=== PATIENT | male | born 1965 | race Caucasian/White ===

== ENCOUNTER 2018-04-24 14:31 | Emergency (ER) | payer BC, OTHER ==
--- OUTSIDE RECORDS SUMMARY | 2018-04-24 14:44 | XMS REPORT | Continuity of Care Document ---
:1965 External Reference #:[id number] Author Name Nilesh Cardenas M.D. Address [address] [place] [address] Care Team Providers Name Role Phone Nilesh Cardenas M.D. Primary Care Physician Unavailable Payers Type Date Identification Numbers Payment Provider Subscriber Effective: Policy Number: [id number] BC/BS [place]- Ppo Ronnie Guzman 2015 PayID: [id number] [address] [address] [place] [address] Advance Directives Description No Information Available Problems Date Description Provider Status Onset: 06/24/2011 Benign essential hypertension Nilesh Cardenas M.D. Active Onset: 06/24/2011 Chronic obstructive lung disease Nilesh Cardenas M.D. Active Onset: 06/24/2011 Gastroesophageal reflux disease Nilesh Cardenas M.D. Active Onset: 06/24/2011 Diaphragmatic hernia Nilesh Cardenas M.D. Active Onset: 09/29/2011 Essential hypertension Nilesh Cardenas M.D. Active Onset: 07/24/2016 Prediabetes Nilesh Cardenas M.D. 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 Tobacco Use Start: Unknown End: Unknown Patient is a former smoker Smoking Status Reviewed: 03/30/18 Patient is a former smoker Currently Active Patient is currently sexually active Allergies, Adverse Reactions, Alerts Description No Known Drug Allergies Medications Medication Date Status Form Strength Qnty SIG Indications Ordering Provider Metamucil Fiber 01/01 Active Packet 51.7% 1 daily Castellan os MOrly Metformin HCL 08/21 Active Tablets 1000mg 180ta 1 by mouth E11.9 bs twice a day Castellan os MOzzyDOzzy Onetouch Ultra 07/24 Active Strips 100un use two E11.9 its times a day Castellan and as os, M.D. needed Lancets 30G 07/24 Active Misc 30G 200un use two E11.9 its times a day Castellan and as os, M.D. needed Stiolto Respimat 07/02 Active Aerosol 2.5-2.5mc 4gm 2 J44.9 g/Act inhalations Castellan daily in the os, M.D. morning Cardura 07/02 Active Tablets 2mg 90tab 1 p.o every I10 s day Castellakenny os MOrly Ventolin HFA 12/27 Active Aerosol 108(90Bas 8gm inhale 2 J44.9 e) puffs by Castellan mcg/Act mouth every os, M.D. 4 hours if needed Lisinopril 10/12 Active Tablets 20mg 90tab take 1 I10 s tablet by Castellan mouth once os, M.D. daily Lansoprazole 06/18 Active Capsules 30mg 90cap take [address] s capsule by Castellan mouth once os, M.D. daily Furosemide 11/11 Hx Tablets 20mg 10tab 1 by mouth R60.0 s every day Castellan - os, M.D. 11/19 Colace 09/25 Hx Capsules 100mg 60cap 1 by mouth s twice a day Castellan - os, M.DOzzy 01/01 Lactobacillus 08/26 Hx Capsules 2 times per Nilesh Extra day Castellan - os, M.DOzzy 01/01 Cephalexin 04/06 Hx Tablets 500mg 40tab 1 by mouth L03.116 s four times a Castellan - day os, M.D. 03/26 /2018 Hydroxyzine HCL 04/06 Hx Tablets 50mg 90tab 1 by mouth L29.9 s at at Castellan - bedtime os, M.DOzzy 10/02 Terbinafine HCL 09/25 Hx Tablets 250mg 90tab 1 by mouth B35.1 s every day Castellan - os, M.DOzzy 12/31 Bacitracin 08/21 Hx Ointment 500Unit/G 1Tube use four 692.9 M times a day Castellan - os, M.DOzzy 12/31 Metformin HCL 07/24 Hx Tablets 500mg 60tab 1 by mouth E11.9 s twice a day Castellan - os, M.DOzzy 08/21 Onetouch Ultra 2 07/24 Hx Kit w/Device 1unit use daily E11.9 s and as Castellan - needed os, M.DOzzy 07/06 Duexis 09/19 Hx Tablets 800-26.6m 90tab 1 tid R09.1 g s Castellan - os, M.DOzzy 11/12 Methylphenidate 07/02 Hx Capsules 20mg 30cap 1 by mouth F90.0 Nilesh HCL ER () /2015 ER s every day Castellan - os, M.DOzzy 08/02 Lisinopril-Hydroc 07/02 Hx Tablets 20-25mg 90tab Error stop I10 Nilesh hlorothi s this drug Castellan - os, M.DOzzy 07/04 Amoxicillin 11/17 Hx Capsules 500mg 30cap 1 by mouth 462 s three times Castellan - a day os, M.DOzzy 03/30 Spiriva 09/28 Hx Capsules 18mcg 90cap 2 J44.9 Nilesh Handihale s inhalations Castellan - every in the os, M.DOzzy 07/02 Atrovent HFA 07/17 Hx Aerosol 17mcg/Act 1unit 2 inh qid s Castellan - os, M.DOzzy 03/30 Ammonium Lactate 06/30 Hx Cream 12% 140gm use twice a 692.9 day Castellan - os, M.D. 03/30 Bacitracin 06/30 Hx Ointment 500Unit/G 1Tube use four 692.9 M times a day Castellan - os, M.D. 09/28 Symbicort 01/09 Hx Aerosol 160-4.5mc 1unit 1 puff twice 496 g/Act s a day Castellan - os, M.D. 03/30 Spiriva 12/27 Hx Capsules 18mcg 30cap 2 496 Nilesh Handihaler s inhalations Castellan - every in the os, M.D. 01/09 Azithromycin 12/27 Hx Tablets 250mg 6tabs 2 now and 1 491.21 daily x 4 Castellan - days os, M.DOzzy 09/28 Levocetirizine 12/27 Hx Tablets 5mg 30tab 1 qd prn 477.9 Nilesh Dihydrochloride s Castellan - os, M.D. 12/27 Clotrimazole/Beta 01/04 Hx Cream 1-0.05% 1tube use tid 110.4 Nilesh methasone /2011 until clear Castellan Dipropionate - at least 2 os, M.D. Indomethacin 10/12 Hx Capsules 25mg 120ca 1 cap by 719.47 ps mouth four Castellan - times only os, M.D. 04/20 if needed for pain 274.9 Allopurinol 10/09/2011 Hx Tablets 300mg 90tabs 1 po qd 274.9 Nilesh - Cardenas, 04/20/2012 M.DOzzy Lisinopril/Hyd 07/07/2011 Hx Tablets 20-25m 90tabs take 1 tablet 401.9 Nilesh rochlorothiazi - g by mouth once Cardenas, de 10/13/2011 daily M.DOzzy Zestoretic 06/24/2011 Hx Tablets 20-25m 30tabs 1 po qd 401.9 Nilesh - g Cardenas, 07/07/2011 M.DOzzy Ibuprofen 06/24/2011 Hx Tablets 800mg 90tabs 1 po tid Nilesh - Cardenas, 10/13/2011 M.D. Ventolin HFA 06/24/2011 Hx Aerosol 108(90 1units inhale 2 puffs 496 Nilesh - Base) by mouth every Cardenas, 12/27/2013 mcg/ac 4 hours if M.D. needed Advair Diskus Hx Aerosol 250-50 28units 1 puff bid 496 Nilesh - mcg/Do Cardenas, 04/20/2012 se M.D. Meloxicam Hx Tablets 15mg take 1 tablet Unknown - by mouth once 07/03/2016 daily with food or milk Fluarix Hx Rosmery 0.5ml inject 0.5 Unknown Quadrivalent - milliliter 07/03/2016 intramuscularl y Ibuprofen Hx Tablets 800mg take 1 tablet Unknown - by mouth every 07/03/2016 8 hours if needed for pain Penicillin V Hx Tablets 500mg take 1 tablet Unknown Potassium - by mouth every 07/03/2016 6 hours Prednisone Hx Tablets 10mg take 1 tablet Unknown - by mouth every 04/06/2017 morning Oxycodone-Acet Hx Tablets 5-325m take 1 to 2 Unknown aminophen - g tablets by 04/06/2017 mouth four times a day if needed for pain maxim Fluticasone Hx Suspension 50mcg/ instill 2 Unknown Propionate - Act sprays into 04/06/2017 each nostril once daily Ciprofloxacin Hx Tablets 500mg take 1 tablet Unknown HCL - by mouth twice 09/23/2017 a day Metronidazole Hx Tablets 500mg take 1 tablet Unknown - by mouth three 10/02/2017 times a day Ciprofloxacin Hx Tablets 500mg 1 by mouth Unknown HCL - twice a day 01/01/2018 for diverticulitis . Medications Administered in Office Medication Date Status Form Strength Qnty SIG Indications Ordering Provider Arthr.Inj.join Administered Injection Nilesh chldr, hip, 999 Herr, knee P.A. Immunizations CPT Code Status Date Vaccine Lot # [id number] Given 03/19/2018 Influenza Vac,Quad,Split=>3 Yrs 52181 Given 07/06/2017 Influenza Vac,Quad,Split=>3 Yrs fluQiv [id number] 80295 Given 05/26/2016 Influenza Vac,Quad,Split=>3 Yrs 04767 Given 03/30/2015 Influenza Vac,Quad,Split=>3 Yrs Flu [id number] 94300 Given 03/29/2013 Flu Triv Old Code Flu [id number] 76326 Given 06/28/2012 Tdap Vaccine over 7 yrs old Tdap [id number] 80048 Given 06/28/2012 Flu Triv Old Code [id number] 36mos> 16778 Given 03/20/1997 Tetanus Toxoid Vital Signs Date Vital Result Comment 04/13/2018 1:44pm Weight 286.00 lb BP Systolic 116 mmHg BP Diastolic 66 mmHg 03/30/2018 3:06pm Weight 282.00 lb BP Systolic 108 mmHg BP Diastolic 70 mmHg 01/22/2018 11:00am Weight 276.00 lb 01/01/2018 9:41am Weight 272.00 lb BP Systolic 134 mmHg BP Diastolic 76 mmHg 11/19/2017 2:06pm Weight 267.00 lb 11/11/2017 11:46am Weight 277.00 lb BP Systolic 122 mmHg BP Diastolic 84 mmHg Heart Rate 84 /min Body Temperature 98.6 F O2 % BldC Oximetry 96 % room air Respiratory Rate 18 /min 10/28/2017 11:29am Weight 274.00 lb BP Systolic 106 mmHg BP Diastolic 70 mmHg Heart Rate 9618 /min O2 % BldC Oximetry 98 % room air 10/02/2017 9:56am Weight 275.00 lb 09/23/2017 1:27pm Weight 284.00 lb BP Systolic 116 mmHg BP Diastolic 74 mmHg 09/09/2017 11:02am Weight 285.50 lb BP Systolic 122 mmHg BP Diastolic 74 mmHg 08/26/2017 9:56am Weight 298.00 lb 07/06/2017 9:13am Weight 294.00 lb BP Systolic 122 mmHg BP Diastolic 82 mmHg Height 69 inches 5'9" Heart Rate 100 /min Respiratory Rate 16 /min BMI (Body Mass Index) 43.4 kg/m2 04/13/2017 3:27pm Weight 280.00 lb BP Systolic 110 mmHg BP Diastolic 70 mmHg 04/06/2017 8:21am Weight 280.00 lb BP Systolic 122 mmHg BP Diastolic 78 mmHg 12/31/2016 8:12am Weight 285.00 lb BP Systolic 142 mmHg BP Diastolic 86 mmHg Height 69 inches 5'9" BMI (Body Mass Index) 42.1 kg/m2 09/25/2016 4:49pm Weight 294.00 lb BP Systolic 118 mmHg BP Diastolic 76 mmHg 08/21/2016 3:57pm Weight 296.00 lb BP Systolic 120 mmHg BP Diastolic 86 mmHg 07/24/2016 9:17am Weight 299.00 lb BP Systolic 118 mmHg BP Diastolic 80 mmHg 07/03/2016 9:08am Weight 303.00 lb BP Systolic 118 mmHg BP Diastolic 74 mmHg Height 69 inches 5'9" Heart Rate 64 /min Body Temperature 98.1 F Respiratory Rate 16 /min BMI (Body Mass Index) 44.7 kg/m2 11/13/2015 4:27pm Weight 284.00 lb BP Systolic 132 mmHg BP Diastolic 74 mmHg 09/27/2015 3:42pm Weight 284.00 lb BP Systolic 110 mmHg BP Diastolic 66 mmHg 09/20/2015 3:08pm Weight 283.00 lb 08/02/2015 3:00pm Weight 278.00 lb BP Systolic 118 mmHg BP Diastolic 72 mmHg 07/02/2015 9:17am Weight 276.00 lb BP Systolic 120 mmHg BP Diastolic 90 mmHg Height 69.25 inches 5'9.25" Heart Rate 96 /min Body Temperature 97.9 F Respiratory Rate 16 /min BMI (Body Mass Index) 40.5 kg/m2 03/30/2015 8:38am Weight 272.50 lb BP Systolic 120 mmHg BP Diastolic 88 mmHg 02/19/2015 4:22pm BP Systolic 118 mmHg BP Diastolic 98 mmHg 11/17/2014 11:36am Weight 282.50 lb BP Systolic 110 mmHg BP Diastolic 80 mmHg Body Temperature 98.7 F 09/28/2014 2:54pm Weight 288.00 lb BP Systolic 120 mmHg BP Diastolic 90 mmHg 06/30/2014 9:22am Weight 281.00 lb BP Systolic 108 mmHg BP Diastolic 82 mmHg Height 69.25 inches 5'9.25" Heart Rate 76 /min Body Temperature 97.9 F Respiratory Rate 16 /min BMI (Body Mass Index) 41.2 kg/m2 01/09/2014 4:21pm Weight 280.00 lb BP Systolic 116 mmHg BP Diastolic 82 mmHg 01/09/2014 4:19pm Weight 280.00 lb 12/27/2013 9:57am Weight 277.00 lb BP Systolic 110 mmHg BP Diastolic 80 mmHg Heart Rate 85 /min O2 % BldC Oximetry 98 % Ra 06/29/2013 2:31pm Weight 273.50 lb BP Systolic 120 mmHg BP Diastolic 84 mmHg Height 69.25 inches 5'9.25" Heart Rate 68 /min Body Temperature 97.7 F Respiratory Rate 16 /min BMI (Body Mass Index) 40.1 kg/m2 05/26/2013 11:36am Weight 274.00 lb BP Systolic 100 mmHg BP Diastolic 68 mmHg 03/29/2013 1:51pm Weight 280.00 lb steel toe footwear BP Systolic 110 mmHg BP Diastolic 78 mmHg 12/27/2012 2:16pm Weight 272.00 lb BP Systolic 94 mmHg BP Diastolic 70 mmHg Height 69 inches 5'9" BMI (Body Mass Index) 40.2 kg/m2 06/28/2012 2:10pm Weight 258.50 lb BP Systolic 110 mmHg BP Diastolic 76 mmHg Height 69 inches 5'9" Heart Rate 96 /min Body Temperature 98.6 F Respiratory Rate 16 /min BMI (Body Mass Index) 38.2 kg/m2 04/20/2012 9:21am Weight 257.00 lb BP Systolic 118 mmHg BP Diastolic 80 mmHg 01/19/2012 1:55pm Weight 257.50 lb BP Systolic 114 mmHg BP Diastolic 78 mmHg Height 69 inches 5'9" BMI (Body Mass Index) 38.0 kg/m2 01/05/2012 8:06am Weight 261.00 lb BP Systolic 110 mmHg BP Diastolic 78 mmHg Height 69 inches 5'9" BMI (Body Mass Index) 38.5 kg/m2 11/13/2011 9:38am Weight 254.00 lb BP Systolic 116 mmHg BP Diastolic 86 mmHg Height 69 inches 5'9" BMI (Body Mass Index) 37.5 kg/m2 10/13/2011 10:50am Weight 253.00 lb BP Systolic 116 mmHg BP Diastolic 76 mmHg Height 69 inches 5'9" BMI (Body Mass Index) 37.4 kg/m2 09/29/2011 8:49am Weight 253.00 lb BP Systolic 128 mmHg took BP med x1hr ago. BP Diastolic 96 mmHg took BP med x1hr ago. Height 69 inches 5'9" BMI (Body Mass Index) 37.4 kg/m2 06/24/2011 9:15am Weight 250.00 lb BP Systolic 128 mmHg BP Diastolic 88 mmHg Height 69 inches 5'9" Heart Rate 68 /min Body Temperature 98.2 F Respiratory Rate 16 /min BMI (Body Mass Index) 36.9 kg/m2 Results Test Date Facility Test Result H/L Range Note TSH Reflex FT4 04/09/2018 [facility] Thyroid Stim 1.31 uIU/mL 0.30 -4.20 1 And/Or FT3 [phone] Hormone Reflex add FT3? N Reflex add FT4? Y Laboratory test finding 01/01/2018 [facility] Uric Acid 6.4 mg/dL 3.5-7.2 2 [phone] Rheumatoid Factor Screen < 10.0 IU/mL 0.0-15.0 Lyme Igg & Igm By 01/01/2018 [facility] Lyme AB Igg By Western . Western Blot [phone] Blot P93 AB Absent . P66 AB Absent . P58 AB Absent . P45 AB Absent . P41 AB Present . P39 AB Absent . P30 AB Absent . P28 AB Absent . P23 AB Absent . P18 AB Absent . Lyme Igg WB Interpretation Negative . 3 Lyme AB Igm By Western Blot . P41 AB Absent . P39 AB Absent . P23 AB Absent . Lyme Igm WB Interpretation Negative . 4 Laboratory test 01/01/2018 [facility] Sedimentation Rate 10 mm/hr 0-20 5 finding [phone] C-Reactive Protein,Cardiac 7.85 mg/L <3.0 Antinuclear Antibodies, Ifa Negative . 6 Liver Function Tests 11/17/2017 [facility] Total Protein 7.3 g/dL 6.4-8.2 7 [phone] Albumin 3.5 g/dL 3.4-5.0 Globulin 3.8 g/dL 1.9-4.3 Alb/Glob 0.9 ratio Bilirubin,Total 0.2 mg/dL 0.2-1.0 Bilirubin,Direct < 0.1 mg/dL 0.0-0.2 Bilirubin,Indirect 0.1 mg/dL 0.0-0.9 Sgot/Ast 8 U/L Low 15-37 8 SGPT/Alt 46 U/L 12-78 Alkaline Phosphatase 76 U/L 45-117 Basic Metabolic Panel 11/17/2017 [facility] Glucose 86 mg/dL 74- 106 [phone] BUN 19 mg/dL High 7-18 Creatinine 0.8 mg/dL 0.6-1.3 Glom Filtration Rate, Estimate >60 mL/min >60 If >60 mL/min >60 9 BUN/Creat 23.7 ratio Sodium 136 mmol/L 136-145 Potassium 4.1 mmol/L 3.5-5.1 Chloride 100 mmol/L 98-107 Carbon Dioxide 28 mmol/L 21-32 Anion Gap 8 mEq/L 8-16 Calcium 9.3 mg/dL 8.5-10.1 Comprehensive Metabolic 11/10/2017 [facility] Glucose 97 mg/dL 74- 106 10 Panel [phone] BUN 9 mg/dL 7-18 Creatinine 0.7 mg/dL 0.6-1.3 Glom Filtration Rate, Estimate >60 mL/min >60 If >60 mL/min >60 11 BUN/Creat 12.8 ratio Sodium 141 mmol/L 136-145 Potassium 3.6 mmol/L 3.5-5.1 Chloride 106 mmol/L 98-107 Carbon Dioxide 27 mmol/L 21-32 Anion Gap 8 mEq/L 8-16 Calcium 8.5 mg/dL 8.5-10.1 Total Protein 6.6 g/dL 6.4-8.2 Albumin 3.1 g/dL Low 3.4-5.0 Globulin 3.5 g/dL 1.9-4.3 Alb/Glob 0.9 ratio Bilirubin,Total 0.3 mg/dL 0.2-1.0 Sgot/Ast 93 U/L High 15-37 SGPT/Alt 104 U/L High 12-78 Alkaline Phosphatase 80 U/L 45-117 CBS W/Automated 11/10/2017 [facility] White Blood 11.5 K/uL High 3.4-10.5 Diff [phone] Count Red Blood Count 4.57 M/uL 4.20-5.80 Hemoglobin 13.1 gm/dL 12.8-17.0 Hematocrit 38.9 % 38.0-48.0 Mean Cell Volume 85.1 fl 80.0-96.0 Mean Corpuscular HGB 28.7 pg 27.0-33.0 Mean Corpuscular HGB Conc 33.7 g/dL 31.7-36.0 Platelet Count 354 K/uL 155-360 Red Cell Distri Width SD 45.3 fl 36-51 Red Cell Distri Width %CV 14.9 % 11.6-15.8 Mean Platelet Volume 9.5 fL 6.6-10.6 Neut% 72.1 % 33.0-73.0 Lymph % 12.4 % Low 20.0-42.0 [place] % 12.4 % High 0.0-10.0 Eo% 2.7 % 0.0-6.6 Bas% 0.4 % 0.0-1.1 Neut# 8.31 K/uL High 1.8-7.0 Lymph # 1.43 K/uL 1.0-4.0 [place] # 1.43 K/uL High 0.0-0.8 Eos # 0.31 K/uL 0.0-0.5 Baso # 0.05 K/uL 0.0-0.1 Slide Review 11/10/2017 [facility] Slide Review . 12 [phone] Basic Metabolic Panel 11/09/2017 [facility] Glucose 90 mg/dL 74- 106 13 [phone] BUN 9 mg/dL 7-18 Creatinine 0.8 mg/dL 0.6-1.3 Glom Filtration Rate, Estimate >60 mL/min >60 If >60 mL/min >60 14 BUN/Creat 11.2 ratio Sodium 139 mmol/L 136-145 Potassium 3.3 mmol/L Low 3.5-5.1 Chloride 105 mmol/L 98-107 Carbon Dioxide 24 mmol/L 21-32 Anion Gap 10 mEq/L 8-16 Calcium 8.0 mg/dL Low 8.5-10.1 CBC 11/09/2017 [facility] White Blood Count 10.2 K/uL 3.4-10.5 [phone] Red Blood Count 4.29 M/uL 4.20-5.80 Hemoglobin 12.2 gm/dL Low 12.8-17.0 Hematocrit 36.5 % Low 38.0-48.0 Mean Cell Volume 85.1 fl 80.0-96.0 Mean Corpuscular HGB 28.4 pg 27.0-33.0 Mean Corpuscular HGB Conc 33.4 g/dL 31.7-36.0 Platelet Count 330 K/uL 155-360 Red Cell Distri Width %CV 14.8 % 11.6-15.8 Mean Platelet Volume 9.7 fL 6.6-10.6 CBC 11/08/2017 [facility] White Blood Count 9.8 K/uL 3.4-10.5 [phone] Red Blood Count 4.21 M/uL 4.20-5.80 Hemoglobin 11.9 gm/dL Low 12.8-17.0 Hematocrit 36.4 % Low 38.0-48.0 Mean Cell Volume 86.5 fl 80.0-96.0 Mean Corpuscular HGB 28.3 pg 27.0-33.0 Mean Corpuscular HGB Conc 32.7 g/dL 31.7-36.0 Platelet Count 333 K/uL 155-360 Red Cell Distri Width %CV 15.1 % 11.6-15.8 Mean Platelet Volume 10.0 fL 6.6-10.6 Basic Metabolic Panel 11/08/2017 [facility] Glucose 101 mg/dL 74- 106 [phone] BUN 10 mg/dL 7-18 Creatinine 0.8 mg/dL 0.6-1.3 Glom Filtration Rate, Estimate >60 mL/min >60 If >60 mL/min >60 15 BUN/Creat 12.5 ratio Sodium 139 mmol/L 136-145 Potassium 3.3 mmol/L Low 3.5-5.1 Chloride 107 mmol/L 98-107 Carbon Dioxide 24 mmol/L 21-32 Anion Gap 8 mEq/L 8-16 Calcium 7.8 mg/dL Low 8.5-10.1 Basic Metabolic Panel 11/07/2017 [facility] Glucose 108 mg/dL High 74-106 [phone] BUN 11 mg/dL 7-18 Creatinine 0.9 mg/dL 0.6-1.3 Glom Filtration Rate, Estimate >60 mL/min >60 If >60 mL/min >60 16 BUN/Creat 12.2 ratio Sodium 139 mmol/L 136-145 Potassium 3.5 mmol/L 3.5-5.1 Chloride 107 mmol/L 98-107 Carbon Dioxide 24 mmol/L 21-32 Anion Gap 8 mEq/L 8-16 Calcium 7.8 mg/dL Low 8.5-10.1 CBC 11/07/2017 [facility] White Blood Count 10.0 K/uL 3.4-10.5 [phone] Red Blood Count 4.30 M/uL 4.20-5.80 Hemoglobin 12.3 gm/dL Low 12.8-17.0 Hematocrit 37.1 % Low 38.0-48.0 Mean Cell Volume 86.3 fl 80.0-96.0 Mean Corpuscular HGB 28.6 pg 27.0-33.0 Mean Corpuscular HGB Conc 33.2 g/dL 31.7-36.0 Platelet Count 296 K/uL 155-360 Red Cell Distri Width %CV 15.4 % 11.6-15.8 Mean Platelet Volume 9.8 fL 6.6-10.6 Glycohemoglobin 11/07/2017 [facility] Glycohemoglobin 6.4 % High 4.2-6.3 17 A1c [phone] (A1c) eAG 137 mg/dL CBC 11/06/2017 [facility] White Blood Count 13.0 K/uL High 3.4- 10.5 18 [phone] Red Blood Count 4.54 M/uL 4.20-5.80 Hemoglobin 12.7 gm/dL Low 12.8-17.0 Hematocrit 39.3 % 38.0-48.0 Mean Cell Volume 86.6 fl 80.0-96.0 Mean Corpuscular HGB 28.0 pg 27.0-33.0 Mean Corpuscular HGB Conc 32.3 g/dL 31.7-36.0 Platelet Count 330 K/uL 155-360 Red Cell Distri Width %CV 15.4 % 11.6-15.8 Mean Platelet Volume 10.0 fL 6.6-10.6 Comprehensive Metabolic 11/06/2017 [facility] Glucose 129 mg/dL High 74-106 Panel [phone] BUN 14 mg/dL 7-18 Creatinine 1.0 mg/dL 0.6-1.3 Glom Filtration Rate, Estimate >60 mL/min >60 If >60 mL/min >60 19 BUN/Creat 14.0 ratio Sodium 138 mmol/L 136-145 Potassium 3.8 mmol/L 3.5-5.1 Chloride 105 mmol/L 98-107 Carbon Dioxide 27 mmol/L 21-32 Anion Gap 6 mEq/L Low 8-16 Calcium 7.7 mg/dL Low 8.5-10.1 Total Protein 5.9 g/dL Low 6.4-8.2 Albumin 2.9 g/dL Low 3.4-5.0 Globulin 3.0 g/dL 1.9-4.3 Alb/Glob 1.0 ratio Bilirubin,Total 0.3 mg/dL 0.2-1.0 Sgot/Ast 21 U/L 15-37 SGPT/Alt 30 U/L 12-78 Alkaline Phosphatase 40 U/L Low 45-117 Act Partial 10/29/2017 [facility] Act Partial 29.2 seconds 23.4- 35.0 20 Thrombo Time [phone] Thrombo Time Anticoagulant Therapy? NO Protime 10/29/2017 [facility] Protime 14.0 seconds 12.0-14.4 [phone] Inr 1.1 0.9-1.1 21 Anticoagulant Therapy? NO Ua RFX Micro & Culture II 10/29/2017 [facility] Urine Color YELLOW Yellow [phone] Urine Clarity CLEAR Clear Urine Glucose - Dipstick NEGATIVE mg/dL Negative Urine Bilirubin - Dipstick NEGATIVE Negative Urine Ketone NEGATIVE mg/dL Negative Urine Specific [place] 1.015 1.010-1.030 Urine Blood NEGATIVE Negative Urine PH 7.0 6.5-7.5 Urine Protein - Dipstick NEGATIVE mg/dL Negative Urine Urobilinogen - Dipstick 0.2 E.U./dL 0.2-1.0 Urine Nitrite - Dipstick NEGATIVE Negative Urine Leuk Esterase NEGATIVE Negative Source: URINE, CLEAN CAT <SEE NOTE> 22 Comprehensive Metabolic 10/29/2017 [facility] Glucose 103 mg/dL 74 -106 Panel [phone] BUN 16 mg/dL 7-18 Creatinine 0.9 mg/dL 0.6-1.3 Glom Filtration Rate, Estimate >60 mL/min >60 If >60 mL/min >60 23 BUN/Creat 17.7 ratio Sodium 137 mmol/L 136-145 Potassium 4.0 mmol/L 3.5-5.1 Chloride 104 mmol/L 98-107 Carbon Dioxide 28 mmol/L 21-32 Anion Gap 5 mEq/L Low 8-16 Calcium 8.7 mg/dL 8.5-10.1 Total Protein 6.9 g/dL 6.4-8.2 Albumin 3.7 g/dL 3.4-5.0 Globulin 3.2 g/dL 1.9-4.3 Alb/Glob 1.2 ratio Bilirubin,Total 0.3 mg/dL 0.2-1.0 Sgot/Ast 16 U/L 15-37 SGPT/Alt 30 U/L 12-78 Alkaline Phosphatase 59 U/L 45-117 Glycohemoglobin 10/29/2017 [facility] Glycohemoglobin 6.5 % High 4.2-6.3 24 A1c [phone] (A1c) eAG 140 mg/dL Microalbumin,Random 10/29/2017 [facility] Microalbumin,Urine < 5.0 < 20.0 Urine [phone] mg/L CBC 10/29/2017 [facility] White Blood Count 8.1 3.4-10 [phone] K/uL .5 Red Blood Count 5.01 M/uL 4.20-5.80 Hemoglobin 14.2 gm/dL 12.8-17.0 Hematocrit 42.7 % 38.0-48.0 Mean Cell Volume 85.2 fl 80.0-96.0 Mean Corpuscular HGB 28.3 pg 27.0-33.0 Mean Corpuscular HGB Conc 33.3 g/dL 31.7-36.0 Platelet Count 292 K/uL 155-360 Red Cell Distri Width %CV 15.4 % 11.6-15.8 Mean Platelet Volume 9.8 fL 6.6-10.6 Anticoagulant Therapy? NO Laboratory test 10/29/2017 [facility] C-Reactive 2.73 <3.0 finding [phone] Protein,Cardiac mg/L Homocyst(E)Ine, 10/29/2017 [facility] Homocyst(e)ine, P/S 11.9 0.0 -15.0 25 P/S [phone] umol/L Comprehensive 09/27/2017 [facility] Glucose 103 74-106 26 Metabolic Panel [phone] mg/dL BUN 11 mg/dL 7-18 Creatinine 0.8 mg/dL 0.6-1.3 Glom Filtration Rate, Estimate >60 mL/min >60 If >60 mL/min >60 27 BUN/Creat 13.7 ratio Sodium 141 mmol/L 136-145 Potassium 4.1 mmol/L 3.5-5.1 Chloride 104 mmol/L 98-107 Carbon Dioxide 26 mmol/L 21-32 Anion Gap 11 mEq/L 8-16 Calcium 8.7 mg/dL 8.5-10.1 Total Protein 7.1 g/dL 6.4-8.2 Albumin 3.4 g/dL 3.4-5.0 Globulin 3.7 g/dL 1.9-4.3 Alb/Glob 0.9 ratio Bilirubin,Total 0.2 mg/dL 0.2-1.0 Sgot/Ast 14 U/L Low 15-37 28 SGPT/Alt 22 U/L 12-78 Alkaline Phosphatase 83 U/L 45-117 Laboratory test 09/27/2017 [facility] Occult NEGATIVE Negative 29 finding [phone] Blood,Stool Laboratory test 09/27/2017 [facility] Lipase 108 U/L 56-289 finding [phone] CBS W/Automated 09/27/2017 [facility] White Blood 13.0 K/uL High 3.4-10.5 Diff [phone] Count Red Blood Count 4.64 M/uL 4.20-5.80 Hemoglobin 13.3 gm/dL 12.8-17.0 Hematocrit 39.4 % 38.0-48.0 Mean Cell Volume 84.9 fl 80.0-96.0 Mean Corpuscular HGB 28.7 pg 27.0-33.0 Mean Corpuscular HGB Conc 33.8 g/dL 31.7-36.0 Platelet Count 299 K/uL 155-360 Red Cell Distri Width SD 45.0 fl 36-51 Red Cell Distri Width %CV 14.9 % 11.6-15.8 Mean Platelet Volume 9.8 fL 6.6-10.6 Neut% 61.0 % 33.0-73.0 Lymph % 24.5 % 20.0-42.0 [place] % 11.1 % High 0.0-10.0 Eo% 2.9 % 0.0-6.6 Bas% 0.5 % 0.0-1.1 Neut# 7.91 K/uL High 1.8-7.0 Lymph # 3.17 K/uL 1.0-4.0 [place] # 1.44 K/uL High 0.0-0.8 Eos # 0.37 K/uL 0.0-0.5 Baso # 0.07 K/uL 0.0-0.1 Urinalysis With 09/27/2017 [facility] Urine Color YELLOW Yellow Microscopic [phone] Urine Clarity CLEAR Clear Urine Glucose - Dipstick NEGATIVE mg/dL Negative Urine Bilirubin - Dipstick NEGATIVE Negative Urine Ketone NEGATIVE mg/dL Negative Urine Specific [place] >=1.030 1.010-1.030 Urine Blood SMALL Negative Urine PH 5.5 Low 6.5-7.5 Urine Protein - Dipstick NEGATIVE mg/dL Negative Urine Urobilinogen - Dipstick 0.2 E.U./dL 0.2-1.0 Urine Nitrite - Dipstick NEGATIVE Negative Urine Leuk Esterase NEGATIVE Negative Urine RBC 0-2 rbc/hpf 0-2 Urine WBC 0-2 wbc/hpf 0-7 Urine Epithelial Cells VERY FEW /lpf None Seen Source: URINE, CLEAN CAT <SEE NOTE> 30 Slide Review 09/27/2017 [facility] Slide Review (SEE NOTE) 31 [phone] Laboratory test 09/11/2017 [facility] Cortisol,Am 13.4 g/dL 6.2- 19 32, 33 finding [phone] .4 Aldosterone 3.8 ng/dL 0.0-30.0 34 Dehydroepiandrosterone (Dhea) 83 ng/dL 31-701 35 LC/MS Testosterone Total 213.4 ng/dL Low 264.0-916.0 36 CBC 09/11/2017 [facility] White Blood Count 10.6 K/uL High 3.4- 10.5 [phone] Red Blood Count 4.93 M/uL 4.20-5.80 Hemoglobin 13.9 gm/dL 12.8-17.0 Hematocrit 41.3 % 38.0-48.0 Mean Cell Volume 83.8 fl 80.0-96.0 Mean Corpuscular HGB 28.2 pg 27.0-33.0 Mean Corpuscular HGB Conc 33.7 g/dL 31.7-36.0 Platelet Count 376 K/uL High 155-360 Red Cell Distri Width %CV 14.5 % 11.6-15.8 Mean Platelet Volume 9.3 fL 6.6-10.6 Laboratory test 09/11/2017 [facility] Prostate 0.36 ng/mL < 4.0 37 finding [phone] Specific Antigen Vitamin D,25-Hydroxy 34.1 ng/mL 30.0-100.0 38 Thyroid Stim Hormone 2.10 uIU/mL 0.30-4.20 Comprehensive Metabolic 09/11/2017 [facility] Glucose 118 mg/dL High 74-106 Panel [phone] BUN 14 mg/dL 7-18 Creatinine 0.8 mg/dL 0.6-1.3 Glom Filtration Rate, Estimate >60 mL/min >60 If >60 mL/min >60 39 BUN/Creat 17.5 ratio Sodium 138 mmol/L 136-145 Potassium 3.9 mmol/L 3.5-5.1 Chloride 105 mmol/L 98-107 Carbon Dioxide 27 mmol/L 21-32 Anion Gap 6 mEq/L Low 8-16 Calcium 8.6 mg/dL 8.5-10.1 Total Protein 6.8 g/dL 6.4-8.2 Albumin 3.7 g/dL 3.4-5.0 Globulin 3.1 g/dL 1.9-4.3 Alb/Glob 1.2 ratio Bilirubin,Total 0.2 mg/dL 0.2-1.0 Sgot/Ast 18 U/L 15-37 SGPT/Alt 43 U/L 12-78 Alkaline Phosphatase 63 U/L 45-117 Microalbumin,Random 09/11/2017 [facility] Microalbumin,Urine 7.3 < Urine [phone] mg/L 20.0 Glycohemoglobin A1c 09/11/2017 [facility] Glycohemoglobin 6.4 % High 4.2-6 40 [phone] (A1c) .3 eAG 137 mg/dL CBS W/Automated Diff 09/04/2017 [facility] White Blood 9.7 K/uL 3.4-10.5 41 [phone] Count Red Blood Count 4.92 M/uL 4.20-5.80 Hemoglobin 13.7 gm/dL 12.8-17.0 Hematocrit 41.9 % 38.0-48.0 Mean Cell Volume 85.2 fl 80.0-96.0 Mean Corpuscular HGB 27.8 pg 27.0-33.0 Mean Corpuscular HGB Conc 32.7 g/dL 31.7-36.0 Platelet Count 380 K/uL High 155-360 Red Cell Distri Width SD 43.0 fl 36-51 Red Cell Distri Width %CV 14.2 % 11.6-15.8 Mean Platelet Volume 9.0 fL 6.6-10.6 Neut% 61.5 % 33.0-73.0 Lymph % 21.3 % 20.0-42.0 [place] % 12.1 % High 0.0-10.0 Eo% 4.6 % 0.0-6.6 Bas% 0.5 % 0.0-1.1 Neut# 5.95 K/uL 1.8-7.0 Lymph # 2.06 K/uL 1.0-4.0 [place] # 1.17 K/uL High 0.0-0.8 Eos # 0.44 K/uL 0.0-0.5 Baso # 0.05 K/uL 0.0-0.1 Basic Metabolic Panel 09/04/2017 [facility] Glucose 126 mg/dL High 74-106 [phone] BUN 11 mg/dL 7-18 Creatinine 0.9 mg/dL 0.6-1.3 Glom Filtration Rate, Estimate >60 mL/min >60 If >60 mL/min >60 42 BUN/Creat 12.2 ratio Sodium 141 mmol/L 136-145 Potassium 4.4 mmol/L 3.5-5.1 Chloride 107 mmol/L 98-107 Carbon Dioxide 31 mmol/L 21-32 Anion Gap 3 mEq/L Low 8-16 Calcium 8.7 mg/dL 8.5-10.1 CBS W/Automated 09/02/2017 [facility] White Blood 11.0 K/uL High 3.4-10.5 43 Diff [phone] Count Red Blood Count 4.79 M/uL 4.20-5.80 Hemoglobin 13.3 gm/dL 12.8-17.0 Hematocrit 40.8 % 38.0-48.0 Mean Cell Volume 85.2 fl 80.0-96.0 Mean Corpuscular HGB 27.8 pg 27.0-33.0 Mean Corpuscular HGB Conc 32.6 g/dL 31.7-36.0 Platelet Count 360 K/uL 155-360 Red Cell Distri Width SD 43.4 fl 36-51 Red Cell Distri Width %CV 14.2 % 11.6-15.8 Mean Platelet Volume 9.5 fL 6.6-10.6 Neut% 71.0 % 33.0-73.0 Lymph % 11.9 % Low 20.0-42.0 [place] % 12.5 % High 0.0-10.0 Eo% 3.9 % 0.0-6.6 Bas% 0.7 % 0.0-1.1 Neut# 7.78 K/uL High 1.8-7.0 Lymph # 1.31 K/uL 1.0-4.0 [place] # 1.37 K/uL High 0.0-0.8 Eos # 0.43 K/uL 0.0-0.5 Baso # 0.08 K/uL 0.0-0.1 Basic Metabolic Panel 09/02/2017 [facility] Glucose 105 mg/dL 74- 106 [phone] BUN 12 mg/dL 7-18 Creatinine 0.9 mg/dL 0.6-1.3 Glom Filtration Rate, Estimate >60 mL/min >60 If >60 mL/min >60 44 BUN/Creat 13.3 ratio Sodium 138 mmol/L 136-145 Potassium 3.8 mmol/L 3.5-5.1 Chloride 106 mmol/L 98-107 Carbon Dioxide 28 mmol/L 21-32 Anion Gap 4 mEq/L Low 8-16 Calcium 8.0 mg/dL Low 8.5-10.1 Laboratory test 09/02/2017 [facility] C-Reactive 5.7 mg/L High < 3.0 finding [phone] Protein,Quant Ua RFX Micro & 09/01/2017 [facility] Urine Color YELLOW Yellow 45 Culture II [phone] Urine Clarity CLEAR Clear Urine Glucose - Dipstick NEGATIVE mg/dL Negative Urine Bilirubin - Dipstick NEGATIVE Negative Urine Ketone NEGATIVE mg/dL Negative Urine Specific [place] <=1.005 Low 1.010-1.030 Urine Blood TRACE Negative Urine PH 6.0 Low 6.5-7.5 Urine Protein - Dipstick NEGATIVE mg/dL Negative Urine Urobilinogen - Dipstick 0.2 E.U./dL 0.2-1.0 Urine Nitrite - Dipstick NEGATIVE Negative Urine Leuk Esterase NEGATIVE Negative Source: URINE, CLEAN CAT <SEE NOTE> 46 Laboratory test 09/01/2017 [facility] RBC Morphology 0-1+ finding [phone] Only Comprehensive 09/01/2017 [facility] Glucose 90 mg/dL 74-106 Metabolic Panel [phone] BUN 14 mg/dL 7-18 Creatinine 0.9 mg/dL 0.6-1.3 Glom Filtration Rate, Estimate >60 mL/min >60 If >60 mL/min >60 47 BUN/Creat 15.5 ratio Sodium 138 mmol/L 136-145 Potassium 3.9 mmol/L 3.5-5.1 Chloride 103 mmol/L 98-107 Carbon Dioxide 28 mmol/L 21-32 Anion Gap 7 mEq/L Low 8-16 Calcium 9.3 mg/dL 8.5-10.1 Total Protein 7.3 g/dL 6.4-8.2 Albumin 3.9 g/dL 3.4-5.0 Globulin 3.4 g/dL 1.9-4.3 Alb/Glob 1.1 ratio Bilirubin,Total 0.2 mg/dL 0.2-1.0 Sgot/Ast 24 U/L 15-37 SGPT/Alt 39 U/L 12-78 Alkaline Phosphatase 65 U/L 45-117 Laboratory test 09/01/2017 [facility] Lipase 80 U/L 56-289 finding [phone] CBS W/Automated 09/01/2017 [facility] White Blood 14.3 K/uL High 3.4-10.5 Diff [phone] Count Red Blood Count 5.05 M/uL 4.20-5.80 Hemoglobin 14.2 gm/dL 12.8-17.0 Hematocrit 42.6 % 38.0-48.0 Mean Cell Volume 84.4 fl 80.0-96.0 Mean Corpuscular HGB 28.1 pg 27.0-33.0 Mean Corpuscular HGB Conc 33.3 g/dL 31.7-36.0 Platelet Count 361 K/uL High 155-360 Red Cell Distri Width SD 43.0 fl 36-51 Red Cell Distri Width %CV 14.3 % 11.6-15.8 Mean Platelet Volume 9.6 fL 6.6-10.6 Neut% 73.0 % 33.0-73.0 Lymph % 14.9 % Low 20.0-42.0 [place] % 9.4 % 0.0-10.0 Eo% 2.2 % 0.0-6.6 Bas% 0.5 % 0.0-1.1 Neut# 10.46 K/uL High 1.8-7.0 Lymph # 2.13 K/uL 1.0-4.0 [place] # 1.35 K/uL High 0.0-0.8 Eos # 0.31 K/uL 0.0-0.5 Baso # 0.07 K/uL 0.0-0.1 Slide Review 09/01/2017 [facility] Slide Review . 48 [phone] CBS W/Automated 08/24/2017 [facility] White Blood 10.2 K/uL 3.4- 10.5 49 Diff [phone] Count Red Blood Count 4.58 M/uL 4.20-5.80 Hemoglobin 13.0 gm/dL 12.8-17.0 Hematocrit 38.7 % 38.0-48.0 Mean Cell Volume 84.5 fl 80.0-96.0 Mean Corpuscular HGB 28.4 pg 27.0-33.0 Mean Corpuscular HGB Conc 33.6 g/dL 31.7-36.0 Platelet Count 334 K/uL 155-360 Red Cell Distri Width SD 43.1 fl 36-51 Red Cell Distri Width %CV 14.3 % 11.6-15.8 Mean Platelet Volume 9.5 fL 6.6-10.6 Neut% 64.4 % 33.0-73.0 Lymph % 21.0 % 20.0-42.0 [place] % 10.3 % High 0.0-10.0 Eo% 3.9 % 0.0-6.6 Bas% 0.4 % 0.0-1.1 Neut# 6.58 K/uL 1.8-7.0 Lymph # 2.15 K/uL 1.0-4.0 [place] # 1.05 K/uL High 0.0-0.8 Eos # 0.40 K/uL 0.0-0.5 Baso # 0.04 K/uL 0.0-0.1 Basic Metabolic Panel 08/24/2017 [facility] Glucose 112 mg/dL High 74-106 [phone] BUN 11 mg/dL 7-18 Creatinine 0.8 mg/dL 0.6-1.3 Glom Filtration Rate, Estimate >60 mL/min >60 If >60 mL/min >60 50 BUN/Creat 13.7 ratio Sodium 140 mmol/L 136-145 Potassium 4.1 mmol/L 3.5-5.1 Chloride 107 mmol/L 98-107 Carbon Dioxide 26 mmol/L 21-32 Anion Gap 7 mEq/L Low 8-16 Calcium 8.4 mg/dL Low 8.5-10.1 CBS W/Automated Diff 08/23/2017 [facility] White Blood 10.0 K/uL 3.4-10.5 [phone] Count Red Blood Count 4.59 M/uL 4.20-5.80 Hemoglobin 12.8 gm/dL 12.8-17.0 Hematocrit 39.1 % 38.0-48.0 Mean Cell Volume 85.2 fl 80.0-96.0 Mean Corpuscular HGB 27.9 pg 27.0-33.0 Mean Corpuscular HGB Conc 32.7 g/dL 31.7-36.0 Platelet Count 311 K/uL 155-360 Red Cell Distri Width SD 43.7 fl 36-51 Red Cell Distri Width %CV 14.4 % 11.6-15.8 Mean Platelet Volume 10.0 fL 6.6-10.6 Neut% 58.7 % 33.0-73.0 Lymph % 24.5 % 20.0-42.0 [place] % 11.5 % High 0.0-10.0 Eo% 4.8 % 0.0-6.6 Bas% 0.5 % 0.0-1.1 Neut# 5.85 K/uL 1.8-7.0 Lymph # 2.44 K/uL 1.0-4.0 [place] # 1.15 K/uL High 0.0-0.8 Eos # 0.48 K/uL 0.0-0.5 Baso # 0.05 K/uL 0.0-0.1 Comprehensive Metabolic 08/23/2017 [facility] Glucose 101 mg/dL 74 -106 Panel [phone] BUN 11 mg/dL 7-18 Creatinine 0.9 mg/dL 0.6-1.3 Glom Filtration Rate, Estimate >60 mL/min >60 If >60 mL/min >60 51 BUN/Creat 12.2 ratio Sodium 141 mmol/L 136-145 Potassium 4.0 mmol/L 3.5-5.1 Chloride 108 mmol/L High 98-107 Carbon Dioxide 29 mmol/L 21-32 Anion Gap 4 mEq/L Low 8-16 Calcium 8.4 mg/dL Low 8.5-10.1 Total Protein 6.3 g/dL Low 6.4-8.2 Albumin 3.0 g/dL Low 3.4-5.0 Globulin 3.3 g/dL 1.9-4.3 Alb/Glob 0.9 ratio Bilirubin,Total 0.3 mg/dL 0.2-1.0 Sgot/Ast 13 U/L Low 15-37 52 SGPT/Alt 18 U/L 12-78 Alkaline Phosphatase 60 U/L 45-117 Laboratory test 08/23/2017 [facility] C-Reactive 52.9 mg/L High < 3.0 finding [phone] Protein,Quant CBS W/Automated 08/22/2017 [facility] White Blood Count 14.3 K/uL High 3.4-10.5 Diff [phone] Red Blood Count 4.55 M/uL 4.20-5.80 Hemoglobin 12.9 gm/dL 12.8-17.0 Hematocrit 38.7 % 38.0-48.0 Mean Cell Volume 85.1 fl 80.0-96.0 Mean Corpuscular HGB 28.4 pg 27.0-33.0 Mean Corpuscular HGB Conc 33.3 g/dL 31.7-36.0 Platelet Count 306 K/uL 155-360 Red Cell Distri Width SD 43.4 fl 36-51 Red Cell Distri Width %CV 14.4 % 11.6-15.8 Mean Platelet Volume 9.8 fL 6.6-10.6 Neut% 69.5 % 33.0-73.0 Lymph % 16.4 % Low 20.0-42.0 [place] % 12.2 % High 0.0-10.0 Eo% 1.7 % 0.0-6.6 Bas% 0.2 % 0.0-1.1 Neut# 9.95 K/uL High 1.8-7.0 Lymph # 2.35 K/uL 1.0-4.0 [place] # 1.75 K/uL High 0.0-0.8 Eos # 0.25 K/uL 0.0-0.5 Baso # 0.03 K/uL 0.0-0.1 Comprehensive Metabolic 08/22/2017 [facility] Glucose 104 mg/dL 74 -106 Panel [phone] BUN 16 mg/dL 7-18 Creatinine 0.8 mg/dL 0.6-1.3 Glom Filtration Rate, Estimate >60 mL/min >60 If >60 mL/min >60 53 BUN/Creat 20.0 ratio Sodium 139 mmol/L 136-145 Potassium 4.0 mmol/L 3.5-5.1 Chloride 108 mmol/L High 98-107 Carbon Dioxide 28 mmol/L 21-32 Anion Gap 3 mEq/L Low 8-16 Calcium 7.8 mg/dL Low 8.5-10.1 Total Protein 6.4 g/dL 6.4-8.2 Albumin 3.1 g/dL Low 3.4-5.0 Globulin 3.3 g/dL 1.9-4.3 Alb/Glob 0.9 ratio Bilirubin,Total 0.3 mg/dL 0.2-1.0 Sgot/Ast 11 U/L Low 15-37 54 SGPT/Alt 18 U/L 12-78 Alkaline Phosphatase 67 U/L 45-117 Laboratory test finding 08/22/2017 [facility] Magnesium 2.2 mg/dL 1.8-2.4 [phone] C-Reactive Protein,Quant 51.8 mg/L High <3.0 Glycohemoglobin A1c 08/22/2017 [facility] Glycohemoglobin 6.1 % 4.2-6.3 55 [phone] (A1c) eAG 128 mg/dL Ua RFX Micro & Culture II 08/21/2017 [facility] Urine Color YELLOW Yellow 56 [phone] Urine Clarity CLEAR Clear Urine Glucose - Dipstick NEGATIVE mg/dL Negative Urine Bilirubin - Dipstick NEGATIVE Negative Urine Ketone NEGATIVE mg/dL Negative Urine Specific [place] 1.010 1.010-1.030 Urine Blood TRACE Negative Urine PH 7.5 6.5-7.5 Urine Protein - Dipstick NEGATIVE mg/dL Negative Urine Urobilinogen - Dipstick 0.2 E.U./dL 0.2-1.0 Urine Nitrite - Dipstick NEGATIVE Negative Urine Leuk Esterase NEGATIVE Negative Source: URINE, CLEAN CAT <SEE NOTE> 57 CBS W/Automated 08/21/2017 [facility] White Blood 18.9 K/uL High 3.4-10.5 Diff [phone] Count Red Blood Count 4.97 M/uL 4.20-5.80 Hemoglobin 14.1 gm/dL 12.8-17.0 Hematocrit 42.0 % 38.0-48.0 Mean Cell Volume 84.5 fl 80.0-96.0 Mean Corpuscular HGB 28.4 pg 27.0-33.0 Mean Corpuscular HGB Conc 33.6 g/dL 31.7-36.0 Platelet Count 323 K/uL 155-360 Red Cell Distri Width SD 43.1 fl 36-51 Red Cell Distri Width %CV 14.3 % 11.6-15.8 Mean Platelet Volume 9.7 fL 6.6-10.6 Neut% 78.8 % High 33.0-73.0 Lymph % 11.0 % Low 20.0-42.0 [place] % 9.0 % 0.0-10.0 Eo% 1.0 % 0.0-6.6 Bas% 0.2 % 0.0-1.1 Neut# 14.91 K/uL High 1.8-7.0 Lymph # 2.09 K/uL 1.0-4.0 [place] # 1.70 K/uL High 0.0-0.8 Eos # 0.19 K/uL 0.0-0.5 Baso # 0.04 K/uL 0.0-0.1 Slide Review 08/21/2017 [facility] Slide Review DIFF ORDERED [phone] Differential-WBC 08/21/2017 [facility] Total Cells 100 #CELLS Confirm [phone] Counted Band% 11 % High 0-8 Neutrophils% 75 % High 33-73 Lymph% 8 % Low 20-42 Monocyte% 3 % 0-10 Eosinophil% 2 % 0-5 Basophil% 1 % 0-2 Platelet Estimate NORMAL Poikilocytosis 0-1+ Anisocytosis 0-1+ Microcytosis 0-1+ Comprehensive Metabolic 08/21/2017 [facility] Glucose 141 mg/dL High 74-106 Panel [phone] BUN 16 mg/dL 7-18 Creatinine 1.0 mg/dL 0.6-1.3 Glom Filtration Rate, Estimate >60 mL/min >60 If >60 mL/min >60 58 BUN/Creat 16.0 ratio Sodium 138 mmol/L 136-145 Potassium 4.1 mmol/L 3.5-5.1 Chloride 103 mmol/L 98-107 Carbon Dioxide 29 mmol/L 21-32 Anion Gap 6 mEq/L Low 8-16 Calcium 8.6 mg/dL 8.5-10.1 Total Protein 7.8 g/dL 6.4-8.2 Albumin 4.0 g/dL 3.4-5.0 Globulin 3.8 g/dL 1.9-4.3 Alb/Glob 1.1 ratio Bilirubin,Total 0.2 mg/dL 0.2-1.0 Sgot/Ast 14 U/L Low 15-37 59 SGPT/Alt 26 U/L 12-78 Alkaline Phosphatase 94 U/L 45-117 Laboratory test 08/21/2017 [facility] Lipase 102 U/L 56-289 finding [phone] Laboratory test 07/17/2017 [facility] Antinuclear Negative . 60, 61 finding [phone] Antibodies, Ifa CBS W/Automated 07/17/2017 [facility] White Blood 8.9 K/uL 3.4- 10.5 Diff [phone] Count Red Blood Count 4.82 M/uL 4.20-5.80 Hemoglobin 13.7 gm/dL 12.8-17.0 Hematocrit 40.8 % 38.0-48.0 Mean Cell Volume 84.6 fl 80.0-96.0 Mean Corpuscular HGB 28.4 pg 27.0-33.0 Mean Corpuscular HGB Conc 33.6 g/dL 31.7-36.0 Platelet Count 340 K/uL 155-360 Red Cell Distri Width SD 41.2 fl 36-51 Red Cell Distri Width %CV 13.5 % 11.6-15.8 Mean Platelet Volume 9.4 fL 6.6-10.6 Neut% 54.9 % 33.0-73.0 Lymph % 29.0 % 20.0-42.0 [place] % 11.8 % High 0.0-10.0 Eo% 3.7 % 0.0-6.6 Bas% 0.6 % 0.0-1.1 Neut# 4.91 K/uL 1.8-7.0 Lymph # 2.59 K/uL 1.0-4.0 [place] # 1.05 K/uL High 0.0-0.8 Eos # 0.33 K/uL 0.0-0.5 Baso # 0.05 K/uL 0.0-0.1 Liver Function Tests 07/17/2017 [facility] Total Protein 7.2 g/dL 6.4-8.2 [phone] Albumin 3.7 g/dL 3.4-5.0 Globulin 3.5 g/dL 1.9-4.3 Alb/Glob 1.1 ratio Bilirubin,Total 0.3 mg/dL 0.2-1.0 Bilirubin,Direct 0.1 mg/dL 0.0-0.2 Bilirubin,Indirect 0.2 mg/dL 0.0-0.9 Sgot/Ast 19 U/L 15-37 SGPT/Alt 29 U/L 12-78 Alkaline Phosphatase 85 U/L 45-117 Reflex add FT3? Y Reflex add FT4? Y Laboratory test 07/17/2017 [facility] Sedimentation Rate 9 mm/hr 0 -20 62 finding [phone] TSH Reflex FT4 07/17/2017 [facility] Thyroid Stim 1.50 0.30-4.20 And/Or FT3 [phone] Hormone uIU/mL Reflex add FT3? Y Reflex add FT4? Y Comprehensive Metabolic 06/26/2017 [facility] Glucose 98 mg/dL 74- 106 63 Panel [phone] BUN 19 mg/dL High 7-18 Creatinine 0.9 mg/dL 0.6-1.3 Glom Filtration Rate, Estimate >60 mL/min >60 If >60 mL/min >60 64 BUN/Creat 21.1 ratio Sodium 138 mmol/L 136-145 Potassium 4.3 mmol/L 3.5-5.1 Chloride 104 mmol/L 98-107 Carbon Dioxide 28 mmol/L 21-32 Anion Gap 6 mEq/L Low 8-16 Calcium 8.7 mg/dL 8.5-10.1 Total Protein 7.2 g/dL 6.4-8.2 Albumin 3.7 g/dL 3.4-5.0 Globulin 3.5 g/dL 1.9-4.3 Alb/Glob 1.1 ratio Bilirubin,Total 0.2 mg/dL 0.2-1.0 Sgot/Ast 15 U/L 15-37 SGPT/Alt 34 U/L 12-78 Alkaline Phosphatase 77 U/L 45-117 LDL Cholesterol Profile 06/26/2017 [facility] Cholesterol 141 mg/dL <200 65 [phone] Triglycerides 172 mg/dL High <150 66 HDL Cholesterol 39 mg/dL Low >40 67 LDL-Cholesterol 68 mg/dL < 100 68 Microalbumin,Random 06/26/2017 [facility] Microalbumin,Urine 8.5 < 20.0 Urine [phone] mg/L Glycohemoglobin A1c 06/26/2017 [facility] Glycohemoglobin 6.2 % 4.2-6. 69 [phone] (A1c) 3 eAG 131 mg/dL Glycohemoglobin 12/26/2016 [facility] Glycohemoglobin 6.2 % 4.2- 6.3 70, A1c [phone] (A1c) 71 eAG 131 mg/dL Comprehensive Metabolic 12/26/2016 [facility] Glucose 102 mg/dL 74 -106 Panel [phone] BUN 13 mg/dL 7-18 Creatinine 0.8 mg/dL 0.6-1.3 Glom Filtration Rate, Estimate >60 mL/min >60 If >60 mL/min >60 72 BUN/Creat 16.2 ratio Sodium 140 mmol/L 136-145 Potassium 4.1 mmol/L 3.5-5.1 Chloride 105 mmol/L 98-107 Carbon Dioxide 29 mmol/L 21-32 Anion Gap 6 mEq/L Low 8-16 Calcium 8.4 mg/dL Low 8.5-10.1 Total Protein 7.0 g/dL 6.4-8.2 Albumin 3.6 g/dL 3.4-5.0 Globulin 3.4 g/dL 1.9-4.3 Alb/Glob 1.1 ratio Bilirubin,Total 0.2 mg/dL 0.2-1.0 Sgot/Ast 11 U/L Low 15-37 73 SGPT/Alt 29 U/L 12-78 Alkaline Phosphatase 73 U/L 45-117 Microalbumin,Random 12/26/2016 [facility] Microalbumin,Urine 6.0 mg/ L < Urine [phone] 20.0 Fungal Culture With 12/26/2016 [facility] Fungal Fluorochrome Fungus 74 Smear [phone] Stain Stain Fungal Culture; Other Sources (SEE NOTE) 75 Glycohemoglobin 09/23/2016 [facility] Glycohemoglobin 6.5 % High 4.2-6.3 76, A1c [phone] (A1c) 77 eAG 140 mg/dL Basic Metabolic Panel 08/18/2016 [facility] Glucose 124 mg/dL High 74-106 [phone] BUN 15 mg/dL 7-18 Creatinine 0.9 mg/dL 0.6-1.3 Glom Filtration Rate, Estimate >60 mL/min >60 If >60 mL/min >60 78 BUN/Creat 16.6 ratio Sodium 138 mmol/L 136-145 Potassium 3.9 mmol/L 3.5-5.1 Chloride 103 mmol/L 98-107 Carbon Dioxide 28 mmol/L 21-32 Anion Gap 7 mEq/L Low 8-16 Calcium 8.6 mg/dL 8.5-10.1 Microalbumin,Random 08/18/2016 [facility] Microalbumin,Urine 9.1 < Urine [phone] mg/L 20.0 Glycohemoglobin A1c 08/18/2016 [facility] Glycohemoglobin 7.7 % High 4.2-6 79 [phone] (A1c) .3 eAG 174 mg/dL Glycohemoglobin 07/16/2016 [facility] Glycohemoglobin 7.7 % High 4.2-6.3 80, A1c [phone] (A1c) 81 eAG 174 mg/dL Microalbumin,Random 07/16/2016 [facility] Microalbumin,Urine 6.3 < 20.0 Urine [phone] mg/L C-Reactive 07/16/2016 [facility] C-Reactive 9.25 <3.0 Protein,Cardiac [phone] Protein,Cardiac mg/L Reflex add FT3? Y Reflex add FT4? Y Homocyst(E)Ine, 07/16/2016 [facility] Homocyst(e)ine, 9.0 0.0- 15.0 82 P/S [phone] P/S umol/L TSH Reflex FT4 07/16/2016 [facility] Thyroid Stim 1.54 0.30-4.20 And/Or FT3 [phone] Hormone uIU/mL Reflex add FT3? Y Reflex add FT4? Y Comprehensive Metabolic 07/16/2016 [facility] Glucose 125 mg/dL High 74-106 Panel [phone] BUN 11 mg/dL 7-18 Creatinine 0.9 mg/dL 0.6-1.3 Glom Filtration Rate, Estimate >60 mL/min >60 If >60 mL/min >60 83 BUN/Creat 12.2 ratio Sodium 139 mmol/L 136-145 Potassium 3.9 mmol/L 3.5-5.1 Chloride 105 mmol/L 98-107 Carbon Dioxide 28 mmol/L 21-32 Anion Gap 6 mEq/L Low 8-16 Calcium 8.2 mg/dL Low 8.5-10.1 Total Protein 7.2 g/dL 6.4-8.2 Albumin 3.4 g/dL 3.4-5.0 Globulin 3.8 g/dL 1.9-4.3 Alb/Glob 0.9 ratio Bilirubin,Total 0.2 mg/dL 0.2-1.0 Sgot/Ast 14 U/L Low 15-37 84 SGPT/Alt 37 U/L 12-78 Alkaline Phosphatase 97 U/L 45-117 Reflex add FT3? Y Reflex add FT4? Y CBC 07/16/2016 [facility] White Blood Count 7.1 K/uL 3.4-10.5 [phone] Red Blood Count 5.02 M/uL 4.20-5.80 Hemoglobin 14.5 gm/dL 12.8-17.0 Hematocrit 42.4 % 38.0-48.0 Mean Cell Volume 84.5 fl 80.0-96.0 Mean Corpuscular HGB 28.9 pg 27.0-33.0 Mean Corpuscular HGB Conc 34.2 g/dL 31.7-36.0 Platelet Count 310 K/uL 150-400 Red Cell Distri Width %CV 13.8 % 11.6-15.8 Mean Platelet Volume 9.6 fL 6.6-10.6 Prostate Specific 07/16/2016 [facility] PSA (Cutler Loci) 0.27 ng/mL < 4.0 85 Antigen [phone] Reflex add FT3? Y Reflex add FT4? Y Glycohemoglobin A1c 04/06/2015 [facility] Glycohemoglobin 6.2 % 4.2-6.3 86 [phone] (A1c) eAG 131 mg/dL Basic Metabolic Panel 02/20/2015 [facility] Glucose 124 mg/dL High 74-106 [phone] BUN 12 mg/dL 7-18 Creatinine 0.9 mg/dL 0.6-1.3 Glom Filtration Rate, Estimate >60 mL/min >60 If >60 mL/min >60 87 BUN/Creat 13.3 ratio Sodium 137 mmol/L 136-145 Potassium 3.8 mmol/L 3.5-5.1 Chloride 103 mmol/L 98-107 Carbon Dioxide 26 mmol/L 21-32 Anion Gap 8 mEq/L 8-16 Calcium 8.3 mg/dL Low 8.5-10.1 CBC 02/20/2015 [facility] White Blood Count 8.6 K/uL 3.4-10.5 [phone] Red Blood Count 4.78 M/uL 4.20-5.80 Hemoglobin 14.7 gm/dL 12.8-17.0 Hematocrit 42.4 % 38.0-48.0 Mean Cell Volume 88.7 fl 80.0-96.0 Mean Corpuscular HGB 30.8 pg 27.0-33.0 Mean Corpuscular HGB Conc 34.7 g/dL 31.7-36.0 Platelet Count 321 K/uL 150-400 Red Cell Distri Width %CV 13.4 % 11.6-15.8 Mean Platelet Volume 10.0 fL 6.6-10.6 LDL Cholesterol Profile 02/20/2015 [facility] Cholesterol 138 mg/dL < 200 88 [phone] Triglycerides 217 mg/dL < 150 89 HDL Cholesterol 29 mg/dL > 40 90 LDL-Cholesterol 66 mg/dL < 100 91 Comprehensive Metabolic 02/20/2015 [facility] Glucose 124 mg/dL High 74-106 Panel [phone] BUN 12 mg/dL 7-18 Creatinine 0.9 mg/dL 0.6-1.3 Glom Filtration Rate, Estimate >60 mL/min >60 If >60 mL/min >60 92 BUN/Creat 13.3 ratio Sodium 137 mmol/L 136-145 Potassium 3.8 mmol/L 3.5-5.1 Chloride 103 mmol/L 98-107 Carbon Dioxide 26 mmol/L 21-32 Anion Gap 8 mEq/L 8-16 Calcium 8.3 mg/dL Low 8.5-10.1 Total Protein 6.8 g/dL 6.4-8.2 Albumin 3.3 g/dL Low 3.4-5.0 Globulin 3.5 g/dL 1.9-4.3 Alb/Glob 0.9 ratio Bilirubin,Total 0.5 mg/dL 0.2-1.0 Sgot/Ast 18 U/L 15-37 SGPT/Alt 34 U/L 12-78 Alkaline Phosphatase 85 U/L 45-117 Laboratory test 02/20/2015 [facility] Prostate Specific 0.32 ng/mL 93 finding [phone] Antigen Thyroid Stim Hormone 2.93 uIU/mL 0.36-3.74 Vitamin D,25-Hydroxy 32.0 ng/mL 30.0-100.0 94 Rubeola Antibodies, Igg >300.0 Immune>29.9AU 95 Mumps Antibodies, Igg 198.0 Immune>10.9AU 96 Rubella IgG 02/20/2015 [facility] Rubella IgG Reactive Reactive Antibody [phone] Antibody Rubella IgG Iu/ml 44.8 IU/mL >=10.0 97 Laboratory test 02/20/2015 [facility] Microalbumin,Random See Note 98 finding [phone] Urine Laboratory test 12/29/2013 [facility] Microalbumin,Random 10.9 0.0 - finding [phone] Urine mg/L 18.5 Laboratory test 12/28/2013 [facility] Uric Acid 6.3 2.1- finding [phone] mg/dL 7.4 Comprehensive 12/28/2013 [facility] Glucose 112 76-1 Metabolic Panel [phone] mg/dL 15 BUN 12 mg/dL 5-23 Creatinine 0.8 mg/dL 0.5-1.4 Glom Filtration Rate, Estimate >60 mL/min >60 If >60 mL/min >60 99 BUN/Creat 15.0 ratio Sodium 137 mmol/L 136-145 Potassium 4.0 mmol/L 3.5-5.1 Chloride 104 mmol/L 98-107 Carbon Dioxide 25 mEq/L 18-29 Anion Gap 12 mEq/L 8-16 Calcium 9.0 mg/dL 8.5-10.1 Total Protein 7.2 g/dL 6.3-8.0 Albumin 3.7 g/dL 3.5-5.0 Globulin 3.5 g/dL 1.9-4.3 Alb/Glob 1.1 ratio Bilirubin,Total 0.3 mg/dL 0.2-1.2 Sgot/Ast 16 U/L 16-40 SGPT/Alt 34 U/L 30-65 Alkaline Phosphatase 80 U/L 50-136 LDL Cholesterol Profile 12/28/2013 [facility] Cholesterol 144 mg/dL 120-200 [phone] Triglycerides 210 mg/dL 16-231 HDL Cholesterol 32 mg/dL 29-83 LDL-Cholesterol 70 mg/dL 62-185 Laboratory test 12/28/2013 [facility] Microalbumin,Random Canceled 100 finding [phone] Urine By Lab Xray 12/27/2013 [facility] chest Xray pa and <pending> [address] [place] [address] [phone] Comprehensive 06/30/2013 [facility] Glucose 117 mg/dL High 76 Metabolic Panel [phone] 15 BUN 16 mg/dL 5-23 Creatinine 0.8 mg/dL 0.5-1.4 Glom Filtration Rate, Estimate >60 mL/min >60 If >60 mL/min >60 101 BUN/Creat 20.0 ratio Sodium 136 mmol/L 136-145 Potassium 3.9 mmol/L 3.5-5.1 Chloride 103 mmol/L 98-107 Carbon Dioxide 25 mEq/L 18-29 Anion Gap 12 mEq/L 8-16 Calcium 9.0 mg/dL 8.5-10.1 Total Protein 6.2 g/dL Low 6.3-8.0 Albumin 3.9 g/dL 3.5-5.0 Globulin 2.3 g/dL 1.9-4.3 Alb/Glob 1.7 ratio Bilirubin,Total 0.4 mg/dL 0.2-1.2 Sgot/Ast 18 U/L 16-40 SGPT/Alt 42 U/L 30-65 Alkaline Phosphatase 93 U/L 50-136 Laboratory 06/30/2013 [facility] Microalbumin,Random 8.0 0.0-18.5 test finding [phone] Urine mg/L Prostate Specific Antigen 0.38 ng/mL 0.00-4.00 102 LDL Cholesterol Profile 06/30/2013 [facility] Cholesterol 153 mg/dL 120-200 [phone] Triglycerides 230 mg/dL 16-231 HDL Cholesterol 30 mg/dL 29-83 LDL-Cholesterol 77 mg/dL 62-185 Laboratory test 06/30/2013 [facility] Uric Acid 6.3 mg/dL 2.1-7.4 finding [phone] Xray 05/26/2013 [facility] Xray R <pending> [address] [place] [address] [phone] LDL Cholesterol 02/18/2013 [facility] Cholesterol 149 mg/dL 120- 200 Profile [phone] Triglycerides 228 mg/dL 16-231 HDL Cholesterol 31 mg/dL 29-83 LDL-Cholesterol 72 mg/dL 62-185 Laboratory test 02/18/2013 [facility] Thyroid Stim 1.57 0.49-4.67 finding [phone] Hormone uIU/mL Comprehensive 02/18/2013 [facility] Glucose 121 mg/dL High 76-115 Metabolic Panel [phone] BUN 11 mg/dL 5-23 Creatinine 0.9 mg/dL 0.5-1.4 Glom Filtration Rate, Estimate >60 mL/min >60 If >60 mL/min >60 103 BUN/Creat 12.2 ratio Sodium 138 mmol/L 136-145 Potassium 3.9 mmol/L 3.5-5.1 Chloride 104 mmol/L 98-107 Carbon Dioxide 26 mEq/L 18-29 Anion Gap 12 mEq/L 8-16 Calcium 8.5 mg/dL 8.5-10.1 Total Protein 6.9 g/dL 6.3-8.0 Albumin 3.7 g/dL 3.5-5.0 Globulin 3.2 g/dL 1.9-4.3 Alb/Glob 1.2 ratio Bilirubin,Total 0.3 mg/dL 0.2-1.2 Sgot/Ast 15 U/L Low 16-40 SGPT/Alt 40 U/L 30-65 Alkaline Phosphatase 92 U/L 50-136 CBC 02/18/2013 [facility] White Blood Count 9.2 K/uL 3.4-10.5 [phone] Red Blood Count 5.19 M/uL 4.20-5.80 Hemoglobin 15.4 gm/dL 12.8-17.0 Hematocrit 45.2 % 38.0-48.0 Mean Cell Volume 87.1 fl 80.0-96.0 Mean Corpuscular HGB 29.7 pg 27.0-33.0 Mean Corpuscular HGB Conc 34.1 g/dL 31.7-36.0 Platelet Count 336 K/uL 150-400 Red Cell Distri Width %CV 13.0 % 11.6-15.8 Mean Platelet Volume 9.8 fL 6.6-10.6 LDL Cholesterol Profile 01/16/2012 [facility] Cholesterol 148 mg/dL 120-200 [phone] Triglycerides 295 mg/dL High 16-231 HDL Cholesterol 29 mg/dL 29-83 LDL-Cholesterol 60 mg/dL Low 62-185 Comprehensive Metabolic 01/16/2012 [facility] Glucose 104 mg/dL 76 -115 Panel [phone] BUN 13 mg/dL 5-23 Creatinine 0.9 mg/dL 0.5-1.4 Glom Filtration Rate, Estimate >60 mL/min >60 If >60 mL/min >60 104 BUN/Creat 14.4 ratio Sodium 140 mmol/L 136-145 Potassium 4.5 mmol/L 3.5-5.1 Chloride 102 mmol/L 98-107 Carbon Dioxide 30 mEq/L High 18-29 Anion Gap 13 mEq/L 8-16 Calcium 8.9 mg/dL 8.5-10.1 Total Protein 6.9 g/dL 6.3-8.0 Albumin 3.8 g/dL 3.5-5.0 Globulin 3.1 g/dL 1.9-4.3 Alb/Glob 1.2 ratio Bilirubin,Total 0.3 mg/dL 0.2-1.2 Sgot/Ast 13 U/L Low 16-40 SGPT/Alt 29 U/L Low 30-65 Alkaline Phosphatase 67 U/L 50-136 Laboratory test 01/16/2012 [facility] Thyroid Stim 3.57 uIU/mL 0.49-4.67 finding [phone] Hormone CBS W/Automated 01/16/2012 [facility] White Blood 9.5 K/uL 3.4- 10.5 Diff [phone] Count Red Blood Count 5.27 M/uL 4.20-5.80 Hemoglobin 15.5 gm/dL 12.8-17.0 Hematocrit 45.7 % 38.0-48.0 Mean Cell Volume 86.7 fl 80.0-96.0 Mean Corpuscular HGB 29.4 pg 27.0-33.0 Mean Corpuscular HGB Conc 33.9 g/dL 31.7-36.0 Platelet Count 356 K/uL 150-400 Red Cell Distri Width SD 40.7 fl 36-51 Red Cell Distri Width %CV 13.3 % 11.6-15.8 Mean Platelet Volume 9.8 fL 6.6-10.6 Neut% 54.6 % 33.0-73.0 Lymph % 31.2 % 17.0-56.0 [place] % 10.6 % High 0.0-10.0 Eo% 3.0 % 0.0-5.0 Bas% 0.6 % 0.1-1.0 Neut# 5.18 K/uL 1.8-7.0 Lymph # 2.97 K/uL 1.2-4.0 [place] # 1.01 K/uL High 0.0-0.6 Eos # 0.29 K/uL 0.0-0.5 Baso # 0.06 K/uL Low 0.1-0.2 Laboratory test finding 11/12/2011 [facility] Uric Acid 4.6 mg/dL 2.1-7.4 [phone] Laboratory test finding 09/29/2011 [facility] Uric Acid 6.7 mg/dL 2.1-7.4 [phone] LDL Cholesterol Profile 06/26/2011 [facility] Cholesterol 159 mg/dL 120-200 [phone] Triglycerides 199 mg/dL 16-231 HDL Cholesterol 33 mg/dL 29-83 LDL-Cholesterol 86 mg/dL 62-185 Comprehensive Metabolic Panel 06/26/2011 [facility] Glucose 97 mg/dL 76-115 [phone] BUN 14 mg/dL 5-23 Creatinine 1.0 mg/dL 0.5-1.4 Glom Filtration Rate, Estimate >60 mL/min >60 If >60 mL/min >60 105 BUN/Creat 14.0 ratio Sodium 139 mmol/L 136-145 Potassium 3.7 mmol/L 3.5-5.1 Chloride 102 mmol/L 98-107 Carbon Dioxide 28 mEq/L 18-29 Anion Gap 13 mEq/L 8-16 Calcium 8.7 mg/dL 8.5-10.1 Total Protein 7.1 g/dL 6.3-8.0 Albumin 4.0 g/dL 3.5-5.0 Globulin 3.1 g/dL 1.9-4.3 Alb/Glob 1.3 ratio Bilirubin,Total 0.4 mg/dL 0.2-1.2 Sgot/Ast 14 U/L Low 16-40 SGPT/Alt 34 U/L 30-65 Alkaline Phosphatase 71 U/L 50-136 Laboratory test 06/26/2011 [facility] Thyroid Stim 1.88 uIU/mL 0.49-4.67 finding [phone] Hormone CBS W/Automated 06/26/2011 [facility] White Blood 7.1 K/uL 3.4- 10.5 Diff [phone] Count Red Blood Count 5.16 M/uL 4.20-5.80 Hemoglobin 15.3 gm/dL 12.8-17.0 Hematocrit 45.6 % 38.0-48.0 Mean Cell Volume 88.4 fl 80.0-96.0 Mean Corpuscular HGB 29.7 pg 27.0-33.0 Mean Corpuscular HGB Conc 33.6 g/dL 31.7-36.0 Platelet Count 302 K/uL 150-400 Red Cell Distri Width SD 43.0 fl 36-51 Red Cell Distri Width %CV 13.6 % 11.6-15.8 Mean Platelet Volume 9.9 fL 6.6-10.6 Neut% 49.5 % 33.0-73.0 Lymph % 33.2 % 17.0-56.0 [place] % 12.4 % High 0.0-10.0 Eo% 4.2 % 0.0-5.0 Bas% 0.7 % 0.1-1.0 Neut# 3.52 K/uL 1.8-7.0 Lymph # 2.36 K/uL 1.2-4.0 [place] # 0.88 K/uL High 0.0-0.6 Eos # 0.30 K/uL 0.0-0.5 Baso # 0.05 K/uL Low 0.1-0.2 1 R06.8 2 M15.9 3 Positive: 5 of the following Borrelia-specific bands: 18,23,28,30,39,41,45,58, 66, and 93. Negative: No bands or banding patterns which do not meet positive criteria. 4 Note: An equivocal or positive EIA result followed by a negative Western Blot result is considered NEGATIVE. An equivocal or positive EIA result followed by a positive Western Blot is considered POSITIVE by the CDC. Positive: 2 of the following bands: 23,39 or 41 Negative: No bands or banding patterns which do not meet positive criteria. Criteria for positivity are those recommended by CDC/ASTPHLD. p23=Osp C, p15=cfxjxvuld Note: Sera from individuals with the following may cross react in the [place] Western Blot assays: other spirochetal diseases (periodontal disease, leptospirosis, relapsing fever, yaws, and pinta); connective autoimmune (Rheumatoid Arthritis and Systemic Lupus Erythematosus and also individuals with Antinuclear Antibody); other infections (Alvord Spotted Fever; Narayan-Moralez Virus, and Cytomegalovirus). 5 Method: Sediplast Modified Westergmichael 6 Negative <1:80 Borderline 1:80 Positive >1:80 Performed at: RN - [facility] [address] [id number] Risk Engineer: Gauri Villarreal MD, Phone: [phone] 7 R94.5, R60.0 8 Values below the stated reference ranges of AST and ALT can be seen in normal populations. Clinical correlation is suggested. 9 Note: Persistent reduction for 3 months or more in an eGFR <60 mL/min/1.73 m2 defines CKD. Patients with eGFR values >/=60 mL/min/1.73 m2 may also have CKD if evidence of persistent proteinuria is present. The original MDRD equation for estimated GFR is not valid for patients less than 18 years of age. Additional information may be found at [email or web address]. 10 LEFT HIP/PELVIS PAIN,BILATERAL FEET SWELLING 11 Note: Persistent reduction for 3 months or more in an eGFR <60 mL/min/1.73 m2 defines CKD. Patients with eGFR values >/=60 mL/min/1.73 m2 may also have CKD if evidence of persistent proteinuria is present. The original MDRD equation for estimated GFR is not valid for patients less than 18 years of age. Additional information may be found at [email or web address]. 12 Instrument flagged sample for slide review. Less than 10% Bands seen, no other immature WBC's seen. RBC morphology essentially normal. Platelet estimate=NORMAL 13 BC AUTH 11/06 GUS 14 Note: Persistent reduction for 3 months or more in an eGFR <60 mL/min/1.73 m2 defines CKD. Patients with eGFR values >/=60 mL/min/1.73 m2 may also have CKD if evidence of persistent proteinuria is present. The original MDRD equation for estimated GFR is not valid for patients less than 18 years of age. Additional information may be found at [email or web address]. 15 Note: Persistent reduction for 3 months or more in an eGFR <60 mL/min/1.73 m2 defines CKD. Patients with eGFR values >/=60 mL/min/1.73 m2 may also have CKD if evidence of persistent proteinuria is present. The original MDRD equation for estimated GFR is not valid for patients less than 18 years of age. Additional information may be found at [email or web address]. 16 Note: Persistent reduction for 3 months or more in an eGFR <60 mL/min/1.73 m2 defines CKD. Patients with eGFR values >/=60 mL/min/1.73 m2 may also have CKD if evidence of persistent proteinuria is present. The original MDRD equation for estimated GFR is not valid for patients less than 18 years of age. Additional information may be found at [email or web address]. 17 Elevated levels of HbA1c suggest the need for more aggressive treatment of glycemia. The [place] [employer] recommends that a primary goal of therapy should be a HbA1c of <7% and that physicians should re-evaluate the treatment regimen in patients with HbA1c values consistently >8%. 18 DIVERTICULITIS OF INTESTINE;PART UNSPECIFIED 19 Note: Persistent reduction for 3 months or more in an eGFR <60 mL/min/1.73 m2 defines CKD. Patients with eGFR values >/=60 mL/min/1.73 m2 may also have CKD if evidence of persistent proteinuria is present. The original MDRD equation for estimated GFR is not valid for patients less than 18 years of age. Additional information may be found at [email or web address]. 20 Z01.818,E11.9,I10 21 THERAPEUTIC INR RANGE: 2.0 - 3.0 DVT, Pulmonary embolus, prophylaxis against venous thrombosis or systemic embolization in high risk patients. 2.5 - 3.5 Mechanical heart valves 22 URINE, CLEAN CATCH 23 Note: Persistent reduction for 3 months or more in an eGFR <60 mL/min/1.73 m2 defines CKD. Patients with eGFR values >/=60 mL/min/1.73 m2 may also have CKD if evidence of persistent proteinuria is present. The original MDRD equation for estimated GFR is not valid for patients less than 18 years of age. Additional information may be found at [email or web address]. 24 Elevated levels of HbA1c suggest the need for more aggressive treatment of glycemia. The [place] [employer] recommends that a primary goal of therapy should be a HbA1c of <7% and that physicians should re-evaluate the treatment regimen in patients with HbA1c values consistently >8%. 25 Performed at: RN - [facility] [address] [id number] Risk Engineer: Gauri Villarreal MD, Phone: [phone] 26 DIVERTICULITIS, NO BM ALL WEEK, ABD PAIN 27 Note: Persistent reduction for 3 months or more in an eGFR <60 mL/min/1.73 m2 defines CKD. Patients with eGFR values >/=60 mL/min/1.73 m2 may also have CKD if evidence of persistent proteinuria is present. The original MDRD equation for estimated GFR is not valid for patients less than 18 years of age. Additional information may be found at [email or web address]. 28 Values below the stated reference ranges of AST and ALT can be seen in normal populations. Clinical correlation is suggested. 29 Method: Chase Brandie Hemoccult Card 30 URINE, CLEAN CATCH 31 Instrument flagged sample for slide review. Less than 10% Bands seen, no other immature WBC's seen. RBC morphology essentially normal. Platelet estimate=NORMAL 32 E27.8,Z12.5,E66.09,E11.9,I10 33 Performed at: - [facility] [id number] Risk Engineer: Gauri Villarreal MD, Phone: [phone] 34 This test was developed and its performance characteristics determined by [email or web address]. It has not been cleared or approved by the Food and Drug Administration. 35 Age 1 - 5 years 0 - 67 6 - 7 years 0 - 110 8 - 10 years 0 - 185 11 - 12 years 0 - 201 13 - 14 years 0 - 318 15 - 16 years 39 - 481 17 - 19 years 40 - 491 >19 years 31 - 701 36 This [facility]MS method is currently certified by the CDC Hormone Standardization Program (HoSt). Adult male reference interval is based on a population of healthy nonobese males (BMI <30) between 19 and 39 years old. Ede, et.al. JCEM 2017,102;0094-8246. PMID: [id number]. Performed at: [address] [id number] Risk Engineer: Melquiades Palumbo MD, Phone: [phone] 37 THIS ASSAY IS NOT INTENDED A CANCER SCREENING TEST The concentration of PSA in a given specimen, determined with assays from different manufacturers, can vary due to differences in assay methods and reagent specificity. Values obtained from different assay methods cannot be used interchangeably. Method: [employer] Cutler Chemiluminescent immunoassay. 38 Vitamin D deficiency has been defined by the [place] of Medicine and an Endocrine Society practice guideline as a level of serum 25-OH vitamin D less than 20 ng/mL (1,2). The Endocrine Society went on to further define vitamin D insufficiency as a level between 21 and 29 ng/mL (2). 1. IOM ([place] of Medicine). 2010. Dietary reference intakes for calcium and D. [place]: The National Academies Press. 2. Ellyn MF, Ronadl CARROLL, Aayush LOPEZ, et al. Evaluation, treatment, and prevention of vitamin D deficiency: an Endocrine Society clinical practice guideline. JCEM. 2010; 96(7):1911-30. Performed at: RN - [facility] [address] [id number] Risk Engineer: Gauri Villarreal MD, Phone: [phone] 39 Note: Persistent reduction for 3 months or more in an eGFR <60 mL/min/1.73 m2 defines CKD. Patients with eGFR values >/=60 mL/min/1.73 m2 may also have CKD if evidence of persistent proteinuria is present. The original MDRD equation for estimated GFR is not valid for patients less than 18 years of age. Additional information may be found at [email or web address]. 40 Elevated levels of HbA1c suggest the need for more aggressive treatment of glycemia. The [place] Diabetes Association recommends that a primary goal of therapy should be a HbA1c of <7% and that physicians should re-evaluate the treatment regimen in patients with HbA1c values consistently >8%. 41 ACUTE DIVERTICULITIS 42 Note: Persistent reduction for 3 months or more in an eGFR <60 mL/min/1.73 m2 defines CKD. Patients with eGFR values >/=60 mL/min/1.73 m2 may also have CKD if evidence of persistent proteinuria is present. The original MDRD equation for estimated GFR is not valid for patients less than 18 years of age. Additional information may be found at [email or web address]. 43 REFACTORY DIVERTICULITIS 44 Note: Persistent reduction for 3 months or more in an eGFR <60 mL/min/1.73 m2 defines CKD. Patients with eGFR values >/=60 mL/min/1.73 m2 may also have CKD if evidence of persistent proteinuria is present. The original MDRD equation for estimated GFR is not valid for patients less than 18 years of age. Additional information may be found at [email or web address]. [address] FOR POSS DIVERTICULITIS 46 URINE, CLEAN CATCH 47 Note: Persistent reduction for 3 months or more in an eGFR <60 mL/min/1.73 m2 defines CKD. Patients with eGFR values >/=60 mL/min/1.73 m2 may also have CKD if evidence of persistent proteinuria is present. The original MDRD equation for estimated GFR is not valid for patients less than 18 years of age. Additional information may be found at [email or web address]. 48 Instrument flagged sample for slide review. Less than 10% Bands seen, no other immature WBC's seen. Platelet estimate=NORMAL 49 ACUTE DIVERTICULITIS 50 Note: Persistent reduction for 3 months or more in an eGFR <60 mL/min/1.73 m2 defines CKD. Patients with eGFR values >/=60 mL/min/1.73 m2 may also have CKD if evidence of persistent proteinuria is present. The original MDRD equation for estimated GFR is not valid for patients less than 18 years of age. Additional information may be found at [email or web address]. 51 Note: Persistent reduction for 3 months or more in an eGFR <60 mL/min/1.73 m2 defines CKD. Patients with eGFR values >/=60 mL/min/1.73 m2 may also have CKD if evidence of persistent proteinuria is present. The original MDRD equation for estimated GFR is not valid for patients less than 18 years of age. Additional information may be found at [email or web address]. 52 Values below the stated reference ranges of AST and ALT can be seen in normal populations. Clinical correlation is suggested. 53 Note: Persistent reduction for 3 months or more in an eGFR <60 mL/min/1.73 m2 defines CKD. Patients with eGFR values >/=60 mL/min/1.73 m2 may also have CKD if evidence of persistent proteinuria is present. The original MDRD equation for estimated GFR is not valid for patients less than 18 years of age. Additional information may be found at [email or web address]. 54 Values below the stated reference ranges of AST and ALT can be seen in normal populations. Clinical correlation is suggested. 55 Elevated levels of HbA1c suggest the need for more aggressive treatment of glycemia. The [place] Diabetes Association recommends that a primary goal of therapy should be a HbA1c of <7% and that physicians should re-evaluate the treatment regimen in patients with HbA1c values consistently >8%. 56 LLQ PAIN FOR 3 DAYS GETTING WORSE 57 URINE, CLEAN CATCH 58 Note: Persistent reduction for 3 months or more in an eGFR <60 mL/min/1.73 m2 defines CKD. Patients with eGFR values >/=60 mL/min/1.73 m2 may also have CKD if evidence of persistent proteinuria is present. The original MDRD equation for estimated GFR is not valid for patients less than 18 years of age. Additional information may be found at [email or web address]. 59 Values below the stated reference ranges of AST and ALT can be seen in normal populations. Clinical correlation is suggested. 60 NO DX 61 Negative <1:80 Borderline 1:80 Positive >1:80 Performed at: - [facility] [address] [id number] Risk Engineer: Gauri Villarreal MD, Phone: [phone] 62 Method: Sediplast Modified Westergren 63 E11.9,I10 64 Note: Persistent reduction for 3 months or more in an eGFR <60 mL/min/1.73 m2 defines CKD. Patients with eGFR values >/=60 mL/min/1.73 m2 may also have CKD if evidence of persistent proteinuria is present. The original MDRD equation for estimated GFR is not valid for patients less than 18 years of age. Additional information may be found at [email or web address]. 65 Reference Guidelines*: Desirable: ........... < 200 mg/dL Borderline High: ..... 200-239 mg/dL High: ................ >=240 mg/dL * The National Cholesterol Education Program (NCEP) 66 Reference Guidelines*: Normal: ............. < 150 mg/dL Borderline High: .... 150-199 mg/dL High: ............... 200-499 mg/dL Very High: .......... > 500 mg/dL * Source: National Cholesterol Education Program (NCEP) 67 Reference Guidelines*: Low HDL: ..... < 40 mg/dL Normal: ..... 40-60 mg/dL Desirable: ... > 60 mg/dL *The National Cholesterol Education Program(NCEP) 68 Reference Guidelines*: Optimal:........... <100 mg/dL Near Optimal....... 100-129 mg/dL Borderline High.... 130-159 mg/dL High............... 160-189 mg/dL Very High.......... >=190 mg/dL * Source: National Cholesterol Education Program (NCEP) 69 Elevated levels of HbA1c suggest the need for more aggressive treatment of glycemia. The [place] Diabetes Association recommends that a primary goal of therapy should be a HbA1c of <7% and that physicians should re-evaluate the treatment regimen in patients with HbA1c values consistently >8%. 70 E11.9 TINEA 71 Elevated levels of HbA1c suggest the need for more aggressive treatment of glycemia. The [place] Diabetes Association recommends that a primary goal of therapy should be a HbA1c of <7% and that physicians should re-evaluate the treatment regimen in patients with HbA1c values consistently >8%. 72 Note: Persistent reduction for 3 months or more in an eGFR <60 mL/min/1.73 m2 defines CKD. Patients with eGFR values >/=60 mL/min/1.73 m2 may also have CKD if evidence of persistent proteinuria is present. The original MDRD equation for estimated GFR is not valid for patients less than 18 years of age. Additional information may be found at [email or web address]. 73 Values below the stated reference ranges of AST and ALT can be seen in normal populations. Clinical correlation is suggested. 74 Final report Result 1 Hyphae observed 75 Fungus (Mycology) Culture Final report Result 1 Fusarium species Performed at: RN - [facility] [address] [id number] Risk Engineer: Gauri Villarreal MD, Phone: [phone] 76 E11.9 77 Elevated levels of HbA1c suggest the need for more aggressive treatment of glycemia. The [place] Diabetes Association recommends that a primary goal of therapy should be a HbA1c of <7% and that physicians should re-evaluate the treatment regimen in patients with HbA1c values consistently >8%. 78 Note: Persistent reduction for 3 months or more in an eGFR <60 mL/min/1.73 m2 defines CKD. Patients with eGFR values >/=60 mL/min/1.73 m2 may also have CKD if evidence of persistent proteinuria is present. The original MDRD equation for estimated GFR is not valid for patients less than 18 years of age. Additional information may be found at [email or web address]. 79 Elevated levels of HbA1c suggest the need for more aggressive treatment of glycemia. The [place] Diabetes Association recommends that a primary goal of therapy should be a HbA1c of <7% and that physicians should re-evaluate the treatment regimen in patients with HbA1c values consistently >8%. 80 Z12.5,E66.3,R73.03,I10,Z00.00 81 Elevated levels of HbA1c suggest the need for more aggressive treatment of glycemia. The [place] Diabetes Association recommends that a primary goal of therapy should be a HbA1c of <7% and that physicians should re-evaluate the treatment regimen in patients with HbA1c values consistently >8%. 82 Performed at: RN - [facility] [address] [id number] Risk Engineer: Gauri Villarreal MD, Phone: [phone] 83 Note: Persistent reduction for 3 months or more in an eGFR <60 mL/min/1.73 m2 defines CKD. Patients with eGFR values >/=60 mL/min/1.73 m2 may also have CKD if evidence of persistent proteinuria is present. The original MDRD equation for estimated GFR is not valid for patients less than 18 years of age. Additional information may be found at [email or web address]. 84 Values below the stated reference ranges of AST and ALT can be seen in normal populations. Clinical correlation is suggested. 85 THIS ASSAY IS NOT INTENDED A CANCER SCREENING TEST The concentration of PSA in a given specimen, determined with assays from different manufacturers, can vary due to differences in assay methods and reagent specificity. Values obtained from different assay methods cannot be used interchangeably. Method: [employer] Cutler Chemiluminescent immunoassay. 86 Elevated levels of HbA1c suggest the need for more aggressive treatment of glycemia. The [place] Diabetes Association recommends that a primary goal of therapy should be a HbA1c of <7% and that physicians should re-evaluate the treatment regimen in patients with HbA1c values consistently >8%. 87 Note: Persistent reduction for 3 months or more in an eGFR <60 mL/min/1.73 m2 defines CKD. Patients with eGFR values >/=60 mL/min/1.73 m2 may also have CKD if evidence of persistent proteinuria is present. The original MDRD equation for estimated GFR is not valid for patients less than 18 years of age. Additional information may be found at www.kdoqi.org. 88 Reference Guidelines*: Desirable: ........... < 200 mg/dL Borderline High: ..... 200-239 mg/dL High: ................ >=240 mg/dL * The National Cholesterol Education Program (NCEP) 89 Reference Guidelines*: Normal: ............. < 150 mg/dL Borderline High: .... 150-199 mg/dL High: ............... 200-499 mg/dL Very High: .......... > 500 mg/dL * Source: National Cholesterol Education Program (NCEP) 90 Reference Guidelines*: Low HDL: ..... < 40 mg/dL Normal: ..... 40-60 mg/dL Desirable: ... > 60 mg/dL *The National Cholesterol Education Program(NCEP) 91 Reference Guidelines*: Optimal:........... <100 mg/dL Near Optimal....... 100-129 mg/dL Borderline High.... 130-159 mg/dL High............... 160-189 mg/dL Very High.......... >=190 mg/dL * Source: National Cholesterol Education Program (NCEP) 92 Note: Persistent reduction for 3 months or more in an eGFR <60 mL/min/1.73 m2 defines CKD. Patients with eGFR values >/=60 mL/min/1.73 m2 may also have CKD if evidence of persistent proteinuria is present. The original MDRD equation for estimated GFR is not valid for patients less than 18 years of age. Additional information may be found at www.kdoqi.org. 93 THIS ASSAY IS NOT INTENDED A CANCER SCREENING TEST The concentration of PSA in a given specimen, determined with assays from different manufacturers, can vary due to differences in assay methods and reagent specificity. Values obtained from different assay methods cannot be used interchangeably. 94 Vitamin D deficiency has been defined by the [place] of Medicine and an Endocrine Society practice guideline as a level of serum 25-OH vitamin D less than 20 ng/mL (1,2). The Endocrine Society went on to further define vitamin D insufficiency as a level between 21 and 29 ng/mL (2). 1. IOM ([place] of Medicine). 2010. Dietary reference intakes for calcium and D. [place]: The National Academies Press. 2. Ellyn MF, Ronald CARROLL, Aayush LOEPZ, et al. Evaluation, treatment, and prevention of vitamin D deficiency: an Endocrine Society clinical practice guideline. JCEM. 2010; 96(7):1911-30. Performed at: [address] [id number] Risk Engineer: Gauri Villarreal MD, Phone: [phone] 95 Negative <25.0 Equivocal 25.0 - 29.9 Positive >29.9 Presence of antibodies to Rubeola is presumptive evidence of immunity except when acute infection is suspected. 96 Negative <9.0 Equivocal 9.0 - 10.9 Positive >10.9 A positive result generally indicates past exposure to Mumps virus or previous vaccination. Performed at: [address] [id number] Risk Engineer: Gauri Villarreal MD, Phone: [phone] 97 Values >=10.0 IU/mL are positive for IgG antibodies to rubella virus and are considered IMMUNE. 98 PT UNABLE TO VOID. 99 Note: Persistent reduction for 3 months or more in an eGFR <60 mL/min/1.73 m2 defines CKD. Patients with eGFR values >/=60 mL/min/1.73 m2 may also have CKD if evidence of persistent proteinuria is present. The original MDRD equation for estimated GFR is not valid for patients less than 18 years of age. Additional information may be found at www.[email or web address]. 100 Canceled By Lab 101 Note: Persistent reduction for 3 months or more in an eGFR <60 mL/min/1.73 m2 defines CKD. Patients with eGFR values >/=60 mL/min/1.73 m2 may also have CKD if evidence of persistent proteinuria is present. The original MDRD equation for estimated GFR is not valid for patients less than 18 years of age. Additional information may be found at www.[email or web address]. 102 THIS ASSAY IS NOT INTENDED A CANCER SCREENING TEST The concentration of PSA in a given specimen, determined with assays from different manufacturers, can vary due to differences in assay methods and reagent specificity. Values obtained from different assay methods cannot be used interchangeably. 103 Note: Persistent reduction for 3 months or more in an eGFR <60 mL/min/1.73 m2 defines CKD. Patients with eGFR values >/=60 mL/min/1.73 m2 may also have CKD if evidence of persistent proteinuria is present. The original MDRD equation for estimated GFR is not valid for patients less than 18 years of age. Additional information may be found at www.[email or web address]. 104 Note: Persistent reduction for 3 months or more in an eGFR <60 mL/min/1.73 m2 defines CKD. Patients with eGFR values >/=60 mL/min/1.73 m2 may also have CKD if evidence of persistent proteinuria is present. The original MDRD equation for estimated GFR is not valid for patients less than 18 years of age. Additional information may be found at www.[email or web address]. 105 Note: Persistent reduction for 3 months or more in an eGFR <60 mL/min/1.73 m2 defines CKD. Patients with eGFR values >/=60 mL/min/1.73 m2 may also have CKD if evidence of persistent proteinuria is present. The original MDRD equation for estimated GFR is not valid for patients less than 18 years of age. Additional information may be found at [email or web address]. Procedures Date Code Description Status 11/11/2017 [id number] Colonoscopy Completed 10/28/2017 41741 EKG Tracing Only Completed 07/02/2015 46258 Audiogram, Screen Only Pure Tone Completed 06/30/2014 72054 Color/Snellen Vision Completed 06/30/2014 40233 Audiogram, Screen Only Pure Tone Completed 06/29/2013 96144 Color/Snellen Vision Completed 06/29/2013 34070 Hearing Test Completed 06/28/2012 15104 Color/Snellen Vision Completed 06/28/2012 26556 Hearing Test Completed 06/24/2011 80885 Color/Snellen Vision Completed 06/24/2011 30544 Hearing Test Completed 06/10/2010 46143 Color/Snellen Vision Completed 06/10/2010 85653 Hearing Test Completed 06/06/2009 26564 Color/Snellen Vision Completed 06/06/2009 10613 Hearing Test Completed 03/20/1999 48456 Arthr.Inj.joint shldr, hip, knee Completed Encounters Type Date Location Provider Dx Diagnosis Office Visit 03/30/2018 Main [facility] 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 Office Visit 11/11/2017 11:45a Main Office [facility] Cardenas R60.0 Localized edema M.D. R94.5 Abnormal results of liver function studies Office Visit 10/02/2017 9:30a Main Office [facility] Cardenas K57.12 Dvtrcli of sm int M.D. w/o perforation or abscess w/o bleeding M25.552 Pain in left hip Office Visit 09/23/2017 1:30p Main Office [facility] Cardenas K57.12 Dvtrcli of sm int M.D. w/o perforation or abscess w/o bleeding D35.02 Benign neoplasm of left adrenal gland Office Visit 09/09/2017 10:45a Main Office [facility] Cardenas K57.12 Dvtrcli of sm int M.D. w/o perforation or abscess w/o bleeding E27.8 Other specified disorders of adrenal gland Office Visit 08/26/2017 9:30a Main Office Patria Shaw PA K57.12 Dvtrcli of sm int w/o perforation or abscess w/o bleeding R79.9 Abnormal finding of blood chemistry, unspecified R92.8 Oth abn and inconclusive findings on dx imaging of breast Office Visit 07/06/2017 9:00a Main Office [facility] Cardenas, Z00.01 Encounter for M.D. general adult medical exam w abnormal findings Z12.12 Encounter for screening for malignant neoplasm of rectum Z12.5 Encounter for screening for malignant neoplasm of prostate L60.0 Ingrowing nail M25.551 Pain in right hip E66.09 Other obesity due to excess calories L03.116 Cellulitis of left lower limb E11.9 Type 2 diabetes mellitus without complications K21.9 Gastro-esophageal reflux disease without esophagitis I10 Essential (primary) hypertension J44.9 Chronic obstructive pulmonary disease, unspecified L29.9 Pruritus, unspecified Z23 Encounter for immunization Office Visit 04/13/2017 3:30p Main Office [facility] Cardenas L03.116 Cellulitis of M.D. left lower limb L60.0 Ingrowing nail Office Visit 04/06/2017 8:00a Main Office [facility] Barragan Type 2 diabetes Mayank Cardenas mellitus without complications K21.9 Gastro-esophageal reflux disease without esophagitis I10 Essential (primary) hypertension G47.30 Sleep apnea, unspecified L60.0 Ingrowing nail L03.116 Cellulitis of left lower limb E66.3 Overweight L29.9 Pruritus, unspecified Office Visit 12/31/2016 8:00a [facility] E11.9 Type 2 diabetes Mayank Cardenas mellitus without complications I10 Essential (primary) hypertension K21.9 Gastro-esophageal reflux disease without esophagitis J44.9 Chronic obstructive pulmonary disease, unspecified B35.1 Tinea unguium G47.30 Sleep apnea, unspecified Z68.41 Body mass index (BMI) 40.0-44.9, adult Office Visit 09/25/2016 4:30p Main [facility] E11Javon Type 2 diabetes Mayank Cardenas mellitus without complications B35.1 Tinea unguium Office Visit 08/21/2016 4:00p [facility] E11Javon Type 2 diabetes Mayank Cardenas mellitus without complications Office Visit 07/24/2016 9:00a [facility] I10 Essential (primary) Mayank Cardenas hypertension E11.9 Type 2 diabetes mellitus without complications K21.9 Gastro-esophageal reflux disease without esophagitis J44.9 Chronic obstructive pulmonary disease, unspecified E66.3 Overweight Office Visit 07/03/2016 9:00a Main Office [facility] Cardenas, Z00.01 Encounter for M.Rita general adult medical exam w abnormal findings Z12.12 Encounter for screening for malignant neoplasm of rectum Z12.5 Encounter for screening for malignant neoplasm of prostate E66.3 Overweight R73.03 Prediabetes J44.9 Chronic obstructive pulmonary disease, unspecified I10 Essential (primary) hypertension K21.9 Gastro-esophageal reflux disease without esophagitis Office Visit 11/13/2015 4:00p [facility] R09.1 Cherry Cardenas M.D. Office Visit 09/27/2015 4:00p [facility] R09.1 Cherry Cardenas M.D. Office Visit 09/20/2015 3:00p [facility] R09.1 Cherry Cardenas M.D. 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 general adult medical exam w abnormal findings Z12.12 Encounter for screening for malignant neoplasm of rectum Z12.5 Encounter for screening for malignant neoplasm of prostate F90.0 Attn-defct hyperactivity disorder, predom inattentive type I10 Essential (primary) hypertension J44.9 Chronic obstructive pulmonary disease, unspecified K21.9 Gastro-esophageal reflux disease without esophagitis E66.09 Other obesity due to excess calories Office Visit 03/30/2015 8:45a Main Office [facility] Cardenas J44.9 Chronic M.D. obstructive pulmonary disease, unspecified I10 Essential (primary) hypertension K21.9 Gastro-esophageal reflux disease without esophagitis R73.9 Hyperglycemia, unspecified M25.561 Pain in right knee Z23 Encounter for immunization Office Visit 02/19/2015 3:45p Main Office [facility] Cardenas M25.561 Pain in right M.D. knee Z00.00 Encntr for general adult medical exam w/o abnormal findings Office Visit 11/17/2014 11:30a Main Office [facility] Cardenas, 462 Pharyngitis Acute M.D. Office Visit 09/28/2014 2:45p Main Office [facility] Cardenas, 496 COPD Airway M.D. Obstruction Chronic Not Class Elsewhere 401.9 Hypertension Unspec 530.81 Esophageal Reflux Office Visit 06/30/2014 9:00a Main Office [facility] Cardenas, V70.0 Examination M.D. 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 Obstruction Chronic Not Class Elsewhere 401.9 Hypertension Unspec 790.6 Abnormal Blood Chemistry Other 491.21 Bronchitis Obstructive Chronic W/Acute Exacerbation Office Visit 06/29/2013 2:00p Main Office [facility] Cardenas, V70.0 Examination M.D. General Medical Routine AT Health Care Facility V76.44 Screening For Malig Durga Prostate 401.9 Hypertension Unspec 790.6 Abnormal Blood Chemistry Other v76.41 Screening Malignant Neoplasm Rectum Office Visit 05/26/2013 11:30a Main Office [facility] Cardenas, 401.9 Hypertension M.D. Unspec 923.20 Contusion Hand(S) Office Visit 03/29/2013 2:00p Main Office [facility] Cardenas, 401.9 Hypertension M.D. Unspec 530.81 Esophageal Reflux 496 COPD Airway Obstruction Chronic Not Class Elsewhere 278.00 Obesity Unspec 790.21 Impaired Fasting Glucose V04.81 Need For Prophylactic Vaccination & Inoculation/Influenza Office Visit 12/27/2012 2:00p Main Office [facility] Cardenas, 401.9 Hypertension M.D. Unspec 530.81 Esophageal Reflux 496 COPD Airway Obstruction Chronic Not Class Elsewhere 278.00 Obesity Unspec 272.4 Hyperlipidemia Other Unspec 477.9 Rhinitis Allergic Cause Unspec Office Visit 06/28/2012 2:00p Main Office [facility] Cardenas, 530.81 Esophageal Reflux M.D. 401.9 Hypertension Unspec 496 COPD Airway Obstruction Chronic Not Class Elsewhere 278.00 Obesity Unspec 272.4 Hyperlipidemia Other Unspec V70.0 Examination General Medical Routine AT Health Care Facility v06.1 Wgehpkgwrp-Yjeapfn-Pchqnast Combined (DTaP) v04.81 Need For Prophylactic Vaccination & Inoculation/Influenza Office Visit 04/20/2012 9:00a Main Office [facility] Cardenas, 729.4 Fasciitis Unspec M.D. 274.9 Gout Unspec 401.9 Hypertension Unspec 530.81 Esophageal Reflux 496 COPD Airway Obstruction Chronic Not Class Elsewhere Office Visit 01/19/2012 1:45p Main Office [facility] Cardenas, 278.00 Obesity Unspec M.D. 780.79 Malaise And Fatigue Other Office Visit 01/05/2012 8:00a Main Office [facility] Cardenas, 719.47 Pain Joint M.D. Ankle & Foot 729.4 Fasciitis Unspec 274.9 Gout Unspec 401.9 Hypertension Unspec 530.81 Esophageal Reflux 110.4 Tinea foot 278.00 Obesity Unspec Office Visit 11/13/2011 9:15a Main Office [facility] Cardenas, 719.47 Pain Joint M.D. Ankle & Foot 729.4 Fasciitis Unspec Office Visit 10/13/2011 10:30a Main Office [facility] Cardenas, 719.47 Pain Joint M.D. Ankle & Foot 274.9 Gout Unspec 401.9 Hypertension Unspec Office Visit 09/29/2011 8:45a Main Office [facility] Cardenas, 719.47 Pain Joint M.D. Ankle & Foot 496 COPD Airway Obstruction Chronic Not Class Elsewhere 530.81 Esophageal Reflux 780.52 Insomnia Unspecified 401.9 Hypertension Unspec Office Visit 06/24/2011 8:30a Main Office [facility] Cardenas, 496 COPD Airway M.D. Obstruction Chronic Not Class Elsewhere 530.81 Esophageal Reflux 272.4 Hyperlipidemia Other Unspec 780.52 Insomnia Unspecified V70.0 Examination General Medical Routine AT Health Care Facility 401.9 Hypertension Unspec Office Visit 12/27/2010 8:30a Main Office [facility] Cardenas, 465.9 URI Upper M.D. Respiratory Infections Acute Unspec Sites 726.32 Epicondylitis Lateral 604.90 Orchitis & Epididymitis Unspec 401.1 Hypertension Benign Office Visit 10/28/2010 Main Office [facility] 726.32 Epicondylitis 3:15p Mayank Cardenas Office Visit 10/07/2010 Main Office [facility] 726.32 Epicondylitis 4:30p Mayank Cardenas Lateral Office Visit 09/23/2010 Main Office [facility] 726.32 Epicondylitis 4:30p Mayank Cardenas Lateral Office Visit 06/26/2010 Main Office [facility] 599.70 Hematuria, 4:15p Mayank Cardenas Unspecified 692.9 Dermatitis Unspec Cause Due To Spec Agents Other Office Visit 06/10/2010 4:15p Main Office [facility] Cardenas 599.70 Hematuria, M.DOzzy Unspecified 110.4 Tinea foot 401.1 Hypertension Benign 496 COPD Airway Obstruction Chronic Not Class Elsewhere 389.20 Mixed Hearing Loss, Unspecified V76.51 Special Screening For Malignant Neoplasms Colon V70.0 Examination General Medical Routine AT Health Care Facility Office Visit 12/05/2009 4:00p Main Office [facility] Cardenas, 401.1 Hypertension M.D. Benign 530.81 Esophageal Reflux 729.5 Pain In Limb Office Visit 07/30/2009 4:15p Main Office [facility] Cardenas, 530.81 Esophageal Reflux M.D. 780.52 Insomnia Unspecified Office Visit 07/13/2009 11:30a Main Office [facility] Cardenas, 530.81 Esophageal Reflux M.D. 401.1 Hypertension Benign 553.3 Hernia Diaphragmatic Office Visit 06/06/2009 3:30p Main Office [facility] Cardenas, 401.1 Hypertension M.D. Benign 530.81 Esophageal Reflux 780.52 Insomnia Unspecified V70.0 Examination General Medical Routine AT Health Care Facility Office Visit 05/23/2009 4:15p Main Office [facility] Cardenas 401.1 Hypertension M.D. Benign 530.81 Esophageal Reflux 496 COPD Airway Obstruction Chronic Not Class Elsewhere Office Visit 02/05/2009 4:00p Main Office [facility] Cardenas 401.1 Hypertension M.D. Benign 272.4 Hyperlipidemia Other Unspec Office Visit 01/11/2009 11:45a Main Office Patria Shaw PA 380.10 Otitis Externa Infective Unspec Office Visit 11/06/2008 4:00p Main Office [facility] 401.1 Hypertension Lorenzo CabanDOzzy 272.4 Hyperlipidemia Other Unspec Office Visit 10/09/2008 4:30p Main Office [facility] Cardenas, 944.20 Burn Hand M.D. Unspec Site (2ND Deg) 401.1 Hypertension Benign Office Visit 10/02/2008 11:45a Main Office [facility] Cardenas, 944.20 Burn Hand M.D. Unspec Site (2ND Deg) Office Visit 09/25/2008 1:15p Main Office [facility] Cardenas, 944.20 Burn Hand M.D. Unspec Site (2ND Deg) Office Visit 04/14/2008 10:00a Main Office [facility] Cardenas, 719.46 Pain Joint M.D. Lower Leg 530.81 Esophageal Reflux 496 COPD Airway Obstruction Chronic Not Class Elsewhere Office Visit 09/13/2007 9:15a Main Office [facility] Cardenas, 466.0 Bronchitis Acute M.D. 496 COPD Airway Obstruction Chronic Not Class Elsewhere Office Visit 09/10/2007 9:00a Main Office [facility] Cardenas, 486 Pneumonia M.D. Organism Unspec Office Visit 09/03/2007 11:30a Main Office [facility] Cardenas, 486 Pneumonia M.D. Organism Unspec 782.1 Rash & Other Nonspec Skin Eruption Office Visit 07/29/2007 Main Office [facility] 110.9 Dermatophytosis 10:00a Mayank Cardenas Unspec Site 692.9 Dermatitis Unspec Cause Due To Spec Agents Other Office Visit 04/16/2007 10:45a Main Office [facility] Cardenas, 530.81 Esophageal Reflux M.D. Plan of Treatment Future Appointment(s):07/07/2018 4:00 pm - [facility] Cardenas M.D. at Main Office
--- OUTSIDE RECORDS SUMMARY | 2018-04-24 14:44 | XMS REPORT | Continuity of Care Document ---
:1965 External Reference #:[id number] Author Name Nilesh Cardenas M.D. Address [address] [place] [address] Care Team Providers Name Role Phone Nilesh Cardenas M.D. Primary Care Physician Unavailable Payers Type Date Identification Numbers Payment Provider Subscriber Effective: Policy Number: [id number] BC/BS [place]- Ppo Ronnie Guzman 2015 PayID: [id number] [address] [address] [place] [address] Advance Directives Description No Information Available Problems [...] Diabetes () - Maternal Grandmother due to IA () - Paternal Uncle Heart Attack Multiple Uncle Diabetes Social History Type Date Description Comments Sex Unknown Marital Status Legal Status: Never Lives With Mother Occupation [employer] Work Status Full-Time Employment [employer] Tobacco Use Start: Unknown End: Unknown Patient is a former smoker Smoking Status Reviewed: 04/13/18 Patient is a former smoker Currently Active [...] CPT Code Status Date Vaccine Lot # [id number] Given 03/19/2018 Influenza Vac,Quad,Split=>3 Yrs 77278 Given 07/06/2017 Influenza Vac,Quad,Split=>3 Yrs fluQiv [id number] 96013 Given 05/26/2016 Influenza Vac,Quad,Split=>3 Yrs 78734 Given 03/30/2015 Influenza Vac,Quad,Split=>3 Yrs Flu [id number] 10047 Given 03/29/2013 Flu Triv Old Code Flu [id number] 87663 Given 06/28/2012 Tdap Vaccine over 7 yrs old Tdap [id number] 38507 Given 06/28/2012 Flu Triv Old Code [id number] 36mos> 78150 Given 03/20/1997 Tetanus Toxoid Vital Signs Date [...] H/L Range Note TSH Reflex FT4 04/09/2018 [facility] Thyroid Stim 1.31 uIU/mL 0.30 -4.20 1 And/Or FT3 [phone] Hormone Reflex add FT3? N Reflex add FT4? Y Laboratory test finding 01/01/2018 [facility] Uric Acid 6.4 mg/dL 3.5-7.2 2 [phone] Rheumatoid Factor Screen < 10.0 IU/mL 0.0-15.0 Lyme Igg & Igm By 01/01/2018 [facility] Lyme AB Igg By Western . Western Blot [phone] Blot P93 AB Absent . P66 AB [...] Interpretation Negative . 4 Laboratory test 01/01/2018 [facility] Sedimentation Rate 10 mm/hr 0-20 5 finding [phone] C-Reactive Protein,Cardiac 7.85 mg/L <3.0 Antinuclear Antibodies, Ifa Negative . 6 Liver Function Tests 11/17/2017 [facility] Total Protein 7.3 g/dL 6.4-8.2 7 [phone] Albumin 3.5 g/dL 3.4-5.0 Globulin 3.8 g/dL 1.9-4.3 Alb/Glob 0.9 ratio Bilirubin,Total 0.2 mg/dL 0.2-1.0 Bilirubin,Direct < 0.1 mg/dL 0.0-0.2 Bilirubin,Indirect 0.1 mg/dL 0.0-0.9 Sgot/Ast 8 U/L Low 15-37 8 SGPT/Alt 46 U/L 12-78 Alkaline Phosphatase 76 U/L 45-117 Basic Metabolic Panel 11/17/2017 [facility] Glucose 86 mg/dL 74- 106 [phone] BUN 19 mg/dL High 7-18 Creatinine 0.8 mg/dL 0.6-1.3 Glom Filtration Rate, Estimate >60 mL/min >60 If >60 mL/min >60 9 BUN/Creat 23.7 ratio Sodium 136 mmol/L 136-145 Potassium 4.1 mmol/L 3.5-5.1 Chloride 100 mmol/L 98-107 Carbon Dioxide 28 mmol/L 21-32 Anion Gap 8 mEq/L 8-16 Calcium 9.3 mg/dL 8.5-10.1 Comprehensive Metabolic 11/10/2017 [facility] Glucose 97 mg/dL 74- 106 10 Panel [phone] BUN 9 mg/dL 7-18 Creatinine 0.7 mg/dL [...] Phosphatase 80 U/L 45-117 CBS W/Automated 11/10/2017 [facility] White Blood 11.5 K/uL High 3.4-10.5 Diff [phone] Count Red Blood Count 4.57 M/uL 4.20-5.80 [...] 33.0-73.0 Lymph % 12.4 % Low 20.0-42.0 [place] % 12.4 % High 0.0-10.0 Eo% 2.7 % 0.0-6.6 Bas% 0.4 % 0.0-1.1 Neut# 8.31 K/uL High 1.8-7.0 Lymph # 1.43 K/uL 1.0-4.0 [place] # 1.43 K/uL High 0.0-0.8 Eos # 0.31 K/uL 0.0-0.5 Baso # 0.05 K/uL 0.0-0.1 Slide Review 11/10/2017 [facility] Slide Review . 12 [phone] Basic Metabolic Panel 11/09/2017 [facility] Glucose 90 mg/dL 74- 106 13 [phone] BUN 9 mg/dL 7-18 Creatinine 0.8 mg/dL 0.6-1.3 Glom Filtration Rate, Estimate >60 mL/min >60 If >60 mL/min >60 14 BUN/Creat 11.2 ratio Sodium 139 mmol/L 136-145 Potassium 3.3 mmol/L Low 3.5-5.1 Chloride 105 mmol/L 98-107 Carbon Dioxide 24 mmol/L 21-32 Anion Gap 10 mEq/L 8-16 Calcium 8.0 mg/dL Low 8.5-10.1 CBC 11/09/2017 [facility] White Blood Count 10.2 K/uL 3.4-10.5 [phone] Red Blood Count 4.29 M/uL 4.20-5.80 Hemoglobin 12.2 gm/dL Low 12.8-17.0 Hematocrit 36.5 % Low 38.0-48.0 Mean Cell Volume 85.1 fl 80.0-96.0 Mean Corpuscular HGB 28.4 pg 27.0-33.0 Mean Corpuscular HGB Conc 33.4 g/dL 31.7-36.0 Platelet Count 330 K/uL 155-360 Red Cell Distri Width %CV 14.8 % 11.6-15.8 Mean Platelet Volume 9.7 fL 6.6-10.6 CBC 11/08/2017 [facility] White Blood Count 9.8 K/uL 3.4-10.5 [phone] Red Blood Count 4.21 M/uL 4.20-5.80 Hemoglobin 11.9 gm/dL Low 12.8-17.0 Hematocrit 36.4 % Low 38.0-48.0 Mean Cell Volume 86.5 fl 80.0-96.0 Mean Corpuscular HGB 28.3 pg 27.0-33.0 Mean Corpuscular HGB Conc 32.7 g/dL 31.7-36.0 Platelet Count 333 K/uL 155-360 Red Cell Distri Width %CV 15.1 % 11.6-15.8 Mean Platelet Volume 10.0 fL 6.6-10.6 Basic Metabolic Panel 11/08/2017 [facility] Glucose 101 mg/dL 74- 106 [phone] BUN 10 mg/dL 7-18 Creatinine 0.8 mg/dL 0.6-1.3 Glom Filtration Rate, Estimate >60 mL/min >60 If >60 mL/min >60 15 BUN/Creat 12.5 ratio Sodium 139 mmol/L 136-145 Potassium 3.3 mmol/L Low 3.5-5.1 Chloride 107 mmol/L 98-107 Carbon Dioxide 24 mmol/L 21-32 Anion Gap 8 mEq/L 8-16 Calcium 7.8 mg/dL Low 8.5-10.1 Glycohemoglobin 11/07/2017 [facility] Glycohemoglobin 6.4 % High 4.2-6.3 16 A1c [phone] (A1c) eAG 137 mg/dL CBC 11/07/2017 [facility] White Blood Count 10.0 K/uL 3.4-10.5 [phone] Red Blood Count 4.30 M/uL 4.20-5.80 Hemoglobin 12.3 gm/dL Low 12.8-17.0 Hematocrit 37.1 % Low 38.0-48.0 Mean Cell Volume 86.3 fl 80.0-96.0 Mean Corpuscular HGB 28.6 pg 27.0-33.0 Mean Corpuscular HGB Conc 33.2 g/dL 31.7-36.0 Platelet Count 296 K/uL 155-360 Red Cell Distri Width %CV 15.4 % 11.6-15.8 Mean Platelet Volume 9.8 fL 6.6-10.6 Basic Metabolic Panel 11/07/2017 [facility] Glucose 108 mg/dL High 74-106 [phone] BUN 11 mg/dL 7-18 Creatinine 0.9 mg/dL 0.6-1.3 Glom Filtration Rate, Estimate >60 mL/min >60 If >60 mL/min >60 17 BUN/Creat 12.2 ratio Sodium 139 mmol/L 136-145 Potassium 3.5 mmol/L 3.5-5.1 Chloride 107 mmol/L 98-107 Carbon Dioxide 24 mmol/L 21-32 Anion Gap 8 mEq/L 8-16 Calcium 7.8 mg/dL Low 8.5-10.1 CBC 11/06/2017 [facility] White Blood Count 13.0 K/uL High 3.4- 10.5 18 [phone] Red Blood Count 4.54 M/uL 4.20-5.80 Hemoglobin 12.7 gm/dL Low 12.8-17.0 Hematocrit 39.3 % 38.0-48.0 Mean Cell Volume 86.6 fl 80.0-96.0 Mean Corpuscular HGB 28.0 pg 27.0-33.0 Mean Corpuscular HGB Conc 32.3 g/dL 31.7-36.0 Platelet Count 330 K/uL 155-360 Red Cell Distri Width %CV 15.4 % 11.6-15.8 Mean Platelet Volume 10.0 fL 6.6-10.6 Comprehensive Metabolic 11/06/2017 [facility] Glucose 129 mg/dL High 74-106 Panel [phone] BUN 14 mg/dL 7-18 Creatinine 1.0 mg/dL [...] 40 U/L Low 45-117 Act Partial 10/29/2017 [facility] Act Partial 29.2 seconds 23.4- 35.0 20 Thrombo Time [phone] Thrombo Time Anticoagulant Therapy? NO Protime 10/29/2017 [facility] Protime 14.0 seconds 12.0-14.4 [phone] Inr 1.1 0.9-1.1 21 Anticoagulant Therapy? NO Homocyst(E)Ine, 10/29/2017 [facility] Homocyst(e)ine, 11.9 0.0- 15.0 22 P/S [phone] P/S umol/L Ua RFX Micro & 10/29/2017 [facility] Urine Color YELLOW Yellow Culture II [phone] Urine Clarity CLEAR Clear Urine Glucose - Dipstick NEGATIVE mg/dL Negative Urine Bilirubin - Dipstick NEGATIVE Negative Urine Ketone NEGATIVE mg/dL Negative Urine Specific [place] 1.015 1.010-1.030 Urine Blood NEGATIVE Negative Urine PH 7.0 6.5-7.5 Urine Protein - Dipstick NEGATIVE mg/dL Negative Urine Urobilinogen - Dipstick 0.2 E.U./dL 0.2-1.0 Urine Nitrite - Dipstick NEGATIVE Negative Urine Leuk Esterase NEGATIVE Negative Source: URINE, CLEAN CAT <SEE NOTE> 23 Comprehensive Metabolic 10/29/2017 [facility] Glucose 103 mg/dL 74 -106 Panel [phone] BUN 16 mg/dL 7-18 Creatinine 0.9 mg/dL 0.6-1.3 Glom Filtration Rate, Estimate >60 mL/min >60 If >60 mL/min >60 24 BUN/Creat 17.7 ratio Sodium 137 mmol/L 136-145 [...] Alkaline Phosphatase 59 U/L 45-117 Glycohemoglobin 10/29/2017 [facility] Glycohemoglobin 6.5 % High 4.2-6.3 25 A1c [phone] (A1c) eAG 140 mg/dL Microalbumin,Random 10/29/2017 [facility] Microalbumin,Urine < 5.0 < 20.0 Urine [phone] mg/L Laboratory test 10/29/2017 [facility] C-Reactive 2.73 <3.0 finding [phone] Protein,Cardiac mg/L CBC 10/29/2017 [facility] White Blood Count 8.1 3.4-10 [phone] K/uL .5 Red Blood Count 5.01 M/uL 4.20-5.80 Hemoglobin 14.2 gm/dL 12.8-17.0 Hematocrit 42.7 % 38.0-48.0 Mean Cell Volume 85.2 fl 80.0-96.0 Mean Corpuscular HGB 28.3 pg 27.0-33.0 Mean Corpuscular HGB Conc 33.3 g/dL 31.7-36.0 Platelet Count 292 K/uL 155-360 Red Cell Distri Width %CV 15.4 % 11.6-15.8 Mean Platelet Volume 9.8 fL 6.6-10.6 Anticoagulant Therapy? NO Comprehensive Metabolic 09/27/2017 [facility] Glucose 103 mg/dL 74 -106 26 Panel [phone] BUN 11 mg/dL 7-18 Creatinine 0.8 mg/dL [...] Phosphatase 83 U/L 45-117 Laboratory test 09/27/2017 [facility] Lipase 108 U/L 56-289 finding [phone] CBS W/Automated 09/27/2017 [facility] White Blood 13.0 K/uL High 3.4-10.5 Diff [phone] Count Red Blood Count 4.64 M/uL 4.20-5.80 [...] % 33.0-73.0 Lymph % 24.5 % 20.0-42.0 [place] % 11.1 % High 0.0-10.0 Eo% 2.9 % 0.0-6.6 Bas% 0.5 % 0.0-1.1 Neut# 7.91 K/uL High 1.8-7.0 Lymph # 3.17 K/uL 1.0-4.0 [place] # 1.44 K/uL High 0.0-0.8 Eos # 0.37 K/uL 0.0-0.5 Baso # 0.07 K/uL 0.0-0.1 Slide Review 09/27/2017 [facility] Slide Review (SEE NOTE) 29 [phone] Urinalysis With 09/27/2017 [facility] Urine Color YELLOW Yellow Microscopic [phone] Urine Clarity CLEAR Clear Urine Glucose - Dipstick NEGATIVE mg/dL Negative Urine Bilirubin - Dipstick NEGATIVE Negative Urine Ketone NEGATIVE mg/dL Negative Urine Specific [place] >=1.030 1.010-1.030 Urine Blood SMALL Negative Urine PH 5.5 Low 6.5-7.5 Urine Protein - Dipstick NEGATIVE mg/dL Negative Urine Urobilinogen - Dipstick 0.2 E.U./dL 0.2-1.0 Urine Nitrite - Dipstick NEGATIVE Negative Urine Leuk Esterase NEGATIVE Negative Urine RBC 0-2 rbc/hpf 0-2 Urine WBC 0-2 wbc/hpf 0-7 Urine Epithelial Cells VERY FEW /lpf None Seen Source: URINE, CLEAN CAT <SEE NOTE> 30 Laboratory 09/27/2017 [facility] Occult NEGATIVE Negative 31 test finding [phone] Blood,Stool Laboratory 09/11/2017 [facility] Prostate 0.36 ng/mL < 4.0 32, 33 test finding [phone] Specific Antigen Vitamin D,25-Hydroxy 34.1 ng/mL 30.0-100.0 34 Thyroid Stim Hormone 2.10 uIU/mL 0.30-4.20 Comprehensive Metabolic 09/11/2017 [facility] Glucose 118 mg/dL High 74-106 Panel [phone] BUN 14 mg/dL 7-18 Creatinine 0.8 mg/dL 0.6-1.3 Glom Filtration Rate, Estimate >60 mL/min >60 If >60 mL/min >60 35 BUN/Creat 17.5 ratio Sodium 138 mmol/L 136-145 Potassium 3.9 mmol/L 3.5-5.1 Chloride 105 mmol/L 98-107 Carbon Dioxide 27 mmol/L 21-32 Anion Gap 6 mEq/L Low 8-16 Calcium 8.6 mg/dL 8.5-10.1 Total Protein 6.8 g/dL 6.4-8.2 Albumin 3.7 g/dL 3.4-5.0 Globulin 3.1 g/dL 1.9-4.3 Alb/Glob 1.2 ratio Bilirubin,Total 0.2 mg/dL 0.2-1.0 Sgot/Ast 18 U/L 15-37 SGPT/Alt 43 U/L 12-78 Alkaline Phosphatase 63 U/L 45-117 Glycohemoglobin 09/11/2017 [facility] Glycohemoglobin 6.4 % High 4.2-6.3 36 A1c [phone] (A1c) eAG 137 mg/dL Microalbumin,Random 09/11/2017 [facility] Microalbumin,Urine 7.3 < 20.0 Urine [phone] mg/L CBC 09/11/2017 [facility] White Blood Count 10.6 High 3.4-10 [phone] K/uL .5 Red Blood Count 4.93 M/uL 4.20-5.80 Hemoglobin 13.9 gm/dL 12.8-17.0 Hematocrit 41.3 % 38.0-48.0 Mean Cell Volume 83.8 fl 80.0-96.0 Mean Corpuscular HGB 28.2 pg 27.0-33.0 Mean Corpuscular HGB Conc 33.7 g/dL 31.7-36.0 Platelet Count 376 K/uL High 155-360 Red Cell Distri Width %CV 14.5 % 11.6-15.8 Mean Platelet Volume 9.3 fL 6.6-10.6 Laboratory test 09/11/2017 [facility] Cortisol,Am 13.4 g/dL 6.2- 19.4 37 finding [phone] Aldosterone 3.8 ng/dL 0.0-30.0 38 Dehydroepiandrosterone (Dhea) 83 ng/dL 31-701 39 LC/MS Testosterone Total 213.4 ng/dL Low 264.0-916.0 40 CBS W/Automated Diff 09/04/2017 [facility] White Blood 9.7 K/uL 3.4-10.5 41 [phone] Count Red Blood Count 4.92 M/uL 4.20-5.80 [...] % 33.0-73.0 Lymph % 21.3 % 20.0-42.0 [place] % 12.1 % High 0.0-10.0 Eo% 4.6 % 0.0-6.6 Bas% 0.5 % 0.0-1.1 Neut# 5.95 K/uL 1.8-7.0 Lymph # 2.06 K/uL 1.0-4.0 [place] # 1.17 K/uL High 0.0-0.8 Eos # 0.44 K/uL 0.0-0.5 Baso # 0.05 K/uL 0.0-0.1 Basic Metabolic Panel 09/04/2017 [facility] Glucose 126 mg/dL High 74-106 [phone] BUN 11 mg/dL 7-18 Creatinine 0.9 mg/dL 0.6-1.3 Glom Filtration Rate, Estimate >60 mL/min >60 If >60 mL/min >60 42 BUN/Creat 12.2 ratio Sodium 141 mmol/L 136-145 Potassium 4.4 mmol/L 3.5-5.1 Chloride 107 mmol/L 98-107 Carbon Dioxide 31 mmol/L 21-32 Anion Gap 3 mEq/L Low 8-16 Calcium 8.7 mg/dL 8.5-10.1 CBS W/Automated 09/02/2017 [facility] White Blood 11.0 K/uL High 3.4-10.5 43 Diff [phone] Count Red Blood Count 4.79 M/uL 4.20-5.80 [...] 33.0-73.0 Lymph % 11.9 % Low 20.0-42.0 [place] % 12.5 % High 0.0-10.0 Eo% 3.9 % 0.0-6.6 Bas% 0.7 % 0.0-1.1 Neut# 7.78 K/uL High 1.8-7.0 Lymph # 1.31 K/uL 1.0-4.0 [place] # 1.37 K/uL High 0.0-0.8 Eos # 0.43 K/uL 0.0-0.5 Baso # 0.08 K/uL 0.0-0.1 Basic Metabolic Panel 09/02/2017 [facility] Glucose 105 mg/dL 74- 106 [phone] BUN 12 mg/dL 7-18 Creatinine 0.9 mg/dL 0.6-1.3 Glom Filtration Rate, Estimate >60 mL/min >60 If >60 mL/min >60 44 BUN/Creat 13.3 ratio Sodium 138 mmol/L 136-145 Potassium 3.8 mmol/L 3.5-5.1 Chloride 106 mmol/L 98-107 Carbon Dioxide 28 mmol/L 21-32 Anion Gap 4 mEq/L Low 8-16 Calcium 8.0 mg/dL Low 8.5-10.1 Laboratory test 09/02/2017 [facility] C-Reactive 5.7 mg/L High < 3.0 finding [phone] Protein,Quant Ua RFX Micro & 09/01/2017 [facility] Urine Color YELLOW Yellow 45 Culture II [phone] Urine Clarity CLEAR Clear Urine Glucose - Dipstick NEGATIVE mg/dL Negative Urine Bilirubin - Dipstick NEGATIVE Negative Urine Ketone NEGATIVE mg/dL Negative Urine Specific [place] <=1.005 Low 1.010-1.030 Urine Blood TRACE Negative Urine PH 6.0 Low 6.5-7.5 Urine Protein - Dipstick NEGATIVE mg/dL Negative Urine Urobilinogen - Dipstick 0.2 E.U./dL 0.2-1.0 Urine Nitrite - Dipstick NEGATIVE Negative Urine Leuk Esterase NEGATIVE Negative Source: URINE, CLEAN CAT <SEE NOTE> 46 Comprehensive Metabolic Panel 09/01/2017 [facility] Glucose 90 mg/dL 74-106 [phone] BUN 14 mg/dL 7-18 Creatinine 0.9 mg/dL [...] Phosphatase 65 U/L 45-117 Laboratory test 09/01/2017 [facility] Lipase 80 U/L 56-289 finding [phone] CBS W/Automated 09/01/2017 [facility] White Blood 14.3 K/uL High 3.4-10.5 Diff [phone] Count Red Blood Count 5.05 M/uL 4.20-5.80 [...] 33.0-73.0 Lymph % 14.9 % Low 20.0-42.0 [place] % 9.4 % 0.0-10.0 Eo% 2.2 % 0.0-6.6 Bas% 0.5 % 0.0-1.1 Neut# 10.46 K/uL High 1.8-7.0 Lymph # 2.13 K/uL 1.0-4.0 [place] # 1.35 K/uL High 0.0-0.8 Eos # 0.31 K/uL 0.0-0.5 Baso # 0.07 K/uL 0.0-0.1 Slide Review 09/01/2017 [facility] Slide Review . 48 [phone] Laboratory test 09/01/2017 [facility] RBC Morphology 0-1+ finding [phone] Only CBS W/Automated 08/24/2017 [facility] White Blood Count 10.2 K/uL 3.4-10. 49 Diff [phone] Red Blood Count 4.58 M/uL 4.20-5.80 Hemoglobin [...] % 33.0-73.0 Lymph % 21.0 % 20.0-42.0 [place] % 10.3 % High 0.0-10.0 Eo% 3.9 % 0.0-6.6 Bas% 0.4 % 0.0-1.1 Neut# 6.58 K/uL 1.8-7.0 Lymph # 2.15 K/uL 1.0-4.0 [place] # 1.05 K/uL High 0.0-0.8 Eos # 0.40 K/uL 0.0-0.5 Baso # 0.04 K/uL 0.0-0.1 Basic Metabolic Panel 08/24/2017 [facility] Glucose 112 mg/dL High 74-106 [phone] BUN 11 mg/dL 7-18 Creatinine 0.8 mg/dL 0.6-1.3 Glom Filtration Rate, Estimate >60 mL/min >60 If >60 mL/min >60 50 BUN/Creat 13.7 ratio Sodium 140 mmol/L 136-145 Potassium 4.1 mmol/L 3.5-5.1 Chloride 107 mmol/L 98-107 Carbon Dioxide 26 mmol/L 21-32 Anion Gap 7 mEq/L Low 8-16 Calcium 8.4 mg/dL Low 8.5-10.1 CBS W/Automated Diff 08/23/2017 [facility] White Blood 10.0 K/uL 3.4-10.5 [phone] Count Red Blood Count 4.59 M/uL 4.20-5.80 [...] % 33.0-73.0 Lymph % 24.5 % 20.0-42.0 [place] % 11.5 % High 0.0-10.0 Eo% 4.8 % 0.0-6.6 Bas% 0.5 % 0.0-1.1 Neut# 5.85 K/uL 1.8-7.0 Lymph # 2.44 K/uL 1.0-4.0 [place] # 1.15 K/uL High 0.0-0.8 Eos # 0.48 K/uL 0.0-0.5 Baso # 0.05 K/uL 0.0-0.1 Comprehensive Metabolic 08/23/2017 [facility] Glucose 101 mg/dL 74 -106 Panel [phone] BUN 11 mg/dL 7-18 Creatinine 0.9 mg/dL [...] Phosphatase 60 U/L 45-117 Laboratory test 08/23/2017 [facility] C-Reactive 52.9 mg/L High < 3.0 finding [phone] Protein,Quant CBS W/Automated 08/22/2017 [facility] White Blood Count 14.3 K/uL High 3.4-10.5 Diff [phone] Red Blood Count 4.55 M/uL 4.20-5.80 Hemoglobin [...] 33.0-73.0 Lymph % 16.4 % Low 20.0-42.0 [place] % 12.2 % High 0.0-10.0 Eo% 1.7 % 0.0-6.6 Bas% 0.2 % 0.0-1.1 Neut# 9.95 K/uL High 1.8-7.0 Lymph # 2.35 K/uL 1.0-4.0 [place] # 1.75 K/uL High 0.0-0.8 Eos # 0.25 K/uL 0.0-0.5 Baso # 0.03 K/uL 0.0-0.1 Comprehensive Metabolic 08/22/2017 [facility] Glucose 104 mg/dL 74 -106 Panel [phone] BUN 16 mg/dL 7-18 Creatinine 0.8 mg/dL [...] 67 U/L 45-117 Laboratory test finding 08/22/2017 [facility] Magnesium 2.2 mg/dL 1.8-2.4 [phone] C-Reactive Protein,Quant 51.8 mg/L High <3.0 Glycohemoglobin A1c 08/22/2017 [facility] Glycohemoglobin 6.1 % 4.2-6.3 55 [phone] (A1c) eAG 128 mg/dL Ua RFX Micro & Culture II 08/21/2017 [facility] Urine Color YELLOW Yellow 56 [phone] Urine Clarity CLEAR Clear Urine Glucose - Dipstick NEGATIVE mg/dL Negative Urine Bilirubin - Dipstick NEGATIVE Negative Urine Ketone NEGATIVE mg/dL Negative Urine Specific [place] 1.010 1.010-1.030 Urine Blood TRACE Negative Urine PH 7.5 6.5-7.5 Urine Protein - Dipstick NEGATIVE mg/dL Negative Urine Urobilinogen - Dipstick 0.2 E.U./dL 0.2-1.0 Urine Nitrite - Dipstick NEGATIVE Negative Urine Leuk Esterase NEGATIVE Negative Source: URINE, CLEAN CAT <SEE NOTE> 57 CBS W/Automated 08/21/2017 [facility] White Blood 18.9 K/uL High 3.4-10.5 Diff [phone] Count Red Blood Count 4.97 M/uL 4.20-5.80 [...] 33.0-73.0 Lymph % 11.0 % Low 20.0-42.0 [place] % 9.0 % 0.0-10.0 Eo% 1.0 % 0.0-6.6 Bas% 0.2 % 0.0-1.1 Neut# 14.91 K/uL High 1.8-7.0 Lymph # 2.09 K/uL 1.0-4.0 [place] # 1.70 K/uL High 0.0-0.8 Eos # 0.19 K/uL 0.0-0.5 Baso # 0.04 K/uL 0.0-0.1 Slide Review 08/21/2017 [facility] Slide Review DIFF ORDERED [phone] Differential-WBC 08/21/2017 [facility] Total Cells 100 #CELLS Confirm [phone] Counted Band% 11 % High 0-8 Neutrophils% 75 % High 33-73 Lymph% 8 % Low 20-42 Monocyte% 3 % 0-10 Eosinophil% 2 % 0-5 Basophil% 1 % 0-2 Platelet Estimate NORMAL Poikilocytosis 0-1+ Anisocytosis 0-1+ Microcytosis 0-1+ Comprehensive Metabolic 08/21/2017 [facility] Glucose 141 mg/dL High 74-106 Panel [phone] BUN 16 mg/dL 7-18 Creatinine 1.0 mg/dL [...] Phosphatase 94 U/L 45-117 Laboratory test 08/21/2017 [facility] Lipase 102 U/L 56-289 finding [phone] CBS W/Automated 07/17/2017 [facility] White Blood 8.9 K/uL 3.4- 10.5 60 Diff [phone] Count Red Blood Count 4.82 M/uL 4.20-5.80 [...] % 33.0-73.0 Lymph % 29.0 % 20.0-42.0 [place] % 11.8 % High 0.0-10.0 Eo% 3.7 % 0.0-6.6 Bas% 0.6 % 0.0-1.1 Neut# 4.91 K/uL 1.8-7.0 Lymph # 2.59 K/uL 1.0-4.0 [place] # 1.05 K/uL High 0.0-0.8 Eos # 0.33 K/uL 0.0-0.5 Baso # 0.05 K/uL 0.0-0.1 Laboratory test 07/17/2017 [facility] Sedimentation Rate 9 mm/hr 0 -20 61 finding [phone] Liver Function 07/17/2017 [facility] Total Protein 7.2 g/dL 6.4- 8.2 Tests [phone] Albumin 3.7 g/dL 3.4-5.0 Globulin 3.5 g/dL 1.9-4.3 Alb/Glob 1.1 ratio Bilirubin,Total 0.3 mg/dL 0.2-1.0 Bilirubin,Direct 0.1 mg/dL 0.0-0.2 Bilirubin,Indirect 0.2 mg/dL 0.0-0.9 Sgot/Ast 19 U/L 15-37 SGPT/Alt 29 U/L 12-78 Alkaline Phosphatase 85 U/L 45-117 Reflex add FT3? Y Reflex add FT4? Y TSH Reflex FT4 07/17/2017 [facility] Thyroid Stim 1.50 uIU/mL 0.30 -4.20 And/Or FT3 [phone] Hormone Reflex add FT3? Y Reflex add FT4? Y Laboratory test 07/17/2017 [facility] Antinuclear Negative . 62 finding [phone] Antibodies, Ifa Comprehensive 06/26/2017 [facility] Glucose 98 mg/dL 74-106 63 Metabolic Panel [phone] BUN 19 mg/dL High 7-18 Creatinine 0.9 [...] U/L 12-78 Alkaline Phosphatase 77 U/L 45-117 Glycohemoglobin A1c 06/26/2017 [facility] Glycohemoglobin 6.2 % 4.2-6.3 65 [phone] (A1c) eAG 131 mg/dL LDL Cholesterol Profile 06/26/2017 [facility] Cholesterol 141 mg/dL <200 66 [phone] Triglycerides 172 mg/dL High <150 67 HDL Cholesterol 39 mg/dL Low >40 68 LDL-Cholesterol 68 mg/dL < 100 69 Microalbumin,Random 06/26/2017 [facility] Microalbumin,Urine 8.5 < 20.0 Urine [phone] mg/L Glycohemoglobin A1c 12/26/2016 [facility] Glycohemoglobin 6.2 % 4.2-6. 70, [phone] (A1c) 3 71 eAG 131 mg/dL Comprehensive Metabolic 12/26/2016 [facility] Glucose 102 mg/dL 74 -106 Panel [phone] BUN 13 mg/dL 7-18 Creatinine 0.8 mg/dL [...] Alkaline Phosphatase 73 U/L 45-117 Microalbumin,Random 12/26/2016 [facility] Microalbumin,Urine 6.0 mg/ L < Urine [phone] 20.0 Fungal Culture With 12/26/2016 [facility] Fungal Fluorochrome Fungus 74 Smear [phone] Stain Stain Fungal Culture; Other Sources (SEE NOTE) 75 Glycohemoglobin 09/23/2016 [facility] Glycohemoglobin 6.5 % High 4.2-6.3 76, A1c [phone] (A1c) 77 eAG 140 mg/dL Basic Metabolic Panel 08/18/2016 [facility] Glucose 124 mg/dL High 74-106 [phone] BUN 15 mg/dL 7-18 Creatinine 0.9 mg/dL 0.6-1.3 Glom Filtration Rate, Estimate >60 mL/min >60 If >60 mL/min >60 78 BUN/Creat 16.6 ratio Sodium 138 mmol/L 136-145 Potassium 3.9 mmol/L 3.5-5.1 Chloride 103 mmol/L 98-107 Carbon Dioxide 28 mmol/L 21-32 Anion Gap 7 mEq/L Low 8-16 Calcium 8.6 mg/dL 8.5-10.1 Glycohemoglobin 08/18/2016 [facility] Glycohemoglobin 7.7 % High 4.2-6.3 79 A1c [phone] (A1c) eAG 174 mg/dL Microalbumin,Random 08/18/2016 [facility] Microalbumin,Urine 9.1 < 20.0 Urine [phone] mg/L Prostate Specific 07/16/2016 [facility] PSA ([place] Loci) 0.27 < 4.0 80, Antigen [phone] ng/mL 81 Reflex add FT3? Y Reflex add FT4? Y TSH Reflex FT4 07/16/2016 [facility] Thyroid Stim 1.54 uIU/mL 0.30 -4.20 And/Or FT3 [phone] Hormone Reflex add FT3? Y Reflex add FT4? Y Glycohemoglobin 07/16/2016 [facility] Glycohemoglobin 7.7 % High 4.2-6.3 82 A1c [phone] (A1c) eAG 174 mg/dL Microalbumin,Random 07/16/2016 [facility] Microalbumin,Urine 6.3 < 20.0 Urine [phone] mg/L CBC 07/16/2016 [facility] White Blood Count 7.1 3.4-10 [phone] K/uL .5 Red Blood Count 5.02 M/uL 4.20-5.80 Hemoglobin 14.5 gm/dL 12.8-17.0 Hematocrit 42.4 % 38.0-48.0 Mean Cell Volume 84.5 fl 80.0-96.0 Mean Corpuscular HGB 28.9 pg 27.0-33.0 Mean Corpuscular HGB Conc 34.2 g/dL 31.7-36.0 Platelet Count 310 K/uL 150-400 Red Cell Distri Width %CV 13.8 % 11.6-15.8 Mean Platelet Volume 9.6 fL 6.6-10.6 Homocyst(E)Ine, 07/16/2016 [facility] Homocyst(e)ine, 9.0 0.0- 15.0 83 P/S [phone] P/S umol/L C-Reactive 07/16/2016 [facility] C-Reactive 9.25 <3.0 Protein,Cardiac [phone] Protein,Cardiac mg/L Reflex add FT3? Y Reflex add FT4? Y Comprehensive Metabolic 07/16/2016 [facility] Glucose 125 mg/dL High 74-106 Panel [phone] BUN 11 mg/dL 7-18 Creatinine 0.9 mg/dL 0.6-1.3 Glom Filtration Rate, Estimate >60 mL/min >60 If >60 mL/min >60 84 BUN/Creat 12.2 ratio Sodium 139 mmol/L 136-145 Potassium 3.9 mmol/L 3.5-5.1 Chloride 105 mmol/L 98-107 Carbon Dioxide 28 mmol/L 21-32 Anion Gap 6 mEq/L Low 8-16 Calcium 8.2 mg/dL Low 8.5-10.1 Total Protein 7.2 g/dL 6.4-8.2 Albumin 3.4 g/dL 3.4-5.0 Globulin 3.8 g/dL 1.9-4.3 Alb/Glob 0.9 ratio Bilirubin,Total 0.2 mg/dL 0.2-1.0 Sgot/Ast 14 U/L Low 15-37 85 SGPT/Alt 37 U/L 12-78 Alkaline Phosphatase 97 U/L 45-117 Reflex add FT3? Y Reflex add FT4? Y Glycohemoglobin A1c 04/06/2015 [facility] Glycohemoglobin 6.2 % 4.2-6.3 86 [phone] (A1c) eAG 131 mg/dL Basic Metabolic Panel 02/20/2015 [facility] Glucose 124 mg/dL High 74-106 [phone] BUN 12 mg/dL 7-18 Creatinine 0.9 mg/dL 0.6-1.3 Glom Filtration Rate, Estimate >60 mL/min >60 If >60 mL/min >60 87 BUN/Creat 13.3 ratio Sodium 137 mmol/L 136-145 Potassium 3.8 mmol/L 3.5-5.1 Chloride 103 mmol/L 98-107 Carbon Dioxide 26 mmol/L 21-32 Anion Gap 8 mEq/L 8-16 Calcium 8.3 mg/dL Low 8.5-10.1 LDL Cholesterol Profile 02/20/2015 [facility] Cholesterol 138 mg/dL < 200 88 [phone] Triglycerides 217 mg/dL < 150 89 HDL Cholesterol 29 mg/dL > 40 90 LDL-Cholesterol 66 mg/dL < 100 91 CBC 02/20/2015 [facility] White Blood Count 8.6 K/uL 3.4-10.5 [phone] Red Blood Count 4.78 M/uL 4.20-5.80 Hemoglobin 14.7 gm/dL 12.8-17.0 Hematocrit 42.4 % 38.0-48.0 Mean Cell Volume 88.7 fl 80.0-96.0 Mean Corpuscular HGB 30.8 pg 27.0-33.0 Mean Corpuscular HGB Conc 34.7 g/dL 31.7-36.0 Platelet Count 321 K/uL 150-400 Red Cell Distri Width %CV 13.4 % 11.6-15.8 Mean Platelet Volume 10.0 fL 6.6-10.6 Comprehensive Metabolic 02/20/2015 [facility] Glucose 124 mg/dL High 74-106 Panel [phone] BUN 12 mg/dL 7-18 Creatinine 0.9 mg/dL [...] Phosphatase 85 U/L 45-117 Laboratory test 02/20/2015 [facility] Prostate Specific 0.32 ng/mL 93 finding [phone] Antigen Thyroid Stim Hormone 2.93 uIU/mL 0.36-3.74 Vitamin D,25-Hydroxy 32.0 ng/mL 30.0-100.0 94 Rubeola Antibodies, Igg >300.0 Immune>29.9AU 95 Mumps Antibodies, Igg 198.0 Immune>10.9AU 96 Rubella IgG 02/20/2015 [facility] Rubella IgG Reactive Reactive Antibody [phone] Antibody Rubella IgG Iu/ml 44.8 IU/mL >=10.0 97 Laboratory test 02/20/2015 [facility] Microalbumin,Random See Note 98 finding [phone] Urine Laboratory test 12/29/2013 [facility] Microalbumin,Random 10.9 0.0 - finding [phone] Urine mg/L 18.5 Laboratory test 12/28/2013 [facility] Uric Acid 6.3 2.1- finding [phone] mg/dL 7.4 Comprehensive 12/28/2013 [facility] Glucose 112 76-1 Metabolic Panel [phone] mg/dL 15 BUN 12 mg/dL 5-23 Creatinine [...] 80 U/L 50-136 LDL Cholesterol Profile 12/28/2013 [facility] Cholesterol 144 mg/dL 120-200 [phone] Triglycerides 210 mg/dL 16-231 HDL Cholesterol 32 mg/dL 29-83 LDL-Cholesterol 70 mg/dL 62-185 Laboratory test 12/28/2013 [facility] Microalbumin,Random Canceled 100 finding [phone] Urine By Lab Xray 12/27/2013 [facility] chest Xray pa and <pending> [address] [place] [address] [phone] Comprehensive 06/30/2013 [facility] Glucose 117 mg/dL High 76 Metabolic Panel [phone] 15 BUN 16 mg/dL 5-23 Creatinine [...] Alkaline Phosphatase 93 U/L 50-136 Laboratory 06/30/2013 [facility] Microalbumin,Random 8.0 0.0-18.5 test finding [phone] Urine mg/L Prostate Specific Antigen 0.38 ng/mL 0.00-4.00 102 LDL Cholesterol Profile 06/30/2013 [facility] Cholesterol 153 mg/dL 120-200 [phone] Triglycerides 230 mg/dL 16-231 HDL Cholesterol 30 mg/dL 29-83 LDL-Cholesterol 77 mg/dL 62-185 Laboratory test 06/30/2013 [facility] Uric Acid 6.3 mg/dL 2.1-7.4 finding [phone] Xray 05/26/2013 [facility] Xray R <pending> [address] [place] [address] [phone] LDL Cholesterol 02/18/2013 [facility] Cholesterol 149 mg/dL 120- 200 Profile [phone] Triglycerides 228 mg/dL 16-231 HDL Cholesterol 31 mg/dL 29-83 LDL-Cholesterol 72 mg/dL 62-185 Laboratory test 02/18/2013 [facility] Thyroid Stim 1.57 0.49-4.67 finding [phone] Hormone uIU/mL Comprehensive 02/18/2013 [facility] Glucose 121 mg/dL High 76-115 Metabolic Panel [phone] BUN 11 mg/dL 5-23 Creatinine 0.9 mg/dL [...] Alkaline Phosphatase 92 U/L 50-136 CBC 02/18/2013 [facility] White Blood Count 9.2 K/uL 3.4-10.5 [phone] Red Blood Count 5.19 M/uL 4.20-5.80 Hemoglobin 15.4 gm/dL 12.8-17.0 Hematocrit 45.2 % 38.0-48.0 Mean Cell Volume 87.1 fl 80.0-96.0 Mean Corpuscular HGB 29.7 pg 27.0-33.0 Mean Corpuscular HGB Conc 34.1 g/dL 31.7-36.0 Platelet Count 336 K/uL 150-400 Red Cell Distri Width %CV 13.0 % 11.6-15.8 Mean Platelet Volume 9.8 fL 6.6-10.6 LDL Cholesterol Profile 01/16/2012 [facility] Cholesterol 148 mg/dL 120-200 [phone] Triglycerides 295 mg/dL High 16-231 HDL Cholesterol 29 mg/dL 29-83 LDL-Cholesterol 60 mg/dL Low 62-185 Comprehensive Metabolic 01/16/2012 [facility] Glucose 104 mg/dL 76 -115 Panel [phone] BUN 13 mg/dL 5-23 Creatinine 0.9 mg/dL [...] Phosphatase 67 U/L 50-136 Laboratory test 01/16/2012 [facility] Thyroid Stim 3.57 uIU/mL 0.49-4.67 finding [phone] Hormone CBS W/Automated 01/16/2012 [facility] White Blood 9.5 K/uL 3.4- 10.5 Diff [phone] Count Red Blood Count 5.27 M/uL 4.20-5.80 [...] % 33.0-73.0 Lymph % 31.2 % 17.0-56.0 [place] % 10.6 % High 0.0-10.0 Eo% 3.0 % 0.0-5.0 Bas% 0.6 % 0.1-1.0 Neut# 5.18 K/uL 1.8-7.0 Lymph # 2.97 K/uL 1.2-4.0 [place] # 1.01 K/uL High 0.0-0.6 Eos # 0.29 K/uL 0.0-0.5 Baso # 0.06 K/uL Low 0.1-0.2 Laboratory test finding 11/12/2011 [facility] Uric Acid 4.6 mg/dL 2.1-7.4 [phone] Laboratory test finding 09/29/2011 [facility] Uric Acid 6.7 mg/dL 2.1-7.4 [phone] LDL Cholesterol Profile 06/26/2011 [facility] Cholesterol 159 mg/dL 120-200 [phone] Triglycerides 199 mg/dL 16-231 HDL Cholesterol 33 mg/dL 29-83 LDL-Cholesterol 86 mg/dL 62-185 Comprehensive Metabolic Panel 06/26/2011 [facility] Glucose 97 mg/dL 76-115 [phone] BUN 14 mg/dL 5-23 Creatinine 1.0 mg/dL [...] Phosphatase 71 U/L 50-136 Laboratory test 06/26/2011 [facility] Thyroid Stim 1.88 uIU/mL 0.49-4.67 finding [phone] Hormone CBS W/Automated 06/26/2011 [facility] White Blood 7.1 K/uL 3.4- 10.5 Diff [phone] Count Red Blood Count 5.16 M/uL 4.20-5.80 [...] % 33.0-73.0 Lymph % 33.2 % 17.0-56.0 [place] % 12.4 % High 0.0-10.0 Eo% 4.2 % 0.0-5.0 Bas% 0.7 % 0.1-1.0 Neut# 3.52 K/uL 1.8-7.0 Lymph # 2.36 K/uL 1.2-4.0 [place] # 0.88 K/uL High 0.0-0.6 Eos # [...] are those recommended by CDC/ASTPHLD. p23=Osp C, s11=rqbmumvap Note: Sera from individuals with the following may cross react in the [place] Western Blot assays: other spirochetal diseases (periodontal disease, leptospirosis, relapsing fever, yaws, and pinta); connective autoimmune (Rheumatoid Arthritis and Systemic Lupus Erythematosus and also individuals with Antinuclear Antibody); other infections (Throck[place]on Spotted Fever; Narayan-Moralez Virus, and Cytomegalovirus). 5 Method: Sediplast Modified Westergren 6 Negative <1:80 Borderline 1:80 Positive >1:80 Performed at: RN - [facility] [address] [id number] Territory Supervisor: Gauri Villarreal MD, Phone: [phone] 7 R94.5, R60.0 8 Values below the [...] information may be found at www.kdoqi.org. 16 Elevated levels of HbA1c suggest the need for more aggressive treatment of glycemia. The [place] [employer] recommends that a primary goal of therapy should be a HbA1c of <7% and that physicians should re-evaluate the treatment regimen in patients with HbA1c values consistently >8%. 17 Note: Persistent reduction for 3 months or more in an eGFR <60 mL/min/1.73 m2 defines CKD. Patients with eGFR values >/=60 mL/min/1.73 m2 may also have CKD if evidence of persistent proteinuria is present. The original MDRD equation for estimated GFR is not valid for patients less than 18 years of age. Additional information may be found at www.kdoqi.org. 18 DIVERTICULITIS OF INTESTINE;PART UNSPECIFIED 19 Note: [...] 2.5 - 3.5 Mechanical heart valves 22 Performed at: RN - [facility] [address] [id number] Territory Supervisor: Gauri Villarreal MD, Phone: [phone] URINE, CLEAN CATCH 24 Note: Persistent reduction for 3 months or more in an eGFR <60 mL/min/1.73 m2 defines CKD. Patients with eGFR values >/=60 mL/min/1.73 m2 may also have CKD if evidence of persistent proteinuria is present. The original MDRD equation for estimated GFR is not valid for patients less than 18 years of age. Additional information may be found at www.kdoqi.org. 25 Elevated levels of HbA1c suggest the need for more aggressive treatment of glycemia. The [place] [employer] recommends that a primary goal of therapy should be a HbA1c of <7% and that physicians should re-evaluate the treatment regimen in patients with HbA1c values consistently >8%. 26 DIVERTICULITIS, NO BM ALL WEEK, ABD [...] normal populations. Clinical correlation is suggested. 29 Instrument flagged sample for slide review. Less than 10% Bands seen, no other immature WBC's seen. RBC morphology essentially normal. Platelet estimate=NORMAL 30 URINE, CLEAN CATCH 31 Method: Semantria Hemoccult Card 32 E27.8,Z12.5,E66.09,E11.9,I10 33 THIS ASSAY IS NOT INTENDED A CANCER SCREENING TEST The concentration of PSA in a given specimen, determined with assays from different manufacturers, can vary due to differences in assay methods and reagent specificity. Values obtained from different assay methods cannot be used interchangeably. Method: Siemens Triton [place] Chemiluminescent immunoassay. 34 Vitamin D deficiency has been defined by the [place] [employer] and an Endocrine Society practice guideline as a level of serum 25-OH vitamin D less than 20 ng/mL (1,2). The Endocrine Society went on to further define vitamin D insufficiency as a level between 21 and 29 ng/mL (2). 1. IOM ([place] [employer]). 2010. Dietary reference intakes for calcium and D. [place]: The National Academies Press. 2. Ellyn MF, Ronald NC, Aayush LOPEZ, et al. Evaluation, treatment, and prevention of vitamin D deficiency: an Endocrine Society clinical practice guideline. JCEM. 2010; 96(7):1911-30. Performed at: RN - [facility] [address] [id number] Territory Supervisor: Gauri Villarreal MD, Phone: [phone] 35 Note: Persistent reduction for 3 months or more in an eGFR <60 mL/min/1.73 m2 defines CKD. Patients with eGFR values >/=60 mL/min/1.73 m2 may also have CKD if evidence of persistent proteinuria is present. The original MDRD equation for estimated GFR is not valid for patients less than 18 years of age. Additional information may be found at www.kdoqi.org. 36 Elevated levels of HbA1c suggest the need for more aggressive treatment of glycemia. The [place] [employer] recommends that a primary goal of therapy should be a HbA1c of <7% and that physicians should re-evaluate the treatment regimen in patients with HbA1c values consistently >8%. 37 Performed at: - [facility] [address] [id number] Territory Supervisor: Gauri Villarreal MD, Phone: [phone] 38 This test was developed and its performance characteristics determined by [employer] [employer]. It has not been cleared or approved by the Food and Drug Administration. 39 Age 1 - 5 years 0 - 67 6 - 7 years 0 - 110 8 - 10 years 0 - 185 11 - 12 years 0 - 201 13 - 14 years 0 - 318 15 - 16 years 39 - 481 17 - 19 years 40 - 491 >19 years 31 - 701 40 This [facility] LC/MS-MS method is currently certified by the CDC Hormone Standardization Program (HoSt). Adult male reference interval is based on a population of healthy nonobese males (BMI <30) between 19 and 39 years old. Ede, et.al. JCEM 2017,102;7488-5503. PMID: 77967187. Performed at: - [facility] [id number] Territory Supervisor: Melquiades Palumbo MD, Phone: [phone] ACUTE DIVERTICULITIS 42 Note: Persistent reduction [...] for more aggressive treatment of glycemia. The [place] [employer] Association recommends that a primary goal [...] correlation is suggested. 60 NO DX 61 Method: Sediplast Modified Westergren 62 Negative <1:80 Borderline 1:80 Positive >1:80 Performed at: RN - [facility] [address] [id number] Territory Supervisor: Gauri Villarreal MD, Phone: [phone] 63 E11.9,I10 64 Note: Persistent reduction for 3 months or more in an eGFR <60 mL/min/1.73 m2 defines CKD. Patients with eGFR values >/=60 mL/min/1.73 m2 may also have CKD if evidence of persistent proteinuria is present. The original MDRD equation for estimated GFR is not valid for patients less than 18 years of age. Additional information may be found at www.kdoqi.org. 65 Elevated levels of HbA1c suggest the need for more aggressive treatment of glycemia. The [place] [employer] recommends that a primary goal of therapy should be a HbA1c of <7% and that physicians should re-evaluate the treatment regimen in patients with HbA1c values consistently >8%. 66 Reference Guidelines*: Desirable: ........... < 200 mg/dL Borderline High: ..... 200-239 mg/dL High: ................ >=240 mg/dL * The National Cholesterol Education Program (NCEP) 67 Reference Guidelines*: Normal: ............. < 150 mg/dL Borderline High: .... 150-199 mg/dL High: ............... 200-499 mg/dL Very High: .......... > 500 mg/dL * Source: National Cholesterol Education Program (NCEP) 68 Reference Guidelines*: Low HDL: ..... < 40 mg/dL Normal: ..... 40-60 mg/dL Desirable: ... > 60 mg/dL *The National Cholesterol Education Program(NCEP) 69 Reference Guidelines*: Optimal:........... <100 mg/dL Near Optimal....... 100-129 mg/dL Borderline High.... 130-159 mg/dL High............... 160-189 mg/dL Very High.......... >=190 mg/dL * Source: National Cholesterol Education Program (NCEP) 70 E11.9 TINEA 71 Elevated levels of HbA1c suggest the need for more aggressive treatment of glycemia. The [place] Diabetes [employer] recommends that a primary goal [...] Fusarium species Performed at: RN - [facility] [address] [id number] Territory Supervisor: Gauri Villarreal MD, Phone: [phone] 76 E11.9 77 Elevated levels of HbA1c suggest the need for more aggressive treatment of glycemia. The [place] Diabetes [employer] recommends that a primary goal [...] for more aggressive treatment of glycemia. The [place] Diabetes [employer] recommends that a primary goal of therapy should be a HbA1c of <7% and that physicians should re-evaluate the treatment regimen in patients with HbA1c values consistently >8%. 80 Z12.5,E66.3,R73.03,I10,Z00.00 81 THIS ASSAY IS NOT INTENDED A CANCER SCREENING TEST The concentration of PSA in a given specimen, determined with assays from different manufacturers, can vary due to differences in assay methods and reagent specificity. Values obtained from different assay methods cannot be used interchangeably. Method: Siemens Triton [place] Chemiluminescent immunoassay. 82 Elevated levels of HbA1c suggest the need for more aggressive treatment of glycemia. The [place] [employer] recommends that a primary goal of therapy should be a HbA1c of <7% and that physicians should re-evaluate the treatment regimen in patients with HbA1c values consistently >8%. 83 Performed at: - [facility] [id number] Territory Supervisor: Gauri Villarreal MD, Phone: [phone] 84 Note: Persistent reduction for 3 months or more in an eGFR <60 mL/min/1.73 m2 defines CKD. Patients with eGFR values >/=60 mL/min/1.73 m2 may also have CKD if evidence of persistent proteinuria is present. The original MDRD equation for estimated GFR is not valid for patients less than 18 years of age. Additional information may be found at www.kdoqi.org. 85 Values below the stated reference ranges of AST and ALT can be seen in normal populations. Clinical correlation is suggested. 86 Elevated levels of HbA1c suggest the need for more aggressive treatment of glycemia. The [place] Diabetes Association recommends that a primary goal [...] D deficiency has been defined by the [place] [employer] and an Endocrine Society practice guideline as a level of serum 25-OH vitamin D less than 20 ng/mL (1,2). The Endocrine Society went on to further define vitamin D insufficiency as a level between 21 and 29 ng/mL (2). 1. IOM ([place] [employer]). 2010. Dietary reference intakes for calcium and D. [place]: The National Academies Press. 2. Ellyn MF, Ronald CARROLL, Aayush LOPEZ, et al. Evaluation, treatment, and prevention of vitamin D deficiency: an Endocrine Society clinical practice guideline. JCEM. 2010; 96(6):1911-30. Performed at: [address] [id number] Territory Supervisor: Gauri Villarreal MD, Phone: [phone] 95 Negative <25.0 Equivocal 25.0 - 29.9 Positive >29.9 Presence of antibodies to Rubeola is presumptive evidence of immunity except when acute infection is suspected. 96 Negative <9.0 Equivocal 9.0 - 10.9 Positive >10.9 A positive result generally indicates past exposure to Mumps virus or previous vaccination. Performed at: [address] [id number] Territory Supervisor: Gauri Villarreal MD, Phone: [phone] Values >=10.0 IU/mL are positive for [...] www.kdoqi.org. Procedures Date Code Description Status 11/11/2017 [id number] Colonoscopy Completed 10/28/2017 59438 EKG Tracing Only Completed 07/02/2015 25464 Audiogram, Screen Only Pure Tone Completed 06/30/2014 02836 Color/Snellen Vision Completed 06/30/2014 03392 Audiogram, Screen Only Pure Tone Completed 06/29/2013 17271 Color/Snellen Vision Completed 06/29/2013 75704 Hearing Test Completed 06/28/2012 60312 Color/Snellen Vision Completed 06/28/2012 59617 Hearing Test Completed 06/24/2011 77864 Color/Snellen Vision Completed 06/24/2011 27685 Hearing Test Completed 06/10/2010 73168 Color/Snellen Vision Completed 06/10/2010 31956 Hearing Test Completed 06/06/2009 60422 Color/Snellen Vision Completed 06/06/2009 44898 Hearing Test Completed 03/20/1999 80161 Arthr.Inj.joint shldr, hip, knee Completed Encounters Type Date Location Provider Dx Diagnosis Office Visit 04/13/2018 Main Office Nilesh 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 Office Visit 09/27/2015 4:00p Main Office Nilesh Cardenas M.D. Office Visit 09/20/2015 3:00p Main Office Nilesh Cardenas M.D. 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 Office Visit 10/07/2010 Main Office Nilesh 726.32 Epicondylitis 4:30p Mayank Cardenas Lateral Office Visit 09/23/2010 Main Office Nilesh 726.32 Epicondylitis 4:30p Mayank Cardenas Lateral Office Visit 06/26/2010 Main Office Nilesh 599.70 Hematuria, 4:15p Mayank Cardenas Unspecified 692.9 Dermatitis Unspec Cause Due To Spec Agents Other Office Visit 06/10/2010 4:15p Main Office Shea Mccurdy9.70 Hematuria, M.DOzzy Unspecified 110.4 Tinea foot 401.1 Hypertension Benign 496 COPD Airway Obstruction Chronic Not Class Elsewhere 389.20 Mixed Hearing Loss, Unspecified V76.51 Special Screening For Malignant Neoplasms Colon V70.0 Examination General Medical Routine AT Health Care Facility Office Visit 12/05/2009 4:00p Main Office Nilesh Cardenas 401.1 Hypertension M.D. Benign 530.81 Esophageal Reflux 729.5 Pain In Limb Office Visit 07/30/2009 4:15p Main Office Nilesh Cardenas, 530.81 Esophageal Reflux M.D. 780.52 Insomnia Unspecified Office Visit 07/13/2009 11:30a Main Office Nilesh Cardenas 530.81 Esophageal Reflux M.D. 401.1 Hypertension Benign 553.3 Hernia Diaphragmatic Office Visit 06/06/2009 3:30p Main Office Nilesh Cardenas 401.1 Hypertension M.D. [...] 11/06/2008 4:00p Main Office Nilesh 401.1 Hypertension Benign Mayank Cardenas 272.4 Hyperlipidemia Other Unspec Office Visit 10/09/2008 [...] pm - Nilesh Cardenas M.D. at Main [facility]5404/13/2018 - Nilesh Cardenas M.D.F06.8 Other specified mental disorders due to known physiologicalNew Labs:Vitamin B12 And Folate, Ordered: Treponema Antibody [place], Ordered: 04/13/18Deoxycortisol,11, Ordered: Comprehensive Metabolic Panel, Ordered: 04/13/18CBC, Ordered: 04/13/18New Xrays:CT, Head Or Brain, W/O Contrast, Ordered: 04/13/18ollow up:1 month
--- OUTSIDE RECORDS SUMMARY | 2018-04-24 14:45 | XMS REPORT ---
:1965 External Reference #:[id number] Author Organization [facility] Address [address], [address] [place] [address] Phone [phone] Care Team Providers Name Role Phone Nilesh Cardenas MD Care Team Information Manager Filter Unavailable Nilesh Cardenas MD Primary Care Physician Unavailable Payers Type Date Identification Numbers Payment Provider Subscriber Commercial Policy Number: [id number] [employer] Ronnie Guzman PayID: [id number] [address] [address] [place] [address] Medigap Part B Effective: Policy Number: [employer] Ronnie Guzman 2009 [id number] Expires: 2015 Group Number: [id number] [address] PayID: [id number] STEPHANIE Ray [id number] Problems Date Description Provider Status Onset: 10/06/2017 Diverticulitis of colon Jonh Lino MD,FACS Active Onset: 10/26/2017 Diverticular disease of colon Jonh Lino MD,FACS Active Family History Date Family Member(s) Problem(s) Comments General Diabetes General Cancer General Heart Disease General Arthritis General Diverticulitis Father Diabetes Mellitus Type 2 Father Diverticulitis Father Heart Disease Father Gastroesophageal Reflux Disease (GERD) Mother Diverticulitis Mother Gastroesophageal Reflux Disease (GERD) First Brother Diabetes Mellitus Type 1 First Brother Diverticulitis Second Brother Diverticulitis Second Brother Cancer Second Brother Diabetes Second Brother Arthritis First Sister Diverticulitis First Sister Diabetes Grandmother due to SC () Uncle Diabetes Mellitus Type 1 Social History Type Date Description Comments Marital Status Single Lives With Alone 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 Cigarette Use Quit ETOH Use Currently consumes alcohol socially Recreational Drug Use Denies Drug Use Smoking Patient denies history of smoking Smoking Patient is a former smoker quit 1998 Daily Caffeine Consumes on average 2 cups of regular coffee per day Allergies, Adverse Reactions, Alerts Date Description Reaction Status Severity Comments 11/21/2010 NKDA active Medications Medication Date Status Form Strength Qnty SIG Indications Ordering Provider Diclofenac 04/02/ Active Tablets DR 75mg 60tabs take 1 Valenzuela, Sodium 2018 tablet Veronique, by mouth twice daily with food Lisinopril / Active Tablets 20mg 1 by Unknown 0000 mouth every day Doxazosin / Active Tablets 2mg take one Unknown Mesylate 0000 tablet by mouth twice a day Stiolto Respimat / Active Aerosol 2.5-2.5mcg take 2 Unknown 0000 /Act puffs once daily. Lansoprazole / Active Capsules 30mg [address] mouth every day Metformin HCL / Active Tablets 1000mg take one Unknown 0000 tablet by mouth twice a day Levaquin 10/06/ Hx Tablets 500mg 14tabs take one K57.92 Zoie, 2017 - tablet Ojnh, 11/23/ by mouth KEISHA CHAKRABORTY 2017 daily for 14 days. take it in the middle of your meal Flagyl 10/06/ Hx Tablets 500mg 42tabs take one K57.92 Zoie, 2017 - tablet Jonh, 11/23/ by mouth KEISHA CHAKRABORTY 2018 3 times daily for 14 days. take it in the middle of your meal Meloxicam 02/22/ Hx Tablets 15mg 30tabs 1 by Cesar 2014 - mouth Domingo, 10/06/ every M.D. 2017 day c food Hydrocodone 11/21/ Hx Tablets 5-500mg 30tabs 1 by DeTcherelle, Bitartrate/Apap 2010 - mouth Carmelo Carmichael, 02/22/ every 4 MD 2014 hours as needed Lisinopril/[place] / Hx Tablets 20-25mg 1/2 by Unknown chlorothiazide 0000 - mouth 10/06/ every 2017 day Prevacid / Hx Capsules 30mg 60caps 1 po qd Unknown 0000 - DR 2017 Acidophilus / Hx Capsules 100mg one tab Unknown Probiotic 0000 - daily 2017 Ciprofloxacin / Hx Tablets 500mg 1 by Unknown HCL 0000 - mouth twice a 2018 day Metronidazole / Hx Tablets 500mg 1 by Unknown 0000 - mouth three 2018 times a day Colace / Hx Capsules 100mg 1 by Unknown 0000 - mouth daily 2017 and can take twice a day as needed Hydrocodone-Acet / Hx Tablets 5-325mg as Unknown aminophen 0000 - needed for pain 2017 Medications Administered in Office Medication Date Status Form Strength Qnty SIG Indications Ordering Provider Depomedrol 80 Administered Injection [place], mg 018 Chelsea S., [facility] Depomedrol 80 Administered Injection [place], mg 018 Chelsea S., [facility] Depomedrol 80 Administered Injection Franklin, mg 015 Chelsea S., [facility] Depomedrol Administered Injection DeThomas, 40mg/1cc 011 Carmelo Carmicheal MD Vital Signs Date Vital Result Comment 04/02/2018 BP Systolic Sitting Right Arm 109 mmHg BP Diastolic Sitting Right Arm 73 mmHg Body Temperature 97.5 F Heart Rate 95 /min Respiratory Rate 20 /min Height 71 inches 5'11" Weight 284.50 lb BMI (Body Mass Index) 39.7 kg/m2 BSA (Body Surface Area) 2.45 m2 [place] body weight in kilograms 78 O2 % BldC Oximetry 96 % 02/25/2018 BP Systolic 100 mmHg BP Diastolic 69 mmHg Body Temperature 98.3 F Heart Rate 88 /min Respiratory Rate 20 /min Height 71 inches 5'11" Weight 277.25 lb BMI (Body Mass Index) 38.7 kg/m2 BSA (Body Surface Area) 2.42 m2 [place] body weight in kilograms 78 O2 % BldC Oximetry 96 % Ra Pain Level 3 RT hip 01/25/2018 BP Systolic 100 mmHg BP Diastolic 66 mmHg Body Temperature 97.3 F Heart Rate 109 /min Height 71 inches 5'11" Weight 283.00 lb BMI (Body Mass Index) 39.5 kg/m2 BSA (Body Surface Area) 2.44 m2 [place] body weight in kilograms 78 O2 % BldC Oximetry 97 % Pain Level 6 varries from about 6 to 8 out of 10 12/07/2017 BP Systolic 117 mmHg BP Diastolic 74 mmHg Heart Rate 95 /min Respiratory Rate 18 /min Height 71 inches 5'11" Weight 272.00 lb BMI (Body Mass Index) 37.9 kg/m2 BSA (Body Surface Area) 2.40 m2 [place] body weight in kilograms 78 O2 % BldC Oximetry 97 % 11/23/2017 BP Systolic 114 mmHg BP Diastolic 82 mmHg Body Temperature 98.1 F Heart Rate 103 /min Respiratory Rate 17 /min Height 71 inches 5'11" Weight 270.00 lb BMI (Body Mass Index) 37.7 kg/m2 BSA (Body Surface Area) 2.40 m2 [place] body weight in kilograms 78 O2 % BldC Oximetry 96 % 11/16/2017 BP Systolic 134 mmHg BP Diastolic 87 mmHg Body Temperature 98.4 F Heart Rate 106 /min Respiratory Rate 19 /min Height 71 inches 5'11" Weight 270.00 lb BMI (Body Mass Index) 37.7 kg/m2 BSA (Body Surface Area) 2.40 m2 [place] body weight in kilograms 78 O2 % BldC Oximetry 97 % 10/26/2017 BP Systolic 121 mmHg BP Diastolic 76 mmHg Heart Rate 87 /min Height 71 inches 5'11" Weight 283.00 lb BMI (Body Mass Index) 39.5 kg/m2 BSA (Body Surface Area) 2.44 m2 [place] body weight in kilograms 78 10/06/2017 BP Systolic 135 mmHg BP Diastolic 86 mmHg Heart Rate 92 /min Height 71 inches 5'11" Weight 277.00 lb BMI (Body Mass Index) 38.6 kg/m2 BSA (Body Surface Area) 2.42 m2 [place] body weight in kilograms 78 02/22/2015 BP Systolic 131 mmHg BP Diastolic 80 mmHg Heart Rate 102 /min Height 71 inches 5'11" Weight 278.00 lb BMI (Body Mass Index) 38.8 kg/m2 BSA (Body Surface Area) 2.43 m2 O2 % BldC Oximetry 94 % 11/21/2010 Height 71 inches 5'11" Weight 260.00 lb BMI (Body Mass Index) 36.3 kg/m2 Results Test Date Test Result H/L Range Note CBC 11/09/2017 White Blood Count 10.2 K/uL 3.4-10.5 1 Red Blood Count 4.29 M/uL 4.20-5.80 1 Hemoglobin 12.2 gm/dL Low 12.8-17.0 1 Hematocrit 36.5 % Low 38.0-48.0 1 Mean Cell Volume 85.1 fl 80.0-96.0 1 Mean Corpuscular HGB 28.4 pg 27.0-33.0 1 Mean Corpuscular HGB Conc 33.4 g/dL 31.7-36.0 1 Platelet Count 330 K/uL 155-360 1 Red Cell Distri Width %CV 14.8 % 11.6-15.8 1 Mean Platelet Volume 9.7 fL 6.6-10.6 1 Basic Metabolic Panel 11/09/2017 Glucose 90 mg/dL 74-106 1 BUN 9 mg/dL 7-18 1 Creatinine 0.8 mg/dL 0.6-1.3 1 Glom Filtration Rate, Estimate >60 mL/min >60 1 If >60 mL/min >60 1, 2 BUN/Creat 11.2 ratio 1 Sodium 139 mmol/L 136-145 1 Potassium 3.3 mmol/L Low 3.5-5.1 1 Chloride 105 mmol/L 98-107 1 Carbon Dioxide 24 mmol/L 21-32 1 Anion Gap 10 mEq/L 8-16 1 Calcium 8.0 mg/dL Low 8.5-10.1 1 Basic Metabolic Panel 11/08/2017 Glucose 101 mg/dL 74-106 1 BUN 10 mg/dL 7-18 1 Creatinine 0.8 mg/dL 0.6-1.3 1 Glom Filtration Rate, Estimate >60 mL/min >60 1 If >60 mL/min >60 1, 3 BUN/Creat 12.5 ratio 1 Sodium 139 mmol/L 136-145 1 Potassium 3.3 mmol/L Low 3.5-5.1 1 Chloride 107 mmol/L 98-107 1 Carbon Dioxide 24 mmol/L 21-32 1 Anion Gap 8 mEq/L 8-16 1 Calcium 7.8 mg/dL Low 8.5-10.1 1 CBC 11/08/2017 White Blood Count 9.8 K/uL 3.4-10.5 1 Red Blood Count 4.21 M/uL 4.20-5.80 1 Hemoglobin 11.9 gm/dL Low 12.8-17.0 1 Hematocrit 36.4 % Low 38.0-48.0 1 Mean Cell Volume 86.5 fl 80.0-96.0 1 Mean Corpuscular HGB 28.3 pg 27.0-33.0 1 Mean Corpuscular HGB Conc 32.7 g/dL 31.7-36.0 1 Platelet Count 333 K/uL 155-360 1 Red Cell Distri Width %CV 15.1 % 11.6-15.8 1 Mean Platelet Volume 10.0 fL 6.6-10.6 1 Glycohemoglobin A1c 11/07/2017 Glycohemoglobin (A1c) 6.4 % High 4.2-6.3 1 , 4 eAG 137 mg/dL 1 CBC 11/07/2017 White Blood Count 10.0 K/uL 3.4-10.5 1 Red Blood Count 4.30 M/uL 4.20-5.80 1 Hemoglobin 12.3 gm/dL Low 12.8-17.0 1 Hematocrit 37.1 % Low 38.0-48.0 1 Mean Cell Volume 86.3 fl 80.0-96.0 1 Mean Corpuscular HGB 28.6 pg 27.0-33.0 1 Mean Corpuscular HGB Conc 33.2 g/dL 31.7-36.0 1 Platelet Count 296 K/uL 155-360 1 Red Cell Distri Width %CV 15.4 % 11.6-15.8 1 Mean Platelet Volume 9.8 fL 6.6-10.6 1 Basic Metabolic Panel 11/07/2017 Glucose 108 mg/dL High 74-106 1 BUN 11 mg/dL 7-18 1 Creatinine 0.9 mg/dL 0.6-1.3 1 Glom Filtration Rate, Estimate >60 mL/min >60 1 If >60 mL/min >60 1, 5 BUN/Creat 12.2 ratio 1 Sodium 139 mmol/L 136-145 1 Potassium 3.5 mmol/L 3.5-5.1 1 Chloride 107 mmol/L 98-107 1 Carbon Dioxide 24 mmol/L 21-32 1 Anion Gap 8 mEq/L 8-16 1 Calcium 7.8 mg/dL Low 8.5-10.1 1 CBC 11/06/2017 White Blood Count 13.0 K/uL High 3.4-10.5 6 Red Blood Count 4.54 M/uL 4.20-5.80 6 Hemoglobin 12.7 gm/dL Low 12.8-17.0 6 Hematocrit 39.3 % 38.0-48.0 6 Mean Cell Volume 86.6 fl 80.0-96.0 6 Mean Corpuscular HGB 28.0 pg 27.0-33.0 6 Mean Corpuscular HGB Conc 32.3 g/dL 31.7-36.0 6 Platelet Count 330 K/uL 155-360 6 Red Cell Distri Width %CV 15.4 % 11.6-15.8 6 Mean Platelet Volume 10.0 fL 6.6-10.6 6 Comprehensive Metabolic Panel 11/06/2017 Glucose 129 mg/dL High 74-106 6 BUN 14 mg/dL 7-18 6 Creatinine 1.0 mg/dL 0.6-1.3 6 Glom Filtration Rate, Estimate >60 mL/min >60 6 If >60 mL/min >60 6, 7 BUN/Creat 14.0 ratio 6 Sodium 138 mmol/L 136-145 6 Potassium 3.8 mmol/L 3.5-5.1 6 Chloride 105 mmol/L 98-107 6 Carbon Dioxide 27 mmol/L 21-32 6 Anion Gap 6 mEq/L Low 8-16 6 Calcium 7.7 mg/dL Low 8.5-10.1 6 Total Protein 5.9 g/dL Low 6.4-8.2 6 Albumin 2.9 g/dL Low 3.4-5.0 6 Globulin 3.0 g/dL 1.9-4.3 6 Alb/Glob 1.0 ratio 6 Bilirubin,Total 0.3 mg/dL 0.2-1.0 6 Sgot/Ast 21 U/L 15-37 6 SGPT/Alt 30 U/L 12-78 6 Alkaline Phosphatase 40 U/L Low 45-117 6 CBS W/Automated Diff 09/04/2017 White Blood Count 9.7 K/uL 3.4-10.5 8 Red Blood Count 4.92 M/uL 4.20-5.80 8 Hemoglobin 13.7 gm/dL 12.8-17.0 8 Hematocrit 41.9 % 38.0-48.0 8 Mean Cell Volume 85.2 fl 80.0-96.0 8 Mean Corpuscular HGB 27.8 pg 27.0-33.0 8 Mean Corpuscular HGB Conc 32.7 g/dL 31.7-36.0 8 Platelet Count 380 K/uL High 155-360 8 Red Cell Distri Width SD 43.0 fl 36-51 8 Red Cell Distri Width %CV 14.2 % 11.6-15.8 8 Mean Platelet Volume 9.0 fL 6.6-10.6 8 Neut% 61.5 % 33.0-73.0 8 Lymph % 21.3 % 20.0-42.0 8 [place] % 12.1 % High 0.0-10.0 8 Eo% 4.6 % 0.0-6.6 8 Bas% 0.5 % 0.0-1.1 8 Neut# 5.95 K/uL 1.8-7.0 8 Lymph # 2.06 K/uL 1.0-4.0 8 [place] # 1.17 K/uL High 0.0-0.8 8 Eos # 0.44 K/uL 0.0-0.5 8 Baso # 0.05 K/uL 0.0-0.1 8 Basic Metabolic Panel 09/04/2017 Glucose 126 mg/dL High 74-106 8 BUN 11 mg/dL 7-18 8 Creatinine 0.9 mg/dL 0.6-1.3 8 Glom Filtration Rate, Estimate >60 mL/min >60 8 If >60 mL/min >60 8, 9 BUN/Creat 12.2 ratio 8 Sodium 141 mmol/L 136-145 8 Potassium 4.4 mmol/L 3.5-5.1 8 Chloride 107 mmol/L 98-107 8 Carbon Dioxide 31 mmol/L 21-32 8 Anion Gap 3 mEq/L Low 8-16 8 Calcium 8.7 mg/dL 8.5-10.1 8 Basic Metabolic Panel 08/24/2017 Glucose 112 mg/dL High 74-106 8 BUN 11 mg/dL 7-18 8 Creatinine 0.8 mg/dL 0.6-1.3 8 Glom Filtration Rate, Estimate >60 mL/min >60 8 If >60 mL/min >60 8, 10 BUN/Creat 13.7 ratio 8 Sodium 140 mmol/L 136-145 8 Potassium 4.1 mmol/L 3.5-5.1 8 Chloride 107 mmol/L 98-107 8 Carbon Dioxide 26 mmol/L 21-32 8 Anion Gap 7 mEq/L Low 8-16 8 Calcium 8.4 mg/dL Low 8.5-10.1 8 CBS W/Automated Diff 08/24/2017 White Blood Count 10.2 K/uL 3.4-10.5 8 Red Blood Count 4.58 M/uL 4.20-5.80 8 Hemoglobin 13.0 gm/dL 12.8-17.0 8 Hematocrit 38.7 % 38.0-48.0 8 Mean Cell Volume 84.5 fl 80.0-96.0 8 Mean Corpuscular HGB 28.4 pg 27.0-33.0 8 Mean Corpuscular HGB Conc 33.6 g/dL 31.7-36.0 8 Platelet Count 334 K/uL 155-360 8 Red Cell Distri Width SD 43.1 fl 36-51 8 Red Cell Distri Width %CV 14.3 % 11.6-15.8 8 Mean Platelet Volume 9.5 fL 6.6-10.6 8 Neut% 64.4 % 33.0-73.0 8 Lymph % 21.0 % 20.0-42.0 8 [place] % 10.3 % High 0.0-10.0 8 Eo% 3.9 % 0.0-6.6 8 Bas% 0.4 % 0.0-1.1 8 Neut# 6.58 K/uL 1.8-7.0 8 Lymph # 2.15 K/uL 1.0-4.0 8 [place] # 1.05 K/uL High 0.0-0.8 8 Eos # 0.40 K/uL 0.0-0.5 8 Baso # 0.04 K/uL 0.0-0.1 8 Laboratory test finding 08/23/2017 C-Reactive Protein,Quant 52.9 mg/L High <3.0 8 Comprehensive Metabolic 08/23/2017 Glucose 101 mg/dL 74-106 8 Panel BUN 11 mg/dL 7-18 8 Creatinine 0.9 mg/dL 0.6-1.3 8 Glom Filtration Rate, Estimate >60 mL/min >60 8 If >60 mL/min >60 8, 11 BUN/Creat 12.2 ratio 8 Sodium 141 mmol/L 136-145 8 Potassium 4.0 mmol/L 3.5-5.1 8 Chloride 108 mmol/L High 98-107 8 Carbon Dioxide 29 mmol/L 21-32 8 Anion Gap 4 mEq/L Low 8-16 8 Calcium 8.4 mg/dL Low 8.5-10.1 8 Total Protein 6.3 g/dL Low 6.4-8.2 8 Albumin 3.0 g/dL Low 3.4-5.0 8 Globulin 3.3 g/dL 1.9-4.3 8 Alb/Glob 0.9 ratio 8 Bilirubin,Total 0.3 mg/dL 0.2-1.0 8 Sgot/Ast 13 U/L Low 15-37 8, 12 SGPT/Alt 18 U/L 12-78 8 Alkaline Phosphatase 60 U/L 45-[address] [facility] W/Automated Diff 08/23/2017 White Blood Count 10.0 K/uL 3.4-10.5 8 Red Blood Count 4.59 M/uL 4.20-5.80 8 Hemoglobin 12.8 gm/dL 12.8-17.0 8 Hematocrit 39.1 % 38.0-48.0 8 Mean Cell Volume 85.2 fl 80.0-96.0 8 Mean Corpuscular HGB 27.9 pg 27.0-33.0 8 Mean Corpuscular HGB Conc 32.7 g/dL 31.7-36.0 8 Platelet Count 311 K/uL 155-360 8 Red Cell Distri Width SD 43.7 fl 36-51 8 Red Cell Distri Width %CV 14.4 % 11.6-15.8 8 Mean Platelet Volume 10.0 fL 6.6-10.6 8 Neut% 58.7 % 33.0-73.0 8 Lymph % 24.5 % 20.0-42.0 8 [place] % 11.5 % High 0.0-10.0 8 Eo% 4.8 % 0.0-6.6 8 Bas% 0.5 % 0.0-1.1 8 Neut# 5.85 K/uL 1.8-7.0 8 Lymph # 2.44 K/uL 1.0-4.0 8 [place] # 1.15 K/uL High 0.0-0.8 8 Eos # 0.48 K/uL 0.0-0.5 8 Baso # 0.05 K/uL 0.0-0.[address] [facility] W/Automated Diff 08/22/2017 White Blood Count 14.3 K/uL High 3.4-10.5 8 Red Blood Count 4.55 M/uL 4.20-5.80 8 Hemoglobin 12.9 gm/dL 12.8-17.0 8 Hematocrit 38.7 % 38.0-48.0 8 Mean Cell Volume 85.1 fl 80.0-96.0 8 Mean Corpuscular HGB 28.4 pg 27.0-33.0 8 Mean Corpuscular HGB Conc 33.3 g/dL 31.7-36.0 8 Platelet Count 306 K/uL 155-360 8 Red Cell Distri Width SD 43.4 fl 36-51 8 Red Cell Distri Width %CV 14.4 % 11.6-15.8 8 Mean Platelet Volume 9.8 fL 6.6-10.6 8 Neut% 69.5 % 33.0-73.0 8 Lymph % 16.4 % Low 20.0-42.0 8 [place] % 12.2 % High 0.0-10.0 8 Eo% 1.7 % 0.0-6.6 8 Bas% 0.2 % 0.0-1.1 8 Neut# 9.95 K/uL High 1.8-7.0 8 Lymph # 2.35 K/uL 1.0-4.0 8 [place] # 1.75 K/uL High 0.0-0.8 8 Eos # 0.25 K/uL 0.0-0.5 8 Baso # 0.03 K/uL 0.0-0.1 8 Comprehensive Metabolic Panel 08/22/2017 Glucose 104 mg/dL 74-106 8 BUN 16 mg/dL 7-18 8 Creatinine 0.8 mg/dL 0.6-1.3 8 Glom Filtration Rate, Estimate >60 mL/min >60 8 If >60 mL/min >60 8, 13 BUN/Creat 20.0 ratio 8 Sodium 139 mmol/L 136-145 8 Potassium 4.0 mmol/L 3.5-5.1 8 Chloride 108 mmol/L High 98-107 8 Carbon Dioxide 28 mmol/L 21-32 8 Anion Gap 3 mEq/L Low 8-16 8 Calcium 7.8 mg/dL Low 8.5-10.1 8 Total Protein 6.4 g/dL 6.4-8.2 8 Albumin 3.1 g/dL Low 3.4-5.0 8 Globulin 3.3 g/dL 1.9-4.3 8 Alb/Glob 0.9 ratio 8 Bilirubin,Total 0.3 mg/dL 0.2-1.0 8 Sgot/Ast 11 U/L Low 15-37 8, 14 SGPT/Alt 18 U/L 12-78 8 Alkaline Phosphatase 67 U/L 45-117 8 Laboratory test finding 08/22/2017 Magnesium 2.2 mg/dL 1.8-2.4 8 C-Reactive Protein,Quant 51.8 mg/L High <3.0 8 1 BC AUTH 6/ GUS 2 Note: Persistent reduction for 3 months or more in an eGFR <60 mL/min/1.73 m2 defines CKD. Patients with eGFR values >/=60 mL/min/1.73 m2 may also have CKD if evidence of persistent proteinuria is present. The original MDRD equation for estimated GFR is not valid for patients less than 18 years of age. Additional information may be found at [email or web address]. 3 Note: Persistent reduction for 3 months or more in an eGFR <60 mL/min/1.73 m2 defines CKD. Patients with eGFR values >/=60 mL/min/1.73 m2 may also have CKD if evidence of persistent proteinuria is present. The original MDRD equation for estimated GFR is not valid for patients less than 18 years of age. Additional information may be found at [email or web address]. 4 Elevated levels of HbA1c suggest the need for more aggressive treatment of glycemia. The [place] [employer] recommends that a primary goal of therapy should be a HbA1c of <7% and that physicians should re-evaluate the treatment regimen in patients with HbA1c values consistently >8%. 5 Note: Persistent reduction for 3 months or more in an eGFR <60 mL/min/1.73 m2 defines CKD. Patients with eGFR values >/=60 mL/min/1.73 m2 may also have CKD if evidence of persistent proteinuria is present. The original MDRD equation for estimated GFR is not valid for patients less than 18 years of age. Additional information may be found at [email or web address]. 6 DIVERTICULITIS OF INTESTINE;PART UNSPECIFIED 7 Note: Persistent reduction for 3 months or more in an eGFR <60 mL/min/1.73 m2 defines CKD. Patients with eGFR values >/=60 mL/min/1.73 m2 may also have CKD if evidence of persistent proteinuria is present. The original MDRD equation for estimated GFR is not valid for patients less than 18 years of age. Additional information may be found at [email or web address]. 8 ACUTE DIVERTICULITIS 9 Note: Persistent reduction for 3 months or more in an eGFR <60 mL/min/1.73 m2 defines CKD. Patients with eGFR values >/=60 mL/min/1.73 m2 may also have CKD if evidence of persistent proteinuria is present. The original MDRD equation for estimated GFR is not valid for patients less than 18 years of age. Additional information may be found at [email or web address]. 10 Note: Persistent reduction for 3 months or more in an eGFR <60 mL/min/1.73 m2 defines CKD. Patients with eGFR values >/=60 mL/min/1.73 m2 may also have CKD if evidence of persistent proteinuria is present. The original MDRD equation for estimated GFR is not valid for patients less than 18 years of age. Additional information may be found at [email or web address]. 11 Note: Persistent reduction for 3 months or more in an eGFR <60 mL/min/1.73 m2 defines CKD. Patients with eGFR values >/=60 mL/min/1.73 m2 may also have CKD if evidence of persistent proteinuria is present. The original MDRD equation for estimated GFR is not valid for patients less than 18 years of age. Additional information may be found at [email or web address]. 12 Values below the stated reference ranges of AST and ALT can be seen in normal populations. Clinical correlation is suggested. 13 Note: Persistent reduction for 3 months or more in an eGFR <60 mL/min/1.73 m2 defines CKD. Patients with eGFR values >/=60 mL/min/1.73 m2 may also have CKD if evidence of persistent proteinuria is present. The original MDRD equation for estimated GFR is not valid for patients less than 18 years of age. Additional information may be found at [email or web address]. 14 Values below the stated reference ranges of AST and ALT can be seen in normal populations. Clinical correlation is suggested. Procedures Date CPT Code Description Status 04/02/2018 27724 Radiologic Exam Hip Unilateral With Pelvis 2-3 Views Completed 04/02/2018 15157 Radiology, Shoulder: Two Views (Sso) Completed 02/25/2018 21592 Asp./Injection major joint Completed 01/25/2018 58400 Radiology, Knee 3 Views Completed 01/25/2018 02977 Radiology, Knee 3 Views Completed 01/25/2018 Asp./Injection major joint Completed 11/05/2017 37205 Cystourethroscopy W/Catheterization Completed 11/05/2017 86547 Laparoscopy, colectomy, partial, with anastomosis Completed 03/26/201564128 Asp./Injection major joint Completed 02/22/2015 50342 Radiology, Knee 3 Views Completed 02/22/2015 02772 Radiology, Knee 3 Views Completed 02/22/2015 62141 Radiology, Knee 3 Views Completed 11/21/2010 74836 Radiology, Elbow Complete Completed 11/21/201005251 Asp./Injection major joint Completed Encounters Type Date Location Provider CPT E/M Dx Office Visit 04/02/2018 10:00a Orthopaedic Office Chelsea Franklin, 54173 M25.551 [facility] M25.511 M75.41 Office Visit 02/25/2018 2:30p Orthopaedic Office Chelsea Franklin, 21737 M70.61 [facility] M17.11 Office Visit 10/26/2017 9:00a Surgical Office Jonh Lino MD,FACS 40956 K57.92 K57.30 Office Visit 10/06/2017 9:00a Surgical Office Jonh Lino, 12483 K57.92 ,FACS Office Visit 04/25/2015 2:30p Orthopaedic Office Chelsea Franklin, 67596 M17.11 [facility] Office Visit 11/21/2010 1:30p Orthopaedic Office Carmelo Tierney, 579[address] 719.43 726.32 Plan of Care Future Appointment(s):05/07/2018 9:00 am - Chelsea Franklin RPA at Orthopaedic [id number]/11/2019 4:05 pm - Hammad Brown DPM at Podiatry [id number] - Chelsea Franklin, RPACM25.551 Pain in right hipM25.511 Pain in right dmjljuxzL29.41 Impingement syndrome of right shoulderAllNew Medication: Diclofenac Sodium 75 mgComments:I think he has some mild degenerative changes in the hip and some impingement in the shoulder. I talked to him about physical therapy and I think this would be helpful. I also think he should take a prescription anti-inflammatory. He is agreeable to the anti- inflammatory but would like to give it achance to work and try to avoid therapy if possible. I am going to reevaluate him in four weeks, sooner with any problems or concerns.
--- OUTSIDE RECORDS SUMMARY | 2018-04-24 14:46 | XMS REPORT | Continuity of Care Document ---
:1965 External Reference #:[id number] Author Name Nilesh Cardenas M.D. Address [address] [place] [address] Care Team Providers Name Role Phone Nilesh Cardenas M.D. Primary Care Physician Unavailable Payers Type Date Identification Numbers Payment Provider Subscriber Effective: Policy Number: [id number] BC/BS [place]- Ppo Ronnie Guzman 2015 PayID: [id number] 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 Right-Handed [...] CPT Code Status Date Vaccine Lot # [id number] Given 03/19/2018 Influenza Vac,Quad,Split=>3 Yrs 44885 Given 07/06/2017 Influenza Vac,Quad,Split=>3 Yrs fluQiv [id number] 49927 Given 05/26/2016 Influenza Vac,Quad,Split=>3 Yrs 25592 Given 03/30/2015 Influenza Vac,Quad,Split=>3 Yrs Flu [id number] 17180 Given 03/29/2013 Flu Triv Old Code Flu [id number] 07818 Given 06/28/2012 Tdap Vaccine over 7 yrs old Tdap [id number] 04702 Given 06/28/2012 Flu Triv Old Code [id number] 36mos> 04169 Given 03/20/1997 Tetanus Toxoid Vital Signs Date Vital Result Comment 03/30/2018 3:06pm Weight 282.00 lb BP Systolic [...] Date Facility Test Result H/L Range Note Laboratory test 01/01/2018 [facility] Uric Acid 6.4 mg/dL 3.5-7.2 1 finding [phone] Rheumatoid Factor Screen < 10.0 IU/mL 0.0-15.0 Lyme Igg & Igm By 01/01/2018 [facility] Lyme AB Igg By Western . Western Blot [phone] Blot P93 AB Absent . P66 AB Absent . P58 AB Absent . P45 AB Absent . P41 AB Present . P39 AB Absent . P30 AB Absent . P28 AB Absent . P23 AB Absent . P18 AB Absent . Lyme Igg WB Interpretation Negative . 2 Lyme AB Igm By Western Blot . P41 AB Absent . P39 AB Absent . P23 AB Absent . Lyme Igm WB Interpretation Negative . 3 Laboratory test 01/01/2018 [facility] Sedimentation Rate 10 mm/hr 0-20 4 finding [phone] C-Reactive Protein,Cardiac 7.85 mg/L <3.0 Antinuclear Antibodies, Ifa Negative . 5 Liver Function Tests 11/17/2017 [facility] Total Protein 7.3 g/dL 6.4-8.2 6 [phone] Albumin 3.5 g/dL 3.4-5.0 Globulin 3.8 g/dL 1.9-4.3 Alb/Glob 0.9 ratio Bilirubin,Total 0.2 mg/dL 0.2-1.0 Bilirubin,Direct < 0.1 mg/dL 0.0-0.2 Bilirubin,Indirect 0.1 mg/dL 0.0-0.9 Sgot/Ast 8 U/L Low 15-37 7 SGPT/Alt 46 U/L 12-78 Alkaline Phosphatase 76 U/L 45-117 Basic Metabolic Panel 11/17/2017 [facility] Glucose 86 mg/dL 74- 106 [phone] BUN 19 mg/dL High 7-18 Creatinine 0.8 mg/dL 0.6-1.3 Glom Filtration Rate, Estimate >60 mL/min >60 If >60 mL/min >60 8 BUN/Creat 23.7 ratio Sodium 136 mmol/L 136-145 Potassium 4.1 mmol/L 3.5-5.1 Chloride 100 mmol/L 98-107 Carbon Dioxide 28 mmol/L 21-32 Anion Gap 8 mEq/L 8-16 Calcium 9.3 mg/dL 8.5-10.1 Comprehensive Metabolic Panel 11/10/2017 [facility] Glucose 97 mg/dL 74-106 9 [phone] BUN 9 mg/dL 7-18 Creatinine 0.7 mg/dL 0.6-1.3 Glom Filtration Rate, Estimate >60 mL/min >60 If >60 mL/min >60 10 BUN/Creat 12.8 ratio Sodium 141 mmol/L 136-145 [...] Phosphatase 80 U/L 45-117 CBS W/Automated 11/10/2017 [facility] White Blood 11.5 K/uL High 3.4-10.5 Diff [phone] Count Red Blood Count 4.57 M/uL 4.20-5.80 [...] 33.0-73.0 Lymph % 12.4 % Low 20.0-42.0 Camp % 12.4 % High 0.0-10.0 Eo% 2.7 % 0.0-6.6 Bas% 0.4 % 0.0-1.1 Neut# 8.31 K/uL High 1.8-7.0 Lymph # 1.43 K/uL 1.0-4.0 Camp # 1.43 K/uL High 0.0-0.8 Eos # 0.31 K/uL 0.0-0.5 Baso # 0.05 K/uL 0.0-0.1 Slide Review 11/10/2017 [facility] Slide Review . 11 [phone] Basic Metabolic Panel 11/09/2017 [facility] Glucose 90 mg/dL 74- 106 12 [phone] BUN 9 mg/dL 7-18 Creatinine 0.8 mg/dL 0.6-1.3 Glom Filtration Rate, Estimate >60 mL/min >60 If >60 mL/min >60 13 BUN/Creat 11.2 ratio Sodium 139 mmol/L 136-145 Potassium 3.3 mmol/L Low 3.5-5.1 Chloride 105 mmol/L 98-107 Carbon Dioxide 24 mmol/L 21-32 Anion Gap 10 mEq/L 8-16 Calcium 8.0 mg/dL Low 8.5-10.1 CBC 11/09/2017 [facility] White Blood Count 10.2 K/uL 3.4-10.5 [phone] Red Blood Count 4.29 M/uL 4.20-5.80 Hemoglobin 12.2 gm/dL Low 12.8-17.0 Hematocrit 36.5 % Low 38.0-48.0 Mean Cell Volume 85.1 fl 80.0-96.0 Mean Corpuscular HGB 28.4 pg 27.0-33.0 Mean Corpuscular HGB Conc 33.4 g/dL 31.7-36.0 Platelet Count 330 K/uL 155-360 Red Cell Distri Width %CV 14.8 % 11.6-15.8 Mean Platelet Volume 9.7 fL 6.6-10.6 CBC 11/08/2017 [facility] White Blood Count 9.8 K/uL 3.4-10.5 [phone] Red Blood Count 4.21 M/uL 4.20-5.80 Hemoglobin 11.9 gm/dL Low 12.8-17.0 Hematocrit 36.4 % Low 38.0-48.0 Mean Cell Volume 86.5 fl 80.0-96.0 Mean Corpuscular HGB 28.3 pg 27.0-33.0 Mean Corpuscular HGB Conc 32.7 g/dL 31.7-36.0 Platelet Count 333 K/uL 155-360 Red Cell Distri Width %CV 15.1 % 11.6-15.8 Mean Platelet Volume 10.0 fL 6.6-10.6 Basic Metabolic Panel 11/08/2017 [facility] Glucose 101 mg/dL 74- 106 [phone] BUN 10 mg/dL 7-18 Creatinine 0.8 mg/dL 0.6-1.3 Glom Filtration Rate, Estimate >60 mL/min >60 If >60 mL/min >60 14 BUN/Creat 12.5 ratio Sodium 139 mmol/L 136-145 Potassium 3.3 mmol/L Low 3.5-5.1 Chloride 107 mmol/L 98-107 Carbon Dioxide 24 mmol/L 21-32 Anion Gap 8 mEq/L 8-16 Calcium 7.8 mg/dL Low 8.5-10.1 Basic Metabolic Panel 11/07/2017 [facility] Glucose 108 mg/dL High 74-106 [phone] BUN 11 mg/dL 7-18 Creatinine 0.9 mg/dL 0.6-1.3 Glom Filtration Rate, Estimate >60 mL/min >60 If >60 mL/min >60 15 BUN/Creat 12.2 ratio Sodium 139 mmol/L 136-145 Potassium 3.5 mmol/L 3.5-5.1 Chloride 107 mmol/L 98-107 Carbon Dioxide 24 mmol/L 21-32 Anion Gap 8 mEq/L 8-16 Calcium 7.8 mg/dL Low 8.5-10.1 CBC 11/07/2017 [facility] White Blood Count 10.0 K/uL 3.4-10.5 [phone] Red Blood Count 4.30 M/uL 4.20-5.80 Hemoglobin 12.3 gm/dL Low 12.8-17.0 Hematocrit 37.1 % Low 38.0-48.0 Mean Cell Volume 86.3 fl 80.0-96.0 Mean Corpuscular HGB 28.6 pg 27.0-33.0 Mean Corpuscular HGB Conc 33.2 g/dL 31.7-36.0 Platelet Count 296 K/uL 155-360 Red Cell Distri Width %CV 15.4 % 11.6-15.8 Mean Platelet Volume 9.8 fL 6.6-10.6 Glycohemoglobin 11/07/2017 [facility] Glycohemoglobin 6.4 % High 4.2-6.3 16 A1c [phone] (A1c) eAG 137 mg/dL CBC 11/06/2017 [facility] White Blood Count 13.0 K/uL High 3.4- 10.5 17 [phone] Red Blood Count 4.54 M/uL 4.20-5.80 Hemoglobin 12.7 gm/dL Low 12.8-17.0 Hematocrit 39.3 % 38.0-48.0 Mean Cell Volume 86.6 fl 80.0-96.0 Mean Corpuscular HGB 28.0 pg 27.0-33.0 Mean Corpuscular HGB Conc 32.3 g/dL 31.7-36.0 Platelet Count 330 K/uL 155-360 Red Cell Distri Width %CV 15.4 % 11.6-15.8 Mean Platelet Volume 10.0 fL 6.6-10.6 Comprehensive Metabolic 11/06/2017 [facility] Glucose 129 mg/dL High 74-106 Panel [phone] BUN 14 mg/dL 7-18 Creatinine 1.0 mg/dL 0.6-1.3 Glom Filtration Rate, Estimate >60 mL/min >60 If >60 mL/min >60 18 BUN/Creat 14.0 ratio Sodium 138 mmol/L 136-145 [...] 40 U/L Low 45-117 Act Partial 10/29/2017 [facility] Act Partial 29.2 seconds 23.4- 35.0 19 Thrombo Time [phone] Thrombo Time Anticoagulant Therapy? NO Protime 10/29/2017 [facility] Protime 14.0 seconds 12.0-14.4 [phone] Inr 1.1 0.9-1.1 20 Anticoagulant Therapy? NO Ua RFX Micro & Culture II 10/29/2017 [facility] Urine Color YELLOW Yellow [phone] Urine Clarity CLEAR Clear Urine Glucose - Dipstick NEGATIVE mg/dL Negative Urine Bilirubin - Dipstick NEGATIVE Negative Urine Ketone NEGATIVE mg/dL Negative Urine Specific [place] 1.015 1.010-1.030 Urine Blood NEGATIVE Negative Urine PH 7.0 6.5-7.5 Urine Protein - Dipstick NEGATIVE mg/dL Negative Urine Urobilinogen - Dipstick 0.2 E.U./dL 0.2-1.0 Urine Nitrite - Dipstick NEGATIVE Negative Urine Leuk Esterase NEGATIVE Negative Source: URINE, CLEAN CAT <SEE NOTE> 21 Comprehensive Metabolic 10/29/2017 [facility] Glucose 103 mg/dL 74 -106 Panel [phone] BUN 16 mg/dL 7-18 Creatinine 0.9 mg/dL 0.6-1.3 Glom Filtration Rate, Estimate >60 mL/min >60 If >60 mL/min >60 22 BUN/Creat 17.7 ratio Sodium 137 mmol/L 136-145 [...] Alkaline Phosphatase 59 U/L 45-117 Glycohemoglobin 10/29/2017 [facility] Glycohemoglobin 6.5 % High 4.2-6.3 23 A1c [phone] (A1c) eAG 140 mg/dL Microalbumin,Random 10/29/2017 [facility] Microalbumin,Urine < 5.0 < 20.0 Urine [phone] mg/L CBC 10/29/2017 [facility] White Blood Count 8.1 3.4-10 [phone] K/uL .5 Red Blood Count 5.01 M/uL 4.20-5.80 Hemoglobin 14.2 gm/dL 12.8-17.0 Hematocrit 42.7 % 38.0-48.0 Mean Cell Volume 85.2 fl 80.0-96.0 Mean Corpuscular HGB 28.3 pg 27.0-33.0 Mean Corpuscular HGB Conc 33.3 g/dL 31.7-36.0 Platelet Count 292 K/uL 155-360 Red Cell Distri Width %CV 15.4 % 11.6-15.8 Mean Platelet Volume 9.8 fL 6.6-10.6 Anticoagulant Therapy? NO Laboratory test 10/29/2017 [facility] C-Reactive 2.73 <3.0 finding [phone] Protein,Cardiac mg/L Homocyst(E)Ine, 10/29/2017 [facility] Homocyst(e)ine, P/S 11.9 0.0 -15.0 24 P/S [phone] umol/L Comprehensive 09/27/2017 [facility] Glucose 103 74-106 25 Metabolic Panel [phone] mg/dL BUN 11 mg/dL 7-18 Creatinine 0.8 mg/dL 0.6-1.3 Glom Filtration Rate, Estimate >60 mL/min >60 If >60 mL/min >60 26 BUN/Creat 13.7 ratio Sodium 141 mmol/L 136-145 Potassium 4.1 mmol/L 3.5-5.1 Chloride 104 mmol/L 98-107 Carbon Dioxide 26 mmol/L 21-32 Anion Gap 11 mEq/L 8-16 Calcium 8.7 mg/dL 8.5-10.1 Total Protein 7.1 g/dL 6.4-8.2 Albumin 3.4 g/dL 3.4-5.0 Globulin 3.7 g/dL 1.9-4.3 Alb/Glob 0.9 ratio Bilirubin,Total 0.2 mg/dL 0.2-1.0 Sgot/Ast 14 U/L Low 15-37 27 SGPT/Alt 22 U/L 12-78 Alkaline Phosphatase 83 U/L 45-117 Laboratory test 09/27/2017 [facility] Occult NEGATIVE Negative 28 finding [phone] Blood,Stool Laboratory test 09/27/2017 [facility] Lipase 108 U/L 56-289 finding [phone] CBS W/Automated 09/27/2017 [facility] White Blood 13.0 K/uL High 3.4-10.5 Diff [phone] Count Red Blood Count 4.64 M/uL 4.20-5.80 [...] % 33.0-73.0 Lymph % 24.5 % 20.0-42.0 Camp % 11.1 % High 0.0-10.0 Eo% 2.9 % 0.0-6.6 Bas% 0.5 % 0.0-1.1 Neut# 7.91 K/uL High 1.8-7.0 Lymph # 3.17 K/uL 1.0-4.0 Camp # 1.44 K/uL High 0.0-0.8 Eos # 0.37 K/uL 0.0-0.5 Baso # 0.07 K/uL 0.0-0.1 Urinalysis With 09/27/2017 [facility] Urine Color YELLOW Yellow Microscopic [phone] Urine Clarity CLEAR Clear Urine Glucose - Dipstick NEGATIVE mg/dL Negative Urine Bilirubin - Dipstick NEGATIVE Negative Urine Ketone NEGATIVE mg/dL Negative Urine Specific [place] >=1.030 1.010-1.030 Urine Blood SMALL Negative Urine PH 5.5 Low 6.5-7.5 Urine Protein - Dipstick NEGATIVE mg/dL Negative Urine Urobilinogen - Dipstick 0.2 E.U./dL 0.2-1.0 Urine Nitrite - Dipstick NEGATIVE Negative Urine Leuk Esterase NEGATIVE Negative Urine RBC 0-2 rbc/hpf 0-2 Urine WBC 0-2 wbc/hpf 0-7 Urine Epithelial Cells VERY FEW /lpf None Seen Source: URINE, CLEAN CAT <SEE NOTE> 29 Slide Review 09/27/2017 [facility] Slide Review (SEE NOTE) 30 [phone] Laboratory test 09/11/2017 [facility] Cortisol,Am 13.4 g/dL 6.2- 19 31, 32 finding [phone] .4 Aldosterone 3.8 ng/dL 0.0-30.0 33 Dehydroepiandrosterone (Dhea) 83 ng/dL 31-701 34 LC/MS Testosterone Total 213.4 ng/dL Low 264.0-916.0 35 CBC 09/11/2017 [facility] White Blood Count 10.6 K/uL High 3.4- 10.5 [phone] Red Blood Count 4.93 M/uL 4.20-5.80 Hemoglobin 13.9 gm/dL 12.8-17.0 Hematocrit 41.3 % 38.0-48.0 Mean Cell Volume 83.8 fl 80.0-96.0 Mean Corpuscular HGB 28.2 pg 27.0-33.0 Mean Corpuscular HGB Conc 33.7 g/dL 31.7-36.0 Platelet Count 376 K/uL High 155-360 Red Cell Distri Width %CV 14.5 % 11.6-15.8 Mean Platelet Volume 9.3 fL 6.6-10.6 Laboratory test 09/11/2017 [facility] Prostate 0.36 ng/mL < 4.0 36 finding [phone] Specific Antigen Vitamin D,25-Hydroxy 34.1 ng/mL 30.0-100.0 37 Thyroid Stim Hormone 2.10 uIU/mL 0.30-4.20 Comprehensive Metabolic 09/11/2017 [facility] Glucose 118 mg/dL High 74-106 Panel [phone] BUN 14 mg/dL 7-18 Creatinine 0.8 mg/dL 0.6-1.3 Glom Filtration Rate, Estimate >60 mL/min >60 If >60 mL/min >60 38 BUN/Creat 17.5 ratio Sodium 138 mmol/L 136-145 [...] Alkaline Phosphatase 63 U/L 45-117 Microalbumin,Random 09/11/2017 [facility] Microalbumin,Urine 7.3 < Urine [phone] mg/L 20.0 Glycohemoglobin A1c 09/11/2017 [facility] Glycohemoglobin 6.4 % High 4.2-6 39 [phone] (A1c) .3 eAG 137 mg/dL CBS W/Automated Diff 09/04/2017 [facility] White Blood 9.7 K/uL 3.4-10.5 40 [phone] Count Red Blood Count 4.92 M/uL 4.20-5.80 [...] % 33.0-73.0 Lymph % 21.3 % 20.0-42.0 Camp % 12.1 % High 0.0-10.0 Eo% 4.6 % 0.0-6.6 Bas% 0.5 % 0.0-1.1 Neut# 5.95 K/uL 1.8-7.0 Lymph # 2.06 K/uL 1.0-4.0 Camp # 1.17 K/uL High 0.0-0.8 Eos # 0.44 K/uL 0.0-0.5 Baso # 0.05 K/uL 0.0-0.1 Basic Metabolic Panel 09/04/2017 [facility] Glucose 126 mg/dL High 74-106 [phone] BUN 11 mg/dL 7-18 Creatinine 0.9 mg/dL 0.6-1.3 Glom Filtration Rate, Estimate >60 mL/min >60 If >60 mL/min >60 41 BUN/Creat 12.2 ratio Sodium 141 mmol/L 136-145 Potassium 4.4 mmol/L 3.5-5.1 Chloride 107 mmol/L 98-107 Carbon Dioxide 31 mmol/L 21-32 Anion Gap 3 mEq/L Low 8-16 Calcium 8.7 mg/dL 8.5-10.1 CBS W/Automated 09/02/2017 [facility] White Blood 11.0 K/uL High 3.4-10.5 42 Diff [phone] Count Red Blood Count 4.79 M/uL 4.20-5.80 [...] 33.0-73.0 Lymph % 11.9 % Low 20.0-42.0 Camp % 12.5 % High 0.0-10.0 Eo% 3.9 % 0.0-6.6 Bas% 0.7 % 0.0-1.1 Neut# 7.78 K/uL High 1.8-7.0 Lymph # 1.31 K/uL 1.0-4.0 Camp # 1.37 K/uL High 0.0-0.8 Eos # 0.43 K/uL 0.0-0.5 Baso # 0.08 K/uL 0.0-0.1 Basic Metabolic Panel 09/02/2017 [facility] Glucose 105 mg/dL 74- 106 [phone] BUN 12 mg/dL 7-18 Creatinine 0.9 mg/dL 0.6-1.3 Glom Filtration Rate, Estimate >60 mL/min >60 If >60 mL/min >60 43 BUN/Creat 13.3 ratio Sodium 138 mmol/L 136-145 Potassium 3.8 mmol/L 3.5-5.1 Chloride 106 mmol/L 98-107 Carbon Dioxide 28 mmol/L 21-32 Anion Gap 4 mEq/L Low 8-16 Calcium 8.0 mg/dL Low 8.5-10.1 Laboratory test 09/02/2017 [facility] C-Reactive 5.7 mg/L High < 3.0 finding [phone] Protein,Quant Ua RFX Micro & 09/01/2017 [facility] Urine Color YELLOW Yellow 44 Culture II [phone] Urine Clarity CLEAR Clear Urine Glucose - Dipstick NEGATIVE mg/dL Negative Urine Bilirubin - Dipstick NEGATIVE Negative Urine Ketone NEGATIVE mg/dL Negative Urine Specific [place] <=1.005 Low 1.010-1.030 Urine Blood TRACE Negative Urine PH 6.0 Low 6.5-7.5 Urine Protein - Dipstick NEGATIVE mg/dL Negative Urine Urobilinogen - Dipstick 0.2 E.U./dL 0.2-1.0 Urine Nitrite - Dipstick NEGATIVE Negative Urine Leuk Esterase NEGATIVE Negative Source: URINE, CLEAN CAT <SEE NOTE> 45 Laboratory test 09/01/2017 [facility] RBC Morphology 0-1+ finding [phone] Only Comprehensive 09/01/2017 [facility] Glucose 90 mg/dL 74-106 Metabolic Panel [phone] BUN 14 mg/dL 7-18 Creatinine 0.9 mg/dL 0.6-1.3 Glom Filtration Rate, Estimate >60 mL/min >60 If >60 mL/min >60 46 BUN/Creat 15.5 ratio Sodium 138 mmol/L 136-145 [...] Phosphatase 65 U/L 45-117 Laboratory test 09/01/2017 [facility] Lipase 80 U/L 56-289 finding [phone] CBS W/Automated 09/01/2017 [facility] White Blood 14.3 K/uL High 3.4-10.5 Diff [phone] Count Red Blood Count 5.05 M/uL 4.20-5.80 [...] 33.0-73.0 Lymph % 14.9 % Low 20.0-42.0 Camp % 9.4 % 0.0-10.0 Eo% 2.2 % 0.0-6.6 Bas% 0.5 % 0.0-1.1 Neut# 10.46 K/uL High 1.8-7.0 Lymph # 2.13 K/uL 1.0-4.0 Camp # 1.35 K/uL High 0.0-0.8 Eos # 0.31 K/uL 0.0-0.5 Baso # 0.07 K/uL 0.0-0.1 Slide Review 09/01/2017 [facility] Slide Review . 47 [phone] CBS W/Automated 08/24/2017 [facility] White Blood 10.2 K/uL 3.4- 10.5 48 Diff [phone] Count Red Blood Count 4.58 M/uL 4.20-5.80 [...] % 33.0-73.0 Lymph % 21.0 % 20.0-42.0 Camp % 10.3 % High 0.0-10.0 Eo% 3.9 % 0.0-6.6 Bas% 0.4 % 0.0-1.1 Neut# 6.58 K/uL 1.8-7.0 Lymph # 2.15 K/uL 1.0-4.0 Camp # 1.05 K/uL High 0.0-0.8 Eos # 0.40 K/uL 0.0-0.5 Baso # 0.04 K/uL 0.0-0.1 Basic Metabolic Panel 08/24/2017 [facility] Glucose 112 mg/dL High 74-106 [phone] BUN 11 mg/dL 7-18 Creatinine 0.8 mg/dL 0.6-1.3 Glom Filtration Rate, Estimate >60 mL/min >60 If >60 mL/min >60 49 BUN/Creat 13.7 ratio Sodium 140 mmol/L 136-145 Potassium 4.1 mmol/L 3.5-5.1 Chloride 107 mmol/L 98-107 Carbon Dioxide 26 mmol/L 21-32 Anion Gap 7 mEq/L Low 8-16 Calcium 8.4 mg/dL Low 8.5-10.1 CBS W/Automated Diff 08/23/2017 [facility] White Blood 10.0 K/uL 3.4-10.5 [phone] Count Red Blood Count 4.59 M/uL 4.20-5.80 [...] % 33.0-73.0 Lymph % 24.5 % 20.0-42.0 Camp % 11.5 % High 0.0-10.0 Eo% 4.8 % 0.0-6.6 Bas% 0.5 % 0.0-1.1 Neut# 5.85 K/uL 1.8-7.0 Lymph # 2.44 K/uL 1.0-4.0 Camp # 1.15 K/uL High 0.0-0.8 Eos # 0.48 K/uL 0.0-0.5 Baso # 0.05 K/uL 0.0-0.1 Comprehensive Metabolic 08/23/2017 [facility] Glucose 101 mg/dL 74 -106 Panel [phone] BUN 11 mg/dL 7-18 Creatinine 0.9 mg/dL 0.6-1.3 Glom Filtration Rate, Estimate >60 mL/min >60 If >60 mL/min >60 50 BUN/Creat 12.2 ratio Sodium 141 mmol/L 136-145 Potassium 4.0 mmol/L 3.5-5.1 Chloride 108 mmol/L High 98-107 Carbon Dioxide 29 mmol/L 21-32 Anion Gap 4 mEq/L Low 8-16 Calcium 8.4 mg/dL Low 8.5-10.1 Total Protein 6.3 g/dL Low 6.4-8.2 Albumin 3.0 g/dL Low 3.4-5.0 Globulin 3.3 g/dL 1.9-4.3 Alb/Glob 0.9 ratio Bilirubin,Total 0.3 mg/dL 0.2-1.0 Sgot/Ast 13 U/L Low 15-37 51 SGPT/Alt 18 U/L 12-78 Alkaline Phosphatase 60 U/L 45-117 Laboratory test 08/23/2017 [facility] C-Reactive 52.9 mg/L High < 3.0 finding [phone] Protein,Quant CBS W/Automated 08/22/2017 [facility] White Blood Count 14.3 K/uL High 3.4-10.5 Diff [phone] Red Blood Count 4.55 M/uL 4.20-5.80 Hemoglobin [...] 33.0-73.0 Lymph % 16.4 % Low 20.0-42.0 Camp % 12.2 % High 0.0-10.0 Eo% 1.7 % 0.0-6.6 Bas% 0.2 % 0.0-1.1 Neut# 9.95 K/uL High 1.8-7.0 Lymph # 2.35 K/uL 1.0-4.0 Camp # 1.75 K/uL High 0.0-0.8 Eos # 0.25 K/uL 0.0-0.5 Baso # 0.03 K/uL 0.0-0.1 Comprehensive Metabolic 08/22/2017 [facility] Glucose 104 mg/dL 74 -106 Panel [phone] BUN 16 mg/dL 7-18 Creatinine 0.8 mg/dL 0.6-1.3 Glom Filtration Rate, Estimate >60 mL/min >60 If >60 mL/min >60 52 BUN/Creat 20.0 ratio Sodium 139 mmol/L 136-145 Potassium 4.0 mmol/L 3.5-5.1 Chloride 108 mmol/L High 98-107 Carbon Dioxide 28 mmol/L 21-32 Anion Gap 3 mEq/L Low 8-16 Calcium 7.8 mg/dL Low 8.5-10.1 Total Protein 6.4 g/dL 6.4-8.2 Albumin 3.1 g/dL Low 3.4-5.0 Globulin 3.3 g/dL 1.9-4.3 Alb/Glob 0.9 ratio Bilirubin,Total 0.3 mg/dL 0.2-1.0 Sgot/Ast 11 U/L Low 15-37 53 SGPT/Alt 18 U/L 12-78 Alkaline Phosphatase 67 U/L 45-117 Laboratory test finding 08/22/2017 [facility] Magnesium 2.2 mg/dL 1.8-2.4 [phone] C-Reactive Protein,Quant 51.8 mg/L High <3.0 Glycohemoglobin A1c 08/22/2017 [facility] Glycohemoglobin 6.1 % 4.2-6.3 54 [phone] (A1c) eAG 128 mg/dL Ua RFX Micro & Culture II 08/21/2017 [facility] Urine Color YELLOW Yellow 55 [phone] Urine Clarity CLEAR Clear Urine Glucose - Dipstick NEGATIVE mg/dL Negative Urine Bilirubin - Dipstick NEGATIVE Negative Urine Ketone NEGATIVE mg/dL Negative Urine Specific [place] 1.010 1.010-1.030 Urine Blood TRACE Negative Urine PH 7.5 6.5-7.5 Urine Protein - Dipstick NEGATIVE mg/dL Negative Urine Urobilinogen - Dipstick 0.2 E.U./dL 0.2-1.0 Urine Nitrite - Dipstick NEGATIVE Negative Urine Leuk Esterase NEGATIVE Negative Source: URINE, CLEAN CAT <SEE NOTE> 56 CBS W/Automated 08/21/2017 [facility] White Blood 18.9 K/uL High 3.4-10.5 Diff [phone] Count Red Blood Count 4.97 M/uL 4.20-5.80 [...] 33.0-73.0 Lymph % 11.0 % Low 20.0-42.0 Camp % 9.0 % 0.0-10.0 Eo% 1.0 % 0.0-6.6 Bas% 0.2 % 0.0-1.1 Neut# 14.91 K/uL High 1.8-7.0 Lymph # 2.09 K/uL 1.0-4.0 Camp # 1.70 K/uL High 0.0-0.8 Eos # 0.19 K/uL 0.0-0.5 Baso # 0.04 K/uL 0.0-0.1 Slide Review 08/21/2017 [facility] Slide Review DIFF ORDERED [phone] Differential-WBC 08/21/2017 [facility] Total Cells 100 #CELLS Confirm [phone] Counted Band% 11 % High 0-8 Neutrophils% 75 % High 33-73 Lymph% 8 % Low 20-42 Monocyte% 3 % 0-10 Eosinophil% 2 % 0-5 Basophil% 1 % 0-2 Platelet Estimate NORMAL Poikilocytosis 0-1+ Anisocytosis 0-1+ Microcytosis 0-1+ Comprehensive Metabolic 08/21/2017 [facility] Glucose 141 mg/dL High 74-106 Panel [phone] BUN 16 mg/dL 7-18 Creatinine 1.0 mg/dL 0.6-1.3 Glom Filtration Rate, Estimate >60 mL/min >60 If >60 mL/min >60 57 BUN/Creat 16.0 ratio Sodium 138 mmol/L 136-145 Potassium 4.1 mmol/L 3.5-5.1 Chloride 103 mmol/L 98-107 Carbon Dioxide 29 mmol/L 21-32 Anion Gap 6 mEq/L Low 8-16 Calcium 8.6 mg/dL 8.5-10.1 Total Protein 7.8 g/dL 6.4-8.2 Albumin 4.0 g/dL 3.4-5.0 Globulin 3.8 g/dL 1.9-4.3 Alb/Glob 1.1 ratio Bilirubin,Total 0.2 mg/dL 0.2-1.0 Sgot/Ast 14 U/L Low 15-37 58 SGPT/Alt 26 U/L 12-78 Alkaline Phosphatase 94 U/L 45-117 Laboratory test 08/21/2017 [facility] Lipase 102 U/L 56-289 finding [phone] Laboratory test 07/17/2017 [facility] Antinuclear Negative . 59, 60 finding [phone] Antibodies, Ifa CBS W/Automated 07/17/2017 [facility] White Blood 8.9 K/uL 3.4- 10.5 Diff [phone] Count Red Blood Count 4.82 M/uL 4.20-5.80 [...] % 33.0-73.0 Lymph % 29.0 % 20.0-42.0 Camp % 11.8 % High 0.0-10.0 Eo% 3.7 % 0.0-6.6 Bas% 0.6 % 0.0-1.1 Neut# 4.91 K/uL 1.8-7.0 Lymph # 2.59 K/uL 1.0-4.0 Camp # 1.05 K/uL High 0.0-0.8 Eos # 0.33 K/uL 0.0-0.5 Baso # 0.05 K/uL 0.0-0.1 Liver Function Tests 07/17/2017 [facility] Total Protein 7.2 g/dL 6.4-8.2 [phone] Albumin 3.7 g/dL 3.4-5.0 Globulin 3.5 g/dL 1.9-4.3 Alb/Glob 1.1 ratio Bilirubin,Total 0.3 mg/dL 0.2-1.0 Bilirubin,Direct 0.1 mg/dL 0.0-0.2 Bilirubin,Indirect 0.2 mg/dL 0.0-0.9 Sgot/Ast 19 U/L 15-37 SGPT/Alt 29 U/L 12-78 Alkaline Phosphatase 85 U/L 45-117 Reflex add FT3? Y Reflex add FT4? Y Laboratory test 07/17/2017 [facility] Sedimentation Rate 9 mm/hr 0 -20 61 finding [phone] TSH Reflex FT4 07/17/2017 [facility] Thyroid Stim 1.50 0.30-4.20 And/Or FT3 [phone] Hormone uIU/mL Reflex add FT3? Y Reflex add FT4? Y Comprehensive Metabolic 06/26/2017 [facility] Glucose 98 mg/dL 74- 106 62 Panel [phone] BUN 19 mg/dL High 7-18 Creatinine 0.9 mg/dL 0.6-1.3 Glom Filtration Rate, Estimate >60 mL/min >60 If >60 mL/min >60 63 BUN/Creat 21.1 ratio Sodium 138 mmol/L 136-145 [...] 77 U/L 45-117 LDL Cholesterol Profile 06/26/2017 [facility] Cholesterol 141 mg/dL <200 64 [phone] Triglycerides 172 mg/dL High <150 65 HDL Cholesterol 39 mg/dL Low >40 66 LDL-Cholesterol 68 mg/dL < 100 67 Microalbumin,Random 06/26/2017 [facility] Microalbumin,Urine 8.5 < 20.0 Urine [phone] mg/L Glycohemoglobin A1c 06/26/2017 [facility] Glycohemoglobin 6.2 % 4.2-6. 68 [phone] (A1c) 3 eAG 131 mg/dL Glycohemoglobin 12/26/2016 [facility] Glycohemoglobin 6.2 % 4.2- 6.3 69, A1c [phone] (A1c) 70 eAG 131 mg/dL Comprehensive Metabolic 12/26/2016 [facility] Glucose 102 mg/dL 74 -106 Panel [phone] BUN 13 mg/dL 7-18 Creatinine 0.8 mg/dL 0.6-1.3 Glom Filtration Rate, Estimate >60 mL/min >60 If >60 mL/min >60 71 BUN/Creat 16.2 ratio Sodium 140 mmol/L 136-145 Potassium 4.1 mmol/L 3.5-5.1 Chloride 105 mmol/L 98-107 Carbon Dioxide 29 mmol/L 21-32 Anion Gap 6 mEq/L Low 8-16 Calcium 8.4 mg/dL Low 8.5-10.1 Total Protein 7.0 g/dL 6.4-8.2 Albumin 3.6 g/dL 3.4-5.0 Globulin 3.4 g/dL 1.9-4.3 Alb/Glob 1.1 ratio Bilirubin,Total 0.2 mg/dL 0.2-1.0 Sgot/Ast 11 U/L Low 15-37 72 SGPT/Alt 29 U/L 12-78 Alkaline Phosphatase 73 U/L 45-117 Microalbumin,Random 12/26/2016 [facility] Microalbumin,Urine 6.0 mg/ L < Urine [phone] 20.0 Fungal Culture With 12/26/2016 [facility] Fungal Fluorochrome Fungus 73 Smear [phone] Stain Stain Fungal Culture; Other Sources (SEE NOTE) 74 Glycohemoglobin 09/23/2016 [facility] Glycohemoglobin 6.5 % High 4.2-6.3 75, A1c [phone] (A1c) 76 eAG 140 mg/dL Basic Metabolic Panel 08/18/2016 [facility] Glucose 124 mg/dL High 74-106 [phone] BUN 15 mg/dL 7-18 Creatinine 0.9 mg/dL 0.6-1.3 Glom Filtration Rate, Estimate >60 mL/min >60 If >60 mL/min >60 77 BUN/Creat 16.6 ratio Sodium 138 mmol/L 136-145 Potassium 3.9 mmol/L 3.5-5.1 Chloride 103 mmol/L 98-107 Carbon Dioxide 28 mmol/L 21-32 Anion Gap 7 mEq/L Low 8-16 Calcium 8.6 mg/dL 8.5-10.1 Microalbumin,Random 08/18/2016 [facility] Microalbumin,Urine 9.1 < Urine [phone] mg/L 20.0 Glycohemoglobin A1c 08/18/2016 [facility] Glycohemoglobin 7.7 % High 4.2-6 78 [phone] (A1c) .3 eAG 174 mg/dL Glycohemoglobin 07/16/2016 [facility] Glycohemoglobin 7.7 % High 4.2-6.3 79, A1c [phone] (A1c) 80 eAG 174 mg/dL Microalbumin,Random 07/16/2016 [facility] Microalbumin,Urine 6.3 < 20.0 Urine [phone] mg/L C-Reactive 07/16/2016 [facility] C-Reactive 9.25 <3.0 Protein,Cardiac [phone] Protein,Cardiac mg/L Reflex add FT3? Y Reflex add FT4? Y Homocyst(E)Ine, 07/16/2016 [facility] Homocyst(e)ine, 9.0 0.0- 15.0 81 P/S [phone] P/S umol/L TSH Reflex FT4 07/16/2016 [facility] Thyroid Stim 1.54 0.30-4.20 And/Or FT3 [phone] Hormone uIU/mL Reflex add FT3? Y Reflex add FT4? Y Comprehensive Metabolic 07/16/2016 [facility] Glucose 125 mg/dL High 74-106 Panel [phone] BUN 11 mg/dL 7-18 Creatinine 0.9 mg/dL 0.6-1.3 Glom Filtration Rate, Estimate >60 mL/min >60 If >60 mL/min >60 82 BUN/Creat 12.2 ratio Sodium 139 mmol/L 136-145 Potassium 3.9 mmol/L 3.5-5.1 Chloride 105 mmol/L 98-107 Carbon Dioxide 28 mmol/L 21-32 Anion Gap 6 mEq/L Low 8-16 Calcium 8.2 mg/dL Low 8.5-10.1 Total Protein 7.2 g/dL 6.4-8.2 Albumin 3.4 g/dL 3.4-5.0 Globulin 3.8 g/dL 1.9-4.3 Alb/Glob 0.9 ratio Bilirubin,Total 0.2 mg/dL 0.2-1.0 Sgot/Ast 14 U/L Low 15-37 83 SGPT/Alt 37 U/L 12-78 Alkaline Phosphatase 97 U/L 45-117 Reflex add FT3? Y Reflex add FT4? Y CBC 07/16/2016 [facility] White Blood Count 7.1 K/uL 3.4-10.5 [phone] Red Blood Count 5.02 M/uL 4.20-5.80 Hemoglobin 14.5 gm/dL 12.8-17.0 Hematocrit 42.4 % 38.0-48.0 Mean Cell Volume 84.5 fl 80.0-96.0 Mean Corpuscular HGB 28.9 pg 27.0-33.0 Mean Corpuscular HGB Conc 34.2 g/dL 31.7-36.0 Platelet Count 310 K/uL 150-400 Red Cell Distri Width %CV 13.8 % 11.6-15.8 Mean Platelet Volume 9.6 fL 6.6-10.6 Prostate Specific 07/16/2016 [facility] PSA ([place] Loci) 0.27 ng/mL < 4.0 84 Antigen [phone] Reflex add FT3? Y Reflex add FT4? Y Glycohemoglobin A1c 04/06/2015 [facility] Glycohemoglobin 6.2 % 4.2-6.3 85 [phone] (A1c) eAG 131 mg/dL Basic Metabolic Panel 02/20/2015 [facility] Glucose 124 mg/dL High 74-106 [phone] BUN 12 mg/dL 7-18 Creatinine 0.9 mg/dL 0.6-1.3 Glom Filtration Rate, Estimate >60 mL/min >60 If >60 mL/min >60 86 BUN/Creat 13.3 ratio Sodium 137 mmol/L 136-145 Potassium 3.8 mmol/L 3.5-5.1 Chloride 103 mmol/L 98-107 Carbon Dioxide 26 mmol/L 21-32 Anion Gap 8 mEq/L 8-16 Calcium 8.3 mg/dL Low 8.5-10.1 CBC 02/20/2015 [facility] White Blood Count 8.6 K/uL 3.4-10.5 [phone] Red Blood Count 4.78 M/uL 4.20-5.80 Hemoglobin 14.7 gm/dL 12.8-17.0 Hematocrit 42.4 % 38.0-48.0 Mean Cell Volume 88.7 fl 80.0-96.0 Mean Corpuscular HGB 30.8 pg 27.0-33.0 Mean Corpuscular HGB Conc 34.7 g/dL 31.7-36.0 Platelet Count 321 K/uL 150-400 Red Cell Distri Width %CV 13.4 % 11.6-15.8 Mean Platelet Volume 10.0 fL 6.6-10.6 LDL Cholesterol Profile 02/20/2015 [facility] Cholesterol 138 mg/dL < 200 87 [phone] Triglycerides 217 mg/dL < 150 88 HDL Cholesterol 29 mg/dL > 40 89 LDL-Cholesterol 66 mg/dL < 100 90 Comprehensive Metabolic 02/20/2015 [facility] Glucose 124 mg/dL High 74-106 Panel [phone] BUN 12 mg/dL 7-18 Creatinine 0.9 mg/dL 0.6-1.3 Glom Filtration Rate, Estimate >60 mL/min >60 If >60 mL/min >60 91 BUN/Creat 13.3 ratio Sodium 137 mmol/L 136-145 [...] Phosphatase 85 U/L 45-117 Laboratory test 02/20/2015 [facility] Prostate Specific 0.32 ng/mL 92 finding [phone] Antigen Thyroid Stim Hormone 2.93 uIU/mL 0.36-3.74 Vitamin D,25-Hydroxy 32.0 ng/mL 30.0-100.0 93 Rubeola Antibodies, Igg >300.0 Immune>29.9AU 94 Mumps Antibodies, Igg 198.0 Immune>10.9AU 95 Rubella IgG 02/20/2015 [facility] Rubella IgG Reactive Reactive Antibody [phone] Antibody Rubella IgG Iu/ml 44.8 IU/mL >=10.0 96 Laboratory test 02/20/2015 [facility] Microalbumin,Random See Note 97 finding [phone] Urine Laboratory test 12/29/2013 [facility] Microalbumin,Random 10.9 0.0 - finding [phone] Urine mg/L 18.5 Laboratory test 12/28/2013 [facility] Uric Acid 6.3 2.1- finding [phone] mg/dL 7.4 Comprehensive 12/28/2013 [facility] Glucose 112 76-1 Metabolic Panel [phone] mg/dL 15 BUN 12 mg/dL 5-23 Creatinine 0.8 mg/dL 0.5-1.4 Glom Filtration Rate, Estimate >60 mL/min >60 If >60 mL/min >60 98 BUN/Creat 15.0 ratio Sodium 137 mmol/L 136-145 [...] 80 U/L 50-136 LDL Cholesterol Profile 12/28/2013 [facility] Cholesterol 144 mg/dL 120-200 [phone] Triglycerides 210 mg/dL 16-231 HDL Cholesterol 32 mg/dL 29-83 LDL-Cholesterol 70 mg/dL 62-185 Laboratory test 12/28/2013 [facility] Microalbumin,Random Canceled 99 finding [phone] Urine By Lab Xray 12/27/2013 [facility] chest Xray pa and <pending> [address] [place] [address] [phone] Comprehensive 06/30/2013 [facility] Glucose 117 mg/dL High 76 Metabolic Panel [phone] 15 BUN 16 mg/dL 5-23 Creatinine 0.8 mg/dL 0.5-1.4 Glom Filtration Rate, Estimate >60 mL/min >60 If >60 mL/min >60 100 BUN/Creat 20.0 ratio Sodium 136 mmol/L 136-145 [...] Alkaline Phosphatase 93 U/L 50-136 Laboratory 06/30/2013 [facility] Microalbumin,Random 8.0 0.0-18.5 test finding [phone] Urine mg/L Prostate Specific Antigen 0.38 ng/mL 0.00-4.00 101 LDL Cholesterol Profile 06/30/2013 [facility] Cholesterol 153 mg/dL 120-200 [phone] Triglycerides 230 mg/dL 16-231 HDL Cholesterol 30 mg/dL 29-83 LDL-Cholesterol 77 mg/dL 62-185 Laboratory test 06/30/2013 [facility] Uric Acid 6.3 mg/dL 2.1-7.4 finding [phone] Xray 05/26/2013 [facility] Xray R <pending> [address] [place] [address] [phone] LDL Cholesterol 02/18/2013 [facility] Cholesterol 149 mg/dL 120- 200 Profile [phone] Triglycerides 228 mg/dL 16-231 HDL Cholesterol 31 mg/dL 29-83 LDL-Cholesterol 72 mg/dL 62-185 Laboratory test 02/18/2013 [facility] Thyroid Stim 1.57 0.49-4.67 finding [phone] Hormone uIU/mL Comprehensive 02/18/2013 [facility] Glucose 121 mg/dL High 76-115 Metabolic Panel [phone] BUN 11 mg/dL 5-23 Creatinine 0.9 mg/dL 0.5-1.4 Glom Filtration Rate, Estimate >60 mL/min >60 If >60 mL/min >60 102 BUN/Creat 12.2 ratio Sodium 138 mmol/L 136-145 [...] Alkaline Phosphatase 92 U/L 50-136 CBC 02/18/2013 [facility] White Blood Count 9.2 K/uL 3.4-10.5 [phone] Red Blood Count 5.19 M/uL 4.20-5.80 Hemoglobin 15.4 gm/dL 12.8-17.0 Hematocrit 45.2 % 38.0-48.0 Mean Cell Volume 87.1 fl 80.0-96.0 Mean Corpuscular HGB 29.7 pg 27.0-33.0 Mean Corpuscular HGB Conc 34.1 g/dL 31.7-36.0 Platelet Count 336 K/uL 150-400 Red Cell Distri Width %CV 13.0 % 11.6-15.8 Mean Platelet Volume 9.8 fL 6.6-10.6 LDL Cholesterol Profile 01/16/2012 [facility] Cholesterol 148 mg/dL 120-200 [phone] Triglycerides 295 mg/dL High 16-231 HDL Cholesterol 29 mg/dL 29-83 LDL-Cholesterol 60 mg/dL Low 62-185 Comprehensive Metabolic 01/16/2012 [facility] Glucose 104 mg/dL 76 -115 Panel [phone] BUN 13 mg/dL 5-23 Creatinine 0.9 mg/dL 0.5-1.4 Glom Filtration Rate, Estimate >60 mL/min >60 If >60 mL/min >60 103 BUN/Creat 14.4 ratio Sodium 140 mmol/L 136-145 [...] Phosphatase 67 U/L 50-136 Laboratory test 01/16/2012 [facility] Thyroid Stim 3.57 uIU/mL 0.49-4.67 finding [phone] Hormone CBS W/Automated 01/16/2012 [facility] White Blood 9.5 K/uL 3.4- 10.5 Diff [phone] Count Red Blood Count 5.27 M/uL 4.20-5.80 [...] % 33.0-73.0 Lymph % 31.2 % 17.0-56.0 Camp % 10.6 % High 0.0-10.0 Eo% 3.0 % 0.0-5.0 Bas% 0.6 % 0.1-1.0 Neut# 5.18 K/uL 1.8-7.0 Lymph # 2.97 K/uL 1.2-4.0 Camp # 1.01 K/uL High 0.0-0.6 Eos # 0.29 K/uL 0.0-0.5 Baso # 0.06 K/uL Low 0.1-0.2 Laboratory test finding 11/12/2011 [facility] Uric Acid 4.6 mg/dL 2.1-7.4 [phone] Laboratory test finding 09/29/2011 [facility] Uric Acid 6.7 mg/dL 2.1-7.4 [phone] LDL Cholesterol Profile 06/26/2011 [facility] Cholesterol 159 mg/dL 120-200 [phone] Triglycerides 199 mg/dL 16-231 HDL Cholesterol 33 mg/dL 29-83 LDL-Cholesterol 86 mg/dL 62-185 Comprehensive Metabolic Panel 06/26/2011 [facility] Glucose 97 mg/dL 76-115 [phone] BUN 14 mg/dL 5-23 Creatinine 1.0 mg/dL 0.5-1.4 Glom Filtration Rate, Estimate >60 mL/min >60 If >60 mL/min >60 104 BUN/Creat 14.0 ratio Sodium 139 mmol/L 136-145 [...] Phosphatase 71 U/L 50-136 Laboratory test 06/26/2011 [facility] Thyroid Stim 1.88 uIU/mL 0.49-4.67 finding [phone] Hormone CBS W/Automated 06/26/2011 [facility] White Blood 7.1 K/uL 3.4- 10.5 Diff [phone] Count Red Blood Count 5.16 M/uL 4.20-5.80 [...] % 33.0-73.0 Lymph % 33.2 % 17.0-56.0 Camp % 12.4 % High 0.0-10.0 Eo% 4.2 % 0.0-5.0 Bas% 0.7 % 0.1-1.0 Neut# 3.52 K/uL 1.8-7.0 Lymph # 2.36 K/uL 1.2-4.0 Camp # 0.88 K/uL High 0.0-0.6 Eos # 0.30 K/uL 0.0-0.5 Baso # 0.05 K/uL Low 0.1-0.2 1 M15.9 2 Positive: 5 of the following Borrelia-specific bands: 18,23,28,30,39,41,45,58, 66, and 93. Negative: No bands or banding patterns which do not meet positive criteria. 3 Note: An equivocal or positive EIA result [...] are those recommended by CDC/ASTPHLD. p23=Osp C, g31=oclvbwdke Note: Sera from individuals with the following may cross react in the [place] Western Blot assays: other spirochetal diseases (periodontal disease, leptospirosis, relapsing fever, yaws, and pinta); connective autoimmune (Rheumatoid Arthritis and Systemic Lupus Erythematosus and also individuals with Antinuclear Antibody); other infections ([place] Spotted Fever; Narayan-Moralez Virus, and Cytomegalovirus). 4 Method: Sediplast Modified Westergren 5 Negative <1:80 Borderline 1:80 Positive >1:80 Performed at: RN - [facility] [address] [id number] [employer]: Gauri Villarreal MD, Phone: [phone] 6 R94.5, R30.0 7 Values below the stated reference ranges of AST and ALT can be seen in normal populations. Clinical correlation is suggested. 8 Note: Persistent reduction for 3 months or more in an eGFR <60 mL/min/1.73 m2 defines CKD. Patients with eGFR values >/=60 mL/min/1.73 m2 may also have CKD if evidence of persistent proteinuria is present. The original MDRD equation for estimated GFR is not valid for patients less than 18 years of age. Additional information may be found at [email or web address]. 9 LEFT HIP/PELVIS PAIN,BILATERAL FEET SWELLING 10 Note: Persistent reduction for 3 months or more in an eGFR <60 mL/min/1.73 m2 defines CKD. Patients with eGFR values >/=60 mL/min/1.73 m2 may also have CKD if evidence of persistent proteinuria is present. The original MDRD equation for estimated GFR is not valid for patients less than 18 years of age. Additional information may be found at [email or web address]. 11 Instrument flagged sample for slide review. Less than 10% Bands seen, no other immature WBC's seen. RBC morphology essentially normal. Platelet estimate=NORMAL 12 BC AUTH 11/06 GUS 13 Note: Persistent reduction for 3 months or more in an eGFR <60 mL/min/1.73 m2 defines CKD. Patients with eGFR values >/=60 mL/min/1.73 m2 may also have CKD if evidence of persistent proteinuria is present. The original MDRD equation for estimated GFR is not valid for patients less than 18 years of age. Additional information may be found at [email or web address]. 14 Note: Persistent reduction for 3 months [...] for more aggressive treatment of glycemia. The [place] [employer] recommends that a primary goal of therapy should be a HbA1c of <7% and that physicians should re-evaluate the treatment regimen in patients with HbA1c values consistently >8%. 17 DIVERTICULITIS OF INTESTINE;PART UNSPECIFIED 18 Note: Persistent reduction for 3 months or more in an eGFR <60 mL/min/1.73 m2 defines CKD. Patients with eGFR values >/=60 mL/min/1.73 m2 may also have CKD if evidence of persistent proteinuria is present. The original MDRD equation for estimated GFR is not valid for patients less than 18 years of age. Additional information may be found at [email or web address]. 19 Z01.818,E11.9,I10 20 THERAPEUTIC INR RANGE: 2.0 - 3.0 DVT, Pulmonary embolus, prophylaxis against venous thrombosis or systemic embolization in high risk patients. 2.5 - 3.5 Mechanical heart valves 21 URINE, CLEAN CATCH 22 Note: Persistent reduction for 3 months or more in an eGFR <60 mL/min/1.73 m2 defines CKD. Patients with eGFR values >/=60 mL/min/1.73 m2 may also have CKD if evidence of persistent proteinuria is present. The original MDRD equation for estimated GFR is not valid for patients less than 18 years of age. Additional information may be found at [email or web address]. 23 Elevated levels of HbA1c suggest the need for more aggressive treatment of glycemia. The [place] [employer] recommends that a primary goal of therapy should be a HbA1c of <7% and that physicians should re-evaluate the treatment regimen in patients with HbA1c values consistently >8%. 24 Performed at: RN - [facility] [address] [id number] [employer]: Gauri Villarreal MD, Phone: [phone] 25 DIVERTICULITIS, NO BM ALL WEEK, ABD PAIN 26 Note: Persistent reduction for 3 months or more in an eGFR <60 mL/min/1.73 m2 defines CKD. Patients with eGFR values >/=60 mL/min/1.73 m2 may also have CKD if evidence of persistent proteinuria is present. The original MDRD equation for estimated GFR is not valid for patients less than 18 years of age. Additional information may be found at [email or web address]. 27 Values below the stated reference ranges of AST and ALT can be seen in normal populations. Clinical correlation is suggested. 28 Method: [employer] Hemoccult Card 29 URINE, CLEAN CATCH 30 Instrument flagged sample for slide review. Less than 10% Bands seen, no other immature WBC's seen. RBC morphology essentially normal. Platelet estimate=NORMAL 31 E27.8,Z12.5,E66.09,E11.9,I10 32 Performed at: - [facility] [id number] [employer]: Gauri Villarreal MD, Phone: [phone] 33 This test was developed and its performance characteristics determined by [employer]. It has not been cleared or approved by the Food and Drug Administration. 34 Age 1 - 5 years 0 - 67 6 - 7 years 0 - 110 8 - 10 years 0 - 185 11 - 12 years 0 - 201 13 - 14 years 0 - 318 15 - 16 years 39 - 481 17 - 19 years 40 - 491 >19 years 31 - 701 35 This [facility] LC/MS-MS method is currently certified by the CDC Hormone Standardization Program (HoSt). Adult male reference interval is based on a population of healthy nonobese males (BMI <30) between 19 and 39 years old. Ede, et.al. JCEM 2017,102;1069-8081. PMID: [id number]. Performed at: [address] [id number] [employer]: Melquiades Palubmo MD, Phone: [phone] 36 THIS ASSAY IS NOT INTENDED A CANCER SCREENING TEST The concentration of PSA in a given specimen, determined with assays from different manufacturers, can vary due to differences in assay methods and reagent specificity. Values obtained from different assay methods cannot be used interchangeably. Method: Siemens Dimension [place] Chemiluminescent immunoassay. 37 Vitamin D deficiency has been defined by the [place] [employer] and an Endocrine Society practice guideline as a level of serum 25-OH vitamin D less than 20 ng/mL (1,2). The Endocrine Society went on to further define vitamin D insufficiency as a level between 21 and 29 ng/mL (2). 1. IOM ([place] [employer]). 2010. Dietary reference intakes for calcium and D. [place]: The National Academies Press. 2. Ellyn MF, Ronald [place], Aayush LOPEZ, et al. Evaluation, treatment, and prevention of vitamin D deficiency: an Endocrine Society clinical practice guideline. JCEM. 2010; 96(7):1911-30. Performed at: RN - [facility] [address] [id number] [employer]: Gauri Villarreal MD, Phone: [phone] 38 Note: Persistent reduction for 3 months or more in an eGFR <60 mL/min/1.73 m2 defines CKD. Patients with eGFR values >/=60 mL/min/1.73 m2 may also have CKD if evidence of persistent proteinuria is present. The original MDRD equation for estimated GFR is not valid for patients less than 18 years of age. Additional information may be found at [email or web address]. 39 Elevated levels of HbA1c suggest the need for more aggressive treatment of glycemia. The [place] [employer] recommends that a primary goal of therapy should be a HbA1c of <7% and that physicians should re-evaluate the treatment regimen in patients with HbA1c values consistently >8%. 40 ACUTE DIVERTICULITIS 41 Note: Persistent reduction for 3 months or more in an eGFR <60 mL/min/1.73 m2 defines CKD. Patients with eGFR values >/=60 mL/min/1.73 m2 may also have CKD if evidence of persistent proteinuria is present. The original MDRD equation for estimated GFR is not valid for patients less than 18 years of age. Additional information may be found at [email or web address]. 42 REFACTORY DIVERTICULITIS 43 Note: Persistent reduction for 3 months or more in an eGFR <60 mL/min/1.73 m2 defines CKD. Patients with eGFR values >/=60 mL/min/1.73 m2 may also have CKD if evidence of persistent proteinuria is present. The original MDRD equation for estimated GFR is not valid for patients less than 18 years of age. Additional information may be found at [email or web address]. [address] FOR POSS DIVERTICULITIS 45 URINE, CLEAN CATCH 46 Note: Persistent reduction for 3 months or more in an eGFR <60 mL/min/1.73 m2 defines CKD. Patients with eGFR values >/=60 mL/min/1.73 m2 may also have CKD if evidence of persistent proteinuria is present. The original MDRD equation for estimated GFR is not valid for patients less than 18 years of age. Additional information may be found at [email or web address]. 47 Instrument flagged sample for slide review. Less than 10% Bands seen, no other immature WBC's seen. Platelet estimate=NORMAL 48 ACUTE DIVERTICULITIS 49 Note: Persistent reduction for 3 months or more in an eGFR <60 mL/min/1.73 m2 defines CKD. Patients with eGFR values >/=60 mL/min/1.73 m2 may also have CKD if evidence of persistent proteinuria is present. The original MDRD equation for estimated GFR is not valid for patients less than 18 years of age. Additional information may be found at [email or web address]. 50 Note: Persistent reduction for 3 months or more in an eGFR <60 mL/min/1.73 m2 defines CKD. Patients with eGFR values >/=60 mL/min/1.73 m2 may also have CKD if evidence of persistent proteinuria is present. The original MDRD equation for estimated GFR is not valid for patients less than 18 years of age. Additional information may be found at [email or web address]. 51 Values below the stated reference ranges of AST and ALT can be seen in normal populations. Clinical correlation is suggested. 52 Note: Persistent reduction for 3 months or more in an eGFR <60 mL/min/1.73 m2 defines CKD. Patients with eGFR values >/=60 mL/min/1.73 m2 may also have CKD if evidence of persistent proteinuria is present. The original MDRD equation for estimated GFR is not valid for patients less than 18 years of age. Additional information may be found at [email or web address]. 53 Values below the stated reference ranges of AST and ALT can be seen in normal populations. Clinical correlation is suggested. 54 Elevated levels of HbA1c suggest the need for more aggressive treatment of glycemia. The [place] [employer] recommends that a primary goal of therapy should be a HbA1c of <7% and that physicians should re-evaluate the treatment regimen in patients with HbA1c values consistently >8%. 55 LLQ PAIN FOR 3 DAYS GETTING WORSE 56 URINE, CLEAN CATCH 57 Note: Persistent reduction for 3 months or more in an eGFR <60 mL/min/1.73 m2 defines CKD. Patients with eGFR values >/=60 mL/min/1.73 m2 may also have CKD if evidence of persistent proteinuria is present. The original MDRD equation for estimated GFR is not valid for patients less than 18 years of age. Additional information may be found at [email or web address]. 58 Values below the stated reference ranges of AST and ALT can be seen in normal populations. Clinical correlation is suggested. 59 NO DX 60 Negative <1:80 Borderline 1:80 Positive >1:80 Performed at: [facility] - [facility] [address] [id number] [employer]: Gauri Villarreal MD, Phone: [phone] 61 Method: Sediplast Modified Westergren 62 E11.9,I10 63 Note: Persistent reduction for 3 months or more in an eGFR <60 mL/min/1.73 m2 defines CKD. Patients with eGFR values >/=60 mL/min/1.73 m2 may also have CKD if evidence of persistent proteinuria is present. The original MDRD equation for estimated GFR is not valid for patients less than 18 years of age. Additional information may be found at [email or web address]. 64 Reference Guidelines*: Desirable: ........... < 200 mg/dL Borderline High: ..... 200-239 mg/dL High: ................ >=240 mg/dL * The National Cholesterol Education Program (NCEP) 65 Reference Guidelines*: Normal: ............. < 150 mg/dL Borderline High: .... 150-199 mg/dL High: ............... 200-499 mg/dL Very High: .......... > 500 mg/dL * Source: National Cholesterol Education Program (NCEP) 66 Reference Guidelines*: Low HDL: ..... < 40 mg/dL Normal: ..... 40-60 mg/dL Desirable: ... > 60 mg/dL *The National Cholesterol Education Program(NCEP) 67 Reference Guidelines*: Optimal:........... <100 mg/dL Near Optimal....... 100-129 mg/dL Borderline High.... 130-159 mg/dL High............... 160-189 mg/dL Very High.......... >=190 mg/dL * Source: National Cholesterol Education Program (NCEP) 68 Elevated levels of HbA1c suggest the need for more aggressive treatment of glycemia. The [place] [employer] recommends that a primary goal of therapy should be a HbA1c of <7% and that physicians should re-evaluate the treatment regimen in patients with HbA1c values consistently >8%. 69 E11.9 TINEA 70 Elevated levels of HbA1c suggest the need for more aggressive treatment of glycemia. The [place] [employer] recommends that a primary goal of therapy should be a HbA1c of <7% and that physicians should re-evaluate the treatment regimen in patients with HbA1c values consistently >8%. 71 Note: Persistent reduction for 3 months or more in an eGFR <60 mL/min/1.73 m2 defines CKD. Patients with eGFR values >/=60 mL/min/1.73 m2 may also have CKD if evidence of persistent proteinuria is present. The original MDRD equation for estimated GFR is not valid for patients less than 18 years of age. Additional information may be found at www.kdoqi.org. 72 Values below the stated reference ranges of AST and ALT can be seen in normal populations. Clinical correlation is suggested. 73 Final report Result 1 Hyphae observed 74 Fungus (Mycology) Culture Final report Result 1 Fusarium species Performed at: RN - [facility] [address] [id number] [employer]: Gauri Villarreal MD, Phone: [phone] 75 E11.9 76 Elevated levels of HbA1c suggest the need for more aggressive treatment of glycemia. The [place] [employer] recommends that a primary goal of therapy should be a HbA1c of <7% and that physicians should re-evaluate the treatment regimen in patients with HbA1c values consistently >8%. 77 Note: Persistent reduction for 3 months or more in an eGFR <60 mL/min/1.73 m2 defines CKD. Patients with eGFR values >/=60 mL/min/1.73 m2 may also have CKD if evidence of persistent proteinuria is present. The original MDRD equation for estimated GFR is not valid for patients less than 18 years of age. Additional information may be found at www.kdoqi.org. 78 Elevated levels of HbA1c suggest the need for more aggressive treatment of glycemia. The [place] [employer] recommends that a primary goal of therapy should be a HbA1c of <7% and that physicians should re-evaluate the treatment regimen in patients with HbA1c values consistently >8%. 79 Z12.5,E66.3,R73.03,I10,Z00.00 80 Elevated levels of HbA1c suggest the need for more aggressive treatment of glycemia. The [place] [employer] recommends that a primary goal of therapy should be a HbA1c of <7% and that physicians should re-evaluate the treatment regimen in patients with HbA1c values consistently >8%. 81 Performed at: RN - [facility] [address] [id number] [employer]: Gauri Villarreal MD, Phone: [phone] 82 Note: Persistent reduction for 3 months or more in an eGFR <60 mL/min/1.73 m2 defines CKD. Patients with eGFR values >/=60 mL/min/1.73 m2 may also have CKD if evidence of persistent proteinuria is present. The original MDRD equation for estimated GFR is not valid for patients less than 18 years of age. Additional information may be found at www.kdoqi.org. 83 Values below the stated reference ranges of AST and ALT can be seen in normal populations. Clinical correlation is suggested. 84 THIS ASSAY IS NOT INTENDED A CANCER SCREENING TEST The concentration of PSA in a given specimen, determined with assays from different manufacturers, can vary due to differences in assay methods and reagent specificity. Values obtained from different assay methods cannot be used interchangeably. Method: Siemens [employer] [place] Chemiluminescent immunoassay. 85 Elevated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
[2018-04-24 14:52] VITALS: BP 122/68
--- NOTE | 2018-04-24 14:59 | UC ---
UC General HPI - HPI Summary HPI Summary: cough, congestion and body aches x 4 days. - History of Current Complaint Chief Complaint: UCRespiratory Stated Complaint: FEVER/ST/COUGH Time Seen by Provider: 04/24/18 14:47 Hx Obtained From: Patient Onset/Duration: Gradual Onset Timing: Constant Pain Intensity: 4 Associated Signs & Symptoms: Positive: Cough, Fever - Allergy/Home Medications Allergies/Adverse Reactions: Allergies Allergy/AdvReac Type Severity Reaction Status Date / Time No Known Allergies Allergy Verified 04/24/18 14:52 Home Medications: Home Medications D-Methorphan/PE/Acetaminophen [Day Multi-Symp Flu-Severe Cold] 1 each PO DAILY 04/24/18 [History Confirmed 04/24/18] Diclofenac Sodium EC TAB* [Voltaren EC TAB*] 75 mg PO BID 04/24/18 [History Confirmed 04/24/18] metFORMIN* [Glucophage 1000 MG TAB *] 1,000 mg PO BID 04/24/18 [History Confirmed 04/24/18] PMH/Surg Hx/FS Hx/Imm Hx - Additional Past Medical History Additional PMH: joint pain Endocrine History: Diabetes Cardiovascular History: Hypertension Respiratory History: COPD - Surgical History Surgical History: Yes Surgery Procedure, Year, and Place: T&A. sinus surgery. Colon surgery - diverticulitis - Family History Known Family History: Positive: Non-Contributory - Social History Lives: With Family Alcohol Use: Occasionally Substance Use Type: None Smoking Status (MU): Former Smoker When Did the Patient Quit Smoking/Using Tobacco: 2004 - Immunization History Most Recent Influenza Vaccination: 03/2015 Review of Systems All Other Systems Reviewed And Are Negative: Yes Constitutional: Positive: Fever Skin: Positive: Negative Eyes: Positive: Negative ENT: Positive: Negative Respiratory: Positive: Cough Cardiovascular: Positive: Negative Gastrointestinal: Positive: Negative Genitourinary: Positive: Negative Motor: Positive: Negative Neurovascular: Positive: Negative Musculoskeletal: Positive: Arthralgia - chronic, Myalgia Neurological: Positive: Negative Psychological: Positive: Negative Physical Exam Triage Information Reviewed: Yes Appearance: Well-Appearing Vital Signs: Initial Vital Signs Temp 100.2 F 04/24/18 14:47 Pulse 104 04/24/18 14:47 Resp 16 04/24/18 14:47 BP 122/68 04/24/18 14:47 Pulse Ox 99 11/17/18 14:47 Vital Signs Reviewed: Yes Eyes: Positive: Conjunctiva Clear ENT: Positive: Pharynx normal, TMs normal. Negative: Nasal congestion, Nasal drainage Neck: Positive: Supple, Nontender, No Lymphadenopathy Respiratory: Positive: Normal breath sounds, No respiratory distress, Decreased breath sounds, Other: - cough is congested Cardiovascular: Positive: RRR, No Murmur. Negative: Tachycardia Abdomen Description: Positive: Nontender, No Organomegaly, Soft Bowel Sounds: Positive: Present Musculoskeletal: Positive: ROM Intact Neurological: Positive: Alert Psychological: Positive: Age Appropriate Behavior Skin Exam: Normal Diagnostics - Laboratory Diagnostic Studies Completed/Ordered: rapid flu=negative Course/Dx - Course Course Of Treatment: rapid flu=neg. non toxic and not hypoxic. - Differential Dx - Multi-Symptom Provider Diagnoses: bronchitis. copd. Discharge - Sign-Out/Discharge Documenting (check all that apply): Patient Departure All imaging exams completed and their final reports reviewed: No Studies - Discharge Plan Condition: Stable Disposition: HOME Prescriptions: DOXYcycline CAP(*) [DOXYcycline 100MG CAP(*)] 100 mg PO BID 10 Days #20 cap Patient Education Materials: Acute Bronchitis (ED), COPD (Chronic Obstructive Pulmonary Disease) (DC) Referrals: Nilesh Cardenas MD [Primary Care Provider] - 5 Days Additional Instructions: INCREASE ALBUTEROL INHALER 2 PUFFS EVERY 6 HOURS - Billing Disposition and Condition Condition: STABLE Disposition: Home
== END 2018-04-24 15:33 | disposition home or self-care (01) ==
LOC: UCCORT 14:31
DX: E11.9 Type 2 diabetes mellitus without complications (principal); J44.9 Chronic obstructive pulmonary disease, unspecified; Z79.84 Long term (current) use of oral hypoglycemic drugs; I10 Essential (primary) hypertension; Z87.891 Personal history of nicotine dependence
CPT/HCPCS: 99202; G0463

== ENCOUNTER 2018-10-03 15:01 | Emergency (ER) | payer BC ==
--- OUTSIDE RECORDS SUMMARY | 2018-10-03 15:10 | XMS REPORT | Continuity of Care Document ---
:1965 External Reference #:[id number] Author Name Cori Darling Care Team Providers Name Role Phone Nilesh Cardenas MD Primary Care Physician Unavailable Payers Date Identification Numbers Payment Provider Subscriber Effective: 2015 Policy Number: [id number] [facility] Ronnie Guzman PayID: [id number] [address] [address] [place] [address] Advance Directives Description No Information Available Problems Active Problems Provider Date Prediabetes Onset: 07/24/2016 Essential hypertension Onset: 09/29/2011 Benign essential hypertension Onset: 06/24/2011 Chronic obstructive lung disease Onset: 06/24/2011 Gastroesophageal reflux disease Onset: 06/24/2011 Diaphragmatic hernia Onset: 06/24/2011 Family History Date Family Member(s) Observation Comments General Diabetes General Heart Attack Father Anemia Father Diabetes Type II Father Heart Disease Triple Bypass Mother Heart Disease pacemaker Social History Type Date Description Comments Sex Unknown Marital Status Single Lives With Mother 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 Right-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 ETOH Use Occasionally consumes alcohol Tobacco Use Start: Unknown End: Unknown Patient is a former smoker Smoking Status Reviewed: 09/24/18 Patient is a former smoker Currently Active Patient is currently sexually active Allergies, Adverse Reactions, Alerts Description No Known Drug Allergies Medications Active Medications SIG Qnty Indications Ordering Date Provider Metformin HCL 1 by mouth twice a 180tabs E11.9 Nilesh 08/21/2016 1000mg day MD Theresa Tablets Stiolto Respimat 2 inhalations daily 12gm J44.9 Nilesh 07/02/2015 in the morning MD Theresa 2.5-2.5mcg/Act Aerosol Cardura 1 p.o every day 90tabs I10 Nilesh 07/02/2015 2mg Tablets MD Theresa Ventolin HFA inhale 2 puffs by 24gm J44.9 Nilesh 12/27/2013 mouth every 4 hours MD Theresa 108(90Base) mcg/Act if needed Aerosol Lisinopril take 1 tablet by 90tabs I10 [place] 10/13/2011 20mg mouth once daily MD Theresa Tablets Lansoprazole take 1 capsule by 90caps K21.9 [place] 06/18/2011 30mg mouth once daily MD Theresa Capsules DR Diclofenac Sodium 1 tablet twice a 180tabs [place] day MD Theresa 75mg Tablets Cpap wear nighty CPap Chuck Wh[place], supplies History Medications Furosemide 1 by mouth every 10tabs R60.0 [place] 11/11/2017 - 20mg day MD Theresa 11/19/2017 Tablets Colace 1 by mouth twice a 60caps [place] 09/25/2017 - 100mg day MD Theresa 01/01/2018 Capsules Hydroxyzine HCL 1 by mouth at at 90tabs L29.9 [place] 04/06/2017 - bedtime MD Theresa 10/02/2017 50mg Tablets Cephalexin 1 by mouth four 40tabs L03.116 [place] 04/06/2017 - 500mg times a day MD Theresa 08/31/2017 Tablets Terbinafine HCL 1 by mouth every 90tabs B35.1 [place] 09/25/2016 - day MD Theresa 12/31/2016 250mg Tablets Bacitracin use four times a 1units 692.9 [place] 08/21/2016 - (External) day MD Theresa 12/31/2016 500Unit/GM Ointment Metformin HCL 1 by mouth twice a 60tabs E11.9 [place] 07/24/2016 - 500mg rony Cardenas MD 08/21/2016 Tablets Duexis 1 tid 90tabs R09.1 [place] 09/20/2015 - 800-26.6mg MD Theresa 11/13/2015 Tablets Methylphenidate 1 by mouth every 30caps F90.0 Nilesh 07/02/2015 - Hydrochloride CD day MD Theresa 08/02/2015 20mg Capsules ER Lisinopril-Hydrochl Error stop this 90tabs I10 [place] 07/02/2015 - orothiazide drug MD Theresa 07/04/2015 20-25mg Tablets Amoxicillin 1 by mouth three 30caps 462 Nilesh 11/17/2014 - 500mg times a day MD Theresa 03/30/2015 Capsules Spiriva Handihaler 2 inhalations every 90caps J44.9 Nilesh 09/28/2014 - in the morning MD Theresa 07/02/2015 18mcg Capsules Atrovent HFA 2 inh qid 1units Nilesh 07/17/2014 - MD Theresa 03/30/2015 17mcg/Act Aerosol Bacitracin use four times a 1units 692.9 Nilesh 06/30/2014 - (External) day MD Theresa 09/28/2014 500Unit/GM Ointment Ammonium Lactate use twice a day 140units 692.9 Nilesh 06/30/2014 - MD Theresa 03/30/2015 12% Cream Symbicort 1 puff twice a day 1units 496 Nilesh 01/09/2014 - MD Theresa 03/30/2015 160-4.5mcg/Act Aerosol Spiriva Handihaler 2 inhalations every 30caps 496 Nilesh 12/27/2013 - in the morning MD Theresa 01/09/2014 18mcg Capsules Azithromycin 2 now and 1 daily x 6tabs 491.21 Nilesh 12/27/2013 - 250mg 4 days MD Theresa 09/28/2014 Tablets Levocetirizine 1 qd prn 30tabs 477.9 Nilesh 12/27/2012 - Dihydrochloride MD Theresa 12/27/2013 5mg Tablets Clotrimazole/Betame use tid until clear 1units 110.4 Nilesh 01/05/2012 - thasone at least 2 weeks MD Theresa 04/20/2012 Dipropionate 1-0.05% Cream Indomethacin 1 cap by mouth four 120caps 719.47 Nilesh 10/13/2011 - 25mg times only if MD Theresa 04/20/2012 Capsules needed for pain Allopurinol 1 po qd 90tabs 274.9 Nilesh 10/09/2011 - 300mg MD Theresa 04/20/2012 Tablets Lisinopril-Hydrochl take 1 tablet by 90tabs 401.9 Nilesh 07/07/2011 - orothiazide mouth once daily MD Theresa 10/13/2011 20-25mg Tablets Ventolin HFA inhale 2 puffs by 1unlesley 496 Nilesh 06/24/2011 - mouth every 4 hours MD Theresa 12/27/2013 108(90Base) mcg/Act if needed Aerosol Ibuprofen 1 po tid 90tabs Nilesh 06/24/2011 - 800mg MD Theresa 10/13/2011 Tablets Zestoretic 1 po qd 30tabs 401.9 Nilesh 06/24/2011 - 20-25mg MD Theresa 07/07/2011 Tablets Advair Diskus 1 puff bid 28units 496 Nilesh - MD Theresa 04/20/2012 250-50mcg/Dose Aerosol Meloxicam take 1 tablet by Unknown - 15mg mouth once daily 07/03/2016 Tablets with food or milk Fluarix inject 0.5 Unknown - Quadrivalent milliliter 07/03/2016 0.5ml intramuscularly [place] Ibuprofen take 1 tablet by Unknown - 800mg mouth every 8 hours 07/03/2016 Tablets if needed for pain Penicillin V take 1 tablet by Unknown - Potassium mouth every 6 hours 07/03/2016 500mg Tablets Prednisone take 1 tablet by Unknown - 10mg mouth every morning 04/06/2017 Tablets Oxycodone-Acetamino take 1 to 2 tablets Unknown - phen by mouth four times 04/06/2017 5-325mg a day if needed for Tablets pain maxim Fluticasone instill 2 sprays Unknown - Propionate into each nostril 04/06/2017 once daily 50mcg/Act Suspension Ciprofloxacin HCL take 1 tablet by Unknown - mouth twice a day 09/23/2017 500mg Tablets Metronidazole take 1 tablet by Unknown - 500mg mouth three times a 10/02/2017 Tablets day Ciprofloxacin HCL 1 by mouth twice a Unknown - day for 01/01/2018 500mg Tablets diverticulitis. Immunizations CPT Code Status Date Vaccine Lot # [id number] Given 03/29/2013 Influenza Virus 3Yrs & Over [id number] Given 06/28/2012 Tdap - Tetanus/Diptheria/Acellular Pertussis 46639 Given 06/28/2012 Influenza Virus 3Yrs & Over [id number] Given 03/20/1997 Tetanus Toxoid Adsorbed, For Intramuscular Use Vital Signs Date Vital Result Comment 09/24/2018 9:26am Height 69.5 inches 5'9.50" Weight 300.00 lb Heart Rate 107 /min BP Systolic 118 mmHg BP Diastolic 62 mmHg Respiratory Rate 16 /min O2 % BldC Oximetry 98 % room air BMI (Body Mass Index) 43.7 kg/m2 09/10/2018 9:36am Weight 300.00 lb Heart Rate 98 /min BP Systolic 128 mmHg BP Diastolic 80 mmHg O2 % BldC Oximetry 97 % 07/07/2018 4:18pm Height 69.5 inches 5'9.50" Weight 297.00 lb Heart Rate 94 /min BP Systolic 122 mmHg BP Diastolic 84 mmHg Respiratory Rate 16 /min BMI (Body Mass Index) 43.2 kg/m2 05/14/2018 9:36am Weight 284.00 lb Heart Rate 90 /min BP Systolic 116 mmHg BP Diastolic 82 mmHg Respiratory Rate 18 /min 04/13/2018 1:44pm Weight 286.00 lb BP Systolic 116 mmHg BP Diastolic 66 mmHg 03/30/2018 3:06pm Weight 282.00 lb BP Systolic 108 mmHg BP Diastolic 70 mmHg 01/22/2018 11:00am Weight 276.00 lb 01/01/2018 9:41am Weight 272.00 lb BP Systolic 134 mmHg BP Diastolic 76 mmHg 11/19/2017 2:06pm Weight 267.00 lb 11/11/2017 11:46am Weight 277.00 lb Heart Rate 84 /min BP Systolic 122 mmHg BP Diastolic 84 mmHg Respiratory Rate 18 /min Body Temperature 98.6 F 10/28/2017 11:29am Weight 274.00 lb Heart Rate 9618 /min BP Systolic 106 mmHg BP Diastolic 70 mmHg 10/02/2017 9:56am Weight 275.00 lb 09/23/2017 1:27pm Weight 284.00 lb BP Systolic 116 mmHg BP Diastolic 74 mmHg 09/09/2017 11:02am Weight 285.50 lb BP Systolic 122 mmHg BP Diastolic 74 mmHg 08/26/2017 9:56am Weight 298.00 lb 07/06/2017 9:13am Height 69 inches Weight 294.00 lb Heart Rate 100 /min BP Systolic 122 mmHg BP Diastolic 82 mmHg Respiratory Rate 16 /min BMI (Body Mass Index) 43.4 kg/m2 04/13/2017 3:27pm Weight 280.00 lb BP Systolic 110 mmHg BP Diastolic 70 mmHg 04/06/2017 8:21am Weight 280.00 lb BP Systolic 122 mmHg BP Diastolic 78 mmHg 12/31/2016 8:12am Height 69 inches Weight 285.00 lb BP Systolic 142 mmHg BP Diastolic 86 mmHg BMI (Body Mass Index) 42.1 kg/m2 09/25/2016 4:49pm Weight 294.00 lb BP Systolic 118 mmHg BP Diastolic 76 mmHg 08/21/2016 3:57pm Weight 296.00 lb BP Systolic 120 mmHg BP Diastolic 86 mmHg 07/24/2016 9:17am Weight 299.00 lb BP Systolic 118 mmHg BP Diastolic 80 mmHg 07/03/2016 9:08am Height 69 inches Weight 303.00 lb Heart Rate 64 /min BP Systolic 118 mmHg BP Diastolic 74 mmHg Respiratory Rate 16 /min Body Temperature 98.1 F BMI (Body Mass Index) 44.7 kg/m2 11/13/2015 4:27pm Weight 284.00 lb BP Systolic 132 mmHg BP Diastolic 74 mmHg 09/27/2015 3:42pm Weight 284.00 lb BP Systolic 110 mmHg BP Diastolic 66 mmHg 09/20/2015 3:08pm Weight 283.00 lb 08/02/2015 3:00pm Weight 278.00 lb BP Systolic 118 mmHg BP Diastolic 72 mmHg 07/02/2015 9:17am Height 69.25 inches Weight 276.00 lb Heart Rate 96 /min BP Systolic 120 mmHg BP Diastolic 90 mmHg Respiratory Rate 16 /min Body Temperature 97.9 F BMI (Body Mass Index) 40.5 kg/m2 03/30/2015 8:38am Weight 272.50 lb BP Systolic 120 mmHg BP Diastolic 88 mmHg 02/19/2015 4:22pm BP Systolic 118 mmHg BP Diastolic 98 mmHg 11/17/2014 11:36am Weight 282.50 lb BP Systolic 110 mmHg BP Diastolic 80 mmHg Body Temperature 98.7 F 09/28/2014 2:54pm Weight 288.00 lb BP Systolic 120 mmHg BP Diastolic 90 mmHg 06/30/2014 9:22am Height 69.25 inches Weight 281.00 lb Heart Rate 76 /min BP Systolic 108 mmHg BP Diastolic 82 mmHg Respiratory Rate 16 /min Body Temperature 97.9 F BMI (Body Mass Index) 41.2 kg/m2 01/09/2014 4:19pm Weight 280.00 lb 01/09/2014 4:21pm Weight 280.00 lb BP Systolic 116 mmHg BP Diastolic 82 mmHg 12/27/2013 9:57am Weight 277.00 lb Heart Rate 85 /min BP Systolic 110 mmHg BP Diastolic 80 mmHg 06/29/2013 2:31pm Height 69.25 inches Weight 273.50 lb Heart Rate 68 /min BP Systolic 120 mmHg BP Diastolic 84 mmHg Respiratory Rate 16 /min Body Temperature 97.7 F BMI (Body Mass Index) 40.1 kg/m2 05/26/2013 11:36am Weight 274.00 lb BP Systolic 100 mmHg BP Diastolic 68 mmHg 03/29/2013 1:51pm Weight 280.00 lb BP Systolic 110 mmHg BP Diastolic 78 mmHg 12/27/2012 2:16pm Height 69 inches Weight 272.00 lb BP Systolic 94 mmHg BP Diastolic 70 mmHg BMI (Body Mass Index) 40.2 kg/m2 06/28/2012 2:10pm Height 69 inches Weight 258.50 lb Heart Rate 96 /min BP Systolic 110 mmHg BP Diastolic 76 mmHg Respiratory Rate 16 /min Body Temperature 98.6 F BMI (Body Mass Index) 38.2 kg/m2 04/20/2012 9:21am Weight 257.00 lb BP Systolic 118 mmHg BP Diastolic 80 mmHg 01/19/2012 1:55pm Height 69 inches Weight 257.50 lb BP Systolic 114 mmHg BP Diastolic 78 mmHg BMI (Body Mass Index) 38.0 kg/m2 01/05/2012 8:06am Height 69 inches Weight 261.00 lb BP Systolic 110 mmHg BP Diastolic 78 mmHg BMI (Body Mass Index) 38.5 kg/m2 11/13/2011 9:38am Height 69 inches Weight 254.00 lb BP Systolic 116 mmHg BP Diastolic 86 mmHg BMI (Body Mass Index) 37.5 kg/m2 10/13/2011 10:50am Height 69 inches Weight 253.00 lb BP Systolic 116 mmHg BP Diastolic 76 mmHg BMI (Body Mass Index) 37.4 kg/m2 09/29/2011 8:49am Height 69 inches Weight 253.00 lb BP Systolic 128 mmHg BP Diastolic 96 mmHg BMI (Body Mass Index) 37.4 kg/m2 06/24/2011 9:15am Height 69 inches Weight 250.00 lb Heart Rate 68 /min BP Systolic 128 mmHg BP Diastolic 88 mmHg Respiratory Rate 16 /min Body Temperature 98.2 F BMI (Body Mass Index) 36.9 kg/m2 Results Test Date Facility Test Result H/L Range Note Order 07/09/2018 [facility] <pending> Laboratory test finding 05/21/2018 N2N/CCD Import Band% 6 % 0-8 1 Basophil% 2 % 0-2 Differential Comment 1+ Large Platele <See Note> 2 Eosinophil% 1 % 0-5 Lipase 99 U/L 56-289 Lymph% 22 % 20-42 Monocyte% 4 % 0-10 Neutrophils% 65 % 33-73 Platelet Estimate Normal Slide Review Diff Ordered Total Cells Counted 100 #CELLS Toxic Granulation 3+ CBS W/Automated Diff 05/21/2018 N2N/CCD Import Bas% 0.4 % 0-1.1 Baso # 0.05 K/uL 0-0.1 Eo% 2.7 % 0-6.6 Eos # 0.34 K/uL 0-0.5 Hematocrit 42.5 % 38-48 Hemoglobin 14.0 gm/dL 12.8-17 Lymph # 2.54 K/uL 1-4 Lymph % 20.2 % 20-42 Mean Cell Volume 89.5 fl 80-96 Mean Corpuscular HGB 29.5 pg 27-33 Mean Corpuscular HGB Conc 32.9 g/dL 31.7-36 Mean Platelet Volume 10.0 fL 6.6-10.6 [place] # 1.27 K/uL High 0-0.8 [place] % 10.1 % High 0-10 Neut# 8.40 K/uL High 1.8-7 Neut% 66.6 % 33-73 Platelet Count 285 K/uL 155-360 Red Blood Count 4.75 M/uL 4.2-5.8 Red Cell Distri Width %CV 14.0 % 11.6-15.8 Red Cell Distri Width SD 44.7 fl 36-51 White Blood Count 12.6 K/uL High 3.4-10.5 Comprehensive Metabolic Panel 05/21/2018 N2N/CCD Import Alb/Glob 1.0 ratio Albumin 3.4 g/dL 3.4-5 Alkaline Phosphatase 84 U/L 45-117 Anion Gap 8 mEq/L 8-16 BUN 18 mg/dL 7-18 BUN/Creat 16.3 ratio Bilirubin,Total 0.2 mg/dL 0.2-1 Calcium 8.5 mg/dL 8.5-10.1 Carbon Dioxide 26 mmol/L 21-32 Chloride 106 mmol/L 98-107 Creatinine 1.1 mg/dL 0.6-1.3 Globulin 3.5 g/dL 1.9-4.3 Glom Filtration Rate, Estimate >60 mL/min Glucose 119 mg/dL High 74-106 If >60 mL/min 3 Potassium 4.2 mmol/L 3.5-5.1 SGPT/Alt 39 U/L 12-78 Sgot/Ast 15 U/L 15-37 Sodium 140 mmol/L 136-145 Total Protein 6.9 g/dL 6.4-8.2 Laboratory test 04/24/2018 [facility] Import Influenza A Molecular Negative 4 finding Influenza B Molecular Negative Laboratory test 04/16/2018 [facility] Import Deoxycortisol,11 0.04 g/dL 5, 6 finding Treponema Antibody Bee Negative 7 CBC 04/16/2018 [facility] Import Hematocrit 44.1 % 38-48 Hemoglobin 15.0 gm/dL 12.8-17 Mean Cell Volume 87.0 fl 80-96 Mean Corpuscular HGB 29.6 pg 27-33 Mean Corpuscular HGB Conc 34.0 g/dL 31.7-36 Mean Platelet Volume 9.3 fL 6.6-10.6 Platelet Count 304 K/uL 155-360 Red Blood Count 5.07 M/uL 4.2-5.8 Red Cell Distri Width %CV 14.3 % 11.6-15.8 White Blood Count 8.7 K/uL 3.4-10.5 Comprehensive Metabolic Panel 04/16/2018 N2N[facility] Import Alb/Glob 1.1 ratio Albumin 3.8 g/dL 3.4-5 Alkaline Phosphatase 84 U/L 45-117 Anion Gap 4 mEq/L Low 8-16 BUN 17 mg/dL 7-18 BUN/Creat 18.8 ratio Bilirubin,Total 0.3 mg/dL 0.2-1 Calcium 8.8 mg/dL 8.5-10.1 Carbon Dioxide 30 mmol/L 21-32 Chloride 106 mmol/L 98-107 Creatinine 0.9 mg/dL 0.6-1.3 Globulin 3.4 g/dL 1.9-4.3 Glom Filtration Rate, Estimate >60 mL/min Glucose 99 mg/dL 74-106 If >60 mL/min 8 Potassium 4.3 mmol/L 3.5-5.1 SGPT/Alt 39 U/L 12-78 Sgot/Ast 16 U/L 15-37 Sodium 140 mmol/L 136-145 Total Protein 7.2 g/dL 6.4-8.2 Vitamin B12 And 04/16/2018 N2N/CCD Import Folic Acid > 20.0 ng/mL High 3.1-17.5 Folate Vitamin B12 590 pg/mL 193-986 Laboratory test finding 04/09/2018 N2N/CCD Import Reflex add FT3? N 9 Reflex add FT4? Y Thyroid Stim Hormone 1.31 uIU/mL 0.3-4.2 Laboratory test 01/01/2018 N2N/CCD Import Antinuclear Negative 10, 11 finding Antibodies, Ifa C-Reactive Protein,Cardiac 7.85 mg/L Rheumatoid Factor Screen < 10.0 Iu/ml 0-15 Sedimentation Rate 10 mm/hr 0-20 12 Uric Acid 6.4 mg/dL 3.5-7.2 Lyme Igg & Igm By Western 01/01/2018 N2N/CCD Import Lyme AB Igg By Western . Blot Blot Lyme AB Igm By Western Blot . Lyme Igg WB Interpretation Negative 13 Lyme Igm WB Interpretation Negative 14 P18 AB Absent P23 AB Absent P23 AB Absent P28 AB Absent P30 AB Absent P39 AB Absent P39 AB Absent P41 AB Absent P41 AB Present Abnormal P45 AB Absent P58 AB Absent P66 AB Absent P93 AB Absent Basic Metabolic Panel 11/17/2017 N2N/CCD Import Anion Gap 8 mEq/L 8-16 15 BUN 19 mg/dL High 7-18 BUN/Creat 23.7 ratio Calcium 9.3 mg/dL 8.5-10.1 Carbon Dioxide 28 mmol/L 21-32 Chloride 100 mmol/L 98-107 Creatinine 0.8 mg/dL 0.6-1.3 Glom Filtration Rate, Estimate >60 mL/min Glucose 86 mg/dL 74-106 If >60 mL/min 16 Potassium 4.1 mmol/L 3.5-5.1 Sodium 136 mmol/L 136-145 Liver Function Tests 11/17/2017 [facility] Import Alb/Glob 0.9 ratio Albumin 3.5 g/dL 3.4-5 Alkaline Phosphatase 76 U/L 45-117 Bilirubin,Direct < 0.1 mg/dL 0-0.2 Bilirubin,Indirect 0.1 mg/dL 0-0.9 Bilirubin,Total 0.2 mg/dL 0.2-1 Globulin 3.8 g/dL 1.9-4.3 SGPT/Alt 46 U/L 12-78 Sgot/Ast 8 U/L Low 15-37 17 Total Protein 7.3 g/dL 6.4-8.2 Laboratory test finding 11/10/2017 [facility] Import Slide Review . 18, 19 CBS W/Automated Diff 11/10/2017 [facility] Import Bas% 0.4 % 0-1.1 Baso # 0.05 K/uL 0-0.1 Eo% 2.7 % 0-6.6 Eos # 0.31 K/uL 0-0.5 Hematocrit 38.9 % 38-48 Hemoglobin 13.1 gm/dL 12.8-17 Lymph # 1.43 K/uL 1-4 Lymph % 12.4 % Low 20-42 Mean Cell Volume 85.1 fl 80-96 Mean Corpuscular HGB 28.7 pg 27-33 Mean Corpuscular HGB Conc 33.7 g/dL 31.7-36 Mean Platelet Volume 9.5 fL 6.6-10.6 [place] # 1.43 K/uL High 0-0.8 [place] % 12.4 % High 0-10 Neut# 8.31 K/uL High 1.8-7 Neut% 72.1 % 33-73 Platelet Count 354 K/uL 155-360 Red Blood Count 4.57 M/uL 4.2-5.8 Red Cell Distri Width %CV 14.9 % 11.6-15.8 Red Cell Distri Width SD 45.3 fl 36-51 White Blood Count 11.5 K/uL High 3.4-10.5 Comprehensive Metabolic Panel 11/10/2017 [facility] Import Alb/Glob 0.9 ratio Albumin 3.1 g/dL Low 3.4-5 Alkaline Phosphatase 80 U/L 45-117 Anion Gap 8 mEq/L 8-16 BUN 9 mg/dL 7-18 BUN/Creat 12.8 ratio Bilirubin,Total 0.3 mg/dL 0.2-1 Calcium 8.5 mg/dL 8.5-10.1 Carbon Dioxide 27 mmol/L 21-32 Chloride 106 mmol/L 98-107 Creatinine 0.7 mg/dL 0.6-1.3 Globulin 3.5 g/dL 1.9-4.3 Glom Filtration Rate, Estimate >60 mL/min Glucose 97 mg/dL 74-106 If >60 mL/min 20 Potassium 3.6 mmol/L 3.5-5.1 SGPT/Alt 104 U/L High 12-78 Sgot/Ast 93 U/L High 15-37 Sodium 141 mmol/L 136-145 Total Protein 6.6 g/dL 6.4-8.2 Basic Metabolic Panel 11/09/2017 N2N/CCD Import Anion Gap 10 mEq/L 8-16 21 BUN 9 mg/dL 7-18 BUN/Creat 11.2 ratio Calcium 8.0 mg/dL Low 8.5-10.1 Carbon Dioxide 24 mmol/L 21-32 Chloride 105 mmol/L 98-107 Creatinine 0.8 mg/dL 0.6-1.3 Glom Filtration Rate, Estimate >60 mL/min Glucose 90 mg/dL 74-106 If >60 mL/min 22 Potassium 3.3 mmol/L Low 3.5-5.1 Sodium 139 mmol/L 136-145 CBC 11/09/2017 N2N/CCD Import Hematocrit 36.5 % Low 38-48 Hemoglobin 12.2 gm/dL Low 12.8-17 Mean Cell Volume 85.1 fl 80-96 Mean Corpuscular HGB 28.4 pg 27-33 Mean Corpuscular HGB Conc 33.4 g/dL 31.7-36 Mean Platelet Volume 9.7 fL 6.6-10.6 Platelet Count 330 K/uL 155-360 Red Blood Count 4.29 M/uL 4.2-5.8 Red Cell Distri Width %CV 14.8 % 11.6-15.8 White Blood Count 10.2 K/uL 3.4-10.5 Basic Metabolic Panel 11/08/2017 N2N/CCD Import Anion Gap 8 mEq/L 8-16 BUN 10 mg/dL 7-18 BUN/Creat 12.5 ratio Calcium 7.8 mg/dL Low 8.5-10.1 Carbon Dioxide 24 mmol/L 21-32 Chloride 107 mmol/L 98-107 Creatinine 0.8 mg/dL 0.6-1.3 Glom Filtration Rate, Estimate >60 mL/min Glucose 101 mg/dL 74-106 If >60 mL/min 23 Potassium 3.3 mmol/L Low 3.5-5.1 Sodium 139 mmol/L 136-145 CBC 11/08/2017 N2N/CCD Import Hematocrit 36.4 % Low 38-48 Hemoglobin 11.9 gm/dL Low 12.8-17 Mean Cell Volume 86.5 fl 80-96 Mean Corpuscular HGB 28.3 pg 27-33 Mean Corpuscular HGB Conc 32.7 g/dL 31.7-36 Mean Platelet Volume 10.0 fL 6.6-10.6 Platelet Count 333 K/uL 155-360 Red Blood Count 4.21 M/uL 4.2-5.8 Red Cell Distri Width %CV 15.1 % 11.6-15.8 White Blood Count 9.8 K/uL 3.4-10.5 Laboratory test 11/07/2017 N2N/CCD Import Glycohemoglobin (A1c) 6.4 % High 4.2-6.3 24 finding eAG 137 mg/dL Basic Metabolic Panel 11/07/2017 N2N/CCD Import Anion Gap 8 mEq/L 8-16 BUN 11 mg/dL 7-18 BUN/Creat 12.2 ratio Calcium 7.8 mg/dL Low 8.5-10.1 Carbon Dioxide 24 mmol/L 21-32 Chloride 107 mmol/L 98-107 Creatinine 0.9 mg/dL 0.6-1.3 Glom Filtration Rate, Estimate >60 mL/min Glucose 108 mg/dL High 74-106 If >60 mL/min 25 Potassium 3.5 mmol/L 3.5-5.1 Sodium 139 mmol/L 136-145 CBC 11/07/2017 N2N/CCD Import Hematocrit 37.1 % Low 38-48 Hemoglobin 12.3 gm/dL Low 12.8-17 Mean Cell Volume 86.3 fl 80-96 Mean Corpuscular HGB 28.6 pg 27-33 Mean Corpuscular HGB Conc 33.2 g/dL 31.7-36 Mean Platelet Volume 9.8 fL 6.6-10.6 Platelet Count 296 K/uL 155-360 Red Blood Count 4.30 M/uL 4.2-5.8 Red Cell Distri Width %CV 15.4 % 11.6-15.8 White Blood Count 10.0 K/uL 3.4-10.5 CBC 11/06/2017 [facility] Import Hematocrit 39.3 % 38-48 26 Hemoglobin 12.7 gm/dL Low 12.8-17 Mean Cell Volume 86.6 fl 80-96 Mean Corpuscular HGB 28.0 pg 27-33 Mean Corpuscular HGB Conc 32.3 g/dL 31.7-36 Mean Platelet Volume 10.0 fL 6.6-10.6 Platelet Count 330 K/uL 155-360 Red Blood Count 4.54 M/uL 4.2-5.8 Red Cell Distri Width %CV 15.4 % 11.6-15.8 White Blood Count 13.0 K/uL High 3.4-10.5 Comprehensive Metabolic Panel 11/06/2017 [facility] Import Alb/Glob 1.0 ratio Albumin 2.9 g/dL Low 3.4-5 Alkaline Phosphatase 40 U/L Low 45-117 Anion Gap 6 mEq/L Low 8-16 BUN 14 mg/dL 7-18 BUN/Creat 14.0 ratio Bilirubin,Total 0.3 mg/dL 0.2-1 Calcium 7.7 mg/dL Low 8.5-10.1 Carbon Dioxide 27 mmol/L 21-32 Chloride 105 mmol/L 98-107 Creatinine 1.0 mg/dL 0.6-1.3 Globulin 3.0 g/dL 1.9-4.3 Glom Filtration Rate, Estimate >60 mL/min Glucose 129 mg/dL High 74-106 If >60 mL/min 27 Potassium 3.8 mmol/L 3.5-5.1 SGPT/Alt 30 U/L 12-78 Sgot/Ast 21 U/L 15-37 Sodium 138 mmol/L 136-145 Total Protein 5.9 g/dL Low 6.4-8.2 Laboratory test 10/29/2017 [facility] Import Act Partial 29.2 s 23.4-35 28 finding Thrombo Time Anticoagulant Therapy? No C-Reactive Protein,Cardiac 2.73 mg/L Glycohemoglobin (A1c) 6.5 % High 4.2-6.3 29 Source: Urine, Clean Cat <See Note> 30 Urine Bilirubin - Dipstick Negative Urine Blood Negative Urine Clarity Clear Urine Color Yellow Urine Glucose - Dipstick Negative mg/dL Urine Ketone Negative mg/dL Urine Leuk Esterase Negative Urine Nitrite - Dipstick Negative Urine PH 7.0 1 6.5-7.5 Urine Protein - Dipstick Negative mg/dL Urine Specific [place] 1.015 1 1.01-1.03 Urine Urobilinogen - Dipstick 0.2 E.U./dL 0.2-1 eAG 140 mg/dL CBC 10/29/2017 N2N/CCD Import Anticoagulant Therapy? No Hematocrit 42.7 % 38-48 Hemoglobin 14.2 gm/dL 12.8-17 Mean Cell Volume 85.2 fl 80-96 Mean Corpuscular HGB 28.3 pg 27-33 Mean Corpuscular HGB Conc 33.3 g/dL 31.7-36 Mean Platelet Volume 9.8 fL 6.6-10.6 Platelet Count 292 K/uL 155-360 Red Blood Count 5.01 M/uL 4.2-5.8 Red Cell Distri Width %CV 15.4 % 11.6-15.8 White Blood Count 8.1 K/uL 3.4-10.5 Comprehensive Metabolic Panel 10/29/2017 N2N/CCD Import Alb/Glob 1.2 ratio Albumin 3.7 g/dL 3.4-5 Alkaline Phosphatase 59 U/L 45-117 Anion Gap 5 mEq/L Low 8-16 BUN 16 mg/dL 7-18 BUN/Creat 17.7 ratio Bilirubin,Total 0.3 mg/dL 0.2-1 Calcium 8.7 mg/dL 8.5-10.1 Carbon Dioxide 28 mmol/L 21-32 Chloride 104 mmol/L 98-107 Creatinine 0.9 mg/dL 0.6-1.3 Globulin 3.2 g/dL 1.9-4.3 Glom Filtration Rate, Estimate >60 mL/min Glucose 103 mg/dL 74-106 If >60 mL/min 31 Potassium 4.0 mmol/L 3.5-5.1 SGPT/Alt 30 U/L 12-78 Sgot/Ast 16 U/L 15-37 Sodium 137 mmol/L 136-145 Total Protein 6.9 g/dL 6.4-8.2 Homocyst(E)Ine, P/S 10/29/2017 N2N/CCD Import Homocyst(e)ine, P/S 11.9 umol /L 0-15 32 Microalbumin,Random 10/29/2017 N2N/CCD Import Microalbumin,Urine < 5.0 mg/ L Urine Protime 10/29/2017 N2N/CCD Import Anticoagulant No Therapy? Inr 1.1 1 0.9-1.1 33 Protime 14.0 s 12-14.4 Laboratory test finding 09/27/2017 N2N/CCD Import Lipase 108 U/L 56-289 34 Slide Review (See Note) 35 CBS W/Automated Diff 09/27/2017 N2N/CCD Import Bas% 0.5 % 0-1.1 Baso # 0.07 K/uL 0-0.1 Eo% 2.9 % 0-6.6 Eos # 0.37 K/uL 0-0.5 Hematocrit 39.4 % 38-48 Hemoglobin 13.3 gm/dL 12.8-17 Lymph # 3.17 K/uL 1-4 Lymph % 24.5 % 20-42 Mean Cell Volume 84.9 fl 80-96 Mean Corpuscular HGB 28.7 pg 27-33 Mean Corpuscular HGB Conc 33.8 g/dL 31.7-36 Mean Platelet Volume 9.8 fL 6.6-10.6 [place] # 1.44 K/uL High 0-0.8 [place] % 11.1 % High 0-10 Neut# 7.91 K/uL High 1.8-7 Neut% 61.0 % 33-73 Platelet Count 299 K/uL 155-360 Red Blood Count 4.64 M/uL 4.2-5.8 Red Cell Distri Width %CV 14.9 % 11.6-15.8 Red Cell Distri Width SD 45.0 fl 36-51 White Blood Count 13.0 K/uL High 3.4-10.5 Comprehensive Metabolic Panel 09/27/2017 N2N/CCD Import Alb/Glob 0.9 ratio Albumin 3.4 g/dL 3.4-5 Alkaline Phosphatase 83 U/L 45-117 Anion Gap 11 mEq/L 8-16 BUN 11 mg/dL 7-18 BUN/Creat 13.7 ratio Bilirubin,Total 0.2 mg/dL 0.2-1 Calcium 8.7 mg/dL 8.5-10.1 Carbon Dioxide 26 mmol/L 21-32 Chloride 104 mmol/L 98-107 Creatinine 0.8 mg/dL 0.6-1.3 Globulin 3.7 g/dL 1.9-4.3 Glom Filtration Rate, Estimate >60 mL/min Glucose 103 mg/dL 74-106 If >60 mL/min 36 Potassium 4.1 mmol/L 3.5-5.1 SGPT/Alt 22 U/L 12-78 Sgot/Ast 14 U/L Low 15-37 37 Sodium 141 mmol/L 136-145 Total Protein 7.1 g/dL 6.4-8.2 Urinalysis With 09/27/2017 [employer] Import Source: Urine, Clean Cat 38 Microscopic <See Note> Urine Bilirubin - Dipstick Negative Urine Blood Small Abnormal Urine Clarity Clear Urine Color Yellow Urine Epithelial Cells Very Few /lpf Urine Glucose - Dipstick Negative mg/dL Urine Ketone Negative mg/dL Urine Leuk Esterase Negative Urine Nitrite - Dipstick Negative Urine PH 5.5 1 Low 6.5-7.5 Urine Protein - Dipstick Negative mg/dL Urine RBC 0-2 rbc/hpf 0-2 Urine Specific [place] >=1.030 1.01-1.03 Urine Urobilinogen - Dipstick 0.2 E.U./dL 0.2-1 Urine WBC 0-2 wbc/hpf 0-7 Laboratory test 09/27/2017 [employer] Import Occult Blood,Stool Negative 39 finding Laboratory test 09/11/2017 [employer] Import Aldosterone 3.8 ng/dL 0-30 40 , 41 finding Cortisol,Am 13.4 g/dL 6.2-19.4 42 Dehydroepiandrosterone (Dhea) 83 ng/dL 31-701 43 Glycohemoglobin (A1c) 6.4 % High 4.2-6.3 44 LC/MS Testosterone Total 213.4 ng/dL Low 264-916 45 Prostate Specific Antigen 0.36 ng/mL 46 Thyroid Stim Hormone 2.10 uIU/mL 0.3-4.2 Vitamin D,25-Hydroxy 34.1 ng/mL 30-100 47 eAG 137 mg/dL CBC 09/11/2017 [employer] Import Hematocrit 41.3 % 38-48 Hemoglobin 13.9 gm/dL 12.8-17 Mean Cell Volume 83.8 fl 80-96 Mean Corpuscular HGB 28.2 pg 27-33 Mean Corpuscular HGB Conc 33.7 g/dL 31.7-36 Mean Platelet Volume 9.3 fL 6.6-10.6 Platelet Count 376 K/uL High 155-360 Red Blood Count 4.93 M/uL 4.2-5.8 Red Cell Distri Width %CV 14.5 % 11.6-15.8 White Blood Count 10.6 K/uL High 3.4-10.5 Comprehensive Metabolic Panel 09/11/2017 N2N/CCD Import Alb/Glob 1.2 ratio Albumin 3.7 g/dL 3.4-5 Alkaline Phosphatase 63 U/L 45-117 Anion Gap 6 mEq/L Low 8-16 BUN 14 mg/dL 7-18 BUN/Creat 17.5 ratio Bilirubin,Total 0.2 mg/dL 0.2-1 Calcium 8.6 mg/dL 8.5-10.1 Carbon Dioxide 27 mmol/L 21-32 Chloride 105 mmol/L 98-107 Creatinine 0.8 mg/dL 0.6-1.3 Globulin 3.1 g/dL 1.9-4.3 Glom Filtration Rate, Estimate >60 mL/min Glucose 118 mg/dL High 74-106 If >60 mL/min 48 Potassium 3.9 mmol/L 3.5-5.1 SGPT/Alt 43 U/L 12-78 Sgot/Ast 18 U/L 15-37 Sodium 138 mmol/L 136-145 Total Protein 6.8 g/dL 6.4-8.2 Microalbumin,Random 09/11/2017 N2N/CCD Import Microalbumin,Urine 7.3 mg/L Urine Basic Metabolic Panel 09/04/2017 N2N/CCD Import Anion Gap 3 mEq/L Low 8- 16 49 BUN 11 mg/dL 7-18 BUN/Creat 12.2 ratio Calcium 8.7 mg/dL 8.5-10.1 Carbon Dioxide 31 mmol/L 21-32 Chloride 107 mmol/L 98-107 Creatinine 0.9 mg/dL 0.6-1.3 Glom Filtration Rate, Estimate >60 mL/min Glucose 126 mg/dL High 74-106 If >60 mL/min 50 Potassium 4.4 mmol/L 3.5-5.1 Sodium 141 mmol/L 136-145 CBS W/Automated Diff 09/04/2017 N2N/CCD Import Bas% 0.5 % 0-1.1 Baso # 0.05 K/uL 0-0.1 Eo% 4.6 % 0-6.6 Eos # 0.44 K/uL 0-0.5 Hematocrit 41.9 % 38-48 Hemoglobin 13.7 gm/dL 12.8-17 Lymph # 2.06 K/uL 1-4 Lymph % 21.3 % 20-42 Mean Cell Volume 85.2 fl 80-96 Mean Corpuscular HGB 27.8 pg 27-33 Mean Corpuscular HGB Conc 32.7 g/dL 31.7-36 Mean Platelet Volume 9.0 fL 6.6-10.6 [place] # 1.17 K/uL High 0-0.8 [place] % 12.1 % High 0-10 Neut# 5.95 K/uL 1.8-7 Neut% 61.5 % 33-73 Platelet Count 380 K/uL High 155-360 Red Blood Count 4.92 M/uL 4.2-5.8 Red Cell Distri Width %CV 14.2 % 11.6-15.8 Red Cell Distri Width SD 43.0 fl 36-51 White Blood Count 9.7 K/uL 3.4-10.5 Laboratory test 09/02/2017 N2N/CCD Import C-Reactive 5.7 mg/L High 51 finding Protein,Quant Basic Metabolic 09/02/2017 N2N/CCD Import Anion Gap 4 mEq/L Low 8-16 Panel BUN 12 mg/dL 7-18 BUN/Creat 13.3 ratio Calcium 8.0 mg/dL Low 8.5-10.1 Carbon Dioxide 28 mmol/L 21-32 Chloride 106 mmol/L 98-107 Creatinine 0.9 mg/dL 0.6-1.3 Glom Filtration Rate, Estimate >60 mL/min Glucose 105 mg/dL 74-106 If >60 mL/min 52 Potassium 3.8 mmol/L 3.5-5.1 Sodium 138 mmol/L 136-145 CBS W/Automated Diff 09/02/2017 N2N/CCD Import Bas% 0.7 % 0-1.1 Baso # 0.08 K/uL 0-0.1 Eo% 3.9 % 0-6.6 Eos # 0.43 K/uL 0-0.5 Hematocrit 40.8 % 38-48 Hemoglobin 13.3 gm/dL 12.8-17 Lymph # 1.31 K/uL 1-4 Lymph % 11.9 % Low 20-42 Mean Cell Volume 85.2 fl 80-96 Mean Corpuscular HGB 27.8 pg 27-33 Mean Corpuscular HGB Conc 32.6 g/dL 31.7-36 Mean Platelet Volume 9.5 fL 6.6-10.6 [place] # 1.37 K/uL High 0-0.8 [place] % 12.5 % High 0-10 Neut# 7.78 K/uL High 1.8-7 Neut% 71.0 % 33-73 Platelet Count 360 K/uL 155-360 Red Blood Count 4.79 M/uL 4.2-5.8 Red Cell Distri Width %CV 14.2 % 11.6-15.8 Red Cell Distri Width SD 43.4 fl 36-51 White Blood Count 11.0 K/uL High 3.4-10.5 Laboratory test 09/01/2017 [employer] Import Source: Urine, Clean Cat 53 , 54 finding <See Note> Urine Bilirubin - Dipstick Negative Urine Blood Trace Urine Clarity Clear Urine Color Yellow Urine Glucose - Dipstick Negative mg/dL Urine Ketone Negative mg/dL Urine Leuk Esterase Negative Urine Nitrite - Dipstick Negative Urine PH 6.0 1 Low 6.5-7.5 Urine Protein - Dipstick Negative mg/dL Urine Specific [place] <=1.005 Low 1.01-1.03 Urine Urobilinogen - Dipstick 0.2 E.U./dL 0.2-1 Laboratory test finding 09/01/2017 [employer] Import Lipase 80 U/L 56-289 RBC Morphology Only 0-1+ Slide Review . 55 CBS W/Automated Diff 09/01/2017 [employer] Import Bas% 0.5 % 0-1.1 Baso # 0.07 K/uL 0-0.1 Eo% 2.2 % 0-6.6 Eos # 0.31 K/uL 0-0.5 Hematocrit 42.6 % 38-48 Hemoglobin 14.2 gm/dL 12.8-17 Lymph # 2.13 K/uL 1-4 Lymph % 14.9 % Low 20-42 Mean Cell Volume 84.4 fl 80-96 Mean Corpuscular HGB 28.1 pg 27-33 Mean Corpuscular HGB Conc 33.3 g/dL 31.7-36 Mean Platelet Volume 9.6 fL 6.6-10.6 [place] # 1.35 K/uL High 0-0.8 [place] % 9.4 % 0-10 Neut# 10.46 K/uL High 1.8-7 Neut% 73.0 % 33-73 Platelet Count 361 K/uL High 155-360 Red Blood Count 5.05 M/uL 4.2-5.8 Red Cell Distri Width %CV 14.3 % 11.6-15.8 Red Cell Distri Width SD 43.0 fl 36-51 White Blood Count 14.3 K/uL High 3.4-10.5 Comprehensive Metabolic Panel 09/01/2017 N2N/CCD Import Alb/Glob 1.1 ratio Albumin 3.9 g/dL 3.4-5 Alkaline Phosphatase 65 U/L 45-117 Anion Gap 7 mEq/L Low 8-16 BUN 14 mg/dL 7-18 BUN/Creat 15.5 ratio Bilirubin,Total 0.2 mg/dL 0.2-1 Calcium 9.3 mg/dL 8.5-10.1 Carbon Dioxide 28 mmol/L 21-32 Chloride 103 mmol/L 98-107 Creatinine 0.9 mg/dL 0.6-1.3 Globulin 3.4 g/dL 1.9-4.3 Glom Filtration Rate, Estimate >60 mL/min Glucose 90 mg/dL 74-106 If >60 mL/min 56 Potassium 3.9 mmol/L 3.5-5.1 SGPT/Alt 39 U/L 12-78 Sgot/Ast 24 U/L 15-37 Sodium 138 mmol/L 136-145 Total Protein 7.3 g/dL 6.4-8.2 Basic Metabolic Panel 08/24/2017 N2N/CCD Import Anion Gap 7 mEq/L Low 8- 16 57 BUN 11 mg/dL 7-18 BUN/Creat 13.7 ratio Calcium 8.4 mg/dL Low 8.5-10.1 Carbon Dioxide 26 mmol/L 21-32 Chloride 107 mmol/L 98-107 Creatinine 0.8 mg/dL 0.6-1.3 Glom Filtration Rate, Estimate >60 mL/min Glucose 112 mg/dL High 74-106 If >60 mL/min 58 Potassium 4.1 mmol/L 3.5-5.1 Sodium 140 mmol/L 136-145 CBS W/Automated Diff 08/24/2017 N2N/CCD Import Bas% 0.4 % 0-1.1 Baso # 0.04 K/uL 0-0.1 Eo% 3.9 % 0-6.6 Eos # 0.40 K/uL 0-0.5 Hematocrit 38.7 % 38-48 Hemoglobin 13.0 gm/dL 12.8-17 Lymph # 2.15 K/uL 1-4 Lymph % 21.0 % 20-42 Mean Cell Volume 84.5 fl 80-96 Mean Corpuscular HGB 28.4 pg 27-33 Mean Corpuscular HGB Conc 33.6 g/dL 31.7-36 Mean Platelet Volume 9.5 fL 6.6-10.6 [place] # 1.05 K/uL High 0-0.8 [place] % 10.3 % High 0-10 Neut# 6.58 K/uL 1.8-7 Neut% 64.4 % 33-73 Platelet Count 334 K/uL 155-360 Red Blood Count 4.58 M/uL 4.2-5.8 Red Cell Distri Width %CV 14.3 % 11.6-15.8 Red Cell Distri Width SD 43.1 fl 36-51 White Blood Count 10.2 K/uL 3.4-10.5 Laboratory test 08/23/2017 N2N/CCD Import C-Reactive 52.9 mg/L High finding Protein,Quant CBS W/Automated 08/23/2017 N2N/CCD Import Bas% 0.5 % 0-1.1 Diff Baso # 0.05 K/uL 0-0.1 Eo% 4.8 % 0-6.6 Eos # 0.48 K/uL 0-0.5 Hematocrit 39.1 % 38-48 Hemoglobin 12.8 gm/dL 12.8-17 Lymph # 2.44 K/uL 1-4 Lymph % 24.5 % 20-42 Mean Cell Volume 85.2 fl 80-96 Mean Corpuscular HGB 27.9 pg 27-33 Mean Corpuscular HGB Conc 32.7 g/dL 31.7-36 Mean Platelet Volume 10.0 fL 6.6-10.6 [place] # 1.15 K/uL High 0-0.8 [place] % 11.5 % High 0-10 Neut# 5.85 K/uL 1.8-7 Neut% 58.7 % 33-73 Platelet Count 311 K/uL 155-360 Red Blood Count 4.59 M/uL 4.2-5.8 Red Cell Distri Width %CV 14.4 % 11.6-15.8 Red Cell Distri Width SD 43.7 fl 36-51 White Blood Count 10.0 K/uL 3.4-10.5 Comprehensive Metabolic Panel 08/23/2017 N2N/CCD Import Alb/Glob 0.9 ratio Albumin 3.0 g/dL Low 3.4-5 Alkaline Phosphatase 60 U/L 45-117 Anion Gap 4 mEq/L Low 8-16 BUN 11 mg/dL 7-18 BUN/Creat 12.2 ratio Bilirubin,Total 0.3 mg/dL 0.2-1 Calcium 8.4 mg/dL Low 8.5-10.1 Carbon Dioxide 29 mmol/L 21-32 Chloride 108 mmol/L High 98-107 Creatinine 0.9 mg/dL 0.6-1.3 Globulin 3.3 g/dL 1.9-4.3 Glom Filtration Rate, Estimate >60 mL/min Glucose 101 mg/dL 74-106 If >60 mL/min 59 Potassium 4.0 mmol/L 3.5-5.1 SGPT/Alt 18 U/L 12-78 Sgot/Ast 13 U/L Low 15-37 60 Sodium 141 mmol/L 136-145 Total Protein 6.3 g/dL Low 6.4-8.2 Laboratory test 08/22/2017 [facility] Import C-Reactive 51.8 mg/L High finding Protein,Quant Glycohemoglobin (A1c) 6.1 % 4.2-6.3 61 Magnesium 2.2 mg/dL 1.8-2.4 eAG 128 mg/dL CBS W/Automated Diff 08/22/2017 N2N/CCD Import Bas% 0.2 % 0-1.1 Baso # 0.03 K/uL 0-0.1 Eo% 1.7 % 0-6.6 Eos # 0.25 K/uL 0-0.5 Hematocrit 38.7 % 38-48 Hemoglobin 12.9 gm/dL 12.8-17 Lymph # 2.35 K/uL 1-4 Lymph % 16.4 % Low 20-42 Mean Cell Volume 85.1 fl 80-96 Mean Corpuscular HGB 28.4 pg 27-33 Mean Corpuscular HGB Conc 33.3 g/dL 31.7-36 Mean Platelet Volume 9.8 fL 6.6-10.6 [place] # 1.75 K/uL High 0-0.8 [place] % 12.2 % High 0-10 Neut# 9.95 K/uL High 1.8-7 Neut% 69.5 % 33-73 Platelet Count 306 K/uL 155-360 Red Blood Count 4.55 M/uL 4.2-5.8 Red Cell Distri Width %CV 14.4 % 11.6-15.8 Red Cell Distri Width SD 43.4 fl 36-51 White Blood Count 14.3 K/uL High 3.4-10.5 Comprehensive Metabolic Panel 08/22/2017 [employer] Import Alb/Glob 0.9 ratio Albumin 3.1 g/dL Low 3.4-5 Alkaline Phosphatase 67 U/L 45-117 Anion Gap 3 mEq/L Low 8-16 BUN 16 mg/dL 7-18 BUN/Creat 20.0 ratio Bilirubin,Total 0.3 mg/dL 0.2-1 Calcium 7.8 mg/dL Low 8.5-10.1 Carbon Dioxide 28 mmol/L 21-32 Chloride 108 mmol/L High 98-107 Creatinine 0.8 mg/dL 0.6-1.3 Globulin 3.3 g/dL 1.9-4.3 Glom Filtration Rate, Estimate >60 mL/min Glucose 104 mg/dL 74-106 If >60 mL/min 62 Potassium 4.0 mmol/L 3.5-5.1 SGPT/Alt 18 U/L 12-78 Sgot/Ast 11 U/L Low 15-37 63 Sodium 139 mmol/L 136-145 Total Protein 6.4 g/dL 6.4-8.2 Laboratory test 08/21/2017 [employer] Import Source: Urine, Clean Cat 64 , 65 finding <See Note> Urine Bilirubin - Dipstick Negative Urine Blood Trace Urine Clarity Clear Urine Color Yellow Urine Glucose - Dipstick Negative mg/dL Urine Ketone Negative mg/dL Urine Leuk Esterase Negative Urine Nitrite - Dipstick Negative Urine PH 7.5 1 6.5-7.5 Urine Protein - Dipstick Negative mg/dL Urine Specific [place] 1.010 1 1.01-1.03 Urine Urobilinogen - Dipstick 0.2 E.U./dL 0.2-1 Laboratory test finding 08/21/2017 [employer] Import Anisocytosis 0-1+ Band% 11 % High 0-8 Basophil% 1 % 0-2 Eosinophil% 2 % 0-5 Lymph% 8 % Low 20-42 Microcytosis 0-1+ Monocyte% 3 % 0-10 Neutrophils% 75 % High 33-73 Platelet Estimate Normal Poikilocytosis 0-1+ Slide Review Diff Ordered Total Cells Counted 100 #CELLS CBS W/Automated Diff 08/21/2017 [employer] Import Bas% 0.2 % 0-1.1 Baso # 0.04 K/uL 0-0.1 Eo% 1.0 % 0-6.6 Eos # 0.19 K/uL 0-0.5 Hematocrit 42.0 % 38-48 Hemoglobin 14.1 gm/dL 12.8-17 Lymph # 2.09 K/uL 1-4 Lymph % 11.0 % Low 20-42 Mean Cell Volume 84.5 fl 80-96 Mean Corpuscular HGB 28.4 pg 27-33 Mean Corpuscular HGB Conc 33.6 g/dL 31.7-36 Mean Platelet Volume 9.7 fL 6.6-10.6 [place] # 1.70 K/uL High 0-0.8 [place] % 9.0 % 0-10 Neut# 14.91 K/uL High 1.8-7 Neut% 78.8 % High 33-73 Platelet Count 323 K/uL 155-360 Red Blood Count 4.97 M/uL 4.2-5.8 Red Cell Distri Width %CV 14.3 % 11.6-15.8 Red Cell Distri Width SD 43.1 fl 36-51 White Blood Count 18.9 K/uL High 3.4-10.5 Laboratory test finding 08/21/2017 [employer] Import Lipase 102 U/L 56-289 Comprehensive Metabolic Panel 08/21/2017 [facility] Import Alb/Glob 1.1 ratio Albumin 4.0 g/dL 3.4-5 Alkaline Phosphatase 94 U/L 45-117 Anion Gap 6 mEq/L Low 8-16 BUN 16 mg/dL 7-18 BUN/Creat 16.0 ratio Bilirubin,Total 0.2 mg/dL 0.2-1 Calcium 8.6 mg/dL 8.5-10.1 Carbon Dioxide 29 mmol/L 21-32 Chloride 103 mmol/L 98-107 Creatinine 1.0 mg/dL 0.6-1.3 Globulin 3.8 g/dL 1.9-4.3 Glom Filtration Rate, Estimate >60 mL/min Glucose 141 mg/dL High 74-106 If >60 mL/min 66 Potassium 4.1 mmol/L 3.5-5.1 SGPT/Alt 26 U/L 12-78 Sgot/Ast 14 U/L Low 15-37 67 Sodium 138 mmol/L 136-145 Total Protein 7.8 g/dL 6.4-8.2 Laboratory test 07/17/2017 N2N/CCD Import Antinuclear Negative 68, 69 finding Antibodies, [place] Reflex add FT3? Y Reflex add FT4? Y Sedimentation Rate 9 mm/hr 0-20 70 Thyroid Stim Hormone 1.50 uIU/mL 0.3-4.2 CBS W/Automated Diff 07/17/2017 N2N/CCD Import Bas% 0.6 % 0-1.1 Baso # 0.05 K/uL 0-0.1 Eo% 3.7 % 0-6.6 Eos # 0.33 K/uL 0-0.5 Hematocrit 40.8 % 38-48 Hemoglobin 13.7 gm/dL 12.8-17 Lymph # 2.59 K/uL 1-4 Lymph % 29.0 % 20-42 Mean Cell Volume 84.6 fl 80-96 Mean Corpuscular HGB 28.4 pg 27-33 Mean Corpuscular HGB Conc 33.6 g/dL 31.7-36 Mean Platelet Volume 9.4 fL 6.6-10.6 [place] # 1.05 K/uL High 0-0.8 [place] % 11.8 % High 0-10 Neut# 4.91 K/uL 1.8-7 Neut% 54.9 % 33-73 Platelet Count 340 K/uL 155-360 Red Blood Count 4.82 M/uL 4.2-5.8 Red Cell Distri Width %CV 13.5 % 11.6-15.8 Red Cell Distri Width SD 41.2 fl 36-51 White Blood Count 8.9 K/uL 3.4-10.5 Liver Function Tests 07/17/2017 [facility] Import Alb/Glob 1.1 ratio Albumin 3.7 g/dL 3.4-5 Alkaline Phosphatase 85 U/L 45-117 Bilirubin,Direct 0.1 mg/dL 0-0.2 Bilirubin,Indirect 0.2 mg/dL 0-0.9 Bilirubin,Total 0.3 mg/dL 0.2-1 Globulin 3.5 g/dL 1.9-4.3 Reflex add FT3? Y Reflex add FT4? Y SGPT/Alt 29 U/L 12-78 Sgot/Ast 19 U/L 15-37 Total Protein 7.2 g/dL 6.4-8.2 Laboratory test 06/26/2017 [employer] Import Glycohemoglobin (A1c) 6.2 % 4.2-6.3 71, 72 finding eAG 131 mg/dL LDL Cholesterol Profile 06/26/2017 [employer] Import Cholesterol 141 mg/dL 73 HDL Cholesterol 39 mg/dL Low 74 LDL-Cholesterol 68 mg/dL 75 Triglycerides 172 mg/dL High 76 Comprehensive Metabolic Panel 06/26/2017 [employer] Import Alb/Glob 1.1 ratio Albumin 3.7 g/dL 3.4-5 Alkaline Phosphatase 77 U/L 45-117 Anion Gap 6 mEq/L Low 8-16 BUN 19 mg/dL High 7-18 BUN/Creat 21.1 ratio Bilirubin,Total 0.2 mg/dL 0.2-1 Calcium 8.7 mg/dL 8.5-10.1 Carbon Dioxide 28 mmol/L 21-32 Chloride 104 mmol/L 98-107 Creatinine 0.9 mg/dL 0.6-1.3 Globulin 3.5 g/dL 1.9-4.3 Glom Filtration Rate, Estimate >60 mL/min Glucose 98 mg/dL 74-106 If >60 mL/min 77 Potassium 4.3 mmol/L 3.5-5.1 SGPT/Alt 34 U/L 12-78 Sgot/Ast 15 U/L 15-37 Sodium 138 mmol/L 136-145 Total Protein 7.2 g/dL 6.4-8.2 Microalbumin,Random Urine 06/26/2017 N2N/CCD Import Microalbumin,Urine 8.5 mg/L Comprehensive Metabolic 12/26/2016 N2N/CCD Import Alb/Glob 1.1 ratio 78 Panel Albumin 3.6 g/dL 3.4-5 Alkaline Phosphatase 73 U/L 45-117 Anion Gap 6 mEq/L Low 8-16 BUN 13 mg/dL 7-18 BUN/Creat 16.2 ratio Bilirubin,Total 0.2 mg/dL 0.2-1 Calcium 8.4 mg/dL Low 8.5-10.1 Carbon Dioxide 29 mmol/L 21-32 Chloride 105 mmol/L 98-107 Creatinine 0.8 mg/dL 0.6-1.3 Globulin 3.4 g/dL 1.9-4.3 Glom Filtration Rate, Estimate >60 mL/min Glucose 102 mg/dL 74-106 If >60 mL/min 79 Potassium 4.1 mmol/L 3.5-5.1 SGPT/Alt 29 U/L 12-78 Sgot/Ast 11 U/L Low 15-37 80 Sodium 140 mmol/L 136-145 Total Protein 7.0 g/dL 6.4-8.2 Microalbumin,Random 12/26/2016 N2N/CCD Import Microalbumin,Urine 6.0 mg/L Urine Laboratory test finding 12/26/2016 N2N/CCD Import Glycohemoglobin (A1c) 6.2 % 4.2- 81 6.3 eAG 131 mg/dL Fungal Culture With 12/26/2016 N2N/CCD Import Fungal Culture; (See Note) 82 Smear Other Sources Fungal Fluorochrome Stain Fungus Stain 83 Laboratory test 09/23/2016 N2N/CCD Import Glycohemoglobin 6.5 % High 4.2- 6.3 84, 85 finding (A1c) eAG 140 mg/dL Microalbumin,Random 08/18/2016 N2N/CCD Import Microalbumin,Urine 9.1 Urine mg/L Laboratory test finding 08/18/2016 N2N/CCD Import Glycohemoglobin (A1c) 7.7 % High 4.2 86 -6. 3 eAG 174 mg/dL Basic Metabolic Panel 08/18/2016 N2N/CCD Import Anion Gap 7 mEq/L Low 8- 16 BUN 15 mg/dL 7-18 BUN/Creat 16.6 ratio Calcium 8.6 mg/dL 8.5-10.1 Carbon Dioxide 28 mmol/L 21-32 Chloride 103 mmol/L 98-107 Creatinine 0.9 mg/dL 0.6-1.3 Glom Filtration Rate, Estimate >60 mL/min Glucose 124 mg/dL High 74-106 If >60 mL/min 87 Potassium 3.9 mmol/L 3.5-5.1 Sodium 138 mmol/L 136-145 Comprehensive Metabolic Panel 07/16/2016 N2N/CCD Import Alb/Glob 0.9 ratio 88 Albumin 3.4 g/dL 3.4-5 Alkaline Phosphatase 97 U/L 45-117 Anion Gap 6 mEq/L Low 8-16 BUN 11 mg/dL 7-18 BUN/Creat 12.2 ratio Bilirubin,Total 0.2 mg/dL 0.2-1 Calcium 8.2 mg/dL Low 8.5-10.1 Carbon Dioxide 28 mmol/L 21-32 Chloride 105 mmol/L 98-107 Creatinine 0.9 mg/dL 0.6-1.3 Globulin 3.8 g/dL 1.9-4.3 Glom Filtration Rate, Estimate >60 mL/min Glucose 125 mg/dL High 74-106 If >60 mL/min 89 Potassium 3.9 mmol/L 3.5-5.1 Reflex add FT3? Y Reflex add FT4? Y SGPT/Alt 37 U/L 12-78 Sgot/Ast 14 U/L Low 15-37 90 Sodium 139 mmol/L 136-145 Total Protein 7.2 g/dL 6.4-8.2 Homocyst(E)Ine, P/S 07/16/2016 N2N/CCD Import Homocyst(e)ine, P/S 9.0 umol/ L 0-15 91 Microalbumin,Random 07/16/2016 N2N/CCD Import Microalbumin,Urine 6.3 mg/L Urine Laboratory test 07/16/2016 N2N/CCD Import C-Reactive 9.25 mg/L finding Protein,Cardiac Glycohemoglobin (A1c) 7.7 % High 4.2-6.3 92 PSA ([place] Loci) 0.27 ng/mL 93 Reflex add FT3? Y Reflex add FT4? Y Thyroid Stim Hormone 1.54 uIU/mL 0.3-4.2 eAG 174 mg/dL CBC 07/16/2016 N2N/CCD Import Hematocrit 42.4 % 38-48 Hemoglobin 14.5 gm/dL 12.8-17 Mean Cell Volume 84.5 fl 80-96 Mean Corpuscular HGB 28.9 pg 27-33 Mean Corpuscular HGB Conc 34.2 g/dL 31.7-36 Mean Platelet Volume 9.6 fL 6.6-10.6 Platelet Count 310 K/uL 150-400 Red Blood Count 5.02 M/uL 4.2-5.8 Red Cell Distri Width %CV 13.8 % 11.6-15.8 White Blood Count 7.1 K/uL 3.4-10.5 Laboratory test 04/06/2015 [facility]/[employer] Import Glycohemoglobin (A1c) 6.2 % 4.2-6.3 94 finding eAG 131 mg/dL LDL Cholesterol Profile 02/20/2015 [facility] Import Cholesterol 138 mg/dL 95 HDL Cholesterol 29 mg/dL 96 LDL-Cholesterol 66 mg/dL 97 Triglycerides 217 mg/dL 98 Laboratory test 02/20/2015 [facility]/[employer] Import Microalbumin,Random Urine See Note 99 finding Mumps Antibodies, Igg 198.0 Immune>10.9AU 100 Prostate Specific Antigen 0.32 ng/mL 101 Rubella IgG Antibody Reactive Reactive [place] IgG Iu/ml 44.8 IU/mL 102 [place] Antibodies, Igg >300.0 Immune>29.9AU 103 Thyroid Stim Hormone 2.93 uIU/mL 0.36-3.74 Vitamin D,25-Hydroxy 32.0 ng/mL 30-100 104 Basic Metabolic Panel 02/20/2015 [employer] Import Anion Gap 8 mEq/L 8-16 BUN 12 mg/dL 7-18 BUN/Creat 13.3 ratio Calcium 8.3 mg/dL Low 8.5-10.1 Carbon Dioxide 26 mmol/L 21-32 Chloride 103 mmol/L 98-107 Creatinine 0.9 mg/dL 0.6-1.3 Glom Filtration Rate, Estimate >60 mL/min Glucose 124 mg/dL High 74-106 If >60 mL/min 105 Potassium 3.8 mmol/L 3.5-5.1 Sodium 137 mmol/L 136-145 CBC 02/20/2015 [facility]N/[employer] Import Hematocrit 42.4 % 38-48 Hemoglobin 14.7 gm/dL 12.8-17 Mean Cell Volume 88.7 fl 80-96 Mean Corpuscular HGB 30.8 pg 27-33 Mean Corpuscular HGB Conc 34.7 g/dL 31.7-36 Mean Platelet Volume 10.0 fL 6.6-10.6 Platelet Count 321 K/uL 150-400 Red Blood Count 4.78 M/uL 4.2-5.8 Red Cell Distri Width %CV 13.4 % 11.6-15.8 White Blood Count 8.6 K/uL 3.4-10.5 Comprehensive Metabolic Panel 02/20/2015 N2N/CCD Import Alb/Glob 0.9 ratio Albumin 3.3 g/dL Low 3.4-5 Alkaline Phosphatase 85 U/L 45-117 Anion Gap 8 mEq/L 8-16 BUN 12 mg/dL 7-18 BUN/Creat 13.3 ratio Bilirubin,Total 0.5 mg/dL 0.2-1 Calcium 8.3 mg/dL Low 8.5-10.1 Carbon Dioxide 26 mmol/L 21-32 Chloride 103 mmol/L 98-107 Creatinine 0.9 mg/dL 0.6-1.3 Globulin 3.5 g/dL 1.9-4.3 Glom Filtration Rate, Estimate >60 mL/min Glucose 124 mg/dL High 74-106 If >60 mL/min 106 Potassium 3.8 mmol/L 3.5-5.1 SGPT/Alt 34 U/L 12-78 Sgot/Ast 18 U/L 15-37 Sodium 137 mmol/L 136-145 Total Protein 6.8 g/dL 6.4-8.2 Laboratory test 12/29/2013 N2N/CCD Import Microalbumin,Random 10.9 mg/L 0-18.5 finding Urine Laboratory test 12/28/2013 N2N/CCD Import Microalbumin,Random Canceled By 107 finding Urine Lab Uric Acid 6.3 mg/dL 2.1-7.4 Comprehensive Metabolic Panel 12/28/2013 N2N/CCD Import Alb/Glob 1.1 ratio Albumin 3.7 g/dL 3.5-5 Alkaline Phosphatase 80 U/L 50-136 Anion Gap 12 mEq/L 8-16 BUN 12 mg/dL 5-23 BUN/Creat 15.0 ratio Bilirubin,Total 0.3 mg/dL 0.2-1.2 Calcium 9.0 mg/dL 8.5-10.1 Carbon Dioxide 25 mEq/L 18-29 Chloride 104 mmol/L 98-107 Creatinine 0.8 mg/dL 0.5-1.4 Globulin 3.5 g/dL 1.9-4.3 Glom Filtration Rate, Estimate >60 mL/min Glucose 112 mg/dL 76-115 If >60 mL/min 108 Potassium 4.0 mmol/L 3.5-5.1 SGPT/Alt 34 U/L 30-65 Sgot/Ast 16 U/L 16-40 Sodium 137 mmol/L 136-145 Total Protein 7.2 g/dL 6.3-8 LDL Cholesterol Profile 12/28/2013 N2N/CCD Import Cholesterol 144 mg/dL 120-200 HDL Cholesterol 32 mg/dL 29-83 LDL-Cholesterol 70 mg/dL 62-185 Triglycerides 210 mg/dL 16-231 Imaging finding 12/27/2013 N2N/CCD Import chest Xray pa <pending> and lat Laboratory test 06/30/2013 N2N/CCD Import Microalbumin,Ran 8.0 mg/L 0- 18.5 finding dom Urine Prostate Specific Antigen 0.38 ng/mL 0-4 109 Uric Acid 6.3 mg/dL 2.1-7.4 Comprehensive Metabolic Panel 06/30/2013 N2N/CCD Import Alb/Glob 1.7 ratio Albumin 3.9 g/dL 3.5-5 Alkaline Phosphatase 93 U/L 50-136 Anion Gap 12 mEq/L 8-16 BUN 16 mg/dL 5-23 BUN/Creat 20.0 ratio Bilirubin,Total 0.4 mg/dL 0.2-1.2 Calcium 9.0 mg/dL 8.5-10.1 Carbon Dioxide 25 mEq/L 18-29 Chloride 103 mmol/L 98-107 Creatinine 0.8 mg/dL 0.5-1.4 Globulin 2.3 g/dL 1.9-4.3 Glom Filtration Rate, Estimate >60 mL/min Glucose 117 mg/dL High 76-115 If >60 mL/min 110 Potassium 3.9 mmol/L 3.5-5.1 SGPT/Alt 42 U/L 30-65 Sgot/Ast 18 U/L 16-40 Sodium 136 mmol/L 136-145 Total Protein 6.2 g/dL Low 6.3-8 LDL Cholesterol Profile 06/30/2013 N2N/CCD Import Cholesterol 153 mg/dL 120-200 HDL Cholesterol 30 mg/dL 29-83 LDL-Cholesterol 77 mg/dL 62-185 Triglycerides 230 mg/dL 16-231 Imaging finding 05/26/2013 N2N/CCD Import Xray R hand/thumb <pending> Laboratory test 02/18/2013 N2N/CCD Import Thyroid Stim 1.57 uIU/mL 0.49- 4. finding Hormone 67 CBC 02/18/2013 N2N/CCD Import Hematocrit 45.2 % 38-48 Hemoglobin 15.4 gm/dL 12.8-17 Mean Cell Volume 87.1 fl 80-96 Mean Corpuscular HGB 29.7 pg 27-33 Mean Corpuscular HGB Conc 34.1 g/dL 31.7-36 Mean Platelet Volume 9.8 fL 6.6-10.6 Platelet Count 336 K/uL 150-400 Red Blood Count 5.19 M/uL 4.2-5.8 Red Cell Distri Width %CV 13.0 % 11.6-15.8 White Blood Count 9.2 K/uL 3.4-10.5 Comprehensive Metabolic Panel 02/18/2013 N2N/CCD Import Alb/Glob 1.2 ratio Albumin 3.7 g/dL 3.5-5 Alkaline Phosphatase 92 U/L 50-136 Anion Gap 12 mEq/L 8-16 BUN 11 mg/dL 5-23 BUN/Creat 12.2 ratio Bilirubin,Total 0.3 mg/dL 0.2-1.2 Calcium 8.5 mg/dL 8.5-10.1 Carbon Dioxide 26 mEq/L 18-29 Chloride 104 mmol/L 98-107 Creatinine 0.9 mg/dL 0.5-1.4 Globulin 3.2 g/dL 1.9-4.3 Glom Filtration Rate, Estimate >60 mL/min Glucose 121 mg/dL High 76-115 If >60 mL/min 111 Potassium 3.9 mmol/L 3.5-5.1 SGPT/Alt 40 U/L 30-65 Sgot/Ast 15 U/L Low 16-40 Sodium 138 mmol/L 136-145 Total Protein 6.9 g/dL 6.3-8 LDL Cholesterol Profile 02/18/2013 N2N/CCD Import Cholesterol 149 mg/dL 120-200 HDL Cholesterol 31 mg/dL 29-83 LDL-Cholesterol 72 mg/dL 62-185 Triglycerides 228 mg/dL 16-231 Comprehensive Metabolic Panel 01/16/2012 N2N/CCD Import Alb/Glob 1.2 ratio Albumin 3.8 g/dL 3.5-5 Alkaline Phosphatase 67 U/L 50-136 Anion Gap 13 mEq/L 8-16 BUN 13 mg/dL 5-23 BUN/Creat 14.4 ratio Bilirubin,Total 0.3 mg/dL 0.2-1.2 Calcium 8.9 mg/dL 8.5-10.1 Carbon Dioxide 30 mEq/L High 18-29 Chloride 102 mmol/L 98-107 Creatinine 0.9 mg/dL 0.5-1.4 Globulin 3.1 g/dL 1.9-4.3 Glom Filtration Rate, Estimate >60 mL/min Glucose 104 mg/dL 76-115 If >60 mL/min 112 Potassium 4.5 mmol/L 3.5-5.1 SGPT/Alt 29 U/L Low 30-65 Sgot/Ast 13 U/L Low 16-40 Sodium 140 mmol/L 136-145 Total Protein 6.9 g/dL 6.3-8 LDL Cholesterol Profile 01/16/2012 N2N/CCD Import Cholesterol 148 mg/dL 120-200 HDL Cholesterol 29 mg/dL 29-83 LDL-Cholesterol 60 mg/dL Low 62-185 Triglycerides 295 mg/dL High 16-231 Laboratory test 01/16/2012 N2N/CCD Import Thyroid Stim 3.57 uIU/mL 0.49- 4.67 finding Hormone CBS W/Automated 01/16/2012 N2N/CCD Import Bas% 0.6 % 0.1-1 Diff Baso # 0.06 K/uL Low 0.1-0.2 Eo% 3.0 % 0-5 Eos # 0.29 K/uL 0-0.5 Hematocrit 45.7 % 38-48 Hemoglobin 15.5 gm/dL 12.8-17 Lymph # 2.97 K/uL 1.2-4 Lymph % 31.2 % 17-56 Mean Cell Volume 86.7 fl 80-96 Mean Corpuscular HGB 29.4 pg 27-33 Mean Corpuscular HGB Conc 33.9 g/dL 31.7-36 Mean Platelet Volume 9.8 fL 6.6-10.6 [place] # 1.01 K/uL High 0-0.6 [place] % 10.6 % High 0-10 Neut# 5.18 K/uL 1.8-7 Neut% 54.6 % 33-73 Platelet Count 356 K/uL 150-400 Red Blood Count 5.27 M/uL 4.2-5.8 Red Cell Distri Width %CV 13.3 % 11.6-15.8 Red Cell Distri Width SD 40.7 fl 36-51 White Blood Count 9.5 K/uL 3.4-10.5 Laboratory test 11/12/2011 N2N/CCD Import Uric Acid 4.6 mg/dL 2.1-7.4 finding Laboratory test 09/29/2011 N2N/CCD Import Uric Acid 6.7 mg/dL 2.1-7.4 finding Laboratory test 06/26/2011 N2N/CCD Import Thyroid Stim 1.88 uIU/mL 0.49- 4.67 finding Hormone CBS W/Automated 06/26/2011 N2N/CCD Import Bas% 0.7 % 0.1-1 Diff Baso # 0.05 K/uL Low 0.1-0.2 Eo% 4.2 % 0-5 Eos # 0.30 K/uL 0-0.5 Hematocrit 45.6 % 38-48 Hemoglobin 15.3 gm/dL 12.8-17 Lymph # 2.36 K/uL 1.2-4 Lymph % 33.2 % 17-56 Mean Cell Volume 88.4 fl 80-96 Mean Corpuscular HGB 29.7 pg 27-33 Mean Corpuscular HGB Conc 33.6 g/dL 31.7-36 Mean Platelet Volume 9.9 fL 6.6-10.6 [place] # 0.88 K/uL High 0-0.6 [place] % 12.4 % High 0-10 Neut# 3.52 K/uL 1.8-7 Neut% 49.5 % 33-73 Platelet Count 302 K/uL 150-400 Red Blood Count 5.16 M/uL 4.2-5.8 Red Cell Distri Width %CV 13.6 % 11.6-15.8 Red Cell Distri Width SD 43.0 fl 36-51 White Blood Count 7.1 K/uL 3.4-10.5 Comprehensive Metabolic Panel 06/26/2011 N2N/CCD Import Alb/Glob 1.3 ratio Albumin 4.0 g/dL 3.5-5 Alkaline Phosphatase 71 U/L 50-136 Anion Gap 13 mEq/L 8-16 BUN 14 mg/dL 5-23 BUN/Creat 14.0 ratio Bilirubin,Total 0.4 mg/dL 0.2-1.2 Calcium 8.7 mg/dL 8.5-10.1 Carbon Dioxide 28 mEq/L 18-29 Chloride 102 mmol/L 98-107 Creatinine 1.0 mg/dL 0.5-1.4 Globulin 3.1 g/dL 1.9-4.3 Glom Filtration Rate, Estimate >60 mL/min Glucose 97 mg/dL 76-115 If >60 mL/min 113 Potassium 3.7 mmol/L 3.5-5.1 SGPT/Alt 34 U/L 30-65 Sgot/Ast 14 U/L Low 16-40 Sodium 139 mmol/L 136-145 Total Protein 7.1 g/dL 6.3-8 LDL Cholesterol Profile 06/26/2011 N2N/CCD Import Cholesterol 159 mg/dL 120-200 HDL Cholesterol 33 mg/dL 29-83 LDL-Cholesterol 86 mg/dL 62-185 Triglycerides 199 mg/dL 16-231 1 LOWER LEFT SIDE ABD PAIN, HX OF DIVERTICULITIS 2 1+ LARGE PLATELETS 3 Note: Persistent reduction for 3 months or more in an eGFR <60 mL/min/1.73 m2 defines CKD. Patients with eGFR values >/=60 mL/min/1.73 m2 may also have CKD if evidence of persistent proteinuria is present. The original MDRD equation for estimated GFR is not valid for patients less than 18 years of age. Additional information may be found at [email or web address]. 4 Solar Energy Engineer: [id number] 5 F06.8, 6 Reference Range: Children and Adults: Baseline: Less than 1 Post Metyrapone: Single Dose Test: 7 - 18 Multiple Dose Test: 10 - 25 Performed at: [facility] [address] [place] [id number] Lead Based Paint Technician: Vipin Cox MD, Phone: [phone] 7 Performed at: [facility] [id number] Lead Based Paint Technician: Bety Mcknight MD, Phone: [phone] 8 Note: Persistent reduction for 3 months or more in an eGFR <60 mL/min/1.73 m2 defines CKD. Patients with eGFR values >/=60 mL/min/1.73 m2 may also have CKD if evidence of persistent proteinuria is present. The original MDRD equation for estimated GFR is not valid for patients less than 18 years of age. Additional information may be found at [email or web address]. 9 R06.8 10 M15.9 11 Negative <1:80 Borderline 1:80 Positive >1:80 Performed at: - [facility] [address] [id number] Lead Based Paint Technician: Gauri Villarreal MD, Phone: [phone] 12 Method: Sediplast Modified Westergren 13 Positive: 5 of the following Borrelia-specific bands: 18,23,28,30,39,41,45,58, 66, and 93. Negative: No bands or banding patterns which do not meet positive criteria. 14 Note: An equivocal or positive EIA result [...] are those recommended by CDC/ASTPHLD. p23=Osp C, p13=mrihpwqud Note: Sera from individuals with the following may cross react in the [place] Western Blot assays: other spirochetal diseases (periodontal disease, leptospirosis, relapsing fever, yaws, and pinta); connective autoimmune (Rheumatoid Arthritis and Systemic Lupus Erythematosus and also individuals with Antinuclear Antibody); other infections ([place] Spotted Fever; Narayan-Moralez Virus, and Cytomegalovirus). 15 R94.5, R60.0 16 Note: Persistent reduction for 3 months or more in an eGFR <60 mL/min/1.73 m2 defines CKD. Patients with eGFR values >/=60 mL/min/1.73 m2 may also have CKD if evidence of persistent proteinuria is present. The original MDRD equation for estimated GFR is not valid for patients less than 18 years of age. Additional information may be found at [email or web address]. 17 Values below the stated reference ranges of AST and ALT can be seen in normal populations. Clinical correlation is suggested. 18 LEFT HIP/PELVIS PAIN,BILATERAL FEET SWELLING 19 Instrument flagged sample for slide review. Less than 10% Bands seen, no other immature WBC's seen. RBC morphology essentially normal. Platelet estimate=NORMAL 20 Note: Persistent reduction for 3 months or more in an eGFR <60 mL/min/1.73 m2 defines CKD. Patients with eGFR values >/=60 mL/min/1.73 m2 may also have CKD if evidence of persistent proteinuria is present. The original MDRD equation for estimated GFR is not valid for patients less than 18 years of age. Additional information may be found at [email or web address]. 21 BC AUTH 11/06 GUS 22 Note: Persistent reduction for 3 months or more in an eGFR <60 mL/min/1.73 m2 defines CKD. Patients with eGFR values >/=60 mL/min/1.73 m2 may also have CKD if evidence of persistent proteinuria is present. The original MDRD equation for estimated GFR is not valid for patients less than 18 years of age. Additional information may be found at [email or web address]. 23 Note: Persistent reduction for 3 months [...] for more aggressive treatment of glycemia. The [place] Diabetes Association recommends that a primary goal of therapy should be a HbA1c of <7% and that physicians should re-evaluate the treatment regimen in patients with HbA1c values consistently >8%. 25 Note: Persistent reduction for 3 months or more in an eGFR <60 mL/min/1.73 m2 defines CKD. Patients with eGFR values >/=60 mL/min/1.73 m2 may also have CKD if evidence of persistent proteinuria is present. The original MDRD equation for estimated GFR is not valid for patients less than 18 years of age. Additional information may be found at [email or web address]. 26 DIVERTICULITIS OF INTESTINE;PART UNSPECIFIED 27 Note: Persistent reduction for 3 months or more in an eGFR <60 mL/min/1.73 m2 defines CKD. Patients with eGFR values >/=60 mL/min/1.73 m2 may also have CKD if evidence of persistent proteinuria is present. The original MDRD equation for estimated GFR is not valid for patients less than 18 years of age. Additional information may be found at [email or web address]. 28 Z01.818,E11.9,I10 29 Elevated levels of HbA1c suggest the need for more aggressive treatment of glycemia. The [place] Diabetes Association recommends that a primary goal of therapy should be a HbA1c of <7% and that physicians should re-evaluate the treatment regimen in patients with HbA1c values consistently >8%. 30 URINE, CLEAN CATCH 31 Note: Persistent reduction for 3 months or more in an eGFR <60 mL/min/1.73 m2 defines CKD. Patients with eGFR values >/=60 mL/min/1.73 m2 may also have CKD if evidence of persistent proteinuria is present. The original MDRD equation for estimated GFR is not valid for patients less than 18 years of age. Additional information may be found at [email or web address]. 32 Performed at: [facility] [address] [id number] Lead Based Paint Technician: Gauri Villarreal MD, Phone: [phone] 33 THERAPEUTIC INR RANGE: 2.0 - 3.0 DVT, Pulmonary embolus, prophylaxis against venous thrombosis or systemic embolization in high risk patients. 2.5 - 3.5 Mechanical heart valves 34 DIVERTICULITIS, NO BM ALL WEEK, ABD PAIN 35 Instrument flagged sample for slide review. Less than 10% Bands seen, no other immature WBC's seen. RBC morphology essentially normal. Platelet estimate=NORMAL 36 Note: Persistent reduction for 3 months or more in an eGFR <60 mL/min/1.73 m2 defines CKD. Patients with eGFR values >/=60 mL/min/1.73 m2 may also have CKD if evidence of persistent proteinuria is present. The original MDRD equation for estimated GFR is not valid for patients less than 18 years of age. Additional information may be found at [email or web address]. 37 Values below the stated reference ranges of AST and ALT can be seen in normal populations. Clinical correlation is suggested. 38 URINE, CLEAN CATCH 39 Method: Mismi Hemoccult Card 40 E27.8,Z12.5,E66.09,E11.9,I10 41 This test was developed and its performance characteristics determined by [employer]. It has not been cleared or approved by the Food and Drug Administration. 42 Performed at: [facility] [address], [place] [id number] Lead Based Paint Technician: Gauri Villarreal MD, Phone: [phone] 43 Age 1 - 5 years 0 - 67 6 - 7 years 0 - 110 8 - 10 years 0 - 185 11 - 12 years 0 - 201 13 - 14 years 0 - 318 15 - 16 years 39 - 481 17 - 19 years 40 - 491 >19 years 31 - 701 44 Elevated levels of HbA1c suggest the need for more aggressive treatment of glycemia. The [place] Diabetes Association recommends that a primary goal of therapy should be a HbA1c of <7% and that physicians should re-evaluate the treatment regimen in patients with HbA1c values consistently >8%. 45 This [facility] LC/MS-MS method is currently certified by the CDC Hormone Standardization Program (HoSt). Adult male reference interval is based on a population of healthy nonobese males (BMI <30) between 19 and 39 years old. Ede et.al. JCEM 2017,102;6278-4899. PMID: [id number]. Performed at: [address] [id number] Lead Based Paint Technician: Melquiades Palumbo MD, Phone: [phone] 46 THIS ASSAY IS NOT INTENDED A CANCER SCREENING TEST The concentration of PSA in a given specimen, determined with assays from different manufacturers, can vary due to differences in assay methods and reagent specificity. Values obtained from different assay methods cannot be used interchangeably. Method: Siemens Dimension [place] Chemiluminescent immunoassay. 47 Vitamin D deficiency has been defined by the [place] [employer] [place] and an Endocrine Society practice guideline as a level of serum 25-OH vitamin D less than 20 ng/mL (1,2). The Endocrine Society went on to further define vitamin D insufficiency as a level between 21 and 29 ng/mL (2). 1. IOM ([place] of [employer]). 2010. Dietary reference intakes for calcium and D. [place]: The National Academies Press. 2. Ellyn MF, Ronald NC, Aayush LOPEZ, et al. Evaluation, treatment, and prevention of vitamin D deficiency: an Endocrine Society clinical practice guideline. JCEM. 2010; 96(7):1911-30. Performed at: [address] [id number] Lead Based Paint Technician: Gauri Villarreal MD, Phone: [phone] 48 Note: Persistent reduction for 3 months or more in an eGFR <60 mL/min/1.73 m2 defines CKD. Patients with eGFR values >/=60 mL/min/1.73 m2 may also have CKD if evidence of persistent proteinuria is present. The original MDRD equation for estimated GFR is not valid for patients less than 18 years of age. Additional information may be found at [email or web address]. 49 ACUTE DIVERTICULITIS 50 Note: Persistent reduction [...] information may be found at [email or web address]. 51 REFACTORY DIVERTICULITIS 52 Note: Persistent reduction for 3 months or more in an eGFR <60 mL/min/1.73 m2 defines CKD. Patients with eGFR values >/=60 mL/min/1.73 m2 may also have CKD if evidence of persistent proteinuria is present. The original MDRD equation for estimated GFR is not valid for patients less than 18 years of age. Additional information may be found at [email or web address]. [address] FOR POSS DIVERTICULITIS 54 URINE, CLEAN CATCH 55 Instrument flagged sample for slide review. Less than 10% Bands seen, no other immature WBC's seen. Platelet estimate=NORMAL 56 Note: Persistent reduction for 3 months or more in an eGFR <60 mL/min/1.73 m2 defines CKD. Patients with eGFR values >/=60 mL/min/1.73 m2 may also have CKD if evidence of persistent proteinuria is present. The original MDRD equation for estimated GFR is not valid for patients less than 18 years of age. Additional information may be found at [email or web address]. 57 ACUTE DIVERTICULITIS 58 Note: Persistent reduction for 3 months or more in an eGFR <60 mL/min/1.73 m2 defines CKD. Patients with eGFR values >/=60 mL/min/1.73 m2 may also have CKD if evidence of persistent proteinuria is present. The original MDRD equation for estimated GFR is not valid for patients less than 18 years of age. Additional information may be found at [email or web address]. 59 Note: Persistent reduction for 3 months or more in an eGFR <60 mL/min/1.73 m2 defines CKD. Patients with eGFR values >/=60 mL/min/1.73 m2 may also have CKD if evidence of persistent proteinuria is present. The original MDRD equation for estimated GFR is not valid for patients less than 18 years of age. Additional information may be found at [email or web address]. 60 Values below the stated reference ranges of AST and ALT can be seen in normal populations. Clinical correlation is suggested. 61 Elevated levels of HbA1c suggest the need for more aggressive treatment of glycemia. The [place] Diabetes Association recommends that a primary goal of therapy should be a HbA1c of <7% and that physicians should re-evaluate the treatment regimen in patients with HbA1c values consistently >8%. 62 Note: Persistent reduction for 3 months or more in an eGFR <60 mL/min/1.73 m2 defines CKD. Patients with eGFR values >/=60 mL/min/1.73 m2 may also have CKD if evidence of persistent proteinuria is present. The original MDRD equation for estimated GFR is not valid for patients less than 18 years of age. Additional information may be found at [email or web address]. 63 Values below the stated reference ranges of AST and ALT can be seen in normal populations. Clinical correlation is suggested. 64 LLQ PAIN FOR 3 DAYS GETTING WORSE 65 URINE, CLEAN CATCH 66 Note: Persistent reduction for 3 months or more in an eGFR <60 mL/min/1.73 m2 defines CKD. Patients with eGFR values >/=60 mL/min/1.73 m2 may also have CKD if evidence of persistent proteinuria is present. The original MDRD equation for estimated GFR is not valid for patients less than 18 years of age. Additional information may be found at [email or web address]. 67 Values below the stated reference ranges of AST and ALT can be seen in normal populations. Clinical correlation is suggested. 68 NO DX 69 Negative <1:80 Borderline 1:80 Positive >1:80 Performed at: RN - [facility] [address] [id number] Lead Based Paint Technician: Gauri Villarreal MD, Phone: [phone] 70 Method: Sediplast Modified Westergren 71 E11.9,I10 72 Elevated levels of HbA1c suggest the need for more aggressive treatment of glycemia. The [place] Diabetes Association recommends that a primary goal of therapy should be a HbA1c of <7% and that physicians should re-evaluate the treatment regimen in patients with HbA1c values consistently >8%. 73 Reference Guidelines*: Desirable: ........... < 200 mg/dL Borderline High: ..... 200-239 mg/dL High: ................ >=240 mg/dL * The National Cholesterol Education Program (NCEP) 74 Reference Guidelines*: Low HDL: ..... < 40 mg/dL Normal: ..... 40-60 mg/dL Desirable: ... > 60 mg/dL *The National Cholesterol Education Program(NCEP) 75 Reference Guidelines*: Optimal:........... <100 mg/dL Near Optimal....... 100-129 mg/dL Borderline High.... 130-159 mg/dL High............... 160-189 mg/dL Very High.......... >=190 mg/dL * Source: National Cholesterol Education Program (NCEP) 76 Reference Guidelines*: Normal: ............. < 150 mg/dL Borderline High: .... 150-199 mg/dL High: ............... 200-499 mg/dL Very High: .......... > 500 mg/dL * Source: National Cholesterol Education Program (NCEP) 77 Note: Persistent reduction for 3 months or more in an eGFR <60 mL/min/1.73 m2 defines CKD. Patients with eGFR values >/=60 mL/min/1.73 m2 may also have CKD if evidence of persistent proteinuria is present. The original MDRD equation for estimated GFR is not valid for patients less than 18 years of age. Additional information may be found at [email or web address]. 78 E11.9 TINEA 79 Note: Persistent reduction for 3 months or more in an eGFR <60 mL/min/1.73 m2 defines CKD. Patients with eGFR values >/=60 mL/min/1.73 m2 may also have CKD if evidence of persistent proteinuria is present. The original MDRD equation for estimated GFR is not valid for patients less than 18 years of age. Additional information may be found at [email or web address]. 80 Values below the stated reference ranges of AST and ALT can be seen in normal populations. Clinical correlation is suggested. 81 Elevated levels of HbA1c suggest the need for more aggressive treatment of glycemia. The [place] Diabetes Association recommends that a primary goal of therapy should be a HbA1c of <7% and that physicians should re-evaluate the treatment regimen in patients with HbA1c values consistently >8%. 82 Fungus (Mycology) Culture Final report Result 1 Fusarium species Performed at: RN - [facility] [address] [id number] Lead Based Paint Technician: Gauri Villarreal MD, Phone: [phone] 83 Final report Result 1 Hyphae observed 84 E11.9 85 Elevated levels of HbA1c suggest the need for more aggressive treatment of glycemia. The [place] Diabetes Association recommends that a primary goal of therapy should be a HbA1c of <7% and that physicians should re-evaluate the treatment regimen in patients with HbA1c values consistently >8%. 86 Elevated levels of HbA1c suggest the need for more aggressive treatment of glycemia. The [place] Diabetes Association recommends that a primary goal [...] information may be found at [email or web address]. 88 Z12.5,E66.3,R73.03,I10,Z00.00 89 Note: Persistent reduction for 3 months or more in an eGFR <60 mL/min/1.73 m2 defines CKD. Patients with eGFR values >/=60 mL/min/1.73 m2 may also have CKD if evidence of persistent proteinuria is present. The original MDRD equation for estimated GFR is not valid for patients less than 18 years of age. Additional information may be found at [email or web address]. 90 Values below the stated reference ranges of AST and ALT can be seen in normal populations. Clinical correlation is suggested. 91 Performed at: RN - [facility] [address] [id number] Lead Based Paint Technician: Gauri Villarreal MD, Phone: [phone] 92 Elevated levels of HbA1c suggest the need for more aggressive treatment of glycemia. The [place] Diabetes Association recommends that a primary goal of therapy should be a HbA1c of <7% and that physicians should re-evaluate the treatment regimen in patients with HbA1c values consistently >8%. 93 THIS ASSAY IS NOT INTENDED A CANCER SCREENING TEST The concentration of PSA in a given specimen, determined with assays from different manufacturers, can vary due to differences in assay methods and reagent specificity. Values obtained from different assay methods cannot be used interchangeably. Method: in3Dgalleryta Chemiluminescent immunoassay. 94 Elevated levels of HbA1c suggest the need for more aggressive treatment of glycemia. The [place] Diabetes Association recommends that a primary goal of therapy should be a HbA1c of <7% and that physicians should re-evaluate the treatment regimen in patients with HbA1c values consistently >8%. 95 Reference Guidelines*: Desirable: ........... < 200 mg/dL Borderline High: ..... 200-239 mg/dL High: ................ >=240 mg/dL * The National Cholesterol Education Program (NCEP) 96 Reference Guidelines*: Low HDL: ..... < 40 mg/dL Normal: ..... 40-60 mg/dL Desirable: ... > 60 mg/dL *The National Cholesterol Education Program(NCEP) 97 Reference Guidelines*: Optimal:........... <100 mg/dL Near Optimal....... 100-129 mg/dL Borderline High.... 130-159 mg/dL High............... 160-189 mg/dL Very High.......... >=190 mg/dL * Source: National Cholesterol Education Program (NCEP) 98 Reference Guidelines*: Normal: ............. < 150 mg/dL Borderline High: .... 150-199 mg/dL High: ............... 200-499 mg/dL Very High: .......... > 500 mg/dL * Source: National Cholesterol Education Program (NCEP) 99 PT UNABLE TO VOID. 100 Negative <9.0 Equivocal 9.0 - 10.9 Positive >10.9 A positive result generally indicates past exposure to Mumps virus or previous vaccination. Performed at: [address] [id number] Lead Based Paint Technician: Gauri Villarreal MD, Phone: [phone] 101 THIS ASSAY IS NOT INTENDED A CANCER SCREENING TEST The concentration of PSA in a given specimen, determined with assays from different manufacturers, can vary due to differences in assay methods and reagent specificity. Values obtained from different assay methods cannot be used interchangeably. 102 Values >=10.0 IU/mL are positive for IgG antibodies to rubella virus and are considered IMMUNE. 103 Negative <25.0 Equivocal 25.0 - 29.9 Positive >29.9 Presence of antibodies to [place] is presumptive evidence of immunity except when acute infection is suspected. 104 Vitamin D deficiency has been defined by the [place] [employer] and an Endocrine Society practice guideline as a level of serum 25-OH vitamin D less than 20 ng/mL (1,2). The Endocrine Society went on to further define vitamin D insufficiency as a level between 21 and 29 ng/mL (2). 1. IOM ([place] of [employer]). 2010. Dietary reference intakes for calcium and D. [place]: The National Academies Press. 2. Ellyn MF, Ronald [place], Aayush LOPEZ, et al. Evaluation, treatment, and prevention of vitamin D deficiency: an Endocrine Society clinical practice guideline. JCEM. 2010; 96(7):1911-30. Performed at: [facility] [id number] Lead Based Paint Technician: Gauri Villarreal MD, Phone: [phone] 105 Note: Persistent reduction for 3 months or more in an eGFR <60 mL/min/1.73 m2 defines CKD. Patients with eGFR values >/=60 mL/min/1.73 m2 may also have CKD if evidence of persistent proteinuria is present. The original MDRD equation for estimated GFR is not valid for patients less than 18 years of age. Additional information may be found at [email or web address]. 106 Note: Persistent reduction for 3 months or more in an eGFR <60 mL/min/1.73 m2 defines CKD. Patients with eGFR values >/=60 mL/min/1.73 m2 may also have CKD if evidence of persistent proteinuria is present. The original MDRD equation for estimated GFR is not valid for patients less than 18 years of age. Additional information may be found at [email or web address]. 107 Canceled By Lab 108 Note: Persistent reduction for 3 months or more in an eGFR <60 mL/min/1.73 m2 defines CKD. Patients with eGFR values >/=60 mL/min/1.73 m2 may also have CKD if evidence of persistent proteinuria is present. The original MDRD equation for estimated GFR is not valid for patients less than 18 years of age. Additional information may be found at [email or web address]. 109 THIS ASSAY IS NOT INTENDED A CANCER SCREENING TEST The concentration of PSA in a given specimen, determined with assays from different manufacturers, can vary due to differences in assay methods and reagent specificity. Values obtained from different assay methods cannot be used interchangeably. 110 Note: Persistent reduction for 3 months or more in an eGFR <60 mL/min/1.73 m2 defines CKD. Patients with eGFR values >/=60 mL/min/1.73 m2 may also have CKD if evidence of persistent proteinuria is present. The original MDRD equation for estimated GFR is not valid for patients less than 18 years of age. Additional information may be found at [email or web address]. 111 Note: Persistent reduction for 3 months or more in an eGFR <60 mL/min/1.73 m2 defines CKD. Patients with eGFR values >/=60 mL/min/1.73 m2 may also have CKD if evidence of persistent proteinuria is present. The original MDRD equation for estimated GFR is not valid for patients less than 18 years of age. Additional information may be found at [email or web address]. 112 Note: Persistent reduction for 3 months or more in an eGFR <60 mL/min/1.73 m2 defines CKD. Patients with eGFR values >/=60 mL/min/1.73 m2 may also have CKD if evidence of persistent proteinuria is present. The original MDRD equation for estimated GFR is not valid for patients less than 18 years of age. Additional information may be found at [email or web address]. 113 Note: Persistent reduction for 3 months or [...] [email or web address]. Procedures Date Code Description Status 11/11/2017 90060330 Colonoscopy Completed 11/11/2017 54367 Colonoscopy Flexible Diagnostic Completed 10/28/2017 31814 EKG, Tracing Only, No Interpretation Completed 07/02/2015 95303 Pure Tone Hearing Test, Air Completed 06/30/2014 08923 Visual funct screen test, automated Completed 06/30/2014 37357 Pure Tone Hearing Test, Air Completed 06/29/2013 94664 Visual funct screen test, automated Completed 06/29/2013 59837 Pure Tone-Air Condition Only Completed 06/28/2012 35344 Visual funct screen test, automated Completed 06/28/2012 46744 Pure Tone-Air Condition Only Completed 06/24/2011 34649 Visual funct screen test, automated Completed 06/24/2011 03629 Pure Tone-Air Condition Only Completed 06/10/2010 91726 Visual funct screen test, automated Completed 06/10/2010 56970 Pure Tone-Air Condition Only Completed 06/06/2009 89866 Visual funct screen test, automated Completed 06/06/2009 22093 Pure Tone-Air Condition Only Completed 03/20/1999 94896 Inject/Drain Joint/Bursa Major W/O US Completed Encounters Type Date Location Provider Dx Diagnosis Office Visit 09/10/2018 [facility] Nilesh R48.8 Other symbolic 9:30a MD Theresa dysfunctions I10 Essential (primary) hypertension R41.840 Attention and concentration deficit Office Visit 07/07/2018 4:00p [facility] Nilesh Cardenas, Z00.01 Encounter for Care general adult medical exam w abnormal findings Z12.11 Encounter for screening for malignant neoplasm of colon Z12.5 Encounter for screening for malignant neoplasm of prostate E66.3 Overweight I10 Essential (primary) hypertension J44.9 Chronic obstructive pulmonary disease, unspecified K21.9 Gastro-esophageal reflux disease without esophagitis M19.90 Unspecified osteoarthritis, unspecified site E11.9 Type 2 diabetes mellitus without complications Plan of Treatment Future Appointment(s):03/23/2019 11:00 am - Jomar Mehta M.D. at [facility]10/08/2018 8:45 am - Nilesh Cardenas MD at [facility]09/24/2018 - Nilesh Cardenas, [id number] Peripheral tear of medial meniscus, current injury, right knNew Labs:Inr/Protime, Ordered: CBC Auto Diff, Ordered: 09/24/18Comp Metabolic Panel, Ordered: 09/24/18I10 Essential (primary) ubarivfsowbkK40.3 BgvbhnohibB59.9 Chronic obstructive pulmonary disease, vogkmltroulY14.9 Gastro-esophageal reflux disease without ljzleulowugP38.9 Type 2 diabetes mellitus without complications
--- OUTSIDE RECORDS SUMMARY | 2018-10-03 15:11 | XMS REPORT | Continuity of Care Document ---
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 ETOH Use Occasionally consumes [...] Lisinopril take 1 tablet by 90tabs I10 Wilsey 10/13/2011 20mg mouth once daily MD Theresa Tablets Lansoprazole take 1 capsule by 90caps K21.9 Wilsey 06/18/2011 30mg mouth once daily MD Theresa Capsules DR Diclofenac Sodium 1 tablet twice a 180tabs Wilsey day MD Theresa 75mg Tablets Cpap wear nighty CPap Chuck Whiting, supplies History Medications Furosemide 1 by mouth every 10tabs R60.0 Wilsey 11/11/2017 - 20mg day MD Theresa 11/19/2017 Tablets Colace 1 by mouth twice a 60caps Wilsey 09/25/2017 - 100mg day MD Theresa 01/01/2018 Capsules Hydroxyzine HCL 1 by mouth at at 90tabs L29.9 Wilsey 04/06/2017 - bedtime MD Theresa 10/02/2017 50mg Tablets Cephalexin 1 by mouth four 40tabs L03.116 Wilsey 04/06/2017 - 500mg times a day MD Theresa 08/31/2017 Tablets Terbinafine HCL 1 by mouth every 90tabs B35.1 Wilsey 09/25/2016 - day MD Theresa 12/31/2016 250mg Tablets Bacitracin use four times a 1units 692.9 Wilsey 08/21/2016 - (External) rony Cardenas MD 12/31/2016 500Unit/GM Ointment Metformin HCL 1 by mouth twice a 60tabs E11.9 Wilsey 07/24/2016 - 500mg rony Cardenas MD 08/21/2016 Tablets Duexis 1 tid 90tabs R09.1 Nilesh 09/20/2015 - 800-26.6mg MD Theresa 11/13/2015 Tablets Methylphenidate 1 by mouth every 30caps F90.0 Nilesh 07/02/2015 - Hydrochloride CD day MD Theresa 08/02/2015 20mg Capsules ER Lisinopril-Hydrochl Error stop this 90tabs I10 Nilesh 07/02/2015 - orothiazide drug MD Theresa 07/04/2015 [...] CPT Code Status Date Vaccine Lot # [id number] Given 03/29/2013 Influenza Virus 3Yrs & Over 62085 Given 06/28/2012 Tdap - Tetanus/Diptheria/Acellular Pertussis 43808 Given 06/28/2012 Influenza Virus 3Yrs & Over 33010 Given 03/20/1997 Tetanus Toxoid Adsorbed, For Intramuscular [...] Test Result H/L Range Note Order 07/09/2018 [employer] In-House Hemoccult <pending> Laboratory test finding 05/21/2018 [...] 31.7-36 Mean Platelet Volume 10.0 fL 6.6-10.6 [place] # 1.27 K/uL High 0-0.8 [place] % 10.1 % High 0-10 Neut# 8.40 [...] Protein 6.9 g/dL 6.4-8.2 Laboratory test 04/24/2018 [facility] Import Influenza A Molecular Negative 4 finding Influenza B Molecular Negative Laboratory test 04/16/2018 [facility] Import Deoxycortisol,11 0.04 g/dL 5, 6 finding Treponema Antibody [place] Negative 7 CBC 04/16/2018 [facility] Import Hematocrit 44.1 % 38-48 Hemoglobin 15.0 gm/dL 12.8-17 Mean Cell Volume 87.0 fl 80-96 Mean Corpuscular HGB 29.6 pg 27-33 Mean Corpuscular HGB Conc 34.0 g/dL 31.7-36 Mean Platelet Volume 9.3 fL 6.6-10.6 Platelet Count 304 K/uL 155-360 Red Blood Count 5.07 M/uL 4.2-5.8 Red Cell Distri Width %CV 14.3 % 11.6-15.8 White Blood Count 8.7 K/uL 3.4-10.5 Comprehensive Metabolic Panel 04/16/2018 N2N/Mevvy Import Alb/Glob 1.1 ratio Albumin 3.8 g/dL [...] 136 mmol/L 136-145 Liver Function Tests 11/17/2017 [facility] Import Alb/Glob 0.9 ratio Albumin 3.5 g/dL 3.4-5 Alkaline Phosphatase 76 U/L 45-117 Bilirubin,Direct < 0.1 mg/dL 0-0.2 Bilirubin,Indirect 0.1 mg/dL 0-0.9 Bilirubin,Total 0.2 mg/dL 0.2-1 Globulin 3.8 g/dL 1.9-4.3 SGPT/Alt 46 U/L 12-78 Sgot/Ast 8 U/L Low 15-37 17 Total Protein 7.3 g/dL 6.4-8.2 Laboratory test finding 11/10/2017 N2N/Mevvy Import Slide Review . 18, 19 CBS W/Automated Diff 11/10/2017 [facility] Import Bas% 0.4 % 0-1.1 Baso # 0.05 K/uL 0-0.1 Eo% 2.7 % 0-6.6 Eos # 0.31 K/uL 0-0.5 Hematocrit 38.9 % 38-48 Hemoglobin 13.1 gm/dL 12.8-17 Lymph # 1.43 K/uL 1-4 Lymph % 12.4 % Low 20-42 Mean Cell Volume 85.1 fl 80-96 Mean Corpuscular HGB 28.7 pg 27-33 Mean Corpuscular HGB Conc 33.7 g/dL 31.7-36 Mean Platelet Volume 9.5 fL 6.6-10.6 [place] # 1.43 K/uL High 0-0.8 [place] % 12.4 % High 0-10 Neut# 8.31 K/uL High 1.8-7 Neut% 72.1 % 33-73 Platelet Count 354 K/uL 155-360 Red Blood Count 4.57 M/uL 4.2-5.8 Red Cell Distri Width %CV 14.9 % 11.6-15.8 Red Cell Distri Width SD 45.3 fl 36-51 White Blood Count 11.5 K/uL High 3.4-10.5 Comprehensive Metabolic Panel 11/10/2017 [facility] Import Alb/Glob 0.9 ratio Albumin 3.1 g/dL [...] Blood Count 10.0 K/uL 3.4-10.5 CBC 11/06/2017 [facility] Import Hematocrit 39.3 % 38-48 26 Hemoglobin [...] K/uL High 3.4-10.5 Comprehensive Metabolic Panel 11/06/2017 [facility] Import Alb/Glob 1.0 ratio Albumin 2.9 g/dL [...] 5.9 g/dL Low 6.4-8.2 Laboratory test 10/29/2017 [facility] Import Act Partial 29.2 s 23.4-35 28 [...] Protein - Dipstick Negative mg/dL Urine Specific [place] 1.015 1 1.01-1.03 Urine Urobilinogen - Dipstick [...] 31.7-36 Mean Platelet Volume 9.8 fL 6.6-10.6 [place] # 1.44 K/uL High 0-0.8 [place] % 11.1 % High 0-10 Neut# 7.91 [...] Protein 7.1 g/dL 6.4-8.2 Urinalysis With 09/27/2017 [facility]evvy Import Source: Urine, Clean Cat 38 Microscopic [...] Urine RBC 0-2 rbc/hpf 0-2 Urine Specific [place] >=1.030 1.01-1.03 Urine Urobilinogen - Dipstick 0.2 E.U./dL 0.2-1 Urine WBC 0-2 wbc/hpf 0-7 Laboratory test 09/27/2017 [facility] Import Occult Blood,Stool Negative 39 finding Laboratory test 09/11/2017 [facility] Import Aldosterone 3.8 ng/dL 0-30 40 , 41 finding Cortisol,Am 13.4 g/dL 6.2-19.4 42 Dehydroepiandrosterone (Dhea) 83 ng/dL 31-701 43 Glycohemoglobin (A1c) 6.4 % High 4.2-6.3 44 LC/MS Testosterone Total 213.4 ng/dL Low 264-916 45 Prostate Specific Antigen 0.36 ng/mL 46 Thyroid Stim Hormone 2.10 uIU/mL 0.3-4.2 Vitamin D,25-Hydroxy 34.1 ng/mL 30-100 47 eAG 137 mg/dL CBC 09/11/2017 [facility] Import Hematocrit 41.3 % 38-48 Hemoglobin 13.9 [...] 31.7-36 Mean Platelet Volume 9.0 fL 6.6-10.6 [place] # 1.17 K/uL High 0-0.8 [place] % 12.1 % High 0-10 Neut# 5.95 [...] 31.7-36 Mean Platelet Volume 9.5 fL 6.6-10.6 [place] # 1.37 K/uL High 0-0.8 [place] % 12.5 % High 0-10 Neut# 7.78 K/uL High 1.8-7 Neut% 71.0 % 33-73 Platelet Count 360 K/uL 155-360 Red Blood Count 4.79 M/uL 4.2-5.8 Red Cell Distri Width %CV 14.2 % 11.6-15.8 Red Cell Distri Width SD 43.4 fl 36-51 White Blood Count 11.0 K/uL High 3.4-10.5 Laboratory test 09/01/2017 [facility] Import Source: Urine, Clean Cat 53 , 54 finding <See Note> Urine Bilirubin - Dipstick Negative Urine Blood Trace Urine Clarity Clear Urine Color Yellow Urine Glucose - Dipstick Negative mg/dL Urine Ketone Negative mg/dL Urine Leuk Esterase Negative Urine Nitrite - Dipstick Negative Urine PH 6.0 1 Low 6.5-7.5 Urine Protein - Dipstick Negative mg/dL Urine Specific [place] <=1.005 Low 1.01-1.03 Urine Urobilinogen - Dipstick 0.2 E.U./dL 0.2-1 Laboratory test finding 09/01/2017 [facility] Import Lipase 80 U/L 56-289 RBC Morphology Only 0-1+ Slide Review . 55 CBS W/Automated Diff 09/01/2017 [facility] Import Bas% 0.5 % 0-1.1 Baso # 0.07 K/uL 0-0.1 Eo% 2.2 % 0-6.6 Eos # 0.31 K/uL 0-0.5 Hematocrit 42.6 % 38-48 Hemoglobin 14.2 gm/dL 12.8-17 Lymph # 2.13 K/uL 1-4 Lymph % 14.9 % Low 20-42 Mean Cell Volume 84.4 fl 80-96 Mean Corpuscular HGB 28.1 pg 27-33 Mean Corpuscular HGB Conc 33.3 g/dL 31.7-36 Mean Platelet Volume 9.6 fL 6.6-10.6 [place] # 1.35 K/uL High 0-0.8 [place] % 9.4 % 0-10 Neut# 10.46 K/uL [...] 31.7-36 Mean Platelet Volume 9.5 fL 6.6-10.6 [place] # 1.05 K/uL High 0-0.8 [place] % 10.3 % High 0-10 Neut# 6.58 [...] 31.7-36 Mean Platelet Volume 10.0 fL 6.6-10.6 [place] # 1.15 K/uL High 0-0.8 [place] % 11.5 % High 0-10 Neut# 5.85 [...] 6.3 g/dL Low 6.4-8.2 Laboratory test 08/22/2017 N2N/CCD Import C-Reactive 51.8 mg/L High finding Protein,Quant [...] 31.7-36 Mean Platelet Volume 9.8 fL 6.6-10.6 [place] # 1.75 K/uL High 0-0.8 [place] % 12.2 % High 0-10 Neut# 9.95 K/uL High 1.8-7 Neut% 69.5 % 33-73 Platelet Count 306 K/uL 155-360 Red Blood Count 4.55 M/uL 4.2-5.8 Red Cell Distri Width %CV 14.4 % 11.6-15.8 Red Cell Distri Width SD 43.4 fl 36-51 White Blood Count 14.3 K/uL High 3.4-10.5 Comprehensive Metabolic Panel 08/22/2017 N2N/Mevvy Import Alb/Glob 0.9 ratio Albumin 3.1 g/dL [...] Protein 6.4 g/dL 6.4-8.2 Laboratory test 08/21/2017 [facility] Import Source: Urine, Clean Cat 64 , 65 finding <See Note> Urine Bilirubin - Dipstick Negative Urine Blood Trace Urine Clarity Clear Urine Color Yellow Urine Glucose - Dipstick Negative mg/dL Urine Ketone Negative mg/dL Urine Leuk Esterase Negative Urine Nitrite - Dipstick Negative Urine PH 7.5 1 6.5-7.5 Urine Protein - Dipstick Negative mg/dL Urine Specific [place] 1.010 1 1.01-1.03 Urine Urobilinogen - Dipstick 0.2 E.U./dL 0.2-1 Laboratory test finding 08/21/2017 N2N/Mev[facility] Import Anisocytosis 0-1+ Band% 11 % High 0-8 Basophil% 1 % 0-2 Eosinophil% 2 % 0-5 Lymph% 8 % Low 20-42 Microcytosis 0-1+ Monocyte% 3 % 0-10 Neutrophils% 75 % High 33-73 Platelet Estimate Normal Poikilocytosis 0-1+ Slide Review Diff Ordered Total Cells Counted 100 #CELLS CBS W/Automated Diff 08/21/2017 N2N/[facility]ev[facility] Import Bas% 0.2 % 0-1.1 Baso # 0.04 K/uL 0-0.1 Eo% 1.0 % 0-6.6 Eos # 0.19 K/uL 0-0.5 Hematocrit 42.0 % 38-48 Hemoglobin 14.1 gm/dL 12.8-17 Lymph # 2.09 K/uL 1-4 Lymph % 11.0 % Low 20-42 Mean Cell Volume 84.5 fl 80-96 Mean Corpuscular HGB 28.4 pg 27-33 Mean Corpuscular HGB Conc 33.6 g/dL 31.7-36 Mean Platelet Volume 9.7 fL 6.6-10.6 [place] # 1.70 K/uL High 0-0.8 [place] % 9.0 % 0-10 Neut# 14.91 K/uL High 1.8-7 Neut% 78.8 % High 33-73 Platelet Count 323 K/uL 155-360 Red Blood Count 4.97 M/uL 4.2-5.8 Red Cell Distri Width %CV 14.3 % 11.6-15.8 Red Cell Distri Width SD 43.1 fl 36-51 White Blood Count 18.9 K/uL High 3.4-10.5 Laboratory test finding 08/21/2017 N2N/Mevvy Import Lipase 102 U/L 56-289 Comprehensive Metabolic Panel 08/21/2017 N2N/Mevvy Import Alb/Glob 1.1 ratio Albumin 4.0 g/dL [...] 31.7-36 Mean Platelet Volume 9.4 fL 6.6-10.6 [place] # 1.05 K/uL High 0-0.8 [place] % 11.8 % High 0-10 Neut# 4.91 K/uL 1.8-7 Neut% 54.9 % 33-73 Platelet Count 340 K/uL 155-360 Red Blood Count 4.82 M/uL 4.2-5.8 Red Cell Distri Width %CV 13.5 % 11.6-15.8 Red Cell Distri Width SD 41.2 fl 36-51 White Blood Count 8.9 K/uL 3.4-10.5 Liver Function Tests 07/17/2017 N2N/Mevvy Import Alb/Glob 1.1 ratio Albumin 3.7 g/dL 3.4-5 Alkaline Phosphatase 85 U/L 45-117 Bilirubin,Direct 0.1 mg/dL 0-0.2 Bilirubin,Indirect 0.2 mg/dL 0-0.9 Bilirubin,Total 0.3 mg/dL 0.2-1 Globulin 3.5 g/dL 1.9-4.3 Reflex add FT3? Y Reflex add FT4? Y SGPT/Alt 29 U/L 12-78 Sgot/Ast 19 U/L 15-37 Total Protein 7.2 g/dL 6.4-8.2 Laboratory test 06/26/2017 N2N/CCD Import Glycohemoglobin (A1c) 6.2 % 4.2-6.3 71, 72 finding eAG 131 mg/dL LDL Cholesterol Profile 06/26/2017 N2N/Mevvy Import Cholesterol 141 mg/dL 73 HDL Cholesterol 39 mg/dL Low 74 LDL-Cholesterol 68 mg/dL 75 Triglycerides 172 mg/dL High 76 Comprehensive Metabolic Panel 06/26/2017 N2N/Mevvy Import Alb/Glob 1.1 ratio Albumin 3.7 g/dL [...] (A1c) 7.7 % High 4.2-6.3 92 PSA (Kirby Loci) 0.27 ng/mL 93 Reflex add FT3? [...] Count 7.1 K/uL 3.4-10.5 Laboratory test 04/06/2015 N2N/Mevvy Import Glycohemoglobin (A1c) 6.2 % 4.2-6.3 94 finding eAG 131 mg/dL LDL Cholesterol Profile 02/20/2015 N[facility]N/[facility] Import Cholesterol 138 mg/dL 95 HDL Cholesterol 29 mg/dL 96 LDL-Cholesterol 66 mg/dL 97 Triglycerides 217 mg/dL 98 Laboratory test 02/20/2015 [facility]N/[facility] Import Microalbumin,Random Urine See Note 99 finding Mumps Antibodies, Igg 198.0 Immune>10.9AU 100 Prostate Specific Antigen 0.32 ng/mL 101 Rubella IgG Antibody Reactive Reactive Rubella IgG Iu/ml 44.8 IU/mL 102 Rubeola Antibodies, Igg >300.0 Immune>29.9AU 103 Thyroid Stim Hormone 2.93 uIU/mL 0.36-3.74 Vitamin D,25-Hydroxy 32.0 ng/mL 30-100 104 Basic Metabolic Panel 02/20/2015 [facility]N/[facility]ev[facility] Import Anion Gap 8 mEq/L 8-16 BUN 12 mg/dL 7-18 BUN/Creat 13.3 ratio Calcium 8.3 mg/dL Low 8.5-10.1 Carbon Dioxide 26 mmol/L 21-32 Chloride 103 mmol/L 98-107 Creatinine 0.9 mg/dL 0.6-1.3 Glom Filtration Rate, Estimate >60 mL/min Glucose 124 mg/dL High 74-106 If >60 mL/min 105 Potassium 3.8 mmol/L 3.5-5.1 Sodium 137 mmol/L 136-145 CBC 02/20/2015 N2N/Mevvy Import Hematocrit 42.4 % 38-48 Hemoglobin 14.7 [...] 31.7-36 Mean Platelet Volume 9.8 fL 6.6-10.6 [place] # 1.01 K/uL High 0-0.6 [place] % 10.6 % High 0-10 Neut# 5.18 [...] 31.7-36 Mean Platelet Volume 9.9 fL 6.6-10.6 [place] # 0.88 K/uL High 0-0.6 [place] % 12.4 % High 0-10 Neut# 3.52 [...] information may be found at [email or web address]. 4 Transitional Care Nurse: [id number] 5 F06.8, 6 Reference Range: Children and Adults: Baseline: Less than 1 Post Metyrapone: Single Dose Test: 7 - 18 Multiple Dose Test: 10 - 25 Performed at: [facility] [address] [place] [id number] Photographer Model: Vipin Cox MD, Phone: [phone] Performed at: [facility] [id number] Photographer Model: Bety Mcknight MD, Phone: [phone] Note: Persistent reduction for 3 months [...] Positive >1:80 Performed at: RN - [facility] [address] [id number] Photographer Model: Gauri Villarreal MD, Phone: [phone] Method: Sediplast Modified Westergren 13 Positive: [...] are those recommended by CDC/ASTPHLD. p23=Osp C, d07=iwhtmzrql Note: Sera from individuals with the following may cross react in the Lyme Western Blot assays: other spirochetal diseases (periodontal disease, leptospirosis, relapsing fever, yaws, and pinta); connective autoimmune (Rheumatoid Arthritis and Systemic Lupus Erythematosus and also individuals with Antinuclear Antibody); other infections (Paia Spotted Fever; Narayan-Moralez Virus, and Cytomegalovirus). 15 [...] for more aggressive treatment of glycemia. The [place] [employer] Association recommends that a primary goal [...] for more aggressive treatment of glycemia. The [place] Diabetes Association recommends that a primary goal [...] [email or web address]. 32 Performed at: [facility] [address] [id number] Photographer Model: Gauri Villarreal MD, Phone: [phone] THERAPEUTIC INR RANGE: 2.0 - 3.0 [...] suggested. 38 URINE, CLEAN CATCH 39 Method: [employer] Hemoccult Card 40 E27.8,Z12.5,E66.09,E11.9,I10 41 This test was developed and its performance characteristics determined by [facility]. It has not been cleared or approved by the Food and Drug Administration. 42 Performed at: [facility] [address], [place] [id number] Photographer Model: Gauri Villarreal MD, Phone: [phone] 43 Age 1 - 5 years 0 [...] for more aggressive treatment of glycemia. The [place] [employer] Association recommends that a primary goal of therapy should be a HbA1c of <7% and that physicians should re-evaluate the treatment regimen in patients with HbA1c values consistently >8%. 45 This [facility] LC/MS-MS method is currently certified by the CDC Hormone Standardization Program (HoSt). Adult male reference interval is based on a population of healthy nonobese males (BMI <30) between 19 and 39 years old. Ede et.al. JCEM 2017,102;6872-2276. PMID: 03286561. Performed at: [address] [id number] Photographer Model: Melquiades Palumbo MD, Phone: [phone] 46 THIS ASSAY IS NOT INTENDED A CANCER SCREENING TEST The concentration of PSA in a given specimen, determined with assays from different manufacturers, can vary due to differences in assay methods and reagent specificity. Values obtained from different assay methods cannot be used interchangeably. Method: Siemens Dimension Kirby Chemiluminescent immunoassay. 47 Vitamin D deficiency has been defined by the [place] of [employer] and an Endocrine Society practice guideline as a level of serum 25-OH vitamin D less than 20 ng/mL (1,2). The Endocrine Society went on to further define vitamin D insufficiency as a level between 21 and 29 ng/mL (2). 1. IOM ([place] of [employer]). 2010. Dietary reference intakes for calcium and D. [place]: The National Academies Press. 2. Ellyn MF, Ronald [place], Aayush LOPEZ, et al. Evaluation, treatment, and prevention of vitamin D deficiency: an Endocrine Society clinical practice guideline. JCEM. 2010; 96(7):1911-30. Performed at: [address] [id number] Photographer Model: Gauri Villarreal MD, Phone: [phone] Note: Persistent reduction for 3 months [...] for more aggressive treatment of glycemia. The [place] Diabetes Association recommends that a primary goal [...] Positive >1:80 Performed at: RN - [facility] [address] [id number] Photographer Model: Gauri Villarreal MD, Phone: [phone] Method: Sediplast Modified Westergren 71 E11.9,I10 72 Elevated levels of HbA1c suggest the need for more aggressive treatment of glycemia. The [place] [employer] Association recommends that a primary goal [...] for more aggressive treatment of glycemia. The [place] Diabetes Association recommends that a primary goal of therapy should be a HbA1c of <7% and that physicians should re-evaluate the treatment regimen in patients with HbA1c values consistently >8%. 82 Fungus (Mycology) Culture Final report Result 1 Fusarium species Performed at: RN - [facility] [address] [id number] Photographer Model: Garui Villarreal MD, Phone: [phone] Final report Result 1 Hyphae observed 84 E11.9 85 Elevated levels of HbA1c suggest the need for more aggressive treatment of glycemia. The [place] [employer] recommends that a primary goal of therapy should be a HbA1c of <7% and that physicians should re-evaluate the treatment regimen in patients with HbA1c values consistently >8%. 86 Elevated levels of HbA1c suggest the need for more aggressive treatment of glycemia. The [place] [employer] Association recommends that a primary goal [...] suggested. 91 Performed at: RN - [facility] [address] [id number] Photographer Model: Gauri Villarreal MD, Phone: [phone] 92 Elevated levels of HbA1c suggest the need for more aggressive treatment of glycemia. The [place] Diabetes Association recommends that a primary goal [...] assay methods cannot be used interchangeably. Method: invendo medicalta Chemiluminescent immunoassay. 94 Elevated levels of HbA1c suggest the need for more aggressive treatment of glycemia. The [place] Diabetes Association recommends that a primary goal [...] virus or previous vaccination. Performed at: [address] [id number] Photographer Model: Gauri Villarreal MD, Phone: [phone] THIS ASSAY IS NOT INTENDED A [...] D deficiency has been defined by the [place] of [employer] and an Endocrine Society practice guideline as a level of serum 25-OH vitamin D less than 20 ng/mL (1,2). The Endocrine Society went on to further define vitamin D insufficiency as a level between 21 and 29 ng/mL (2). 1. IOM ([place] of [employer]). 2010. Dietary reference intakes for calcium and D. [place]: The National Academies Press. 2. Ellyn MF, Ronald [place], Aayush LOPEZ, et al. Evaluation, treatment, and prevention of vitamin D deficiency: an Endocrine Society clinical practice guideline. JCEM. 2010; 96(7):1911-30. Performed at: [facility] [id number] Photographer Model: Gauri Villarreal MD, Phone: [phone] Note: Persistent reduction for 3 months [...] [email or web address]. Procedures Date Code Description Status 11/11/2017 [id number] Colonoscopy Completed 11/11/2017 40538 Colonoscopy Flexible Diagnostic Completed 10/28/2017 01769 EKG, Tracing Only, No Interpretation Completed 07/02/2015 70267 Pure Tone Hearing Test, Air Completed 06/30/2014 48363 Visual funct screen test, automated Completed 06/30/2014 82828 Pure Tone Hearing Test, Air Completed 06/29/2013 34335 Visual funct screen test, automated Completed 06/29/2013 48326 Pure Tone-Air Condition Only Completed 06/28/2012 34940 Visual funct screen test, automated Completed 06/28/2012 61434 Pure Tone-Air Condition Only Completed 06/24/2011 36007 Visual funct screen test, automated Completed 06/24/2011 02389 Pure Tone-Air Condition Only Completed 06/10/2010 94642 Visual funct screen test, automated Completed 06/10/2010 70136 Pure Tone-Air Condition Only Completed 06/06/2009 59521 Visual funct screen test, automated Completed 06/06/2009 03323 Pure Tone-Air Condition Only Completed 03/20/1999 86431 Inject/Drain Joint/Bursa Major W/O US Completed Encounters Type Date Location Provider Dx Diagnosis Office Visit 09/10/2018 [facility] Nilesh R48.8 Other symbolic 9:30a MD Theresa dysfunctions I10 Essential (primary) hypertension R41.840 Attention and concentration deficit Office Visit 07/07/2018 4:00p [facility] Primary Nilesh Cardenas, Z00.01 Encounter for Care [...] 11:00 am - Jomar Mehta M.D. at [facility]10/08/2018 8:45 am - Nilesh Cardenas MD at [facility]09/24/2018 - Nilesh Cardenas, MDS83.221D Peripheral tear of medial meniscus, current injury, right knNew Labs:Inr/Protime, Ordered: CBC Auto Diff, Ordered: 09/24/18Comp Metabolic Panel, Ordered: 09/24/18I10 Essential (primary) tissnmmtgtvtI27.3 IhgrvdmgllW85.9 Chronic obstructive pulmonary disease, wvjnjunonziJ53.9 Gastro-esophageal reflux disease without xpxlvwkscdkO80.9 Type 2 diabetes mellitus without complications
--- OUTSIDE RECORDS SUMMARY | 2018-10-03 15:12 | XMS REPORT | Continuity of Care Document ---
:1965 External Reference #:[id number] Author Name Veronique Valenzuela MD Address [address] [facility] [place] [address] Care Team Providers Name Role Phone Nilesh Cardenas MD Care Team Information Manager Drilling Unavailable Nilesh Cardenas MD Primary Care Physician Unavailable Payers Date Identification Numbers Payment Provider Subscriber Policy Number: [id number] [facility] Ronnie Guzman PayID: [id number] [address] [address] [place] [address] Effective: 2009 Policy Number: [id number] [facility] Ronnie Guzman Expires: 2015 Group Number: [id number] [address] PayID: [id number] STEPHANIE Ray [phone] Advance Directives Description No Information Available Problems Date Description Provider Status Onset: 10/06/2017 Diverticulitis of colon Jonh Lino MD,FACS Active Onset: 10/26/2017 Diverticular disease of colon Jonh Lino MD,FACS Active Family History Date Family Member(s) Observation Comments General Diabetes General Cancer General Heart [...] Diverticulitis First Sister Diabetes Grandmother due to [place] () Uncle Diabetes Mellitus Type 1 Social History Type Date Description Comments Sex Unknown Marital Status Single Lives With Alone 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 Tobacco Use Start: Unknown End: Quit Unknown ETOH Use Currently consumes alcohol socially Recreational Drug Use Denies Drug Use Tobacco Use Start: Unknown Patient denies history of smoking Tobacco Use Start: Unknown End: Patient is a former smoker quit 1998 Unknown Smoking Status Reviewed: 09/03/18 Patient is a former smoker quit 1998 Allergies, Adverse Reactions, Alerts Description No Known Drug Allergies Medications Medication Date Status Form Strength Qnty SIG Indications Ordering Provider Diclofenac 04/02/ Active Tablets DR 75mg 60tabs take 1 Valenzuela, Sodium 2018 tablet by glen Piper MD twice daily with food Lisinopril / Active Tablets 20mg 1 by mouth Unknown 0000 every day Doxazosin / Active Tablets 2mg take one Unknown Mesylate 0000 tablet by mouth twice a day Stiolto / Active Aerosol 2.5-2.5mcg take 2 Unknown Respimat 0000 /Act puffs once daily. Lansoprazole / Active Capsules 30mg 1 by mouth Unknown 0000 DR every day Metformin HCL / Active Tablets 1000mg take one Unknown 0000 tablet by mouth twice a day Ventolin HFA / Active Aerosol 108(90Base take 2 Unknown 0000 ) mcg/Act puffs every 6 hours as needed for shortness of breath. Levaquin 10/06/ Hx Tablets 500mg 14tabs take one K57.92 Zoie 2017 - tablet by Jonh 11/23/ glen CHAKRABORTY,FACS 2017 daily for 14 days. take it in the middle of your meal Flagyl 10/06/ Hx Tablets 500mg 42tabs take one K57.92 Zoie 2017 - tablet by Jonh 11/23/ glen Craig MDFACS 2018 times daily for 14 days. take it in the middle of your meal Meloxicam 02/22/ Hx Tablets 15mg 30tabs 1 by mouth Cesar, 2014 - every day Domingo 10/06/ fadumo crowell M.D. 2018 Hydrocodone 11/21/ Hx Tablets 5-500mg 30tabs 1 by mouth DeThomas, Bitartrate/Apap 2010 - every 4 Carmelo 02/22/ hours as MD Jany 2014 needed Lisinopril/Hydr / Hx Tablets 20-25mg 1/2 by Unknown ochlorothiazide 0000 - mouth 10/06/ every day 2018 Prevacid / Hx Capsules 30mg 60caps 1 po qd Unknown 0000 - DR 2017 Acidophilus / Hx Capsules 100mg one tab Unknown Probiotic 0000 - daily 2017 Ciprofloxacin / Hx Tablets 500mg 1 by mouth Unknown HCL 0000 - twice a day 2018 Metronidazole / Hx Tablets 500mg 1 by mouth Unknown 0000 - three 10/26/ times a 2017 day Colace / Hx Capsules 100mg 1 by mouth Unknown 0000 - daily and can take 2018 twice a day as needed Hydrocodone-Erick / Hx Tablets 5-325mg as needed Unknown taminophen 0000 - for pain 2017 Medications Administered in Office Medication Date Status Form Strength Qnty SIG Indications Ordering Provider Depomedrol 07/23 Administered Injection Franklin, 40mg/1cc Chelsea (methylprednisolon S., RPAC e acetate) Methylprednisolone 05/07 Administered Injection Franklin, acetate Chelsea (Depomedrol) 80mg S., RPAC injection Methylprednisolone 02/25 Administered Injection Franklin, acetate Chelsea (Depomedrol) 80mg S., RPAC injection Methylprednisolone 01/25 Administered Injection Franklin, acetate Chelsea (Depomedrol) 80mg S., RPAC injection Methylprednisolone 03/26 Administered Injection Franklin, Chelsea (Depomedrol) 80mg S., RPAC injection Depomedrol 11/21 Administered Injection DeThomas, 40mg/1cc Carmelo (methylprednisolon S.MD e acetate) Immunizations Description No Information Available Vital Signs Date Vital Result Comment 09/06/2018 12:52pm BP Systolic Sitting Left Arm 120 mmHg BP Diastolic Sitting Left Arm 76 mmHg Body Temperature 97.7 F Heart Rate 93 /min Height 71 inches 5'11" Weight 306.00 lb BMI (Body Mass Index) 42.7 kg/m2 BSA (Body Surface Area) 2.53 m2 [place] body weight in kilograms 78 kg O2 % BldC Oximetry 96 % 09/03/2018 9:05am BP Systolic 124 mmHg BP Diastolic 79 mmHg Body Temperature 98.0 F Heart Rate 100 /min Respiratory Rate 20 /min Height 71 inches 5'11" Weight 304.38 lb BMI (Body Mass Index) 42.4 kg/m2 BSA (Body Surface Area) 2.52 m2 [place] body weight in kilograms 78 kg O2 % BldC Oximetry 95 % Ra Pain Level 4 RT knee 07/23/2018 1:46pm BP Systolic Sitting Right Arm 121 mmHg BP Diastolic Sitting Right Arm 76 mmHg Body Temperature 97.5 F Heart Rate 102 /min Height 71 inches 5'11" Weight 294.25 lb BMI (Body Mass Index) 41.0 kg/m2 BSA (Body Surface Area) 2.48 m2 [place] body weight in kilograms 78 kg O2 % BldC Oximetry 97 % Pain Level 6 06/18/2018 10:01am BP Systolic Sitting Right Arm 135 mmHg BP Diastolic Sitting Right Arm 82 mmHg Body Temperature 97.5 F Heart Rate 111 /min Height 71 inches 5'11" Weight 296.25 lb BMI (Body Mass Index) 41.3 kg/m2 BSA (Body Surface Area) 2.49 m2 [place] body weight in kilograms 78 kg O2 % BldC Oximetry 97 % Pain Level 2 05/20/2018 2:28pm BP Systolic 128 mmHg BP Diastolic 80 mmHg Body Temperature 98.0 F Heart Rate 102 /min Height 71 inches 5'11" Weight 286.00 lb BMI (Body Mass Index) 39.9 kg/m2 BSA (Body Surface Area) 2.45 m2 [place] body weight in kilograms 78 kg O2 % BldC Oximetry 94 % Pain Level 5 05/07/2018 8:59am BP Systolic Sitting Right Arm 121 mmHg BP Diastolic Sitting Right Arm 75 mmHg Body Temperature 97.7 F Heart Rate 99 /min Height 71 inches 5'11" Weight 295.00 lb BMI (Body Mass Index) 41.1 kg/m2 BSA (Body Surface Area) 2.49 m2 [place] body weight in kilograms 78 kg O2 % BldC Oximetry 97 % Pain Level 8 04/02/2018 10:08am BP Systolic Sitting Right Arm 109 mmHg BP Diastolic Sitting Right Arm 73 mmHg Body Temperature 97.5 F Heart Rate 95 /min Respiratory Rate 20 /min Height 71 inches 5'11" Weight 284.50 lb BMI (Body Mass Index) 39.7 kg/m2 BSA (Body Surface Area) 2.45 m2 [place] body weight in kilograms 78 kg O2 % BldC Oximetry 96 % 02/25/2018 2:35pm BP Systolic 100 mmHg BP Diastolic 69 mmHg Body Temperature 98.3 F Heart Rate 88 /min Respiratory Rate 20 /min Height 71 inches 5'11" Weight 277.25 lb BMI (Body Mass Index) 38.7 kg/m2 BSA (Body Surface Area) 2.42 m2 [place] body weight in kilograms 78 kg O2 % BldC Oximetry 96 % Ra Pain Level 3 RT hip 01/25/2018 12:59pm BP Systolic 100 mmHg BP Diastolic 66 mmHg Body Temperature 97.3 F Heart Rate 109 /min Height 71 inches 5'11" Weight 283.00 lb BMI (Body Mass Index) 39.5 kg/m2 BSA (Body Surface Area) 2.44 m2 [place] body weight in kilograms 78 kg O2 % BldC Oximetry 97 % Pain Level 6 varries from about 6 to 8 out of 10 12/07/2017 3:13pm BP Systolic 117 mmHg BP Diastolic 74 mmHg Heart Rate 95 /min Respiratory Rate 18 /min Height 71 inches 5'11" Weight 272.00 lb BMI (Body Mass Index) 37.9 kg/m2 BSA (Body Surface Area) 2.40 m2 [place] body weight in kilograms 78 kg O2 % BldC Oximetry 97 % 11/23/2017 10:44am BP Systolic 114 mmHg BP Diastolic 82 mmHg Body Temperature 98.1 F Heart Rate 103 /min Respiratory Rate 17 /min Height 71 inches 5'11" Weight 270.00 lb BMI (Body Mass Index) 37.7 kg/m2 BSA (Body Surface Area) 2.40 m2 [place] body weight in kilograms 78 kg O2 % BldC Oximetry 96 % 11/16/2017 9:47am BP Systolic 134 mmHg BP Diastolic 87 mmHg Body Temperature 98.4 F Heart Rate 106 /min Respiratory Rate 19 /min Height 71 inches 5'11" Weight 270.00 lb BMI (Body Mass Index) 37.7 kg/m2 BSA (Body Surface Area) 2.40 m2 [place] body weight in kilograms 78 kg O2 % BldC Oximetry 97 % 10/26/2017 9:08am BP Systolic 121 mmHg BP Diastolic 76 mmHg Heart Rate 87 /min Height 71 inches 5'11" Weight 283.00 lb BMI (Body Mass Index) 39.5 kg/m2 BSA (Body Surface Area) 2.44 m2 [place] body weight in kilograms 78 kg 10/06/2017 9:10am BP Systolic 135 mmHg BP Diastolic 86 mmHg Heart Rate 92 /min Height 71 inches 5'11" Weight 277.00 lb BMI (Body Mass Index) 38.6 kg/m2 BSA (Body Surface Area) 2.42 m2 [place] body weight in kilograms 78 kg 02/22/2015 10:57am BP Systolic 131 mmHg BP Diastolic 80 mmHg Heart Rate 102 /min Height 71 inches 5'11" Weight 278.00 lb BMI (Body Mass Index) 38.8 kg/m2 BSA (Body Surface Area) 2.43 m2 O2 % BldC Oximetry 94 % 11/21/2010 1:28pm Height 71 inches 5'11" Weight 260.00 lb BMI (Body Mass Index) 36.3 kg/m2 Results Test Date Facility Test Result H/L Range Note CBC 11/09/2017 [facility] White Blood Count 10.2 K/uL N 3.4-10.5 1 [address] [place], [place] [id number] [phone] Red Blood Count 4.29 M/uL N 4.20-5.80 Hemoglobin 12.2 gm/dL Low 12.8-17.0 Hematocrit 36.5 % Low 38.0-48.0 Mean Cell Volume 85.1 fl N 80.0-96.0 Mean Corpuscular HGB 28.4 pg N 27.0-33.0 Mean Corpuscular HGB Conc 33.4 g/dL N 31.7-36.0 Platelet Count 330 K/uL N 155-360 Red Cell Distri Width %CV 14.8 % N 11.6-15.8 Mean Platelet Volume 9.7 fL N 6.6-10.6 Basic Metabolic Panel 11/09/2017 [facility] Glucose 90 mg/dL N 74-106 [address] [place], [place] [id number] [phone] BUN 9 mg/dL N 7-18 Creatinine 0.8 mg/dL N 0.6-1.3 Glom Filtration Rate, Estimate >60 mL/min >60 If >60 mL/min >60 2 BUN/Creat 11.2 ratio Sodium 139 mmol/L N 136-145 Potassium 3.3 mmol/L Low 3.5-5.1 Chloride 105 mmol/L N 98-107 Carbon Dioxide 24 mmol/L N 21-32 Anion Gap 10 mEq/L N 8-16 Calcium 8.0 mg/dL Low 8.5-10.1 Basic Metabolic Panel 11/08/2017 [facility] Glucose 101 mg/dL N 74-106 [address] [place] [address] [phone] BUN 10 mg/dL N 7-18 Creatinine 0.8 mg/dL N 0.6-1.3 Glom Filtration Rate, Estimate >60 mL/min >60 If >60 mL/min >60 3 BUN/Creat 12.5 ratio Sodium 139 mmol/L N 136-145 Potassium 3.3 mmol/L Low 3.5-5.1 Chloride 107 mmol/L N 98-107 Carbon Dioxide 24 mmol/L N 21-32 Anion Gap 8 mEq/L N 8-16 Calcium 7.8 mg/dL Low 8.5-10.1 CBC 11/08/2017 [facility] White Blood Count 9.8 K/uL N 3.4-10.5 [address] [place] [address] [phone] Red Blood Count 4.21 M/uL N 4.20-5.80 Hemoglobin 11.9 gm/dL Low 12.8-17.0 Hematocrit 36.4 % Low 38.0-48.0 Mean Cell Volume 86.5 fl N 80.0-96.0 Mean Corpuscular HGB 28.3 pg N 27.0-33.0 Mean Corpuscular HGB Conc 32.7 g/dL N 31.7-36.0 Platelet Count 333 K/uL N 155-360 Red Cell Distri Width %CV 15.1 % N 11.6-15.8 Mean Platelet Volume 10.0 fL N 6.6-10.6 Glycohemoglobin 11/07/2017 [facility] Glycohemoglobin 6.4 % High 4.2-6.3 4 A1c [address] [facility] (A1c) [place] [address] [phone] eAG 137 mg/dL CBC 11/07/2017 [facility] White Blood Count 10.0 K/uL N 3.4-10.5 [address] [place] [address] [phone] Red Blood Count 4.30 M/uL N 4.20-5.80 Hemoglobin 12.3 gm/dL Low 12.8-17.0 Hematocrit 37.1 % Low 38.0-48.0 Mean Cell Volume 86.3 fl N 80.0-96.0 Mean Corpuscular HGB 28.6 pg N 27.0-33.0 Mean Corpuscular HGB Conc 33.2 g/dL N 31.7-36.0 Platelet Count 296 K/uL N 155-360 Red Cell Distri Width %CV 15.4 % N 11.6-15.8 Mean Platelet Volume 9.8 fL N 6.6-10.6 Basic Metabolic Panel 11/07/2017 [facility] Glucose 108 mg/dL High 74-106 [address] [place] [address] [phone] BUN 11 mg/dL N 7-18 Creatinine 0.9 mg/dL N 0.6-1.3 Glom Filtration Rate, Estimate >60 mL/min >60 If >60 mL/min >60 5 BUN/Creat 12.2 ratio Sodium 139 mmol/L N 136-145 Potassium 3.5 mmol/L N 3.5-5.1 Chloride 107 mmol/L N 98-107 Carbon Dioxide 24 mmol/L N 21-32 Anion Gap 8 mEq/L N 8-16 Calcium 7.8 mg/dL Low 8.5-10.1 CBC 11/06/2017 [facility] White Blood Count 13.0 K/uL High 3.4-10.5 6 [address] [place] [address] [phone] Red Blood Count 4.54 M/uL N 4.20-5.80 Hemoglobin 12.7 gm/dL Low 12.8-17.0 Hematocrit 39.3 % N 38.0-48.0 Mean Cell Volume 86.6 fl N 80.0-96.0 Mean Corpuscular HGB 28.0 pg N 27.0-33.0 Mean Corpuscular HGB Conc 32.3 g/dL N 31.7-36.0 Platelet Count 330 K/uL N 155-360 Red Cell Distri Width %CV 15.4 % N 11.6-15.8 Mean Platelet Volume 10.0 fL N 6.6-10.6 Comprehensive Metabolic 11/06/2017 [facility] Glucose 129 mg/dL High 74-106 Panel [address] [place] [address] [phone] BUN 14 mg/dL N 7-18 Creatinine 1.0 mg/dL N 0.6-1.3 Glom Filtration Rate, Estimate >60 mL/min >60 If >60 mL/min >60 7 BUN/Creat 14.0 ratio Sodium 138 mmol/L N 136-145 Potassium 3.8 mmol/L N 3.5-5.1 Chloride 105 mmol/L N 98-107 Carbon Dioxide 27 mmol/L N 21-32 Anion Gap 6 mEq/L Low 8-16 Calcium 7.7 mg/dL Low 8.5-10.1 Total Protein 5.9 g/dL Low 6.4-8.2 Albumin 2.9 g/dL Low 3.4-5.0 Globulin 3.0 g/dL N 1.9-4.3 Alb/Glob 1.0 ratio Bilirubin,Total 0.3 mg/dL N 0.2-1.0 Sgot/Ast 21 U/L N 15-37 SGPT/Alt 30 U/L N 12-78 Alkaline Phosphatase 40 U/L Low 45-117 CBS W/Automated Diff 09/04/2017 [facility] White Blood 9.7 K/uL N 3.4-10.[address] Count [place], [place] [id number] [phone] Red Blood Count 4.92 M/uL N 4.20-5.80 Hemoglobin 13.7 gm/dL N 12.8-17.0 Hematocrit 41.9 % N 38.0-48.0 Mean Cell Volume 85.2 fl N 80.0-96.0 Mean Corpuscular HGB 27.8 pg N 27.0-33.0 Mean Corpuscular HGB Conc 32.7 g/dL N 31.7-36.0 Platelet Count 380 K/uL High 155-360 Red Cell Distri Width SD 43.0 fl N 36-51 Red Cell Distri Width %CV 14.2 % N 11.6-15.8 Mean Platelet Volume 9.0 fL N 6.6-10.6 Neut% 61.5 % N 33.0-73.0 Lymph % 21.3 % N 20.0-42.0 Trigg % 12.1 % High 0.0-10.0 Eo% 4.6 % N 0.0-6.6 Bas% 0.5 % N 0.0-1.1 Neut# 5.95 K/uL N 1.8-7.0 Lymph # 2.06 K/uL N 1.0-4.0 Trigg # 1.17 K/uL High 0.0-0.8 Eos # 0.44 K/uL N 0.0-0.5 Baso # 0.05 K/uL N 0.0-0.1 Basic Metabolic Panel 09/04/2017 [facility] Glucose 126 mg/dL High 74-[address] [place] [address] [phone] BUN 11 mg/dL N 7-18 Creatinine 0.9 mg/dL N 0.6-1.3 Glom Filtration Rate, Estimate >60 mL/min >60 If >60 mL/min >60 9 BUN/Creat 12.2 ratio Sodium 141 mmol/L N 136-145 Potassium 4.4 mmol/L N 3.5-5.1 Chloride 107 mmol/L N 98-107 Carbon Dioxide 31 mmol/L N 21-32 Anion Gap 3 mEq/L Low 8-16 Calcium 8.7 mg/dL N 8.5-10.1 CBS W/Automated 08/24/2017 [facility] White Blood 10.2 K/uL N 3.4-10.[address] [place] [address] [phone] Red Blood Count 4.58 M/uL N 4.20-5.80 Hemoglobin 13.0 gm/dL N 12.8-17.0 Hematocrit 38.7 % N 38.0-48.0 Mean Cell Volume 84.5 fl N 80.0-96.0 Mean Corpuscular HGB 28.4 pg N 27.0-33.0 Mean Corpuscular HGB Conc 33.6 g/dL N 31.7-36.0 Platelet Count 334 K/uL N 155-360 Red Cell Distri Width SD 43.1 fl N 36-51 Red Cell Distri Width %CV 14.3 % N 11.6-15.8 Mean Platelet Volume 9.5 fL N 6.6-10.6 Neut% 64.4 % N 33.0-73.0 Lymph % 21.0 % N 20.0-42.0 Trigg % 10.3 % High 0.0-10.0 Eo% 3.9 % N 0.0-6.6 Bas% 0.4 % N 0.0-1.1 Neut# 6.58 K/uL N 1.8-7.0 Lymph # 2.15 K/uL N 1.0-4.0 Trigg # 1.05 K/uL High 0.0-0.8 Eos # 0.40 K/uL N 0.0-0.5 Baso # 0.04 K/uL N 0.0-0.1 Basic Metabolic Panel 08/24/2017 [facility] Glucose 112 mg/dL High 74-[address] [place] [address] [phone] BUN 11 mg/dL N 7-18 Creatinine 0.8 mg/dL N 0.6-1.3 Glom Filtration Rate, Estimate >60 mL/min >60 If >60 mL/min >60 10 BUN/Creat 13.7 ratio Sodium 140 mmol/L N 136-145 Potassium 4.1 mmol/L N 3.5-5.1 Chloride 107 mmol/L N 98-107 Carbon Dioxide 26 mmol/L N 21-32 Anion Gap 7 mEq/L Low 8-16 Calcium 8.4 mg/dL Low 8.5-10.1 Laboratory test 08/23/2017 [facility] C-Reactive 52.9 High <3.[address] Protein,Quant mg/[place] [address] [phone] Comprehensive 08/23/2017 [facility] Glucose 101 N 74-106 Metabolic Panel [address] mg/[place] [address] [phone] BUN 11 mg/dL N 7-18 Creatinine 0.9 mg/dL N 0.6-1.3 Glom Filtration Rate, Estimate >60 mL/min >60 If >60 mL/min >60 11 BUN/Creat 12.2 ratio Sodium 141 mmol/L N 136-145 Potassium 4.0 mmol/L N 3.5-5.1 Chloride 108 mmol/L High 98-107 Carbon Dioxide 29 mmol/L N 21-32 Anion Gap 4 mEq/L Low 8-16 Calcium 8.4 mg/dL Low 8.5-10.1 Total Protein 6.3 g/dL Low 6.4-8.2 Albumin 3.0 g/dL Low 3.4-5.0 Globulin 3.3 g/dL N 1.9-4.3 Alb/Glob 0.9 ratio Bilirubin,Total 0.3 mg/dL N 0.2-1.0 Sgot/Ast 13 U/L Low 15-37 12 SGPT/Alt 18 U/L N 12-78 Alkaline Phosphatase 60 U/L N 45-117 CBS W/Automated 08/23/2017 [facility] White Blood 10.0 K/uL N 3.4-10.[address] [place] [address] [phone] Red Blood Count 4.59 M/uL N 4.20-5.80 Hemoglobin 12.8 gm/dL N 12.8-17.0 Hematocrit 39.1 % N 38.0-48.0 Mean Cell Volume 85.2 fl N 80.0-96.0 Mean Corpuscular HGB 27.9 pg N 27.0-33.0 Mean Corpuscular HGB Conc 32.7 g/dL N 31.7-36.0 Platelet Count 311 K/uL N 155-360 Red Cell Distri Width SD 43.7 fl N 36-51 Red Cell Distri Width %CV 14.4 % N 11.6-15.8 Mean Platelet Volume 10.0 fL N 6.6-10.6 Neut% 58.7 % N 33.0-73.0 Lymph % 24.5 % N 20.0-42.0 Trigg % 11.5 % High 0.0-10.0 Eo% 4.8 % N 0.0-6.6 Bas% 0.5 % N 0.0-1.1 Neut# 5.85 K/uL N 1.8-7.0 Lymph # 2.44 K/uL N 1.0-4.0 Trigg # 1.15 K/uL High 0.0-0.8 Eos # 0.48 K/uL N 0.0-0.5 Baso # 0.05 K/uL N 0.0-0.1 Laboratory test finding 08/22/2017 [facility] Magnesium 2.2 mg/dL N 1.8-2.[address] [place] [address] [phone] C-Reactive Protein,Quant 51.8 mg/L High <3.0 Comprehensive Metabolic 08/22/2017 [facility] Glucose 104 mg/dL N 74-[address] [place] [address] [phone] BUN 16 mg/dL N 7-18 Creatinine 0.8 mg/dL N 0.6-1.3 Glom Filtration Rate, Estimate >60 mL/min >60 If >60 mL/min >60 13 BUN/Creat 20.0 ratio Sodium 139 mmol/L N 136-145 Potassium 4.0 mmol/L N 3.5-5.1 Chloride 108 mmol/L High 98-107 Carbon Dioxide 28 mmol/L N 21-32 Anion Gap 3 mEq/L Low 8-16 Calcium 7.8 mg/dL Low 8.5-10.1 Total Protein 6.4 g/dL N 6.4-8.2 Albumin 3.1 g/dL Low 3.4-5.0 Globulin 3.3 g/dL N 1.9-4.3 Alb/Glob 0.9 ratio Bilirubin,Total 0.3 mg/dL N 0.2-1.0 Sgot/Ast 11 U/L Low 15-37 14 SGPT/Alt 18 U/L N 12-78 Alkaline Phosphatase 67 U/L N 45-117 CBS W/Automated 08/22/2017 [facility] White Blood 14.3 K/uL High 3.4-10.[address] [place] [address] [phone] Red Blood Count 4.55 M/uL N 4.20-5.80 Hemoglobin 12.9 gm/dL N 12.8-17.0 Hematocrit 38.7 % N 38.0-48.0 Mean Cell Volume 85.1 fl N 80.0-96.0 Mean Corpuscular HGB 28.4 pg N 27.0-33.0 Mean Corpuscular HGB Conc 33.3 g/dL N 31.7-36.0 Platelet Count 306 K/uL N 155-360 Red Cell Distri Width SD 43.4 fl N 36-51 Red Cell Distri Width %CV 14.4 % N 11.6-15.8 Mean Platelet Volume 9.8 fL N 6.6-10.6 Neut% 69.5 % N 33.0-73.0 Lymph % 16.4 % Low 20.0-42.0 Trigg % 12.2 % High 0.0-10.0 Eo% 1.7 % N 0.0-6.6 Bas% 0.2 % N 0.0-1.1 Neut# 9.95 K/uL High 1.8-7.0 Lymph # 2.35 K/uL N 1.0-4.0 Trigg # 1.75 K/uL High 0.0-0.8 Eos # 0.25 K/uL N 0.0-0.5 Baso # 0.03 K/uL N 0.0-0.1 1 BC AUTH 6/1 GUS 2 Note: Persistent reduction for 3 [...] for more aggressive treatment of glycemia. The [place] [employer] recommends that a primary goal [...] populations. Clinical correlation is suggested. Procedures Date Code Description Status 07/23/201814323 Asp./Injection major joint Completed 05/07/201811571 Asp./Injection major joint Completed 04/02/2018 06633 Radiologic Exam Hip Unilateral With Pelvis 2-3 Views Completed 04/02/2018 44998 Radiology, Shoulder: Two Views (Sso) Completed 02/25/201883798 Asp./Injection major joint Completed 01/25/2018 84684 Radiology, Knee 3 Views Completed 01/25/2018 12023 Radiology, Knee 3 Views Completed 01/25/201806319 Asp./Injection major joint Completed 11/05/2017 50524 Cystourethroscopy W/Catheterization Completed 11/05/2017 16768 Laparoscopy, colectomy, partial, with anastomosis Completed 03/26/201594112 Asp./Injection major joint Completed 02/22/2015 65776 Radiology, Knee 3 Views Completed 02/22/2015 70044 Radiology, Knee 3 Views Completed 02/22/2015 21852 Radiology, Knee 3 Views Completed 11/21/2010 80885 Radiology, Elbow Complete Completed 11/21/201098576 Asp./Injection major joint Completed Encounters Type Date Location Provider Dx Diagnosis Office Visit 09/06/2018 Orthopaedic Office Veronique Valenzuela, S83.221D Prph tear of 1:00p medial meniscus, current injury, r knee, subs M17.11 Unilateral primary osteoarthritis, right knee E66.01 Morbid (severe) obesity due to excess calories Office Visit 09/03/2018 9:30a Orthopaedic Office Chelsea Franklin M25.561 Pain in S., [facility] right knee S83.221D Prph tear of medial meniscus, current injury, r knee, subs Office Visit 06/18/2018 Orthopaedic Rigoberto M17.11 Unilateral primary 10:00a Office Chelsea Carmichael, osteoarthritis, [facility] right knee M75.41 Impingement syndrome of right shoulder M70.61 Trochanteric bursitis, right hip Office Visit 05/20/2018 2:30p Orthopaedic Office Chelsea Franklin M25.561 Pain in S., [facility] right knee M25.461 Effusion, right knee Office Visit 05/07/2018 9:00a Orthopaedic Office Chelsea Franklin M25.561 Pain in S., [facility] right knee M17.11 Unilateral primary osteoarthritis, right knee M25.551 Pain in right hip M25.511 Pain in right shoulder Office Visit 04/02/2018 10:00a Orthopaedic Office Chelsea Franklin M25.551 Pain in S., RPA right hip M25.511 Pain in right shoulder M75.41 Impingement syndrome of right shoulder Office Visit 02/25/2018 Orthopaedic Rigoberto, M70.61 Trochanteric 2:30p Office Chelsea S., bursitis, right RPAC hip M17.11 Unilateral primary osteoarthritis, right knee Office Visit 10/26/2017 9:00a Surgical Office Jonh Lino, K57.92 Dvtrcli of KEISHA CHAKRABORTY part unsp, w/o perf or abscess w/o bleed K57.30 Dvrtclos of lg int w/o perforation or abscess w/o bleeding Office Visit 10/06/2017 9:00a Surgical Office Zoie K57.92 Dvtrcli of bethany Borja part MD, FACS unsp, w/o perf or abscess w/o bleed Office Visit 04/25/2015 2:30p Orthopaedic Office Rigoberto, M17.11 Unilateral Chelsea S., primary RPAC osteoarthritis, right knee Office Visit 11/21/2010 1:30p Orthopaedic Office Kelsy, 719.43 Pain Joint Carmelo Carmichael MD Forearm 726.32 Epicondylitis Lateral Plan of Treatment Future Appointment(s):01/11/2019 4:05 pm - Hammad Brown DPM at [facility]/06/2018 - Veronique Valenzuela, MDS83.221D Peripheral tear of medial meniscus , current injury, right knM17.11 Unilateral primary osteoarthritis, right kneeE66.01 Morbid (severe) obesity due to excess calories
--- OUTSIDE RECORDS SUMMARY | 2018-10-03 15:12 | XMS REPORT | Continuity of Care Document ---
:1965 External Reference #:[id number] Author Name Cori Darling Care Team Providers Name Role Phone Nilesh Cardenas MD Primary Care Physician Unavailable Payers Date Identification Numbers Payment Provider Subscriber Effective: 2015 Policy Number: [id number] [facility] Ronnie Guzman PayID: [id number] [address] [address] [place] [address] Advance Directives Description No Information Available Problems Date Description Provider Status Onset: 07/24/2016 Prediabetes Active Onset: 09/29/2011 Essential hypertension Active Onset: 06/24/2011 Benign essential hypertension Active Onset: 06/24/2011 Chronic obstructive lung disease Active Onset: 06/24/2011 Gastroesophageal reflux disease Active Onset: 06/24/2011 Diaphragmatic hernia Active Family History Date Family Member(s) Observation Comments General Diabetes General Heart Attack Father Anemia Father Diabetes Type II Father Heart Disease Triple Bypass Mother Heart Disease pacemaker Social History Type Date Description Comments Sex Unknown Marital Status Single Lives With Mother 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 ETOH Use Occasionally consumes alcohol Tobacco Use Start: Unknown End: Unknown Patient is a former smoker Smoking Status Reviewed: 09/10/18 Patient is a former smoker Currently Active Patient is currently sexually active Allergies, Adverse Reactions, Alerts Description No Information Medications Medication Date Status Form Strength Qnty SIG Indications Ordering Provider Metformin HCL 08/21 Active Tablets 1000mg 180ta 1 by mouth E11.9 bs twice a day Astrid santos MD Stiolto Respimat 07/02 Active Aerosol 2.5-2.5mc 12gm 2 J44.9 g/Act inhalations Khariellakenny daily in MD danielle the morning Cardura 07/02 Active Tablets 2mg 90tab 1 p.o every I10 s day Astrid santos MD Ventolin HFA 12/27 Active Aerosol 108(90Bas 24gm inhale 2 J44.9 e) puffs by Astrid mcg/Act mouth every os, 4 hours if needed Lisinopril 10/12 Active Tablets 20mg 90tab take 1 I10 s tablet by Castellakenny mouth once os, daily Lansoprazole 06/[address] 30mg 90cap take 1 K21.9 s capsule by Castellakenny mouth once os, daily Diclofenac [address] 75mg 180ta 1 tablet Nilesh Sodium /0000 bs twice a day Astrid santos MD Furosemide 11/11 Hx Tablets 20mg 10tab 1 by mouth R60.0 s every day Astrid santos MD 11/19 Colace 09/25 Hx Capsules 100mg 60cap 1 by mouth s twice a day Astrid santos MD 01/01 Cephalexin 04/06 Hx Tablets 500mg 40tab 1 by mouth L03.116 s four times Khariellan - a day MD danielle 08/31 Hydroxyzine HCL 04/06 Hx Tablets 50mg 90tab 1 by mouth L29.9 s at at [facility] - bedtime MD danielle 10/02 Terbinafine HCL 09/25 Hx Tablets 250mg 90tab 1 by mouth B35.1 s every day Astrid santos MD 12/31 Bacitracin 08/21 Hx Ointment 500Unit/G 1unit use four 692.9 (External) M s times a day Astrid santos MD 12/31 Metformin HCL 07/24 Hx Tablets 500mg 60tab 1 by mouth E11.9 s twice a day Astrid santos MD 08/21 Duexis 09/19 Hx Tablets 800-26.6m 90tab 1 tid R09.1 g s Astrid santos MD 11/12 Methylphenidate 07/02 Hx Capsules ER 20mg 30cap 1 by mouth F90.0 Nilesh Hydrochloride s every day Astrid santos MD 08/02 Lisinopril-[place] 07/02 Hx Tablets 20-25mg 90tab Error stop I10 Nilesh chlorothiazide /2015 s this drug Castellan - os, 07/04 Amoxicillin 11/17 Hx Capsules 500mg 30cap 1 by mouth 462 s three times Castellan - a day os, 03/30 Spiriva 09/28 Hx Capsules 18mcg 90cap 2 J44.9 Nilesh Handihaler /2014 s inhalations Castellan - every in os, 07/02 the Atrovent HFA 07/17 Hx Aerosol 17mcg/Act 1unit 2 inh qid s Castellan - osMD 03/30 Ammonium Lactate 06/30 Hx Cream 12% 140un use twice a 692.9 its day Khariellakenny santos MD 03/30 Bacitracin 06/30 Hx Ointment 500Unit/G 1unit use four 692.9 Nilesh (External) /2014 M s times a day Astrid santos MD 09/28 Symbicort 01/09 Hx Aerosol 160-4.5mc 1unit 1 puff 496 g/Act s twice a day Castellakenny Thomas osMD 03/30 Spiriva 12/27 Hx Capsules 18mcg 30cap 2 496 Nilesh Handihaler s inhalations Castellan - every in os, 01/09 the Azithromycin 12/27 Hx Tablets 250mg 6tabs 2 now and 1 491.21 daily x 4 Castellan - days os, 09/28 Levocetirizine 12/27 Hx Tablets 5mg 30tab 1 qd prn 477.9 Nilesh Dihydrochloride /2012 s Castellan - os, 12/27 Clotrimazole/Bet 01/04 Hx Cream 1-0.05% 1unit use tid 110.4 Nilesh amethasone s until clear Castellan Dipropionate - at least 2 os, Indomethacin 10/12 Hx Capsules 25mg 120ca 1 cap by 719.47 ps mouth four Castellan - times only os, 04/20 if needed for pain Allopurinol 10/08 Hx Tablets 300mg 90tab 1 po qd 274.9 s Astrid santos MD 04/20 Lisinopril-[place] 07/07 Hx Tablets 20-25mg 90tab take 1 401.9 chlorothi s tablet by Astrid - mouth once osMD 10/12 Zestoretic 06/24 Hx Tablets 20-25mg 30tab 1 po qd 401.9 vannesa santos MD 07/07 Ibuprofen 06/24 Hx Tablets 800mg 90tab 1 po tid vannesa santos MD 10/12 Ventolin HFA 06/24 Hx Aerosol 108(90Bas 1unit inhale 2 496 e) s puffs by Astrid Thomas mcg/Act mouth every os, 12/27 4 hours needed Advair Diskus Hx Aerosol 250-50mcg 28uni 1 puff bid 496 Nilesh / /Dose ts sAtrid santos MD 04/20 Meloxicam Hx Tablets 15mg take 1 Unknown /0000 tablet by - mouth once 07/03 daily food or milk Fluarix Hx Rosmery 0.5ml inject 0.5 Unknown Quadrivalent /0000 milliliter - intramuscul 07/03 roxanna Ibuprofen Hx Tablets 800mg take 1 Unknown /0000 tablet by - mouth every 07/03 8 hours needed for pain Penicillin V Hx Tablets 500mg take 1 Unknown Potassium /0000 tablet by - mouth every 07/03 6 hours /2016 Prednisone Hx Tablets 10mg take 1 Unknown /0000 tablet by - mouth every 04/06 Oxycodone-Acetam Hx Tablets 5-325mg take 1 to 2 Unknown inophen /0000 tablets by - mouth four 04/06 times a day if needed for pain maxim Fluticasone Hx Suspension 50mcg/Act instill 2 Unknown Propionate /0000 sprays into - each 04/06 nostr once daily Ciprofloxacin Hx Tablets 500mg take 1 Unknown HCL /0000 tablet by - mouth twice 09/23 a /2017 Metronidazole Hx Tablets 500mg take 1 Unknown /0000 tablet by - mouth three 10/02 times a day /2018 Ciprofloxacin Hx Tablets 500mg 1 by mouth Unknown HCL /0000 twice a day - for 01/01 divertic tis. Immunizations CPT Code Status Date Vaccine Lot # [id number] Given 03/29/2013 Influenza Virus 3Yrs & Over [id number] Given 06/28/2012 Tdap - Tetanus/Diptheria/Acellular Pertussis 01327 Given 06/28/2012 Influenza Virus 3Yrs & Over [id number] Given 03/20/1997 Tetanus Toxoid Adsorbed, For Intramuscular Use Vital Signs Date Vital Result Comment 09/10/2018 9:36am Weight 300.00 lb Heart Rate [...] Test Result H/L Range Note Order 07/09/2018 Milk Deliverer In-House Hemoccult <pending> Laboratory test finding 05/21/2018 [...] 31.7-36 Mean Platelet Volume 10.0 fL 6.6-10.6 [place] # 1.27 K/uL High 0-0.8 [place] % 10.1 % High 0-10 Neut# 8.40 [...] Protein 6.9 g/dL 6.4-8.2 Laboratory test 04/24/2018 [facility] Import Influenza A Molecular Negative 4 finding Influenza B Molecular Negative Laboratory test 04/16/2018 [facility] Import Deoxycortisol,11 0.04 g/dL 5, 6 finding Treponema Antibody [place] Negative 7 CBC 04/16/2018 [facility] Import Hematocrit 44.1 % 38-48 Hemoglobin 15.0 gm/dL 12.8-17 Mean Cell Volume 87.0 fl 80-96 Mean Corpuscular HGB 29.6 pg 27-33 Mean Corpuscular HGB Conc 34.0 g/dL 31.7-36 Mean Platelet Volume 9.3 fL 6.6-10.6 Platelet Count 304 K/uL 155-360 Red Blood Count 5.07 M/uL 4.2-5.8 Red Cell Distri Width %CV 14.3 % 11.6-15.8 White Blood Count 8.7 K/uL 3.4-10.5 Comprehensive Metabolic Panel 04/16/2018 [facility] Import Alb/Glob 1.1 ratio Albumin 3.8 g/dL [...] 136 mmol/L 136-145 Liver Function Tests 11/17/2017 N2N/CCD Import Alb/Glob 0.9 ratio Albumin 3.5 g/dL 3.4-5 Alkaline Phosphatase 76 U/L 45-117 Bilirubin,Direct < 0.1 mg/dL 0-0.2 Bilirubin,Indirect 0.1 mg/dL 0-0.9 Bilirubin,Total 0.2 mg/dL 0.2-1 Globulin 3.8 g/dL 1.9-4.3 SGPT/Alt 46 U/L 12-78 Sgot/Ast 8 U/L Low 15-37 17 Total Protein 7.3 g/dL 6.4-8.2 Laboratory test finding 11/10/2017 [facility] Import Slide Review . 18, 19 CBS W/Automated Diff 11/10/2017 [facility] Import Bas% 0.4 % 0-1.1 Baso # 0.05 K/uL 0-0.1 Eo% 2.7 % 0-6.6 Eos # 0.31 K/uL 0-0.5 Hematocrit 38.9 % 38-48 Hemoglobin 13.1 gm/dL 12.8-17 Lymph # 1.43 K/uL 1-4 Lymph % 12.4 % Low 20-42 Mean Cell Volume 85.1 fl 80-96 Mean Corpuscular HGB 28.7 pg 27-33 Mean Corpuscular HGB Conc 33.7 g/dL 31.7-36 Mean Platelet Volume 9.5 fL 6.6-10.6 [place] # 1.43 K/uL High 0-0.8 [place] % 12.4 % High 0-10 Neut# 8.31 K/uL High 1.8-7 Neut% 72.1 % 33-73 Platelet Count 354 K/uL 155-360 Red Blood Count 4.57 M/uL 4.2-5.8 Red Cell Distri Width %CV 14.9 % 11.6-15.8 Red Cell Distri Width SD 45.3 fl 36-51 White Blood Count 11.5 K/uL High 3.4-10.5 Comprehensive Metabolic Panel 11/10/2017 [facility] Import Alb/Glob 0.9 ratio Albumin 3.1 g/dL [...] Blood Count 10.0 K/uL 3.4-10.5 CBC 11/06/2017 [facility] Import Hematocrit 39.3 % 38-48 26 Hemoglobin [...] K/uL High 3.4-10.5 Comprehensive Metabolic Panel 11/06/2017 [facility] Import Alb/Glob 1.0 ratio Albumin 2.9 g/dL [...] 5.9 g/dL Low 6.4-8.2 Laboratory test 10/29/2017 [facility] Import Act Partial 29.2 s 23.4-35 28 [...] Protein - Dipstick Negative mg/dL Urine Specific Bland 1.015 1 1.01-1.03 Urine Urobilinogen - Dipstick [...] 31.7-36 Mean Platelet Volume 9.8 fL 6.6-10.6 [place] # 1.44 K/uL High 0-0.8 [place] % 11.1 % High 0-10 Neut# 7.91 K/uL High 1.8-7 Neut% 61.0 % 33-73 Platelet Count 299 K/uL 155-360 Red Blood Count 4.64 M/uL 4.2-5.8 Red Cell Distri Width %CV 14.9 % 11.6-15.8 Red Cell Distri Width SD 45.0 fl 36-51 White Blood Count 13.0 K/uL High 3.4-10.5 Laboratory test 09/27/2017 N2N/[facility] Import Occult Blood,Stool Negative 36 finding Urinalysis With 09/27/2017 [facility]N/[facility] Import Source: Urine, Clean 37 Microscopic Cat <See Note> Urine Bilirubin - Dipstick Negative Urine Blood Small Abnormal Urine Clarity Clear Urine Color Yellow Urine Epithelial Cells Very Few /lpf Urine Glucose - Dipstick Negative mg/dL Urine Ketone Negative mg/dL Urine Leuk Esterase Negative Urine Nitrite - Dipstick Negative Urine PH 5.5 1 Low 6.5-7.5 Urine Protein - Dipstick Negative mg/dL Urine RBC 0-2 rbc/hpf 0-2 Urine Specific Bland >=1.030 1.01-1.03 Urine Urobilinogen - Dipstick 0.2 E.U./dL 0.2-1 Urine WBC 0-2 wbc/hpf 0-7 Comprehensive Metabolic Panel 09/27/2017 [facility]N/[facility]D Import Alb/Glob [...] Glucose 103 mg/dL 74-106 If >60 mL/min 38 Potassium 4.1 mmol/L 3.5-5.1 SGPT/Alt 22 U/L 12-78 Sgot/Ast 14 U/L Low 15-37 39 Sodium 141 mmol/L 136-145 Total Protein 7.1 g/dL 6.4-8.2 Microalbumin,Random Urine 09/11/2017 [facility]N/[facility]D Import Microalbumin,Urine 7.3 mg/L 40 Comprehensive Metabolic 09/11/2017 N2N/CCD Import Alb/Glob 1.2 ratio Panel Albumin 3.7 g/dL 3.4-5 Alkaline Phosphatase 63 U/L 45-117 Anion Gap 6 mEq/L Low 8-16 BUN 14 mg/dL 7-18 BUN/Creat 17.5 ratio Bilirubin,Total 0.2 mg/dL 0.2-1 Calcium 8.6 mg/dL 8.5-10.1 Carbon Dioxide 27 mmol/L 21-32 Chloride 105 mmol/L 98-107 Creatinine 0.8 mg/dL 0.6-1.3 Globulin 3.1 g/dL 1.9-4.3 Glom Filtration Rate, Estimate >60 mL/min Glucose 118 mg/dL High 74-106 If >60 mL/min 41 Potassium 3.9 mmol/L 3.5-5.1 SGPT/Alt 43 U/L 12-78 Sgot/Ast 18 U/L 15-37 Sodium 138 mmol/L 136-145 Total Protein 6.8 g/dL 6.4-8.2 Laboratory test finding 09/11/2017 [facility] Import Aldosterone 3.8 ng/dL 0-30 42 Cortisol,Am 13.4 g/dL 6.2-19.4 43 Dehydroepiandrosterone (Dhea) 83 ng/dL 31-701 44 Glycohemoglobin (A1c) 6.4 % High 4.2-6.3 45 LC/MS Testosterone Total 213.4 ng/dL Low 264-916 46 Prostate Specific Antigen 0.36 ng/mL 47 Thyroid Stim Hormone 2.10 uIU/mL 0.3-4.2 Vitamin D,25-Hydroxy 34.1 ng/mL 30-100 48 eAG 137 mg/dL CBC 09/11/2017 [facility]N/[facility] Import Hematocrit 41.3 % 38-48 Hemoglobin 13.9 gm/dL 12.8-17 Mean Cell Volume 83.8 fl 80-96 Mean Corpuscular HGB 28.2 pg 27-33 Mean Corpuscular HGB Conc 33.7 g/dL 31.7-36 Mean Platelet Volume 9.3 fL 6.6-10.6 Platelet Count 376 K/uL High 155-360 Red Blood Count 4.93 M/uL 4.2-5.8 Red Cell Distri Width %CV 14.5 % 11.6-15.8 White Blood Count 10.6 K/uL High 3.4-10.5 Basic Metabolic Panel 09/04/2017 N[facility]N/CCD Import Anion [...] 31.7-36 Mean Platelet Volume 9.0 fL 6.6-10.6 [place] # 1.17 K/uL High 0-0.8 [place] % 12.1 % High 0-10 Neut# 5.95 K/uL 1.8-7 Neut% 61.5 % 33-73 Platelet Count 380 K/uL High 155-360 Red Blood Count 4.92 M/uL 4.2-5.8 Red Cell Distri Width %CV 14.2 % 11.6-15.8 Red Cell Distri Width SD 43.0 fl 36-51 White Blood Count 9.7 K/uL 3.4-10.5 [facility] W/Automated Diff 09/02/2017 N2N/CCD Import Bas% 0.7 % 0-1.1 51 Baso # 0.08 K/uL 0-0.1 Eo% 3.9 % 0-6.6 Eos # 0.43 K/uL 0-0.5 Hematocrit 40.8 % 38-48 Hemoglobin 13.3 gm/dL 12.8-17 Lymph # 1.31 K/uL 1-4 Lymph % 11.9 % Low 20-42 Mean Cell Volume 85.2 fl 80-96 Mean Corpuscular HGB 27.8 pg 27-33 Mean Corpuscular HGB Conc 32.6 g/dL 31.7-36 Mean Platelet Volume 9.5 fL 6.6-10.6 [place] # 1.37 K/uL High 0-0.8 [place] % 12.5 % High 0-10 Neut# 7.78 K/uL High 1.8-7 Neut% 71.0 % 33-73 Platelet Count 360 K/uL 155-360 Red Blood Count 4.79 M/uL 4.2-5.8 Red Cell Distri Width %CV 14.2 % 11.6-15.8 Red Cell Distri Width SD 43.4 fl 36-51 White Blood Count 11.0 K/uL High 3.4-10.5 Basic Metabolic Panel 09/02/2017 N2N/[facility]D Import Anion Gap 4 mEq/L Low 8- 16 BUN 12 mg/dL 7-18 BUN/Creat 13.3 ratio Calcium 8.0 mg/dL Low 8.5-10.1 Carbon Dioxide 28 mmol/L 21-32 Chloride 106 mmol/L 98-107 Creatinine 0.9 mg/dL 0.6-1.3 Glom Filtration Rate, Estimate >60 mL/min Glucose 105 mg/dL 74-106 If >60 mL/min 52 Potassium 3.8 mmol/L 3.5-5.1 Sodium 138 mmol/L 136-145 Laboratory test 09/02/2017 [facility] Import C-Reactive 5.7 mg/L High finding Protein,Quant Laboratory test 09/01/2017 [facility] Import Source: Urine, 53, 54 finding Clean Cat <See Note> Urine Bilirubin - Dipstick Negative Urine Blood Trace Urine Clarity Clear Urine Color Yellow Urine Glucose - Dipstick Negative mg/dL Urine Ketone Negative mg/dL Urine Leuk Esterase Negative Urine Nitrite - Dipstick Negative Urine PH 6.0 1 Low 6.5-7.5 Urine Protein - Dipstick Negative mg/dL Urine Specific Bland <=1.005 Low 1.01-1.03 Urine Urobilinogen - Dipstick 0.2 E.U./dL 0.2-1 Laboratory test finding 09/01/2017 [facility] Import Lipase 80 U/L 56-289 RBC Morphology Only 0-1+ Slide Review . 55 CBS W/Automated Diff 09/01/2017 [facility]N/CCD Import Bas% 0.5 % 0-1.1 Baso [...] 31.7-36 Mean Platelet Volume 9.6 fL 6.6-10.6 [place] # 1.35 K/uL High 0-0.8 [place] % 9.4 % 0-10 Neut# 10.46 K/uL [...] 31.7-36 Mean Platelet Volume 9.5 fL 6.6-10.6 [place] # 1.05 K/uL High 0-0.8 [place] % 10.3 % High 0-10 Neut# 6.58 [...] 31.7-36 Mean Platelet Volume 10.0 fL 6.6-10.6 [place] # 1.15 K/uL High 0-0.8 [place] % 11.5 % High 0-10 Neut# 5.85 [...] 6.3 g/dL Low 6.4-8.2 Laboratory test 08/22/2017 [facility] Import C-Reactive 51.8 mg/L High finding Protein,Quant [...] 31.7-36 Mean Platelet Volume 9.8 fL 6.6-10.6 [place] # 1.75 K/uL High 0-0.8 [place] % 12.2 % High 0-10 Neut# 9.95 K/uL High 1.8-7 Neut% 69.5 % 33-73 Platelet Count 306 K/uL 155-360 Red Blood Count 4.55 M/uL 4.2-5.8 Red Cell Distri Width %CV 14.4 % 11.6-15.8 Red Cell Distri Width SD 43.4 fl 36-51 White Blood Count 14.3 K/uL High 3.4-10.5 Comprehensive Metabolic Panel 08/22/2017 [facility] Import Alb/Glob 0.9 ratio Albumin 3.1 g/dL [...] Protein 6.4 g/dL 6.4-8.2 Laboratory test 08/21/2017 [facility] Import Source: Urine, Clean Cat 64 , 65 finding <See Note> Urine Bilirubin - Dipstick Negative Urine Blood Trace Urine Clarity Clear Urine Color Yellow Urine Glucose - Dipstick Negative mg/dL Urine Ketone Negative mg/dL Urine Leuk Esterase Negative Urine Nitrite - Dipstick Negative Urine PH 7.5 1 6.5-7.5 Urine Protein - Dipstick Negative mg/dL Urine Specific Bland 1.010 1 1.01-1.03 Urine Urobilinogen - Dipstick 0.2 E.U./dL 0.2-1 Laboratory test finding 08/21/2017 [facility] Import Anisocytosis 0-1+ Band% 11 % High 0-8 Basophil% 1 % 0-2 Eosinophil% 2 % 0-5 Lymph% 8 % Low 20-42 Microcytosis 0-1+ Monocyte% 3 % 0-10 Neutrophils% 75 % High 33-73 Platelet Estimate Normal Poikilocytosis 0-1+ Slide Review Diff Ordered Total Cells Counted 100 #CELLS CBS W/Automated Diff 08/21/2017 [facility] Import Bas% 0.2 % 0-1.1 Baso # 0.04 K/uL 0-0.1 Eo% 1.0 % 0-6.6 Eos # 0.19 K/uL 0-0.5 Hematocrit 42.0 % 38-48 Hemoglobin 14.1 gm/dL 12.8-17 Lymph # 2.09 K/uL 1-4 Lymph % 11.0 % Low 20-42 Mean Cell Volume 84.5 fl 80-96 Mean Corpuscular HGB 28.4 pg 27-33 Mean Corpuscular HGB Conc 33.6 g/dL 31.7-36 Mean Platelet Volume 9.7 fL 6.6-10.6 [place] # 1.70 K/uL High 0-0.8 [place] % 9.0 % 0-10 Neut# 14.91 K/uL High 1.8-7 Neut% 78.8 % High 33-73 Platelet Count 323 K/uL 155-360 Red Blood Count 4.97 M/uL 4.2-5.8 Red Cell Distri Width %CV 14.3 % 11.6-15.8 Red Cell Distri Width SD 43.1 fl 36-51 White Blood Count 18.9 K/uL High 3.4-10.5 Laboratory test finding 08/21/2017 N2N/CCD Import Lipase 102 U/L 56-289 Comprehensive Metabolic Panel 08/21/2017 N2N/CCD Import Alb/Glob 1.1 ratio Albumin 4.0 g/dL [...] 31.7-36 Mean Platelet Volume 9.4 fL 6.6-10.6 [place] # 1.05 K/uL High 0-0.8 [place] % 11.8 % High 0-10 Neut# 4.91 K/uL 1.8-7 Neut% 54.9 % 33-73 Platelet Count 340 K/uL 155-360 Red Blood Count 4.82 M/uL 4.2-5.8 Red Cell Distri Width %CV 13.5 % 11.6-15.8 Red Cell Distri Width SD 41.2 fl 36-51 White Blood Count 8.9 K/uL 3.4-10.5 Liver Function Tests 07/17/2017 [facility] Import Alb/Glob 1.1 ratio Albumin 3.7 g/dL 3.4-5 Alkaline Phosphatase 85 U/L 45-117 Bilirubin,Direct 0.1 mg/dL 0-0.2 Bilirubin,Indirect 0.2 mg/dL 0-0.9 Bilirubin,Total 0.3 mg/dL 0.2-1 Globulin 3.5 g/dL 1.9-4.3 Reflex add FT3? Y Reflex add FT4? Y SGPT/Alt 29 U/L 12-78 Sgot/Ast 19 U/L 15-37 Total Protein 7.2 g/dL 6.4-8.2 LDL Cholesterol Profile 06/26/2017 [facility] Import Cholesterol 141 mg/dL 71, 72 HDL Cholesterol 39 mg/dL Low 73 LDL-Cholesterol 68 mg/dL 74 Triglycerides 172 mg/dL High 75 Microalbumin,Random 06/26/2017 [facility] Import Microalbumin,Urine 8.5 mg/L Urine Laboratory test finding 06/26/2017 [facility] Import Glycohemoglobin (A1c) 6.2 % 4.2- 76 6.3 eAG 131 mg/dL Comprehensive Metabolic Panel 06/26/2017 [facility] Import Alb/Glob 1.1 ratio Albumin 3.7 g/dL [...] mmol/L 136-145 Total Protein 7.2 g/dL 6.4-8.2 Laboratory test 12/26/2016 [facility]N/[facility] Import Glycohemoglobin (A1c) 6.2 % 4.2-6.3 78, 79 finding eAG 131 mg/dL Comprehensive Metabolic Panel 12/26/2016 [facility] Import Alb/Glob 1.1 ratio Albumin 3.6 g/dL 3.4-5 Alkaline Phosphatase 73 U/L 45-117 Anion Gap 6 mEq/L Low 8-16 BUN 13 mg/dL 7-18 BUN/Creat 16.2 ratio Bilirubin,Total 0.2 mg/dL 0.2-1 Calcium 8.4 mg/dL Low 8.5-10.1 Carbon Dioxide 29 mmol/L 21-32 Chloride 105 mmol/L 98-107 Creatinine 0.8 mg/dL 0.6-1.3 Globulin 3.4 g/dL 1.9-4.3 Glom Filtration Rate, Estimate >60 mL/min Glucose 102 mg/dL 74-106 If >60 mL/min 80 Potassium 4.1 mmol/L 3.5-5.1 SGPT/Alt 29 U/L 12-78 Sgot/Ast 11 U/L Low 15-37 81 Sodium 140 mmol/L 136-145 Total Protein 7.0 g/dL 6.4-8.2 Microalbumin,Random 12/26/2016 [facility]N/[facility] Import Microalbumin,Urine 6.0 mg/L Urine Fungal Culture With 12/26/2016 [facility]N/[facility] Import Fungal Culture; Other (See 82 Smear Sources Note) Fungal Fluorochrome Stain Fungus Stain 83 Laboratory test 09/23/2016 [facility] Import Glycohemoglobin 6.5 % High 4.2- 6.3 84, 85 finding (A1c) eAG 140 mg/dL Laboratory test 08/18/2016 [facility] Import Glycohemoglobin (A1c) 7.7 % High 4.2-6.3 86 finding eAG 174 mg/dL Basic Metabolic Panel 08/18/2016 [facility] Import Anion Gap 7 mEq/L Low 8- 16 BUN 15 mg/dL 7-18 BUN/Creat 16.6 ratio Calcium 8.6 mg/dL 8.5-10.1 Carbon Dioxide 28 mmol/L 21-32 Chloride 103 mmol/L 98-107 Creatinine 0.9 mg/dL 0.6-1.3 Glom Filtration Rate, Estimate >60 mL/min Glucose 124 mg/dL High 74-106 If >60 mL/min 87 Potassium 3.9 mmol/L 3.5-5.1 Sodium 138 mmol/L 136-145 Microalbumin,Random 08/18/2016 [facility]N/CCD Import Microalbumin,Urine 9.1 mg/L Urine Laboratory test finding 07/16/2016 [facility]N/[facility] Import C-Reactive 9.25 88 Protein,Cardiac mg/L Glycohemoglobin (A1c) 7.7 % High 4.2-6.3 89 PSA ([place] Loci) 0.27 ng/mL 90 Reflex add FT3? Y Reflex add FT4? [...] 11.6-15.8 White Blood Count 7.1 K/uL 3.4-10.5 Comprehensive Metabolic Panel 07/16/2016 [facility]N/CCD Import Alb/Glob 0.9 ratio Albumin 3.4 g/dL 3.4-5 Alkaline Phosphatase 97 U/L 45-117 Anion Gap 6 mEq/L Low 8-16 BUN 11 mg/dL 7-18 BUN/Creat 12.2 ratio Bilirubin,Total 0.2 mg/dL 0.2-1 Calcium 8.2 mg/dL Low 8.5-10.1 Carbon Dioxide 28 mmol/L 21-32 Chloride 105 mmol/L 98-107 Creatinine 0.9 mg/dL 0.6-1.3 Globulin 3.8 g/dL 1.9-4.3 Glom Filtration Rate, Estimate >60 mL/min Glucose 125 mg/dL High 74-106 If >60 mL/min 91 Potassium 3.9 mmol/L 3.5-5.1 Reflex add FT3? Y Reflex add FT4? Y SGPT/Alt 37 U/L 12-78 Sgot/Ast 14 U/L Low 15-37 92 Sodium 139 mmol/L 136-145 Total Protein 7.2 g/dL 6.4-8.2 Homocyst(E)Ine, P/S 07/16/2016 [facility] Import Homocyst(e)ine, P/S 9.0 umol/ L 0-15 93 Microalbumin,Random 07/16/2016 N2N/CCD Import Microalbumin,Urine 6.3 mg/L Urine Laboratory test 04/06/2015 N2N/CCD Import Glycohemoglobin 6.2 % 4.2-6.3 94 finding (A1c) eAG 131 mg/dL Laboratory test 02/20/2015 N2N/CCD Import Microalbumin,Random Urine See Note 95 finding Mumps Antibodies, Igg 198.0 Immune>10.9AU 96 Prostate Specific Antigen 0.32 ng/mL 97 Rubella IgG Antibody Reactive Reactive Rubella IgG Iu/ml 44.8 IU/mL 98 Rubeola Antibodies, Igg >300.0 Immune>29.9AU 99 Thyroid Stim Hormone 2.93 uIU/mL 0.36-3.74 Vitamin D,25-Hydroxy 32.0 ng/mL 30-100 100 Basic Metabolic Panel 02/20/2015 N2N/CCD Import Anion Gap 8 mEq/L 8-16 BUN 12 mg/dL 7-18 BUN/Creat 13.3 ratio Calcium 8.3 mg/dL Low 8.5-10.1 Carbon Dioxide 26 mmol/L 21-32 Chloride 103 mmol/L 98-107 Creatinine 0.9 mg/dL 0.6-1.3 Glom Filtration Rate, Estimate >60 mL/min Glucose 124 mg/dL High 74-106 If >60 mL/min 101 Potassium 3.8 mmol/L 3.5-5.1 Sodium 137 mmol/L 136-145 CBC 02/20/2015 N2N/CCD Import Hematocrit 42.4 % 38-48 Hemoglobin 14.7 [...] 124 mg/dL High 74-106 If >60 mL/min 102 Potassium 3.8 mmol/L 3.5-5.1 SGPT/Alt 34 U/L 12-78 Sgot/Ast 18 U/L 15-37 Sodium 137 mmol/L 136-145 Total Protein 6.8 g/dL 6.4-8.2 LDL Cholesterol Profile 02/20/2015 N2N/CCD Import Cholesterol 138 mg/dL 103 HDL Cholesterol 29 mg/dL 104 LDL-Cholesterol 66 mg/dL 105 Triglycerides 217 mg/dL 106 Laboratory test 12/29/2013 N2N/CCD Import Microalbumin,Random 10.9 [...] Triglycerides 210 mg/dL 16-231 Imaging finding 12/27/2013 N2N/[facility] Import chest Xray pa <pending> and lat Laboratory test 06/30/2013 N2N/[facility] Import Microalbumin,Ran 8.0 mg/L 0- 18.5 finding dom Urine Prostate Specific Antigen 0.38 ng/mL 0-4 109 Uric Acid 6.3 mg/dL 2.1-7.4 Comprehensive Metabolic Panel 06/30/2013 N2N/[facility] Import Alb/Glob 1.7 ratio Albumin 3.9 g/dL [...] g/dL Low 6.3-8 LDL Cholesterol Profile 06/30/2013 N2N/[facility] Import Cholesterol 153 mg/dL 120-200 HDL Cholesterol 30 mg/dL 29-83 LDL-Cholesterol 77 mg/dL 62-185 Triglycerides 230 mg/dL 16-231 Imaging finding 05/26/2013 N2N/[facility] Import Xray R hand/thumb <pending> Comprehensive Metabolic 02/18/2013 N2N/CCD Import Alb/Glob 1.2 ratio Panel Albumin 3.7 g/dL 3.5-5 Alkaline Phosphatase 92 [...] 6.9 g/dL 6.3-8 LDL Cholesterol Profile 02/18/2013 N2N/[facility] Import Cholesterol 149 mg/dL 120-200 HDL Cholesterol 31 mg/dL 29-83 LDL-Cholesterol 72 mg/dL 62-185 Triglycerides 228 mg/dL 16-231 Laboratory test 02/18/2013 N2N/[facility] Import Thyroid Stim 1.57 uIU/mL 0.49- 4.67 finding Hormone CBC 02/18/2013 N2N/[facility] Import Hematocrit 45.2 % 38-48 Hemoglobin 15.4 gm/dL 12.8-17 Mean Cell Volume 87.1 fl 80-96 Mean Corpuscular HGB 29.7 pg 27-33 Mean Corpuscular HGB Conc 34.1 g/dL 31.7-36 Mean Platelet Volume 9.8 fL 6.6-10.6 Platelet Count 336 K/uL 150-400 Red Blood Count 5.19 M/uL 4.2-5.8 Red Cell Distri Width %CV 13.0 % 11.6-15.8 White Blood Count 9.2 K/uL 3.4-10.5 Laboratory test 01/16/2012 N2N/[facility] Import Thyroid Stim 3.57 uIU/mL 0.49- 4.67 [...] 31.7-36 Mean Platelet Volume 9.8 fL 6.6-10.6 [place] # 1.01 K/uL High 0-0.6 [place] % 10.6 % High 0-10 Neut# 5.18 K/uL 1.8-7 Neut% 54.6 % 33-73 Platelet Count 356 K/uL 150-400 Red Blood Count 5.27 M/uL 4.2-5.8 Red Cell Distri Width %CV 13.3 % 11.6-15.8 Red Cell Distri Width SD 40.7 fl 36-51 White Blood Count 9.5 K/uL 3.4-10.5 Comprehensive Metabolic Panel 01/16/2012 N2N/[facility] Import Alb/Glob 1.2 ratio Albumin 3.8 g/dL [...] Triglycerides 295 mg/dL High 16-231 Laboratory test 11/12/2011 N2N/CCD Import Uric Acid [...] 31.7-36 Mean Platelet Volume 9.9 fL 6.6-10.6 [place] # 0.88 K/uL High 0-0.6 [place] % 12.4 % High 0-10 Neut# 3.52 [...] information may be found at [email or web address]. 4 Regrinder Operator: [id number] 5 F06.8, 6 Reference Range: Children and Adults: Baseline: Less than 1 Post Metyrapone: Single Dose Test: 7 - 18 Multiple Dose Test: 10 - 25 Performed at: [facility] [employer] [address] [place] [id number] Polysomnographic Tech: Vipin Cox MD, Phone: [phone] Performed at: [address] [id number] Polysomnographic Tech: Bety Mcknight MD, Phone: [phone] Note: Persistent reduction for 3 months [...] Positive >1:80 Performed at: RN - [facility] [address] [id number] Polysomnographic Tech: Gauri Villarreal MD, Phone: [phone] Method: Sediplast Modified Westergren 13 Positive: [...] are those recommended by CDC/ASTPHLD. p23=Osp C, w40=fakfevfqs Note: Sera from individuals with the following may cross react in the Lyme Western Blot assays: other spirochetal diseases (periodontal disease, leptospirosis, relapsing fever, yaws, and pinta); connective autoimmune (Rheumatoid Arthritis and Systemic Lupus Erythematosus and also individuals with Antinuclear Antibody); other infections (Marshall Spotted Fever; Narayan-Moralez Virus, and Cytomegalovirus). 15 [...] for more aggressive treatment of glycemia. The [place] Diabetes Association recommends that a primary goal [...] for more aggressive treatment of glycemia. The [place] Diabetes Association recommends that a primary goal [...] be found at [email or web address]. 32 Performed at: RN - [facility] [address] [id number] Polysomnographic Tech: Gauri Villarreal MD, Phone: [phone] 33 THERAPEUTIC INR RANGE: 2.0 - 3.0 DVT, Pulmonary embolus, prophylaxis against venous thrombosis or systemic embolization in high risk patients. 2.5 - 3.5 Mechanical heart valves 34 DIVERTICULITIS, NO BM ALL WEEK, ABD PAIN 35 Instrument flagged sample for slide review. Less than 10% Bands seen, no other immature WBC's seen. RBC morphology essentially normal. Platelet estimate=NORMAL 36 Method: Chase Hagan Hemoccult Card 37 URINE, CLEAN CATCH 38 Note: Persistent reduction for 3 months or more in an eGFR <60 mL/min/1.73 m2 defines CKD. Patients with eGFR values >/=60 mL/min/1.73 m2 may also have CKD if evidence of persistent proteinuria is present. The original MDRD equation for estimated GFR is not valid for patients less than 18 years of age. Additional information may be found at [email or web address]. 39 Values below the stated reference ranges of AST and ALT can be seen in normal populations. Clinical correlation is suggested. 40 E27.8,Z12.5,E66.09,E11.9,I10 41 Note: Persistent reduction for 3 months or more in an eGFR <60 mL/min/1.73 m2 defines CKD. Patients with eGFR values >/=60 mL/min/1.73 m2 may also have CKD if evidence of persistent proteinuria is present. The original MDRD equation for estimated GFR is not valid for patients less than 18 years of age. Additional information may be found at [email or web address]. 42 This test was developed and its performance characteristics determined by [facility] It has not been cleared or approved by the Food and Drug Administration. 43 Performed at: [address] [id number] Polysomnographic Tech: Gauri Villarreal MD, Phone: [phone] 44 Age 1 - 5 years 0 - 67 6 - 7 years 0 - 110 8 - 10 years 0 - 185 11 - 12 years 0 - 201 13 - 14 years 0 - 318 15 - 16 years 39 - 481 17 - 19 years 40 - 491 >19 years 31 - 701 45 Elevated levels of HbA1c suggest the need for more aggressive treatment of glycemia. The [place] Diabetes Association recommends that a primary goal of therapy should be a HbA1c of <7% and that physicians should re-evaluate the treatment regimen in patients with HbA1c values consistently >8%. 46 This [facility] LC/MS-MS method is currently certified by the CDC Hormone Standardization Program (HoSt). Adult male reference interval is based on a population of healthy nonobese males (BMI <30) between 19 and 39 years old. Ede, et.al. JCEM 2017,102;6495-3872. PMID: 20699674. Performed at: [address] [id number] Polysomnographic Tech: Melquiades Palumbo MD, Phone: [phone] 47 THIS ASSAY IS NOT INTENDED A CANCER SCREENING TEST The concentration of PSA in a given specimen, determined with assays from different manufacturers, can vary due to differences in assay methods and reagent specificity. Values obtained from different assay methods cannot be used interchangeably. Method: Siemens Dimension [place] Chemiluminescent immunoassay. 48 Vitamin D deficiency has been defined by the [place] [employer] and an Endocrine Society practice guideline as a level of serum 25-OH vitamin D less than 20 ng/mL (1,2). The Endocrine Society went on to further define vitamin D insufficiency as a level between 21 and 29 ng/mL (2). 1. IOM ([place] [employer]). 2010. Dietary reference intakes for calcium and D. [place]: The National Academies Press. 2. Ellyn CHAMPAGNE, Ronald CARROLL, Aayush LOPEZ, et al. Evaluation, treatment, and prevention of vitamin D deficiency: an Endocrine Society clinical practice guideline. JCEM. 2010; 96(7):1911-30. Performed at: RN - [facility] [address] [id number] Polysomnographic Tech: Gauri Villarreal MD, Phone: [phone] 49 ACUTE DIVERTICULITIS 50 Note: Persistent reduction [...] for more aggressive treatment of glycemia. The [place] Diabetes Association recommends that a primary goal [...] Positive >1:80 Performed at: [facility] - [facility] [employer] [address] [place] [id number] Polysomnographic Tech: Gauri Villarreal MD, Phone: [phone] 70 Method: Sediplast Modified Westergren 71 E11.9,I10 72 Reference Guidelines*: Desirable: ........... < 200 mg/dL Borderline High: ..... 200-239 mg/dL High: ................ >=240 mg/dL * The National Cholesterol Education Program (NCEP) 73 Reference Guidelines*: Low HDL: ..... < 40 mg/dL Normal: ..... 40-60 mg/dL Desirable: ... > 60 mg/dL *The National Cholesterol Education Program(NCEP) 74 Reference Guidelines*: Optimal:........... <100 mg/dL Near Optimal....... 100-129 mg/dL Borderline High.... 130-159 mg/dL High............... 160-189 mg/dL Very High.......... >=190 mg/dL * Source: National Cholesterol Education Program (NCEP) 75 Reference Guidelines*: Normal: ............. < 150 mg/dL Borderline High: .... 150-199 mg/dL High: ............... 200-499 mg/dL Very High: .......... > 500 mg/dL * Source: National Cholesterol Education Program (NCEP) 76 Elevated levels of HbA1c suggest the need for more aggressive treatment of glycemia. The [place] Diabetes Association recommends that a primary goal [...] found at www.[email or web address]. 78 E11.9 TINEA 79 Elevated levels of HbA1c suggest the need for more aggressive treatment of glycemia. The [place] Diabetes Association recommends that a primary goal of therapy should be a HbA1c of <7% and that physicians should re-evaluate the treatment regimen in patients with HbA1c values consistently >8%. 80 Note: Persistent reduction for 3 months or more in an eGFR <60 mL/min/1.73 m2 defines CKD. Patients with eGFR values >/=60 mL/min/1.73 m2 may also have CKD if evidence of persistent proteinuria is present. The original MDRD equation for estimated GFR is not valid for patients less than 18 years of age. Additional information may be found at www.[email or web address]. 81 Values below the stated reference ranges of AST and ALT can be seen in normal populations. Clinical correlation is suggested. 82 Fungus (Mycology) Culture Final report Result 1 Fusarium species Performed at: RN - [facility] [address] [id number] Polysomnographic Tech: Gauri Villarreal MD, Phone: [phone] Final report Result 1 Hyphae observed 84 E11.9 85 Elevated levels of HbA1c suggest the need for more aggressive treatment of glycemia. The [place] Diabetes Association recommends that a primary goal of therapy should be a HbA1c of <7% and that physicians should re-evaluate the treatment regimen in patients with HbA1c values consistently >8%. 86 Elevated levels of HbA1c suggest the need for more aggressive treatment of glycemia. The [place] Diabetes Association recommends that a primary goal [...] be found at www.[email or web address]. 88 Z12.5,E66.3,R73.03,I10,Z00.00 89 Elevated levels of HbA1c suggest the need for more aggressive treatment of glycemia. The [place] Diabetes Association recommends that a primary goal of therapy should be a HbA1c of <7% and that physicians should re-evaluate the treatment regimen in patients with HbA1c values consistently >8%. 90 THIS ASSAY IS NOT INTENDED A CANCER SCREENING TEST The concentration of PSA in a given specimen, determined with assays from different manufacturers, can vary due to differences in assay methods and reagent specificity. Values obtained from different assay methods cannot be used interchangeably. Method: Siemens Dimension [place] Chemiluminescent immunoassay. 91 Note: Persistent reduction for 3 months or more in an eGFR <60 mL/min/1.73 m2 defines CKD. Patients with eGFR values >/=60 mL/min/1.73 m2 may also have CKD if evidence of persistent proteinuria is present. The original MDRD equation for estimated GFR is not valid for patients less than 18 years of age. Additional information may be found at www.[email or web address]. 92 Values below the stated reference ranges of AST and ALT can be seen in normal populations. Clinical correlation is suggested. 93 Performed at: [facility] [place] [id number] Polysomnographic Tech: Gauri Villarreal MD, Phone: [phone] 94 Elevated levels of HbA1c suggest the need for more aggressive treatment of glycemia. The [place] Diabetes Association recommends that a primary goal of therapy should be a HbA1c of <7% and that physicians should re-evaluate the treatment regimen in patients with HbA1c values consistently >8%. 95 PT UNABLE TO VOID. 96 Negative <9.0 Equivocal 9.0 - 10.9 Positive >10.9 A positive result generally indicates past exposure to Mumps virus or previous vaccination. Performed at: [facility] [place] [id number] Polysomnographic Tech: Gauri Villarreal MD, Phone: [phone] 97 THIS ASSAY IS NOT INTENDED A CANCER SCREENING TEST The concentration of PSA in a given specimen, determined with assays from different manufacturers, can vary due to differences in assay methods and reagent specificity. Values obtained from different assay methods cannot be used interchangeably. 98 Values >=10.0 IU/mL are positive for IgG antibodies to rubella virus and are considered IMMUNE. 99 Negative <25.0 Equivocal 25.0 - 29.9 Positive >29.9 Presence of antibodies to Rubeola is presumptive evidence of immunity except when acute infection is suspected. 100 Vitamin D deficiency has been defined by the [place] [employer] and an Endocrine Society practice guideline as a level of serum 25-OH vitamin D less than 20 ng/mL (1,2). The Endocrine Society went on to further define vitamin D insufficiency as a level between 21 and 29 ng/mL (2). 1. IOM ([place] [employer]). 2010. Dietary reference intakes for calcium and D. [place]: The National Academies Press. 2. Ellyn MF, Ronald [place], Aayush LOPEZ, et al. Evaluation, treatment, and prevention of vitamin D deficiency: an Endocrine Society clinical practice guideline. JCEM. 2010; 96(7):1911-30. Performed at: RN - [facility] [address] [id number] Polysomnographic Tech: Gauri Villarreal MD, Phone: [phone] 101 Note: Persistent reduction for 3 months or more in an eGFR <60 mL/min/1.73 m2 defines CKD. Patients with eGFR values >/=60 mL/min/1.73 m2 may also have CKD if evidence of persistent proteinuria is present. The original MDRD equation for estimated GFR is not valid for patients less than 18 years of age. Additional information may be found at www.[email or web address]. 102 Note: Persistent reduction for 3 months or more in an eGFR <60 mL/min/1.73 m2 defines CKD. Patients with eGFR values >/=60 mL/min/1.73 m2 may also have CKD if evidence of persistent proteinuria is present. The original MDRD equation for estimated GFR is not valid for patients less than 18 years of age. Additional information may be found at www.[email or web address]. 103 Reference Guidelines*: Desirable: ........... < 200 mg/dL Borderline High: ..... 200-239 mg/dL High: ................ >=240 mg/dL * The National Cholesterol Education Program (NCEP) 104 Reference Guidelines*: Low HDL: ..... < 40 mg/dL Normal: ..... 40-60 mg/dL Desirable: ... > 60 mg/dL *The National Cholesterol Education Program(NCEP) 105 Reference Guidelines*: Optimal:........... <100 mg/dL Near Optimal....... 100-129 mg/dL Borderline High.... 130-159 mg/dL High............... 160-189 mg/dL Very High.......... >=190 mg/dL * Source: National Cholesterol Education Program (NCEP) 106 Reference Guidelines*: Normal: ............. < 150 mg/dL Borderline High: .... 150-199 mg/dL High: ............... 200-499 mg/dL Very High: .......... > 500 mg/dL * Source: National Cholesterol Education Program (NCEP) 107 Canceled By Lab 108 Note: Persistent [...] [email or web address]. Procedures Date Code Description Status 11/11/2017 [id number] Colonoscopy Completed 11/11/2017 66557 Colonoscopy Flexible Diagnostic Completed 10/28/2017 68256 EKG, Tracing Only, No Interpretation Completed 07/02/2015 54554 Pure Tone Hearing Test, Air Completed 06/30/2014 72037 Visual funct screen test, automated Completed 06/30/2014 72812 Pure Tone Hearing Test, Air Completed 06/29/2013 22334 Visual funct screen test, automated Completed 06/29/2013 05511 Pure Tone-Air Condition Only Completed 06/28/2012 38198 Visual funct screen test, automated Completed 06/28/2012 07654 Pure Tone-Air Condition Only Completed 06/24/2011 35355 Visual funct screen test, automated Completed 06/24/2011 11652 Pure Tone-Air Condition Only Completed 06/10/2010 88755 Visual funct screen test, automated Completed 06/10/2010 52010 Pure Tone-Air Condition Only Completed 06/06/2009 53065 Visual funct screen test, automated Completed 06/06/2009 04979 Pure Tone-Air Condition Only Completed 03/20/1999 06463 Inject/Drain Joint/Bursa Major W/O US Completed Encounters Type Date Location Provider Dx Diagnosis Office Visit 07/07/2018 [facility] Nilesh Z00.01 Encounter for 4:00p MD Theresa general adult medical exam w abnormal findings Z12.11 Encounter for screening for malignant neoplasm of colon Z12.5 Encounter for screening for malignant neoplasm of prostate E66.3 Overweight I10 Essential (primary) hypertension J44.9 Chronic obstructive pulmonary disease, unspecified K21.9 Gastro-esophageal reflux disease without esophagitis M19.90 Unspecified osteoarthritis, unspecified site E11.9 Type 2 diabetes mellitus without complications Plan of Treatment Future Appointment(s):09/24/2018 9:30 am - Nilesh Cardenas MD at [facility]10/01/2018 8:45 am - Nilesh Cardenas MD at [facility]10/2018 - Nilesh Cardenas, MDR48.8 Other symbolic dysfunctionsReferral:Jomar Mehta M.D., Neurology
--- OUTSIDE RECORDS SUMMARY | 2018-10-03 15:13 | XMS REPORT | Continuity of Care Document ---
:1965 External Reference #:[id number] Author Name Veronique Valenzuela MD Address [address] [facility] [address] Care Team Providers Name Role Phone Nilesh Cardenas MD Care Team Information Clinical Psychologist Licensed Unavailable Nilesh Cardenas MD Primary Care Physician Unavailable Payers Date Identification Numbers Payment Provider Subscriber Policy Number: [id number] [facility] Ronnie Guzman PayID: [id number] [address] [address] [place] [address] Effective: 2009 Policy Number: [id number] [facility] Ronnie Guzman Expires: 2015 Group Number: [id number] [address] PayID: [id number] STEPHANIE Ray [id number] Advance Directives Description No Information Available Problems [...] Diverticulitis First Sister Diabetes Grandmother due to [place] () Uncle Diabetes Mellitus Type 1 Social History Type Date Description Comments Sex Unknown Marital Status Single Lives With Alone 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5 F Heart Rate 102 /min Height 71 inches 5'11" Weight 294.25 lb BMI (Body Mass Index) 41.0 kg/m2 BSA (Body Surface Area) 2.48 m2 [place] body weight in kilograms 78 kg O2 % BldC Oximetry 97 % Pain Level 6 06/18/2018 10:01am BP Systolic Sitting Right Arm 135 mmHg BP Diastolic Sitting Right Arm 82 mmHg Body Temperature 97.5 F Heart Rate 111 /min Height 71 inches 5'11" Weight 296.25 lb BMI (Body Mass Index) 41.3 kg/m2 BSA (Body Surface Area) 2.49 m2 [place] body weight in kilograms 78 kg O2 % BldC Oximetry 97 % Pain Level 2 05/20/2018 2:28pm BP Systolic 128 mmHg BP Diastolic 80 mmHg Body Temperature 98.0 F Heart Rate 102 /min Height 71 inches 5'11" Weight 286.00 lb BMI (Body Mass Index) 39.9 kg/m2 BSA (Body Surface Area) 2.45 m2 [place] body weight in kilograms 78 kg O2 % BldC Oximetry 94 % Pain Level 5 05/07/2018 8:59am BP Systolic Sitting Right Arm 121 mmHg BP Diastolic Sitting Right Arm 75 mmHg Body Temperature 97.7 F Heart Rate 99 /min Height 71 inches 5'11" Weight 295.00 lb BMI (Body Mass Index) 41.1 kg/m2 BSA (Body Surface Area) 2.49 m2 [place] body weight in kilograms 78 kg O2 % BldC Oximetry 97 % Pain Level 8 04/02/2018 10:08am BP Systolic Sitting Right Arm 109 mmHg BP Diastolic Sitting Right Arm 73 mmHg Body Temperature 97.5 F Heart Rate 95 /min Respiratory Rate 20 /min Height 71 inches 5'11" Weight 284.50 lb BMI (Body Mass Index) 39.7 kg/m2 BSA (Body Surface Area) 2.45 m2 [place] body weight in kilograms 78 kg O2 % BldC Oximetry 96 % 02/25/2018 2:35pm BP Systolic 100 mmHg BP Diastolic 69 mmHg Body Temperature 98.3 F Heart Rate 88 /min Respiratory Rate 20 /min Height 71 inches 5'11" Weight 277.25 lb BMI (Body Mass Index) 38.7 kg/m2 BSA (Body Surface Area) 2.42 m2 [place] body weight in kilograms 78 kg O2 % BldC Oximetry 96 % Ra Pain Level 3 RT hip 01/25/2018 12:59pm BP Systolic 100 mmHg BP Diastolic 66 mmHg Body Temperature 97.3 F Heart Rate 109 /min Height 71 inches 5'11" Weight 283.00 lb BMI (Body Mass Index) 39.5 kg/m2 BSA (Body Surface Area) 2.44 m2 [place] body weight in kilograms 78 kg O2 % BldC Oximetry 97 % Pain Level 6 varries from about 6 to 8 out of 10 12/07/2017 3:13pm BP Systolic 117 mmHg BP Diastolic 74 mmHg Heart Rate 95 /min Respiratory Rate 18 /min Height 71 inches 5'11" Weight 272.00 lb BMI (Body Mass Index) 37.9 kg/m2 BSA (Body Surface Area) 2.40 m2 [place] body weight in kilograms 78 kg O2 % BldC Oximetry 97 % 11/23/2017 10:44am BP Systolic 114 mmHg BP Diastolic 82 mmHg Body Temperature 98.1 F Heart Rate 103 /min Respiratory Rate 17 /min Height 71 inches 5'11" Weight 270.00 lb BMI (Body Mass Index) 37.7 kg/m2 BSA (Body Surface Area) 2.40 m2 [place] body weight in kilograms 78 kg O2 % BldC Oximetry 96 % 11/16/2017 9:47am BP Systolic 134 mmHg BP Diastolic 87 mmHg Body Temperature 98.4 F Heart Rate 106 /min Respiratory Rate 19 /min Height 71 inches 5'11" Weight 270.00 lb BMI (Body Mass Index) 37.7 kg/m2 BSA (Body Surface Area) 2.40 m2 [place] body weight in kilograms 78 kg O2 % BldC Oximetry 97 % 10/26/2017 9:08am BP Systolic 121 mmHg BP Diastolic 76 mmHg Heart Rate 87 /min Height 71 inches 5'11" Weight 283.00 lb BMI (Body Mass Index) 39.5 kg/m2 BSA (Body Surface Area) 2.44 m2 [place] body weight in kilograms 78 kg 10/06/2017 9:10am BP Systolic 135 mmHg BP Diastolic 86 mmHg Heart Rate 92 /min Height 71 inches 5'11" Weight 277.00 lb BMI (Body Mass Index) 38.6 kg/m2 BSA (Body Surface Area) 2.42 m2 [place] body weight in kilograms 78 kg 02/22/2015 [...] Test Result H/L Range Note CBC 11/09/2017 [facility] White Blood Count 10.2 K/uL N 3.4-10.5 1 [address], [place] [id number] [phone] Red Blood Count 4.29 M/uL N 4.20-5.80 [...] fL N 6.6-10.6 Basic Metabolic Panel 11/09/2017 [facility] Glucose 90 mg/dL N 74-106 [address], [place] [id number] [phone] BUN 9 mg/dL N 7-18 Creatinine 0.8 mg/dL N 0.6-1.3 Glom Filtration Rate, Estimate >60 mL/min >60 If >60 mL/min >60 2 BUN/Creat 11.2 ratio Sodium 139 mmol/L N 136-145 Potassium 3.3 mmol/L Low 3.5-5.1 Chloride 105 mmol/L N 98-107 Carbon Dioxide 24 mmol/L N 21-32 Anion Gap 10 mEq/L N 8-16 Calcium 8.0 mg/dL Low 8.5-10.1 Basic Metabolic Panel 11/08/2017 [facility] Glucose 101 mg/dL N 74-106 [address] [place] [address] [phone] BUN 10 mg/dL N 7-18 Creatinine 0.8 mg/dL N 0.6-1.3 Glom Filtration Rate, Estimate >60 mL/min >60 If >60 mL/min >60 3 BUN/Creat 12.5 ratio Sodium 139 mmol/L N 136-145 Potassium 3.3 mmol/L Low 3.5-5.1 Chloride 107 mmol/L N 98-107 Carbon Dioxide 24 mmol/L N 21-32 Anion Gap 8 mEq/L N 8-16 Calcium 7.8 mg/dL Low 8.5-10.1 CBC 11/08/2017 [facility] White Blood Count 9.8 K/uL N 3.4-10.5 [address] [place] [address] [phone] Red Blood Count 4.21 M/uL N 4.20-5.80 Hemoglobin 11.9 gm/dL Low 12.8-17.0 Hematocrit 36.4 % Low 38.0-48.0 Mean Cell Volume 86.5 fl N 80.0-96.0 Mean Corpuscular HGB 28.3 pg N 27.0-33.0 Mean Corpuscular HGB Conc 32.7 g/dL N 31.7-36.0 Platelet Count 333 K/uL N 155-360 Red Cell Distri Width %CV 15.1 % N 11.6-15.8 Mean Platelet Volume 10.0 fL N 6.6-10.6 Glycohemoglobin 11/07/2017 [facility] Glycohemoglobin 6.4 % High 4.2-6.3 4 A1c [address] [facility] (A1c) [place] [address] [phone] eAG 137 mg/dL CBC 11/07/2017 [facility] White Blood Count 10.0 K/uL N 3.4-10.5 [address] [place] [address] [phone] Red Blood Count 4.30 M/uL N 4.20-5.80 [...] fL N 6.6-10.6 Basic Metabolic Panel 11/07/2017 [facility] Glucose 108 mg/dL High 74-106 [address] [place] [address] [phone] BUN 11 mg/dL N 7-18 Creatinine 0.9 mg/dL N 0.6-1.3 Glom Filtration Rate, Estimate >60 mL/min >60 If >60 mL/min >60 5 BUN/Creat 12.2 ratio Sodium 139 mmol/L N 136-145 Potassium 3.5 mmol/L N 3.5-5.1 Chloride 107 mmol/L N 98-107 Carbon Dioxide 24 mmol/L N 21-32 Anion Gap 8 mEq/L N 8-16 Calcium 7.8 mg/dL Low 8.5-10.1 CBC 11/06/2017 [facility] White Blood Count 13.0 K/uL High 3.4-10.5 6 [address] [place] [address] [phone] Red Blood Count 4.54 M/uL N 4.20-5.80 [...] 10.0 fL N 6.6-10.6 Comprehensive Metabolic 11/06/2017 [facility] Glucose 129 mg/dL High 74-106 Panel [address] [place] [address] [phone] BUN 14 mg/dL N 7-18 Creatinine 1.0 [...] N 3.4-10.[address] [place], [place] [id number] [phone] Red Blood Count 4.92 M/uL N 4.20-5.80 [...] 33.0-73.0 Lymph % 21.3 % N 20.0-42.0 [place] % 12.1 % High 0.0-10.0 Eo% 4.6 % N 0.0-6.6 Bas% 0.5 % N 0.0-1.1 Neut# 5.95 K/uL N 1.8-7.0 Lymph # 2.06 K/uL N 1.0-4.0 [place] # 1.17 K/uL High 0.0-0.8 Eos # 0.44 K/uL N 0.0-0.5 Baso # 0.05 K/uL N 0.0-0.1 Basic Metabolic Panel 09/04/2017 [facility] Glucose 126 mg/dL High 74-[address] [place] [address] [phone] BUN 11 mg/dL N 7-18 Creatinine 0.9 mg/dL N 0.6-1.3 Glom Filtration Rate, Estimate >60 mL/min >60 If >60 mL/min >60 9 BUN/Creat 12.2 ratio Sodium 141 mmol/L N 136-145 Potassium 4.4 mmol/L N 3.5-5.1 Chloride 107 mmol/L N 98-107 Carbon Dioxide 31 mmol/L N 21-32 Anion Gap 3 mEq/L Low 8-16 Calcium 8.7 mg/dL N 8.5-10.1 CBS W/Automated 08/24/2017 [facility] White Blood 10.2 K/uL N 3.4-10.[address] [place] [address] [phone] Red Blood Count 4.58 M/uL N 4.20-5.80 [...] 33.0-73.0 Lymph % 21.0 % N 20.0-42.0 [place] % 10.3 % High 0.0-10.0 Eo% 3.9 % N 0.0-6.6 Bas% 0.4 % N 0.0-1.1 Neut# 6.58 K/uL N 1.8-7.0 Lymph # 2.15 K/uL N 1.0-4.0 [place] # 1.05 K/uL High 0.0-0.8 Eos # 0.40 K/uL N 0.0-0.5 Baso # 0.04 K/uL N 0.0-0.1 Basic Metabolic Panel 08/24/2017 [facility] Glucose 112 mg/dL High 74-[address] [place] [address] [phone] BUN 11 mg/dL N 7-18 Creatinine 0.8 mg/dL N 0.6-1.3 Glom Filtration Rate, Estimate >60 mL/min >60 If >60 mL/min >60 10 BUN/Creat 13.7 ratio Sodium 140 mmol/L N 136-145 Potassium 4.1 mmol/L N 3.5-5.1 Chloride 107 mmol/L N 98-107 Carbon Dioxide 26 mmol/L N 21-32 Anion Gap 7 mEq/L Low 8-16 Calcium 8.4 mg/dL Low 8.5-10.1 Laboratory test 08/23/2017 [facility] C-Reactive 52.9 High <3.[address] Protein,Quant mg/[place] [address] [phone] Comprehensive 08/23/2017 [facility] Glucose 101 N 74-106 Metabolic Panel [address] mg/[place] [address] [phone] BUN 11 mg/dL N 7-18 Creatinine 0.9 [...] 60 U/L N 45-117 CBS W/Automated 08/23/2017 [facility] White Blood 10.0 K/uL N 3.4-10.[address] [place] [address] [phone] Red Blood Count 4.59 M/uL N 4.20-5.80 [...] 33.0-73.0 Lymph % 24.5 % N 20.0-42.0 [place] % 11.5 % High 0.0-10.0 Eo% 4.8 % N 0.0-6.6 Bas% 0.5 % N 0.0-1.1 Neut# 5.85 K/uL N 1.8-7.0 Lymph # 2.44 K/uL N 1.0-4.0 [place] # 1.15 K/uL High 0.0-0.8 Eos # 0.48 K/uL N 0.0-0.5 Baso # 0.05 K/uL N 0.0-0.1 Laboratory test finding 08/22/2017 [facility] Magnesium 2.2 mg/dL N 1.8-2.[address] [place] [address] [phone] C-Reactive Protein,Quant 51.8 mg/L High <3.0 Comprehensive Metabolic 08/22/2017 [facility] Glucose 104 mg/dL N 74-[address] [place] [address] [phone] BUN 16 mg/dL N 7-18 Creatinine 0.8 [...] 67 U/L N 45-117 CBS W/Automated 08/22/2017 [facility] White Blood 14.3 K/uL High 3.4-10.[address] [place] [address] [phone] Red Blood Count 4.55 M/uL N 4.20-5.80 [...] 33.0-73.0 Lymph % 16.4 % Low 20.0-42.0 [place] % 12.2 % High 0.0-10.0 Eo% 1.7 % N 0.0-6.6 Bas% 0.2 % N 0.0-1.1 Neut# 9.95 K/uL High 1.8-7.0 Lymph # 2.35 K/uL N 1.0-4.0 [place] # 1.75 K/uL High 0.0-0.8 Eos # [...] for more aggressive treatment of glycemia. The [place] [employer] recommends that a primary goal [...] is suggested. Procedures Date Code Description Status 07/23/201894630 Asp./Injection major joint Completed 05/07/201843905 Asp./Injection major joint Completed 04/02/2018 65274 Radiologic Exam Hip Unilateral With Pelvis 2-3 Views Completed 04/02/2018 33671 Radiology, Shoulder: Two Views (Sso) Completed 02/25/201842472 Asp./Injection major joint Completed 01/25/2018 90037 Radiology, Knee 3 Views Completed 01/25/2018 11382 Radiology, Knee 3 Views Completed 01/25/201880155 Asp./Injection major joint Completed 11/05/2017 23434 Cystourethroscopy W/Catheterization Completed 11/05/2017 63036 Laparoscopy, colectomy, partial, with anastomosis Completed 03/26/201528593 Asp./Injection major joint Completed 02/22/2015 04304 Radiology, Knee 3 Views Completed 02/22/2015 94054 Radiology, Knee 3 Views Completed 02/22/2015 41591 Radiology, Knee 3 Views Completed 11/21/2010 48975 Radiology, Elbow Complete Completed 11/21/201077068 Asp./Injection major joint Completed Encounters Type Date Location Provider Dx Diagnosis Office Visit 09/03/2018 Orthopaedic Office Chelsea Franklin M25.561 Pain in right 9:30a S., [facility] knee S83.221D Prph tear of medial meniscus, current injury, r knee, subs Office Visit 06/18/2018 Joon Franklin, M17.11 Unilateral primary 10:00a Office Chelsea Carmichael, osteoarthritis, RPAC right knee M75.41 Impingement syndrome of right shoulder M70.61 Trochanteric bursitis, right hip Office Visit 05/20/2018 2:30p Orthopaedic Office Chelsea Franklin M25.561 Pain in S., [facility] right knee M25.461 Effusion, right knee Office Visit 05/07/2018 9:00a Orthopaedic Office Chelsea Franklin M25.561 Pain in S., [facility] right knee M17.11 Unilateral primary osteoarthritis, right knee M25.551 Pain in right hip M25.511 Pain in right shoulder Office Visit 04/02/2018 10:00a Orthopaedic Office Chelsea Franklin M25.551 [facility] S., [facility] right hip M25.511 Pain in right shoulder M75.41 Impingement syndrome of right shoulder Office Visit 02/25/2018 Joon Franklin M70.61 Trochanteric 2:30p Office Chelsea Carmichael, bursitis, right [facility] hip M17.11 Unilateral primary osteoarthritis, right knee [...] 2:30p Orthopaedic Office Rigoberto, M17.11 Unilateral Chelsea Carmichael, primary RPAC osteoarthritis, right knee Office Visit 11/21/2010 1:30p Orthopaedic Office Kelsy, 719.43 Pain Joint Carmelo Carmichael MD Forearm 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 Valenzuela to discuss right knee arthroscopy.
[2018-10-03 15:34] VITALS: BP 126/90
[2018-10-03] MEDS ORDERED: Fluorescein Sodium TOPICAL* 1 MG TEST STRIP OPHTHALMIC ONE (16:35)
--- NOTE | 2018-10-03 16:53 | UC ---
Eye Complaint HPI - HPI Summary HPI Summary: Right eye pain with watering started yesterday. [place] like something under the upper lid. Worse this morning, tried to flush the eye but still having pain/ watering and some photophobia. - History of Current Complaint Chief Complaint: UCEye Stated Complaint: PAIN RIGHT EYE Time Seen by Provider: 10/03/18 16:22 Hx Obtained From: Patient Onset/Duration: Sudden Onset, Lasting Days - 2, Worse Since - today Timing: Constant Severity Initially: Mild Severity Currently: Moderate Pain Intensity: 5 Character: Foreign Body Sensation Aggravating Factor(s): Light, Blinking Alleviating Factor(s): Darkness Associated Signs And Symptoms: Positive: Photophobia, Drainage (Clear). Negative: Drainage (Purulent), Vision Impairment Bilateral, Fever, Swelling - Risk Factors Penetrating Injury Risk Factor: Negative Globe Rupture Risk Factors: Negative Acute Glaucoma Risk Factors: Diabetes - Allergies/Home Medications Allergies/Adverse Reactions: Allergies Allergy/AdvReac Type Severity Reaction Status Date / Time No Known Allergies Allergy Verified 10/03/18 15:30 Home Medications: Home Medications Lansoprazole [Prevacid] 1 tab DAILY 10/03/18 [History Confirmed 10/03/18] PMH/Surg Hx/FS Hx/Imm Hx Endocrine History: Diabetes Cardiovascular History: Hypertension Respiratory History: COPD GI/ History: Gastroesophageal Reflux - Surgical History Surgical History: Yes Surgery Procedure, Year, and Place: T&A. sinus surgery. Colon surgery - diverticulitis - Family History Known Family History: Positive: Hypertension, Diabetes, Non-Contributory - Social History Occupation: Employed Full-time Lives: With Family Alcohol Use: Occasionally Substance Use Type: None Smoking Status (MU): Former Smoker When Did the Patient Quit Smoking/Using Tobacco: 2004 - Immunization History Most Recent Influenza Vaccination: 03/2015 Review of Systems All Other Systems Reviewed And Are Negative: Yes Eyes: Positive: Drainage, Eye Redness, Photophobia Is Patient Immunocompromised?: No Physical Exam Triage Information Reviewed: Yes Appearance: Well-Appearing, Pain Distress - mild, Obese Vital Signs: Initial Vital Signs Temp 97.2 F 10/03/18 15:31 Pulse 87 10/03/18 15:31 Resp 16 10/03/18 15:31 BP 126/90 10/03/18 15:31 Pulse Ox 98 10/03/18 15:31 Vital Signs Reviewed: Yes Eyes: Positive: Conjunctiva Inflamed, Other: - Positive fluorescein uptake right middle lower cornea. < 2mm ENT Exam: Normal Neck exam: Normal Respiratory Exam: Normal Cardiovascular Exam: Normal Musculoskeletal Exam: Normal Neurological Exam: Normal Psychological Exam: Normal Skin Exam: Normal Eye Complaint Course/Dx - Differential Dx/Diagnosis Differential Diagnosis/HQI/PQRI: Conjunctivitis, Corneal Abrasion, Glaucoma, Penetrating Injury Provider Diagnosis: Corneal abrasion, right Discharge - Sign-Out/Discharge Documenting (check all that apply): Patient Departure All imaging exams completed and their final reports reviewed: No Studies - Discharge Plan Condition: Stable Disposition: HOME Prescriptions: Bacitracin OPHTH.OINT* 1 applic .SEE ORDER TID #3.5 gm Patient Education Materials: Corneal Abrasion (ED), Bacitracin (Into the eye) Referrals: Nilesh Cardenas MD [Primary Care Provider] - Nilesh Santos MD [Medical Doctor] - If Needed (if pain is not improving tomorrow) Additional Instructions: EYE OINTMENT USE: Wash hands. Place 1/4" strip across tip of finger. Pull lower lid down with the index finger and stabilize the ointment finger with the middle finger and scrape the ointment off on the lid. Pull the lid out and let go as you look down. - Billing Disposition and Condition Condition: STABLE Disposition: Home
== END 2018-10-03 17:07 | disposition home or self-care (01) ==
LOC: UCCORT 15:01
DX: S05.01XA Injury of conjunctiva and corneal abrasion without foreign body, right eye, initial encounter (principal); E11.9 Type 2 diabetes mellitus without complications; I10 Essential (primary) hypertension; J44.9 Chronic obstructive pulmonary disease, unspecified; Z87.891 Personal history of nicotine dependence
CPT/HCPCS: 99212; A9270-GY; G0463